=== PATIENT | male | born 1985 | race African-American/Black ===

== ENCOUNTER 2017-04-18 13:57 | Emergency (ER) ==
[2017-04-18] MEDS ORDERED: Ketorolac Tromethamine 60 MG/2 ML VIAL ONE (15:27)
== END 2017-04-18 15:56 | disposition home or self-care (01) ==
LOC: ERS 13:57
DX: B02.29 Other postherpetic nervous system involvement (principal); F17.210 Nicotine dependence, cigarettes, uncomplicated
CPT/HCPCS: 96372; J1885

== ENCOUNTER 2017-05-05 11:48 | Emergency (ER) | payer SELFPAY ==
[2017-05-05 12:32] LABS: Bilirubin Negative (Negative); Blood, Urine Small (Negative); Glucose, Urine (Dipstick) Negative (Negative); Leukocyte Negative (Negative); Nitrite Negative (Negative); Protein, Urine (Dipstick) Negative (Neg-Trace); Urobilinogen 0.2 mg/dL (0.2-1.0); pH, Urine 7.5 (5.0-9.0)
[2017-05-05 12:36] LABS: Clarity CLEAR (Clear)
[2017-05-05 12:38] LABS: Bacteria/HPF None Seen HPF (None Seen); Hyaline Casts/LPF NONE SEEN LPF (0-3 Hyaline); RBC/HPF 0-3 HPF (0-3); Squamous Epithelial 0-3 HPF (0-3); WBC/HPF None Seen HPF (0-3)
[2017-05-05 12:43] LABS: #Lymphocytes 1.5 thou/uL (1.20-3.40); #Monocytes 0.4 thou/uL (0.11-0.59); #Neutrophils 1.5 thou/uL (1.40-6.50); %Basophils 0.8 % (0.0-1.0); %Eosinophils 1.3 % (0.0-10.0); %Lymphocytes 43.9 % (21.0-51.0); %Monocytes 10.5 % (0.0-10.0); %Neutrophils 43.5 % (42.0-75.0); Mean Corpuscular HGB CONC 32.8 g/dL (32.0-36.0); Mean Corpuscular Hemoglobin 33.5 pg (27.0-31.0); Mean Platelet Volume 6.4 fL (7.4-10.4); Platelet Count 324 thou/uL (130-400); RBC Distribution Width 12.2 % (11.5-14.5); Red Blood Cell (RBC) Count 4.78 mill/uL (4.70-6.10); White Blood Cell (WBC) Count 3.4 thou/uL (4.8-10.8)
[2017-05-05 12:52] LABS: INR-International Normal Ratio 0.9; Prothrombin Time 12.7 SEC (12.0-14.7)
[2017-05-05 13:12] LABS: ALT (SGPT) 16 U/L (8-55); AST (SGOT) 22 U/L (5-34); Albumin 3.6 g/dL (3.5-5.0); Alkaline Phosphatase 81 U/L (40-150); Anion Gap 11 mmol/L (10-20); BUN (Urea Nitrogen) 10 mg/dL (8.9-20.6); Bilirubin, Total 0.4 mg/dL (0.2-1.2); Calc. Creatinine Clearance 0 mL/min (70-130); Calcium 9.6 mg/dL (7.8-10.44); Carbon Dioxide 25 mmol/L (22-29); Chloride 104 mmol/L (98-107); Estimated GFR-MDRD 80; Globulin 5.1 g/dL (2.4-3.5); Glucose 78 mg/dL (70-105); Lipase 109 U/L (8-78); Potassium 3.7 mmol/L (3.5-5.1); Protein, Total 8.7 g/dL (6.0-8.3); Sodium 136 mmol/L (136-145)
[2017-05-05] MEDS ORDERED: ISOVUE-370 76%-LOCM 1 ML ONE (13:43)
--- NOTE | 2017-05-05 14:37 | CT ---
CT OF THE ABDOMEN AND PELVIS WITH IV CONTRAST: INDICATION: History of abdominal pain, HIV, and rectal pain with some blood with bowel movements. The patient is also having nausea. COMPARISON: None. FINDINGS: The lung bases are clear. No focal hepatic lesion is evident. The pancreas, adrenal glands, and spleen appear within normal li mits. The spleen measures 10.4 cm. The kidneys are normal-appearing. No free fluid or enlarged lym ph nodes are evident. There is a normal appendix in the right lower quadrant. The bladder, prostate, and perirectal soft t issues appear within normal limits. The ischial rectal fossa appears within normal limits. There is slight prominence of soft tissue at the level of the anus on image 90 of series 2 which may reflect anal pathology. Recommend correlation. This is not well detailed on the CT scan. Unopacified large and small bowel appear within normal limits. No definite acute osseous abnormality is evident. IMPRESSION: 1. Soft tissue prominence seen at the level of the anus may reflect changes of prominent hemorrhoids or possibly related to an anal mass. Recommend direct visualization. The ischial rectal fossa is p reserved. No definite perirectal fluid collection is grossly evident. No intrapelvic mass or fluid is evident. 2. No additional abnormality noted. POS: [facility]
[2017-05-05] MEDS ORDERED: Piperacillin/Tazobactam 4.5 GM in Sodium Chloride 0.9% 100 ML IVPB ONE (15:00)
[2017-05-05] MEDS ORDERED: metroNIDAZOLE 500 MG/100 ML BAG ONE (15:09)
== END 2017-05-05 17:12 | disposition home or self-care (01) ==
LOC: ERS 11:48
DX: K64.4 Residual hemorrhoidal skin tags (principal); R10.9 Unspecified abdominal pain; R19.7 Diarrhea, unspecified; B20 Human immunodeficiency virus [HIV] disease; F17.210 Nicotine dependence, cigarettes, uncomplicated
CPT/HCPCS: 36415; 74177; 80053; 81003; 81015; 83690; 85025; 85610; 87040; 87086; 94760; 96361; 96365; 96367; 96375; J2270; J2543; J7050

== ENCOUNTER 2017-10-02 11:15 | Emergency (ER) | payer SELFPAY ==
[2017-10-02] MEDS ORDERED: Ketorolac Tromethamine 30 MG/ML VIAL ONE (12:36)
== END 2017-10-02 12:51 | disposition home or self-care (01) ==
LOC: ERS 11:15
DX: J01.90 Acute sinusitis, unspecified (principal); B34.9 Viral infection, unspecified; M67.432 Ganglion, left wrist; B20 Human immunodeficiency virus [HIV] disease; F17.210 Nicotine dependence, cigarettes, uncomplicated
CPT/HCPCS: 96372; J1885

== ENCOUNTER 2018-04-16 13:56 | Inpatient (IN) | payer SELFPAY ==
[2018-04-16] MEDS ORDERED: Morphine 4 MG/ML VIAL ONE ×2 (14:53)
--- NOTE | 2018-04-16 15:13 | RAD ---
CHEST 1 VIEW: INDICATION: Chest pain. COMPARISON: None. FINDINGS: Thee is a patchy area of airspace opacity within the right upper lobe which may reflect pneumonia. T he left lung is clear. No pneumothorax or pleural effusion is evident. There is a calcified granulo ma within the left upper lobe and right lower lobe. No acute osseous abnormality is evident. IMPRESSION: Patchy airspace opacity within the right upper lobe may reflect pneumonia. Recommend radiographic fo llowup to resolution. POS: [facility]
[2018-04-16 15:24] LABS: #Lymphocytes 1.2 thou/uL (1.20-3.40); #Monocytes 0.7 thou/uL (0.11-0.59); %Basophils 0.4 % (0.0-1.0); %Eosinophils 0.5 % (0.0-10.0); %Lymphocytes 13.4 % (21.0-51.0); %Neutrophils 77.8 % (42.0-75.0); Hemoglobin 16.7 g/dL (14.0-18.0); Mean Corpuscular HGB CONC 32.8 g/dL (32.0-36.0); Mean Corpuscular Hemoglobin 33.2 pg (27.0-31.0); Mean Platelet Volume 7.3 fL (7.4-10.4); Platelet Count 208 thou/uL (130-400); RBC Distribution Width 12.9 % (11.5-14.5); Red Blood Cell (RBC) Count 5.03 mill/uL (4.70-6.10)
[2018-04-16 15:45] LABS: ALT (SGPT) 13 U/L (8-55); AST (SGOT) 17 U/L (5-34); Alkaline Phosphatase 84 U/L (40-150); Anion Gap 15 mmol/L (10-20); BUN (Urea Nitrogen) 5 mg/dL (8.9-20.6); Bilirubin, Total 0.5 mg/dL (0.2-1.2); CK (CPK) 169 U/L (30-200); Calc. Creatinine Clearance 0 mL/min (70-130); Calcium 9.5 mg/dL (7.8-10.44); Carbon Dioxide 20 mmol/L (22-29); Chloride 104 mmol/L (98-107); Estimated GFR-MDRD 85; Globulin 4.1 g/dL (2.4-3.5); Glucose 63 mg/dL (70-105); Lipase 88 U/L (8-78); Potassium 4.2 mmol/L (3.5-5.1); Protein, Total 8.1 g/dL (6.0-8.3); Sodium 135 mmol/L (136-145)
[2018-04-16] MEDS ORDERED: cefTRIAXone\\ROCEPHIN 2 GM VIAL ONE (15:45)
[2018-04-16] MEDS ORDERED: Azithromycin 500 MG VIAL ONE (17:15)
[2018-04-16] MEDS ORDERED: Ondansetron PF 4 MG/2 ML Vial ONE (17:33)
[2018-04-16] MEDS ORDERED: Ondansetron PF 4 MG/2 ML Vial IVP PRN (18:24)
[2018-04-16] MEDS ORDERED: Ondansetron ODT 4 MG TAB SL PRN (18:24)
[2018-04-16 19:22] LABS: Lactic Acid 2.4 mmol/L (0.5-2.2)
[2018-04-16] MEDS ORDERED: Acetaminophen 325 MG TAB PO PRN (19:51)
[2018-04-16 20:22] VITALS: BMI 22.4
[2018-04-16] MEDS ORDERED: traMADol HCl 50 MG TAB PO PRN (22:05)
[2018-04-17] MEDS ORDERED: Eucerin (Mineral Oil/Petrolatum,White) 30 gm Jar TOP PRN (07:39)
[2018-04-17] MEDS ORDERED: Artificial Tears 18 DROP/0.9 ML EA EYE PRN (07:39)
[2018-04-17] MEDS ORDERED: Senokot S 8.6-50 MG TAB PO PRN (07:39)
[2018-04-17] MEDS ORDERED: Ondansetron ODT 4 MG TAB PO PRN (07:39)
[2018-04-17] MEDS ORDERED: Sodium Chloride 0.65% Nasal 44 ML BOT EA NARE PRN (07:39)
[2018-04-17] MEDS ORDERED: Diabetic Tussin 200 MG/10 ML UDCUP PO PRN (07:39)
[2018-04-17] MEDS ORDERED: Zolpidem Tartrate 5 MG TAB PO PRN (07:39)
[2018-04-17] MEDS ORDERED: Cepastat Lozenges 1 LOZ PO PRN (07:39)
[2018-04-17] MEDS ORDERED: Acetaminophen 500 MG TAB PO PRN (07:39)
[2018-04-17] MEDS ORDERED: Ondansetron PF 4 MG/2 ML Vial IVP PRN (07:39)
[2018-04-17] MEDS ORDERED: Calcium Carbonate 500 MG ChewTAB PO PRN (07:39)
[2018-04-17] MEDS ORDERED: Loperamide HCl 2 MG CAP PO PRN (07:39)
[2018-04-17] MEDS ORDERED: Loratadine 10 MG TAB PO PRN (07:39)
[2018-04-17] MEDS ORDERED: hydrALAZINE 20 MG/ML VIAL SLOW IVP PRN (07:39)
[2018-04-17] MEDS ORDERED: Bisacodyl 5 MG TAB PO PRN (07:39)
--- NOTE | 2018-04-17 07:46 | HP ---
PRIMARY CARE PHYSICIAN: Damir Chester MD. He does not follow with any other PCP. CODE STATUS: Full code. TIME OF EVALUATION: 11:30. CHIEF COMPLAINT: Cough, generalized weakness. HISTORY OF PRESENT ILLNESS: This is a 33-year-old male patient with past medical history of HIV. The patient came to the hospital after having chest pain associated with gradually worsening moderate shortness of breath, fever, generalized weakness; no clear triggers, no alleviating factors. The patient reported following with Dr. Chester for HIV, but does not recall his last CD4. REVIEW OF SYSTEMS: CONSTITUTIONAL: The patient has fever, chills, generalized weakness. RESPIRATORY: Cough with sputum production, shortness of breath, also chest pain. CARDIOVASCULAR: no sob, no chest pain palpitations. GASTROINTESTINAL: The patient has nausea. No vomiting. No diarrhea or abdominal pain. TRADE SHOW COORDINATOR: No dizziness, headache, or feeling lightheaded. GENITOURINARY: No burning on urination. EXTREMITIES: No leg swelling. All other systems were reviewed and negative except for the findings mentioned above. PAST MEDICAL HISTORY: Includes history of HIV, history of noncompliance, history of syphilis. PAST SURGICAL HISTORY: The patient has no surgical history. PSYCH HISTORY: No psych history. SOCIAL HISTORY: Drinks socially every week. The patient use marijuana, smokes cigarettes half a pack per day. KNOWN ALLERGIES: No known drug allergies. REPORTED MEDICATIONS: Januvia. PHYSICAL EXAMINATION: VITAL SIGNS: On presentation, blood pressure 152/97 with heart rate 85, respiratory rate was 18, temperature 98.2. Pain was 10. Oxygen saturation was 99 on room air. GENERAL APPEARANCE: The patient has generalized weakness, being very ill, febrile during my examination, not in any acute distress. HEENT: Eyes, normal conjunctivae. Moist oral mucosa. Anicteric. No JVD. RESPIRATORY: The patient has bilateral air entry and bilateral rales. No wheezes. Symmetric expansion. CARDIOVASCULAR: Normal rate. Regular rhythm. murmurs. No gallops. No edema. ABDOMEN: Soft. Normal bowel sounds. MUSCULOSKELETAL: Baseline range of motion and strength. No tenderness. SKIN: Warm, intact. No pallor. No rash. No redness. EXTREMITIES: Peripheral pulses are present. Capillary refill seems to be intact. NEURO: No evidence of any new focal weakness. Baseline speech. Cranial nerves seems to be intact. PSYCH: The patient is in good mood. No anxiety. Oriented, optimal judgment. DIAGNOSTIC DATA: EKG was reviewed. The patient has normal sinus rhythm, normal EKG with a ventricular rate of 62. Chest x-ray was reviewed and the patient has patchy airspace opacity within the right upper lobe that may reflect pneumonia. LABORATORY DATA: Labs were reviewed. The patient has a white count of 9, hemoglobin 16.7, MCV 101 with platelet count 208. Chemistry: Sodium 135, potassium 4.2, chloride 104, carbon dioxide 20, anion gap 15, BUN 5, creatinine 1.21, GFR 85, glucose 63, lactic acid 3.6 with repeat one 2.4. LFTs were normal. Troponin was negative. ASSESSMENT AND PLAN: The patient was placed in the hospital with the following medical problems; 1. Right upper lobe pneumonia. The patient is being started on Rocephin and Zithromax, we have consulted Dr. Chester for any further recommendations since he follows with this patient for human immunodeficiency virus. Human immunodeficiency virus medication has been reconciled. We will follow cultures, we will adjust treatment as per sensitivity. Opportunistic infections are also under differential, we will re-evaluate the patient in the morning during further treatment adjustments if the patient is not improving. 1. Human immunodeficiency virus infection, we will reconcile home medications. Follow up with Dr. Chester' recommendations. 2. Deep vein thrombosis prophylaxis. Job ID: [id number] [facility]
[2018-04-17] MEDS: HYDROcodone/Acetaminophen 5/325 mg Tablet PO PRN ×3 (08:11→21:03)
[2018-04-17] MEDS: Famotidine 20 MG TAB PO SCH ×2 (08:13→20:59)
[2018-04-17] MEDS: Enoxaparin Sodium 40 MG/0.4 ML SYRINGE SC SCH (08:13)
[2018-04-17] MEDS: Saccharomyces boulardii 250 MG CAP PO SCH (08:13)
[2018-04-17] MEDS ORDERED: Prevnar 13-Val Conj/PF 0.5 ML SYRINGE IM ONE (09:00)
[2018-04-17 09:16] LABS: Base Excess-Venous 2.7 mmol/L (0 (+/- 2.5)); Bicarbonate (HCO3v) 28.7 mmol/L (22.0-29.0); Calcium, Ionized 1.19 mmol/L (1.12-1.32); Hemoglobin - Calc 15.9 g/dL (12.0-18.0); O2 Tension (PvO2) 40.1 mmHg (35.0-45.0); Potassium 3.8 mmol/L (3.4-4.7); T. Carbon Dioxide 30.2 mmol/L (1.0-85.0); pH (Venous) 7.385 (7.35-7.45); vO2 Saturation-calc 73.5 % (94-98)
--- NOTE | 2018-04-17 09:53 | PDOC.PN ---
- Subjective Encounter Start Date: 04/17/18 Encounter Start Time: 08:40 -: old records requested/rev pt has cough, no hemoptysis, has weight loss Patient seen and examined. No overnight events - Objective Resuscitation Status - Order Detail: 04/17/18 07:39 Resuscitation Status Routine Resuscitation Status: FULL: Full Resuscitation MAR Reviewed: Yes Vital Signs & Weight: Vital Signs (12 hours) Temp Pulse Resp BP Pulse Ox 04/17/18 07:11 98.3 F 70 16 119/77 100 Weight Weight 165 lb Result Diagrams: 04/16/18 15:09 04/16/18 15:09 Radiology Reviewed by me: Yes (chest xray reviwed) Phys Exam - Physical Examination Constitutional: NAD HEENT: PERRLA, moist MMs, sclera anicteric Neck: no JVD, supple Respiratory: no wheezing, no rales, no rhonchi Cardiovascular: RRR, no significant murmur, no rub Gastrointestinal: soft, non-tender, no distention, positive bowel sounds Musculoskeletal: no edema, pulses present Neurological: non-focal, normal sensation, moves all 4 limbs Lymphatic: no nodes Psychiatric: normal affect, A&O x 3 Skin: no rash, normal turgor Dx/Plan (1) Community acquired bacterial pneumonia Code(s): J15.9 - UNSPECIFIED BACTERIAL PNEUMONIA Status: Acute Comment: right upper lobe (2) Hyponatremia Code(s): E87.1 - HYPO-OSMOLALITY AND HYPONATREMIA Status: Acute (3) Lactic acidosis Code(s): E87.2 - ACIDOSIS Status: Acute (4) HIV (human immunodeficiency virus infection) Code(s): B20 - HUMAN IMMUNODEFICIENCY VIRUS [HIV] DISEASE Status: Chronic (5) Macrocytosis Code(s): D75.89 - OTHER SPECIFIED DISEASES OF BLOOD AND BLOOD-FORMING ORGANS Status: Chronic - Plan cont current plan of care, continue antibiotics * medication reviewed as below * symptomatic treatment * continue rocephin and azithromycin * ID consulted and will decide if he needs more imaging like CT chest for more better evaluation of current finding on chest xray * I advised him to follow up with repeat imaging for resolution. Review of Systems - Review of Systems ENT: negative: Ear Pain, Ear Discharge, Nose Pain, Nose Discharge, Nose Congestion, Mouth Pain, Mouth Swelling, Throat Pain, Throat Swelling, Other Respiratory: Cough. negative: Dry, Shortness of Breath, Hemoptysis, SOB with Excertion, Pleuritic Pain, Sputum, Wheezing Cardiovascular: negative: chest pain, palpitations, orthopnea, paroxysmal nocturnal dyspnea, edema, light headedness, other Gastrointestinal: negative: Nausea, Vomiting, Abdominal Pain, Diarrhea, Constipation, Melena, Hematochezia, Other Genitourinary: negative: Dysuria, Frequency, Incontinence, Hematuria, Retention , Other Musculoskeletal: negative: Neck Pain, Shoulder Pain, Arm Pain, Back Pain, Hand Pain, Leg Pain, Foot Pain, Other Skin: negative: Rash, Lesions, Antoine, Bruising, Other - Medications/Allergies Allergies/Adverse Reactions: Allergies Allergy/AdvReac Type Severity Reaction Status Date / Time No Known Allergies Allergy Unverified 05/05/17 14:47 Medications: Current Medications Acetaminophen (Tylenol) 650 mg PO Q4H PRN PRN Reason: Mild Pain (1-3)/ FEVER Acetaminophen (Tylenol) 500 mg PO Q6H PRN PRN Reason: Mild Pain (1-3) Hydrocodone Bitart/Acetaminophen ([place] 5/325) 1 tab PO Q4H PRN PRN Reason: Moderate Pain (4-6) Last Admin: 04/17/18 08:11 Dose: 1 tab Artificial Tears (Tears Naturale) 2 drop EA EYE PRN PRN PRN Reason: Dry Eyes Bisacodyl (Dulcolax) 10 mg PO DAILYPRN PRN PRN Reason: Constipation Calcium Carbonate (Tums) 1,000 mg PO Q4H PRN PRN Reason: Heartburn or Indigestion Enoxaparin Sodium (Lovenox) 40 mg SC 0900 [facility] Last Admin: 04/17/18 08:13 Dose: 40 mg Famotidine (Pepcid) 20 mg PO BID [facility] Last Admin: 04/17/18 08:13 Dose: 20 mg Guaifenesin (Robitussin Sf) 200 mg PO Q4H PRN PRN Reason: Cough Hydralazine HCl (Apresoline) 10 mg SLOW IVP Q4H PRN PRN Reason: SBP > 180 and HR < 70 Azithromycin 500 mg/ Sodium (Chloride) 250 mls @ 250 mls/hr IVPB Q24HR [facility] Ceftriaxone Sodium 2 gm/ (Sodium Chloride) 100 mls @ 200 mls/hr IVPB Q24HR [facility] Loperamide HCl (Imodium) 2 mg PO PRN PRN PRN Reason: Diarrhea/Loose Stools Loratadine (Claritin) 10 mg PO DAILYPRN PRN PRN Reason: Sinus Symptoms Mineral Oil/White Petrolatum (Eucerin Cream) 0 gm TOP BIDPRN PRN PRN Reason: Dry Skin Ondansetron HCl (Zofran Odt) 4 mg PO Q6H PRN PRN Reason: Nausea/Vomiting Ondansetron HCl (Zofran) 4 mg IVP Q6H PRN PRN Reason: Nausea/Vomiting (Elviteg/Cob/Emtri/Tenof Alafen [ Genvoya Tablet] 1 Tab) 1 each PO DAILY [facility] Saccharomyces Boulardii (Florastor) 250 mg PO DAILY [facility] Last Admin: 04/17/18 08:13 Dose: 250 mg Senna/Docusate Sodium (Senokot S) 2 tab PO BID PRN PRN Reason: Constipation Sodium Chloride ([place] Nasal [place] 0.65%) 0 ml EA NARE QIDPRN PRN PRN Reason: Nasal Congestion Sodium Chloride (Flush - Normal Saline) 10 ml IVF Q12HR [facility] Last Admin: 04/17/18 08:15 Dose: 10 ml Sodium Chloride (Flush - Normal Saline) 10 ml IVF PRN PRN PRN Reason: Saline Flush Throat Lozenges (Cepastat Lozenges) 1 carroll PO Q2H PRN PRN Reason: Sore Throat Tramadol HCl (Ultram) 50 mg PO Q6H PRN PRN Reason: Moderate Pain (4-6) Last Admin: 04/16/18 22:22 Dose: 50 mg Zolpidem Tartrate (Ambien) 5 mg PO HSPRN PRN PRN Reason: Insomnia
[2018-04-17] MEDS: (Elviteg/Cob/Emtri/Tenof Alafen [Genvoya Tablet] 1 TAB) PO SCH (11:00)
[2018-04-17] MEDS: cefTRIAXone\\ROCEPHIN 2 GM in Sodium Chloride 0.9% 100 ML IVPB SCH (15:16)
[2018-04-17] MEDS: Azithromycin 500 MG in Sodium Chloride 0.9% 250 ML 250 ML IVPB SCH (16:40)
--- NOTE | 2018-04-17 20:47 | CON ---
DATE OF CONSULTATION: 04/17/2018 REASON FOR CONSULTATION: Pneumonia. HISTORY OF PRESENT ILLNESS: This is a 33-year-old male who has a history of HIV seropositive status, who had been on effective anti-retroviral therapy for the past 2 years with Genvoya. Last time I saw him was in 08/2017. He missed his visit on 03/05. His last CD4 cell count was in the 600 range and he presents this time with fever, chills, chest pain in the anterior lower chest area, cough. He had a chest x-ray which was consistent with community-acquired pneumonia. He was admitted for management. Currently, he feels a little better. No headaches. No visual symptoms, sore throat, odynophagia, or dysphagia. A little bit of cough, but no more sputum production. Chest pain is on and off. No back pain. No abdominal pain or diarrhea. No genitourinary symptoms. 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 PAST MEDICAL HISTORY: Longstanding HIV infection. His last CD4 cell count was in the mid 600 range and viral load was I believe undetectable. He has a history of syphilis as well. 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 ALLERGIES: NONE. CURRENT MEDICATION LIST: Azithromycin, ceftriaxone. He is also taking his anti-retroviral medication, p.r.n. medications. PHYSICAL EXAMINATION: VITAL SIGNS: T-max 99, his other vital signs are normal. O2 saturation 100% on room air. SKIN: Normal. No lymphadenopathy. Ocular movements conjugate. Oral cavity is normal. NECK: Supple. No jugular venous distention. LUNGS: With fairly clear breath sounds. A little bit of crackle in the right anterior chest area upper segment. HEART: S1 and S2. Regular rate. No S3 or S4. No murmurs. ABDOMEN: Soft, not distended or tender. No genital abnormalities. MUSCULOSKELETAL: No joint inflammatory activity. NEUROLOGIC: Nonfocal. LABORATORY DATA: White cell count 9.0, hemoglobin 16.7, platelets 208 with 77% neutrophils. PH 7.38, pCO2 of 48, pO2 of 40, this is a venous gas. Creatinine 1.21. Liver profile normal. Albumin 4.0. Blood cultures 2 sets, no growth. Chest x-ray with patchy airspace opacity within the right upper lobe. ASSESSMENT: Human immunodeficiency virus seropositive status with adequate CD4 cell count now, presents with an infiltrate in the right upper lobe with cough and some chest pain. DISCUSSION: Differential diagnosis includes usual community-acquired pneumonia associated pathogens such as strep pneumoniae and other organisms versus mycobacterial infection. Fungal is less likely in view of his elevated CD4 cell count on last checked 6 months ago. Usual CD4 counts decreased slowly over the years and I would not expect any major changes from the past result from August last year. The only thing we need to do is repeat the QuantiFERON and submit sputums for AF[employer]. He will have to be in airborne precautions until that is cleared. If we get no sputums and he is doing well, then he could be discharged for outpatient followup on oral doxycycline or oral quinolone. He should continue on his anti-retroviral medication. Follow up in the clinic in 2 to 3 weeks. Job ID: [id number]
[2018-04-17] MEDS: Nicotine 14 MG PATCH TOP SCH (20:59)
[2018-04-18] MEDS: HYDROcodone/Acetaminophen 5/325 mg Tablet PO PRN ×4 (01:24→21:17)
[2018-04-18 06:06] LABS: #Basophils 0.1 thou/uL (0.0-0.2); #Eosinphils 0.1 thou/uL (0.0-0.7); #Lymphocytes 2.9 thou/uL (1.20-3.40); #Monocytes 0.6 thou/uL (0.11-0.59); %Basophils 0.7 % (0.0-1.0); %Monocytes 5.8 % (0.0-10.0); %Neutrophils 65.5 % (42.0-75.0); Hemoglobin 14.8 g/dL (14.0-18.0); Mean Corpuscular HGB CONC 33.3 g/dL (32.0-36.0); Mean Corpuscular Hemoglobin 34.2 pg (27.0-31.0); Mean Platelet Volume 7.1 fL (7.4-10.4); Platelet Count 195 thou/uL (130-400); RBC Distribution Width 12.6 % (11.5-14.5); Red Blood Cell (RBC) Count 4.33 mill/uL (4.70-6.10); White Blood Cell (WBC) Count 10.7 thou/uL (4.8-10.8)
[2018-04-18 06:36] LABS: Anion Gap 12 mmol/L (10-20); BUN (Urea Nitrogen) 8 mg/dL (8.9-20.6); Calc. Creatinine Clearance 86 mL/min (70-130); Calcium 9.2 mg/dL (7.8-10.44); Carbon Dioxide 23 mmol/L (22-29); Chloride 105 mmol/L (98-107); Estimated GFR-MDRD 77; Glucose 78 mg/dL (70-105); Potassium 3.7 mmol/L (3.5-5.1); Sodium 136 mmol/L (136-145)
[2018-04-18] MEDS: Famotidine 20 MG TAB PO SCH ×2 (08:59→21:18)
[2018-04-18] MEDS: Saccharomyces boulardii 250 MG CAP PO SCH (08:59)
[2018-04-18] MEDS: (Elviteg/Cob/Emtri/Tenof Alafen [Genvoya Tablet] 1 TAB) PO SCH (09:00)
[2018-04-18] MEDS: Enoxaparin Sodium 40 MG/0.4 ML SYRINGE SC SCH (09:00)
--- NOTE | 2018-04-18 09:54 | PDOC.PN ---
- Subjective Encounter Start Date: 04/18/18 Encounter Start Time: 08:50 Patient seen and examined. No new complaints. No overnight events - Objective Resuscitation Status - Order Detail: 04/17/18 07:39 Resuscitation Status Routine Resuscitation Status: FULL: Full Resuscitation MAR Reviewed: Yes Vital Signs & Weight: Vital Signs (12 hours) Temp Pulse Resp BP Pulse Ox 04/18/18 07:32 97.9 F 63 18 132/91 H 98 Weight Weight 165 lb I&O: 04/17/18 04/18/18 04/19/18 06:59 06:59 06:59 Intake Total 1270 Balance 1270 Result Diagrams: 04/18/18 05:55 04/18/18 05:55 Phys Exam - Physical Examination Constitutional: NAD HEENT: PERRLA, moist MMs, sclera anicteric Neck: no JVD, supple Respiratory: no wheezing, no rales, no rhonchi Cardiovascular: RRR, no significant murmur, no rub Gastrointestinal: soft, non-tender, no distention, positive bowel sounds Musculoskeletal: no edema, pulses present Neurological: non-focal, normal sensation, moves all 4 limbs Lymphatic: no nodes Psychiatric: normal affect, A&O x 3 Skin: no rash, normal turgor Dx/Plan (1) Community acquired bacterial pneumonia Code(s): J15.9 - UNSPECIFIED BACTERIAL PNEUMONIA Status: Acute Comment: right upper lobe (2) Hyponatremia Code(s): E87.1 - HYPO-OSMOLALITY AND HYPONATREMIA Status: Acute (3) Lactic acidosis Code(s): E87.2 - ACIDOSIS Status: Acute (4) HIV (human immunodeficiency virus infection) Code(s): B20 - HUMAN IMMUNODEFICIENCY VIRUS [HIV] DISEASE Status: Chronic (5) Macrocytosis Code(s): D75.89 - OTHER SPECIFIED DISEASES OF BLOOD AND BLOOD-FORMING ORGANS Status: Chronic - Plan cont current plan of care, continue antibiotics * continue rocephin and azithromycin * rule out Tb * continue HIV meds * medication reviewed as below * symptomatic treatment. Review of Systems - Review of Systems ENT: negative: Ear Pain, Ear Discharge, Nose Pain, Nose Discharge, Nose Congestion, Mouth Pain, Mouth Swelling, Throat Pain, Throat Swelling, Other Respiratory: negative: Cough, Dry, Shortness of Breath, Hemoptysis, SOB with Excertion, Pleuritic Pain, Sputum, Wheezing Cardiovascular: negative: chest pain, palpitations, orthopnea, paroxysmal nocturnal dyspnea, edema, light headedness, other Gastrointestinal: negative: Nausea, Vomiting, Abdominal Pain, Diarrhea, Constipation, Melena, Hematochezia, Other Genitourinary: negative: Dysuria, Frequency, Incontinence, Hematuria, Retention , Other Musculoskeletal: negative: Neck Pain, Shoulder Pain, Arm Pain, Back Pain, Hand Pain, Leg Pain, Foot Pain, Other - Medications/Allergies Allergies/Adverse Reactions: Allergies Allergy/AdvReac Type Severity Reaction Status Date / Time No Known Allergies Allergy Unverified 05/05/17 14:47 Medications: Current Medications Acetaminophen (Tylenol) 650 mg PO Q4H PRN PRN Reason: Mild Pain (1-3)/ FEVER Acetaminophen (Tylenol) 500 mg PO Q6H PRN PRN Reason: Mild Pain (1-3) Hydrocodone Bitart/Acetaminophen ([place] 5/325) 1 tab PO Q4H PRN PRN Reason: Moderate Pain (4-6) Last Admin: 04/18/18 08:58 Dose: 1 tab Artificial Tears (Tears Naturale) 2 drop EA EYE PRN PRN PRN Reason: Dry Eyes Bisacodyl (Dulcolax) 10 mg PO DAILYPRN PRN PRN Reason: Constipation Calcium Carbonate (Tums) 1,000 mg PO Q4H PRN PRN Reason: Heartburn or Indigestion Enoxaparin Sodium (Lovenox) 40 mg SC 0900 [facility] Last Admin: 04/18/18 09:00 Dose: 40 mg Famotidine (Pepcid) 20 mg PO BID [facility] Last Admin: 04/18/18 08:59 Dose: 20 mg Guaifenesin (Robitussin Sf) 200 mg PO Q4H PRN PRN Reason: Cough Hydralazine HCl (Apresoline) 10 mg SLOW IVP Q4H PRN PRN Reason: SBP > 180 and HR < 70 Azithromycin 500 mg/ Sodium (Chloride) 250 mls @ 250 mls/hr IVPB Q24HR [facility] Last Admin: 04/17/18 16:40 Dose: 250 mls Ceftriaxone Sodium 2 gm/ (Sodium Chloride) 100 mls @ 200 mls/hr IVPB Q24HR [facility] Last Admin: 04/17/18 15:16 Dose: 100 mls Loperamide HCl (Imodium) 2 mg PO PRN PRN PRN Reason: Diarrhea/Loose Stools Loratadine (Claritin) 10 mg PO DAILYPRN PRN PRN Reason: Sinus Symptoms Mineral Oil/White Petrolatum (Eucerin Cream) 0 gm TOP BIDPRN PRN PRN Reason: Dry Skin Nicotine (Nicoderm Patch) 14 mg TOP Q24HR [facility] Last Admin: 04/17/18 20:59 Dose: 14 mg Ondansetron HCl (Zofran Odt) 4 mg PO Q6H PRN PRN Reason: Nausea/Vomiting Ondansetron HCl (Zofran) 4 mg IVP Q6H PRN PRN Reason: Nausea/Vomiting (Elviteg/Cob/Emtri/Tenof Alafen [ Genvoya Tablet] 1 Tab) 0 each PO DAILY [facility] Last Admin: 04/18/18 09:00 Dose: 1 each Saccharomyces Boulardii (Florastor) 250 mg PO DAILY [facility] Last Admin: 04/18/18 08:59 Dose: 250 mg Senna/Docusate Sodium (Senokot S) 2 tab PO BID PRN PRN Reason: Constipation Last Admin: 04/18/18 09:13 Dose: 2 tab Sodium Chloride ([place] Nasal [place] 0.65%) 0 ml EA NARE QIDPRN PRN PRN Reason: Nasal Congestion Sodium Chloride (Flush - Normal Saline) 10 ml IVF Q12HR [facility] Last Admin: 04/18/18 09:03 Dose: 10 ml Sodium Chloride (Flush - Normal Saline) 10 ml IVF PRN PRN PRN Reason: Saline Flush Throat Lozenges (Cepastat Lozenges) 1 carroll PO Q2H PRN PRN Reason: Sore Throat Tramadol HCl (Ultram) 50 mg PO Q6H PRN PRN Reason: Moderate Pain (4-6) Last Admin: 04/16/18 22:22 Dose: 50 mg Zolpidem Tartrate (Ambien) 5 mg PO HSPRN PRN PRN Reason: Insomnia
[2018-04-18] MEDS: cefTRIAXone\\ROCEPHIN 2 GM in Sodium Chloride 0.9% 100 ML IVPB SCH (15:21)
[2018-04-18] MEDS: Azithromycin 500 MG in Sodium Chloride 0.9% 250 ML 250 ML IVPB SCH (15:45)
[2018-04-18] MEDS: Nicotine 14 MG PATCH TOP SCH (18:16)
[2018-04-19] MEDS: HYDROcodone/Acetaminophen 5/325 mg Tablet PO PRN ×4 (02:30→23:05)
[2018-04-19] MEDS: (Elviteg/Cob/Emtri/Tenof Alafen [Genvoya Tablet] 1 TAB) PO SCH (08:45)
[2018-04-19] MEDS: Enoxaparin Sodium 40 MG/0.4 ML SYRINGE SC SCH (08:46)
[2018-04-19] MEDS: Famotidine 20 MG TAB PO SCH ×2 (08:46→21:04)
[2018-04-19] MEDS: Saccharomyces boulardii 250 MG CAP PO SCH (08:46)
--- NOTE | 2018-04-19 10:02 | PDOC.PN ---
- Subjective Encounter Start Date: 04/19/18 Encounter Start Time: 07:30 Patient seen and examined. No new complaints. No overnight events - Objective Resuscitation Status - Order Detail: 04/17/18 07:39 Resuscitation Status Routine Resuscitation Status: FULL: Full Resuscitation MAR Reviewed: Yes Vital Signs & Weight: Vital Signs (12 hours) Temp Pulse Resp BP Pulse Ox 04/19/18 08:00 97.8 F 61 18 122/80 97 Weight Weight 165 lb I&O: 04/18/18 04/19/18 04/20/18 06:59 06:59 06:59 Intake Total 1270 600 Balance 1270 600 Result Diagrams: 04/18/18 05:55 04/18/18 05:55 Phys Exam - Physical Examination Constitutional: NAD HEENT: PERRLA, moist MMs, sclera anicteric Neck: no JVD, supple Respiratory: no wheezing, no rales, no rhonchi Cardiovascular: RRR, no significant murmur, no rub Gastrointestinal: soft, non-tender, no distention, positive bowel sounds Musculoskeletal: no edema, pulses present Neurological: non-focal, normal sensation, moves all 4 limbs Lymphatic: no nodes Psychiatric: normal affect, A&O x 3 Skin: no rash, normal turgor Dx/Plan (1) Community acquired bacterial pneumonia Code(s): J15.9 - UNSPECIFIED BACTERIAL PNEUMONIA Status: Acute Comment: right upper lobe (2) Hyponatremia Code(s): E87.1 - HYPO-OSMOLALITY AND HYPONATREMIA Status: Acute (3) Lactic acidosis Code(s): E87.2 - ACIDOSIS Status: Acute (4) HIV (human immunodeficiency virus infection) Code(s): B20 - HUMAN IMMUNODEFICIENCY VIRUS [HIV] DISEASE Status: Chronic (5) Macrocytosis Code(s): D75.89 - OTHER SPECIFIED DISEASES OF BLOOD AND BLOOD-FORMING ORGANS Status: Chronic - Plan cont current plan of care, continue antibiotics * medication reviewed as below * symptomatic treatment * continue rocephin and azithromycin * once Tb ruled out, will consider discharge on oral meds * I advised him again to repeat chest xray on follow up with PCP to document resolution. Review of Systems - Review of Systems ENT: negative: Ear Pain, Ear Discharge, Nose Pain, Nose Discharge, Nose Congestion, Mouth Pain, Mouth Swelling, Throat Pain, Throat Swelling, Other Respiratory: negative: Cough, Dry, Shortness of Breath, Hemoptysis, SOB with Excertion, Pleuritic Pain, Sputum, Wheezing Cardiovascular: negative: chest pain, palpitations, orthopnea, paroxysmal nocturnal dyspnea, edema, light headedness, other Gastrointestinal: negative: Nausea, Vomiting, Abdominal Pain, Diarrhea, Constipation, Melena, Hematochezia, Other Genitourinary: negative: Dysuria, Frequency, Incontinence, Hematuria, Retention , Other Musculoskeletal: negative: Neck Pain, Shoulder Pain, Arm Pain, Back Pain, Hand Pain, Leg Pain, Foot Pain, Other - Medications/Allergies Allergies/Adverse Reactions: Allergies Allergy/AdvReac Type Severity Reaction Status Date / Time No Known Allergies Allergy Unverified 05/05/17 14:47 Medications: Current Medications Acetaminophen (Tylenol) 650 mg PO Q4H PRN PRN Reason: Mild Pain (1-3)/ FEVER Acetaminophen (Tylenol) 500 mg PO Q6H PRN PRN Reason: Mild Pain (1-3) Hydrocodone Bitart/Acetaminophen ([place] 5/325) 1 tab PO Q4H PRN PRN Reason: Moderate Pain (4-6) Last Admin: 04/19/18 08:43 Dose: 1 tab Artificial Tears (Tears Naturale) 2 drop EA EYE PRN PRN PRN Reason: Dry Eyes Bisacodyl (Dulcolax) 10 mg PO DAILYPRN PRN PRN Reason: Constipation Calcium Carbonate (Tums) 1,000 mg PO Q4H PRN PRN Reason: Heartburn or Indigestion Enoxaparin Sodium (Lovenox) 40 mg SC 0900 [facility] Last Admin: 04/19/18 08:46 Dose: 40 mg Famotidine (Pepcid) 20 mg PO BID [facility] Last Admin: 04/19/18 08:46 Dose: 20 mg Guaifenesin (Robitussin Sf) 200 mg PO Q4H PRN PRN Reason: Cough Hydralazine HCl (Apresoline) 10 mg SLOW IVP Q4H PRN PRN Reason: SBP > 180 and HR < 70 Azithromycin 500 mg/ Sodium (Chloride) 250 mls @ 250 mls/hr IVPB Q24HR [facility] Last Admin: 04/18/18 15:45 Dose: 250 mls Ceftriaxone Sodium 2 gm/ (Sodium Chloride) 100 mls @ 200 mls/hr IVPB Q24HR [facility] Last Admin: 04/18/18 15:21 Dose: 100 mls Loperamide HCl (Imodium) 2 mg PO PRN PRN PRN Reason: Diarrhea/Loose Stools Loratadine (Claritin) 10 mg PO DAILYPRN PRN PRN Reason: Sinus Symptoms Mineral Oil/White Petrolatum (Eucerin Cream) 0 gm TOP BIDPRN PRN PRN Reason: Dry Skin Nicotine (Nicoderm Patch) 14 mg TOP Q24HR [facility] Last Admin: 04/18/18 18:16 Dose: 14 mg Ondansetron HCl (Zofran Odt) 4 mg PO Q6H PRN PRN Reason: Nausea/Vomiting Ondansetron HCl (Zofran) 4 mg IVP Q6H PRN PRN Reason: Nausea/Vomiting (Elviteg/Cob/Emtri/Tenof Alafen [ Genvoya Tablet] 1 Tab) 0 each PO DAILY [facility] Last Admin: 04/19/18 08:45 Dose: 1 each Saccharomyces Boulardii (Florastor) 250 mg PO DAILY [facility] Last Admin: 04/19/18 08:46 Dose: 250 mg Senna/Docusate Sodium (Senokot S) 2 tab PO BID PRN PRN Reason: Constipation Last Admin: 04/18/18 09:13 Dose: 2 tab Sodium Chloride ([place] Nasal [place] 0.65%) 0 ml EA NARE QIDPRN PRN PRN Reason: Nasal Congestion Sodium Chloride (Flush - Normal Saline) 10 ml IVF Q12HR [facility] Last Admin: 04/19/18 08:47 Dose: 10 ml Sodium Chloride (Flush - Normal Saline) 10 ml IVF PRN PRN PRN Reason: Saline Flush Throat Lozenges (Cepastat Lozenges) 1 carroll PO Q2H PRN PRN Reason: Sore Throat Tramadol HCl (Ultram) 50 mg PO Q6H PRN PRN Reason: Moderate Pain (4-6) Last Admin: 04/16/18 22:22 Dose: 50 mg Zolpidem Tartrate (Ambien) 5 mg PO HSPRN PRN PRN Reason: Insomnia
[2018-04-19] MEDS: cefTRIAXone\\ROCEPHIN 2 GM in Sodium Chloride 0.9% 100 ML IVPB SCH (15:30)
[2018-04-19] MEDS: Azithromycin 500 MG in Sodium Chloride 0.9% 250 ML 250 ML IVPB SCH (15:37)
[2018-04-19] MEDS: Nicotine 14 MG PATCH TOP SCH (21:05)
[2018-04-20] MEDS: Famotidine 20 MG TAB PO SCH ×2 (07:56→20:05)
[2018-04-20] MEDS: Saccharomyces boulardii 250 MG CAP PO SCH (07:56)
[2018-04-20] MEDS: Enoxaparin Sodium 40 MG/0.4 ML SYRINGE SC SCH (07:56)
[2018-04-20] MEDS: (Elviteg/Cob/Emtri/Tenof Alafen [Genvoya Tablet] 1 TAB) PO SCH (07:56)
[2018-04-20] MEDS: HYDROcodone/Acetaminophen 5/325 mg Tablet PO PRN ×3 (08:02→23:06)
--- NOTE | 2018-04-20 10:50 | PDOC.PN ---
- Subjective Encounter Start Date: 04/20/18 Encounter Start Time: 08:45 Patient seen and examined. No new complaints. No overnight events - Objective Resuscitation Status - Order Detail: 04/17/18 07:39 Resuscitation Status Routine Resuscitation Status: FULL: Full Resuscitation MAR Reviewed: Yes Vital Signs & Weight: Vital Signs (12 hours) Temp Pulse Resp BP Pulse Ox 04/20/18 08:00 98.2 F 67 16 127/82 99 Weight Weight 165 lb I&O: 04/19/18 04/20/18 04/21/18 06:59 06:59 06:59 Intake Total 600 1690 Balance 600 1690 Result Diagrams: 04/18/18 05:55 04/18/18 05:55 Phys Exam - Physical Examination Constitutional: NAD HEENT: PERRLA, moist MMs, sclera anicteric Neck: no JVD, supple Respiratory: no wheezing, no rales, no rhonchi Cardiovascular: RRR, no significant murmur, no rub Gastrointestinal: soft, non-tender, no distention, positive bowel sounds Musculoskeletal: no edema, pulses present Neurological: non-focal, normal sensation, moves all 4 limbs Lymphatic: no nodes Psychiatric: normal affect, A&O x 3 Skin: no rash, normal turgor Dx/Plan (1) Community acquired bacterial pneumonia Code(s): J15.9 - UNSPECIFIED BACTERIAL PNEUMONIA Status: Acute Comment: right upper lobe (2) Hyponatremia Code(s): E87.1 - HYPO-OSMOLALITY AND HYPONATREMIA Status: Acute (3) Lactic acidosis Code(s): E87.2 - ACIDOSIS Status: Acute (4) HIV (human immunodeficiency virus infection) Code(s): B20 - HUMAN IMMUNODEFICIENCY VIRUS [HIV] DISEASE Status: Chronic (5) Macrocytosis Code(s): D75.89 - OTHER SPECIFIED DISEASES OF BLOOD AND BLOOD-FORMING ORGANS Status: Chronic - Plan cont current plan of care, continue antibiotics * continue rocephin and azithromycin * medication reviewed as below * symptomatic treatment * once all sputum afb negative and ruled out TB, will consider discharge on oral levaquin * if needed use, RT to induce sputum. Review of Systems - Review of Systems ENT: negative: Ear Pain, Ear Discharge, Nose Pain, Nose Discharge, Nose Congestion, Mouth Pain, Mouth Swelling, Throat Pain, Throat Swelling, Other Respiratory: Cough. negative: Dry, Shortness of Breath, Hemoptysis, SOB with Excertion, Pleuritic Pain, Sputum, Wheezing Cardiovascular: negative: chest pain, palpitations, orthopnea, paroxysmal nocturnal dyspnea, edema, light headedness, other Gastrointestinal: negative: Nausea, Vomiting, Abdominal Pain, Diarrhea, Constipation, Melena, Hematochezia, Other Genitourinary: negative: Dysuria, Frequency, Incontinence, Hematuria, Retention , Other Musculoskeletal: negative: Neck Pain, Shoulder Pain, Arm Pain, Back Pain, Hand Pain, Leg Pain, Foot Pain, Other Skin: negative: Rash, Lesions, Antoine, Bruising, Other - Medications/Allergies Medications: Current Medications Acetaminophen (Tylenol) 650 mg PO Q4H PRN PRN Reason: Mild Pain (1-3)/ FEVER Acetaminophen (Tylenol) 500 mg PO Q6H PRN PRN Reason: Mild Pain (1-3) Hydrocodone Bitart/Acetaminophen ([place] 5/325) 1 tab PO Q4H PRN PRN Reason: Moderate Pain (4-6) Last Admin: 04/20/18 08:02 Dose: 1 tab Artificial Tears (Tears Naturale) 2 drop EA EYE PRN PRN PRN Reason: Dry Eyes Bisacodyl (Dulcolax) 10 mg PO DAILYPRN PRN PRN Reason: Constipation Calcium Carbonate (Tums) 1,000 mg PO Q4H PRN PRN Reason: Heartburn or Indigestion Enoxaparin Sodium (Lovenox) 40 mg SC 0900 [facility] Last Admin: 04/20/18 07:56 Dose: 40 mg Famotidine (Pepcid) 20 mg PO BID [facility] Last Admin: 04/20/18 07:56 Dose: 20 mg Guaifenesin (Robitussin Sf) 200 mg PO Q4H PRN PRN Reason: Cough Hydralazine HCl (Apresoline) 10 mg SLOW IVP Q4H PRN PRN Reason: SBP > 180 and HR < 70 Azithromycin 500 mg/ Sodium (Chloride) 250 mls @ 250 mls/hr IVPB Q24HR [facility] Last Admin: 04/19/18 15:37 Dose: 250 mls Ceftriaxone Sodium 2 gm/ (Sodium Chloride) 100 mls @ 200 mls/hr IVPB Q24HR [facility] Last Admin: 04/19/18 15:30 Dose: 100 mls Loperamide HCl (Imodium) 2 mg PO PRN PRN PRN Reason: Diarrhea/Loose Stools Loratadine (Claritin) 10 mg PO DAILYPRN PRN PRN Reason: Sinus Symptoms Mineral Oil/White Petrolatum (Eucerin Cream) 0 gm TOP BIDPRN PRN PRN Reason: Dry Skin Nicotine (Nicoderm Patch) 14 mg TOP Q24HR [facility] Last Admin: 04/19/18 21:05 Dose: 14 mg Ondansetron HCl (Zofran Odt) 4 mg PO Q6H PRN PRN Reason: Nausea/Vomiting Ondansetron HCl (Zofran) 4 mg IVP Q6H PRN PRN Reason: Nausea/Vomiting (Elviteg/Cob/Emtri/Tenof Alafen [ Genvoya Tablet] 1 Tab) 0 each PO DAILY [facility] Last Admin: 04/20/18 07:56 Dose: 1 each Saccharomyces Boulardii (Florastor) 250 mg PO DAILY [facility] Last Admin: 04/20/18 07:56 Dose: 250 mg Senna/Docusate Sodium (Senokot S) 2 tab PO BID PRN PRN Reason: Constipation Last Admin: 04/18/18 09:13 Dose: 2 tab Sodium Chloride ([place] Nasal [place] 0.65%) 0 ml EA NARE QIDPRN PRN PRN Reason: Nasal Congestion Sodium Chloride (Flush - Normal Saline) 10 ml IVF Q12HR [facility] Last Admin: 04/20/18 07:57 Dose: Not Given Sodium Chloride (Flush - Normal Saline) 10 ml IVF PRN PRN PRN Reason: Saline Flush Throat Lozenges (Cepastat Lozenges) 1 carroll PO Q2H PRN PRN Reason: Sore Throat Tramadol HCl (Ultram) 50 mg PO Q6H PRN PRN Reason: Moderate Pain (4-6) Last Admin: 04/16/18 22:22 Dose: 50 mg Zolpidem Tartrate (Ambien) 5 mg PO HSPRN PRN PRN Reason: Insomnia
[2018-04-20] MEDS: cefTRIAXone\\ROCEPHIN 2 GM in Sodium Chloride 0.9% 100 ML IVPB SCH (14:28)
[2018-04-20] MEDS: Azithromycin 500 MG in Sodium Chloride 0.9% 250 ML 250 ML IVPB SCH (14:28)
--- NOTE | 2018-04-20 17:54 | PRG ---
DATE OF SERVICE: 04/20/2018 SUBJECTIVE: Still little weak but less cough, still some sputum production. Little bit of chest pain in the right side. No back pain. No abdominal pain or diarrhea. OBJECTIVE: VITAL SIGNS: Normal. LABORATORY DATA: White cell count 10.7, hemoglobin 14, and platelets 195. Creatinine 1.32. Liver profile normal. Blood cultures no growth for 48 hours. The first AFB was negative. ASSESSMENT AND DISCUSSION: Human immunodeficiency virus seropositive status, adequate CD4 cell count presenting with community-acquired pneumonia of likely one of the usual pathogens. The first AFB was negative. I think we can safely discharge this patient on either doxycycline or levofloxacin for seven days. Follow up in the clinic. Job ID: [id number]
[2018-04-20] MEDS: Nicotine 14 MG PATCH TOP SCH (20:03)
[2018-04-21] MEDS: HYDROcodone/Acetaminophen 5/325 mg Tablet PO PRN ×2 (03:54→09:42)
[2018-04-21 07:45] VITALS: BP 134/79; TEMP 97.7
[2018-04-21] MEDS: Saccharomyces boulardii 250 MG CAP PO SCH (08:18)
[2018-04-21] MEDS: Enoxaparin Sodium 40 MG/0.4 ML SYRINGE SC SCH (08:18)
[2018-04-21] MEDS: Famotidine 20 MG TAB PO SCH (08:18)
[2018-04-21] MEDS: (Elviteg/Cob/Emtri/Tenof Alafen [Genvoya Tablet] 1 TAB) PO SCH (08:18)
--- NOTE | 2018-04-21 11:11 | PDOC.PN ---
- Subjective Encounter Start Date: 04/21/18 Encounter Start Time: 09:30 Patient seen and examined. No new complaints. No overnight events - Objective Resuscitation Status - Order Detail: 04/17/18 07:39 Resuscitation Status Routine Resuscitation Status: FULL: Full Resuscitation MAR Reviewed: Yes Vital Signs & Weight: Vital Signs (12 hours) Temp Pulse Resp BP Pulse Ox 04/21/18 07:42 97.7 F 58 L 16 134/79 98 Weight Weight 165 lb I&O: 04/20/18 04/21/18 04/22/18 06:59 06:59 06:59 Intake Total 1690 2510 Balance 1690 2510 Result Diagrams: 04/18/18 05:55 04/18/18 05:55 Phys Exam - Physical Examination Constitutional: NAD HEENT: PERRLA, moist MMs, sclera anicteric Neck: no JVD, supple Respiratory: no wheezing, no rales, no rhonchi Cardiovascular: RRR, no significant murmur, no rub Gastrointestinal: soft, non-tender, no distention, positive bowel sounds Musculoskeletal: no edema, pulses present Neurological: non-focal, normal sensation, moves all 4 limbs Lymphatic: no nodes Psychiatric: normal affect, A&O x 3 Skin: no rash, normal turgor Dx/Plan (1) Community acquired bacterial pneumonia Code(s): J15.9 - UNSPECIFIED BACTERIAL PNEUMONIA Status: Acute Comment: right upper lobe (2) Hyponatremia Code(s): E87.1 - HYPO-OSMOLALITY AND HYPONATREMIA Status: Acute (3) Lactic acidosis Code(s): E87.2 - ACIDOSIS Status: Acute (4) HIV (human immunodeficiency virus infection) Code(s): B20 - HUMAN IMMUNODEFICIENCY VIRUS [HIV] DISEASE Status: Chronic (5) Macrocytosis Code(s): D75.89 - OTHER SPECIFIED DISEASES OF BLOOD AND BLOOD-FORMING ORGANS Status: Chronic - Plan cont current plan of care, continue antibiotics * medication reviewed as below * symptomatic treatment * see discharge mario. Review of Systems - Review of Systems ENT: negative: Ear Pain, Ear Discharge, Nose Pain, Nose Discharge, Nose Congestion, Mouth Pain, Mouth Swelling, Throat Pain, Throat Swelling, Other Respiratory: negative: Cough, Dry, Shortness of Breath, Hemoptysis, SOB with Excertion, Pleuritic Pain, Sputum, Wheezing Cardiovascular: negative: chest pain, palpitations, orthopnea, paroxysmal nocturnal dyspnea, edema, light headedness, other Gastrointestinal: negative: Nausea, Vomiting, Abdominal Pain, Diarrhea, Constipation, Melena, Hematochezia, Other Genitourinary: negative: Dysuria, Frequency, Incontinence, Hematuria, Retention , Other Musculoskeletal: negative: Neck Pain, Shoulder Pain, Arm Pain, Back Pain, Hand Pain, Leg Pain, Foot Pain, Other Skin: negative: Rash, Lesions, Antoine, Bruising, Other - Medications/Allergies Allergies/Adverse Reactions: Allergies Allergy/AdvReac Type Severity Reaction Status Date / Time No Known Drug Allergies Allergy Verified 04/20/18 12:14 Medications: Current Medications Acetaminophen (Tylenol) 650 mg PO Q4H PRN PRN Reason: Mild Pain (1-3)/ FEVER Acetaminophen (Tylenol) 500 mg PO Q6H PRN PRN Reason: Mild Pain (1-3) Hydrocodone Bitart/Acetaminophen ([place] 5/325) 1 tab PO Q4H PRN PRN Reason: Moderate Pain (4-6) Last Admin: 04/21/18 09:42 Dose: 1 tab Artificial Tears (Tears Naturale) 2 drop EA EYE PRN PRN PRN Reason: Dry Eyes Bisacodyl (Dulcolax) 10 mg PO DAILYPRN PRN PRN Reason: Constipation Calcium Carbonate (Tums) 1,000 mg PO Q4H PRN PRN Reason: Heartburn or Indigestion Enoxaparin Sodium (Lovenox) 40 mg SC 0900 [facility] Last Admin: 04/21/18 08:18 Dose: 40 mg Famotidine (Pepcid) 20 mg PO BID [facility] Last Admin: 04/21/18 08:18 Dose: 20 mg Guaifenesin (Robitussin Sf) 200 mg PO Q4H PRN PRN Reason: Cough Hydralazine HCl (Apresoline) 10 mg SLOW IVP Q4H PRN PRN Reason: SBP > 180 and HR < 70 Azithromycin 500 mg/ Sodium (Chloride) 250 mls @ 250 mls/hr IVPB Q24HR [facility] Last Admin: 04/20/18 14:28 Dose: 250 mls Ceftriaxone Sodium 2 gm/ (Sodium Chloride) 100 mls @ 200 mls/hr IVPB Q24HR [facility] Last Admin: 04/20/18 14:28 Dose: 100 mls Loperamide HCl (Imodium) 2 mg PO PRN PRN PRN Reason: Diarrhea/Loose Stools Loratadine (Claritin) 10 mg PO DAILYPRN PRN PRN Reason: Sinus Symptoms Mineral Oil/White Petrolatum (Eucerin Cream) 0 gm TOP BIDPRN PRN PRN Reason: Dry Skin Nicotine (Nicoderm Patch) 14 mg TOP Q24HR [facility] Last Admin: 04/20/18 20:03 Dose: 14 mg Ondansetron HCl (Zofran Odt) 4 mg PO Q6H PRN PRN Reason: Nausea/Vomiting Ondansetron HCl (Zofran) 4 mg IVP Q6H PRN PRN Reason: Nausea/Vomiting (Elviteg/Cob/Emtri/Tenof Alafen [ Genvoya Tablet] 1 Tab) 0 each PO DAILY [facility] Last Admin: 04/21/18 08:18 Dose: Not Given Saccharomyces Boulardii (Florastor) 250 mg PO DAILY [facility] Last Admin: 04/21/18 08:18 Dose: 250 mg Senna/Docusate Sodium (Senokot S) 2 tab PO BID PRN PRN Reason: Constipation Last Admin: 04/18/18 09:13 Dose: 2 tab Sodium Chloride ([place] Nasal [place] 0.65%) 0 ml EA NARE QIDPRN PRN PRN Reason: Nasal Congestion Sodium Chloride (Flush - Normal Saline) 10 ml IVF Q12HR [facility] Last Admin: 04/21/18 08:18 Dose: Not Given Sodium Chloride (Flush - Normal Saline) 10 ml IVF PRN PRN PRN Reason: Saline Flush Throat Lozenges (Cepastat Lozenges) 1 carroll PO Q2H PRN PRN Reason: Sore Throat Tramadol HCl (Ultram) 50 mg PO Q6H PRN PRN Reason: Moderate Pain (4-6) Last Admin: 04/16/18 22:22 Dose: 50 mg Zolpidem Tartrate (Ambien) 5 mg PO HSPRN PRN PRN Reason: Insomnia
--- NOTE | 2018-04-21 12:09 | DIS ---
DATE OF ADMISSION: 04/16/2018 DATE OF DISCHARGE: 04/21/2018 PRIMARY CARE PHYSICIAN: [facility]. DISCHARGE DISPOSITION: Home. PRIMARY DISCHARGE DIAGNOSES: Community-acquired bacterial pneumonia ruled out tuberculosis, hyponatremia, and lactic acidosis. SECONDARY DISCHARGE DIAGNOSIS: Human immunodeficiency virus and macrocytosis. PRIMARY PROCEDURE/OPERATION: None. RADIOLOGICAL INVESTIGATION: Right upper lobe pneumonia. SIGNIFICANT LABORATORY DATA: WBC 10.7, hemoglobin 14.8, MCV 103, and platelet 195. Sodium 136, creatinine 1.32, and calcium 9.2. LFT normal. Lactic acid 2.4. Blood culture negative. AFB negative. DISCHARGE MEDICATION: 1. Levaquin 750 mg p.o. daily for 7 days. 2. Januvia 1 tablet p.o. daily. CONTRAINDICATION: None. CODE STATUS: Full code. INPATIENT INSPECTOR SALVAGE: Dr. Chester was consulted while in hospital. TEST RESULT PENDING ON DISCHARGE: None. ALLERGIES: NO KNOWN DRUG ALLERGY. DISCHARGE PLAN: Posthospital, the patient is instructed to follow up with Dr. Chester in 1 week and the patient is also advised to repeat imaging with chest x-ray upon followup visit. HOSPITAL COURSE: A 33-year-old male, who was admitted by Dr. Garrido. Please see his H and P for further details. The patient was having cough and subjective fever. In the emergency room, chest x-ray showed right upper lobe infiltration. He had elevated lactic acid. He had hyponatremia. He was treated with Rocephin and azithromycin while in the hospital. He was given IV fluid. His culture remain negative. Dr. Chester was consulted and he recommended to rule out TB and that is why we did sputum AFB, which was negative. The patient is instructed to follow up with primary care physician and he will need repeat imaging. Counseling is given to avoid smoking, healthy lifestyle measure discussed with the patient. The patient will continue his HIV medication. The patient is seen and examined at bedside today. Please see my progress note from today for further detail. The patient overall medically stable for discharge. Job ID: [id number]
== END 2018-04-21 11:07 | disposition home or self-care (01) | DRG 975 ==
LOC: ERS 13:56 → T4-A 16:47
PROVIDERS: ADMIT Emergency Medicine; ATTEND Emergency Medicine
DX: B20 Human immunodeficiency virus [HIV] disease (principal); J18.1 Lobar pneumonia, unspecified organism; E87.1 Hypo-osmolality and hyponatremia; E87.2 Acidosis; Z91.19 Patient's noncompliance with other medical treatment and regimen; F17.210 Nicotine dependence, cigarettes, uncomplicated; D75.89 Other specified diseases of blood and blood-forming organs
CPT/HCPCS: 36415; 71045; 80048; 80053; 82330; 82435; 82550; 82803; 83605; 83690; 84132; 84295; 84484; 85014; 85025; 87040; 87116; 87206; 90471; 90670; 90686; 93005; 96365; 96375; G0008; G0009; J0456; J0696; J1650; J2270; J2405; J7050

== ENCOUNTER 2018-08-22 09:55 | Emergency (ER) | payer SELFPAY ==
[2018-08-22] MEDS ORDERED: Metoclopramide HCl 10 MG/2 ML VIAL ONE (10:17)
[2018-08-22] MEDS ORDERED: Morphine 4 MG/ML VIAL ONE (10:17)
--- NOTE | 2018-08-22 10:49 | RAD ---
EXAM: Single view of the chest HISTORY: Chest pain COMPARISON: 04/16/2018 FINDINGS: Single view of the chest shows a normal sized cardiomediastinal silhouette. There is no corey dence of consolidation, mass, or pleural effusion. The bones are unremarkable. IMPRESSION: No evidence of acute cardiopulmonary disease
[2018-08-22 11:10] LABS: CK (CPK) 102 U/L (30-200); CRP (Inflammatory) Less than 0.50 mg/dL (= or < 0.5)
--- NOTE | 2018-08-22 11:11 | CT ---
CT cervical spine noncontrast HISTORY: Neck pain with left arm radiculopathy. FINDINGS: Vertebral body heights and alignment are maintained. Cervicothoracic junction is intact. No acute fracture or dislocation. Neural foramina are free of osseous encroachment. Mild disc bulges without focal traumatic disc herniation apparent. IMPRESSION: Normal CT cervical spine.
[2018-08-22 11:17] LABS: Band 2 % (5-11); Eosinophils 4 % (0-10); Hemoglobin 15.2 g/dL (14.0-18.0); Lymphocytes 53 % (21-51); MDiff Complete? YES; Mean Corpuscular HGB CONC 34.4 g/dL (32.0-36.0); Mean Corpuscular Hemoglobin 35.1 pg (27.0-31.0); Monocytes 6 % (0-10); Neutrophil 35 % (42-75); Platelet Count 197 thou/uL (130-400); RBC Distribution Width 12.6 % (11.5-14.5); Red Blood Cell (RBC) Count 4.34 mill/uL (4.70-6.10); White Blood Cell (WBC) Count 5.8 thou/uL (4.8-10.8)
[2018-08-22 11:18] LABS: ALT (SGPT) 13 U/L (8-55); AST (SGOT) 18 U/L (5-34); Albumin 3.7 g/dL (3.5-5.0); Alkaline Phosphatase 60 U/L (40-150); Anion Gap 13 mmol/L (10-20); BUN (Urea Nitrogen) 11 mg/dL (8.9-20.6); Bilirubin, Total 0.3 mg/dL (0.2-1.2); Calc. Creatinine Clearance 0 mL/min (70-130); Calcium 8.9 mg/dL (7.8-10.44); Carbon Dioxide 21 mmol/L (22-29); Chloride 108 mmol/L (98-107); Estimated GFR-MDRD 74; Globulin 3.4 g/dL (2.4-3.5); Glucose 95 mg/dL (70-105); Lipase 248 U/L (8-78); Potassium 4.4 mmol/L (3.5-5.1); Protein, Total 7.1 g/dL (6.0-8.3); Sodium 138 mmol/L (136-145)
[2018-08-22 12:03] LABS: Bilirubin Negative (Negative); Blood, Urine Negative (Negative); Clarity CLEAR (Clear); Glucose, Urine (Dipstick) Negative (Negative); Leukocyte Negative (Negative); Nitrite Negative (Negative); Protein, Urine (Dipstick) Negative (Neg-Trace); pH, Urine 7.5 (5.0-9.0)
== END 2018-08-22 14:10 | disposition home or self-care (01) ==
LOC: ERS 09:55
DX: M79.10 Myalgia, unspecified site (principal); B20 Human immunodeficiency virus [HIV] disease; F17.210 Nicotine dependence, cigarettes, uncomplicated
CPT/HCPCS: 36415; 71045; 72125; 80053; 81003; 82550; 83690; 84484; 85025; 86140; 87040; 87086; 93005; 96374; 96375; J2270; J2765

== ENCOUNTER 2018-12-18 15:06 | Emergency (ER) | payer SELFPAY ==
[2018-12-18 16:06] LABS: #Eosinphils 0.1 thou/uL (0.0-0.7); #Lymphocytes 2.5 thou/uL (1.20-3.40); #Monocytes 0.5 thou/uL (0.11-0.59); #Neutrophils 2.7 thou/uL (1.40-6.50); %Basophils 0.7 % (0.0-1.0); %Lymphocytes 41.6 % (21.0-51.0); %Monocytes 9.3 % (0.0-10.0); %Neutrophils 46.5 % (42.0-75.0); Hemoglobin 16.5 g/dL (14.0-18.0); Mean Corpuscular HGB CONC 34.7 g/dL (32.0-36.0); Mean Corpuscular Hemoglobin 36.1 pg (27.0-31.0); Mean Platelet Volume 6.7 fL (7.4-10.4); Platelet Count 219 thou/uL (130-400); RBC Distribution Width 12.4 % (11.5-14.5); Red Blood Cell (RBC) Count 4.57 mill/uL (4.70-6.10); White Blood Cell (WBC) Count 5.9 thou/uL (4.8-10.8)
[2018-12-18 16:28] LABS: Alcohol Less than 10 mg/dL (Less than 10); Salicylate Less than 8.0 mg/dL (15.0-30.0)
[2018-12-18 16:29] LABS: ALT (SGPT) 23 U/L (8-55); AST (SGOT) 26 U/L (5-34); Albumin 3.7 g/dL (3.5-5.0); Alkaline Phosphatase 71 U/L (40-150); Anion Gap 9 mmol/L (10-20); BUN (Urea Nitrogen) 8 mg/dL (8.9-20.6); Bilirubin, Total 0.4 mg/dL (0.2-1.2); Calc. Creatinine Clearance 0 mL/min (70-130); Calcium 9.1 mg/dL (7.8-10.44); Carbon Dioxide 25 mmol/L (22-29); Chloride 107 mmol/L (98-107); Estimated GFR-MDRD 75; Globulin 3.6 g/dL (2.4-3.5); Glucose 87 mg/dL (70-105); Potassium 4.4 mmol/L (3.5-5.1); Protein, Total 7.3 g/dL (6.0-8.3); Sodium 137 mmol/L (136-145)
[2018-12-18 16:37] LABS: Amphetamine Detected (NotDetected); Barbiturates Screen Not Detected (NotDetected); Benzodiazepine Screen Not Detected (NotDetected); Cocaine Metabolite Screen Not Detected (NotDetected); Medtox Control Line Valid? VALID (VALID); Medtox Reader # READER 4; Methadone Not Detected (NotDetected); Methamphetamine Detected (NotDetected); Opiate Screen Not Detected (NotDetected); Oxycodone Screen Not Detected (NotDetected); Phencyclidine (PCP) Not Detected (NotDetected); THC/Cannabinoid Screen Detected (NotDetected); Tricyclic Screen Not Detected (NotDetected)
[2018-12-18 19:46] LABS: Alcohol Less than 10 mg/dL (Less than 10); Salicylate Less than 8.0 mg/dL (15.0-30.0)
--- NOTE | 2018-12-19 12:12 | EKG ---
Test Reason : OVERDOSE Blood Pressure : / mmHG Vent. Rate : 074 BPM Atrial Rate : 074 BPM P-R Int : 150 ms QRS Dur : 080 ms QT Int : 410 ms P-R-T Axes : 057 000 043 degrees QTc Int : 455 ms Normal sinus rhythm Normal ECG Confirmed by CHARLES UMAÑA D.O. ([id number]), medical editor FLORENTIN MINAYA ([id number]) on 12/19/2018 12:12:12 PM Referred By: [facility] Confirmed By:CHARLES UMAÑA D.O.
== END 2018-12-18 20:20 ==
LOC: ERS 15:06
DX: T45.0X2A Poisoning by antiallergic and antiemetic drugs, intentional self-harm, initial encounter (principal); F32.9 Major depressive disorder, single episode, unspecified; B20 Human immunodeficiency virus [HIV] disease; F17.210 Nicotine dependence, cigarettes, uncomplicated
CPT/HCPCS: 36415; 80053; 80306; 80307; 84443; 85025; 93005; 94760

== ENCOUNTER 2019-05-01 19:10 | Inpatient (IN) | payer SELFPAY ==
[2019-05-01] MEDS ORDERED: Morphine 4 MG/ML VIAL ONE (19:33)
[2019-05-01 19:50] LABS: Hemoglobin 15.6 g/dL (14.0-18.0); Mean Corpuscular HGB CONC 32.7 g/dL (32.0-36.0); Mean Corpuscular Hemoglobin 34.4 pg (27.0-31.0); Mean Platelet Volume 6.6 fL (7.4-10.4); Platelet Count 214 thou/uL (130-400); Red Blood Cell (RBC) Count 4.53 mill/uL (4.70-6.10); White Blood Cell (WBC) Count 9.5 thou/uL (4.8-10.8)
[2019-05-01 19:52] LABS: Bacteria/HPF 4+ HPF (None Seen); Bilirubin Negative (Negative); Blood, Urine 2+ (Negative); Clarity Turbid (Clear); Glucose, Urine (Dipstick) Normal (Negative); Leukocyte 500 Leu/uL (Negative); Nitrite 2+ (Negative); Protein, Urine (Dipstick) 30 mg/dL (Neg-Trace); Squamous Epithelial 0-3 HPF (0-3); Urobilinogen Normal mg/dL (Less than 2); WBC/HPF Greater than 50 HPF (0-3)
[2019-05-01 20:04] LABS: #Basophils 0.1 thou/uL (0.0-0.2); #Eosinphils 0.1 thou/uL (0.0-0.7); #Lymphocytes 1.6 thou/uL (1.20-3.40); #Monocytes 0.1 thou/uL (0.11-0.59); #Neutrophils 7.7 thou/uL (1.40-6.50); %Basophils 0.5 % (0.0-1.0); %Eosinophils 0.6 % (0.0-10.0); %Lymphocytes 17.1 % (21.0-51.0); %Monocytes 1.1 % (0.0-10.0); %Neutrophils 80.7 % (42.0-75.0)
[2019-05-01 20:13] LABS: ALT (SGPT) 11 U/L (8-55); AST (SGOT) 18 U/L (5-34); Albumin 3.5 g/dL (3.5-5.0); Alkaline Phosphatase 74 U/L (40-110); Anion Gap 11 mmol/L (10-20); BUN (Urea Nitrogen) 10 mg/dL (8.9-20.6); Bilirubin, Total 0.4 mg/dL (0.2-1.2); Calc. Creatinine Clearance 0 mL/min (70-130); Calcium 8.6 mg/dL (7.8-10.44); Carbon Dioxide 22 mmol/L (22-29); Chloride 108 mmol/L (98-107); Estimated GFR-MDRD 79; Globulin 3.5 g/dL (2.4-3.5); Glucose 78 mg/dL (70-105); Lipase 125 U/L (8-78); Sodium 137 mmol/L (136-145)
[2019-05-01] MEDS ORDERED: Acetaminophen 500 MG TAB ONE (20:36)
[2019-05-01] MEDS ORDERED: cefTRIAXone\\ROCEPHIN 2 GM VIAL ONE (20:41)
[2019-05-01] MEDS ORDERED: Vancomycin HCl 1.75 GM in Sodium Chloride 0.9% 500 ML IVPB SCH (20:45)
[2019-05-01] MEDS ORDERED: Ketorolac Tromethamine 30 MG/ML VIAL IVP PRN (21:42)
[2019-05-01] MEDS ORDERED: Acetaminophen 650 MG Suppository PR PRN (21:42)
[2019-05-01] MEDS ORDERED: Morphine 2 MG/ML SYRINGE SLOW IVP PRN (21:42)
[2019-05-01] MEDS ORDERED: Vancomycin HCl 1 GM in Premix Bag 1 BAG IVPB SCH (21:45)
[2019-05-01] MEDS ORDERED: Calcium Carbonate 500 MG ChewTAB PO PRN (21:54)
[2019-05-01] MEDS ORDERED: Ondansetron ODT 4 MG TAB PO PRN (21:54)
[2019-05-01] MEDS ORDERED: Ondansetron PF 4 MG/2 ML Vial IVP PRN (21:54)
--- NOTE | 2019-05-01 22:12 | HP ---
PRIMARY CARE: [facility]. PRIMARY INFECTIOUS DISEASE: Dr. Chester. CHIEF COMPLAINT: Bilateral flank pain. HISTORY OF PRESENT ILLNESS: The patient is a 34-year-old male with HIV on Genvoya, presented to the emergency room with above complaints. The patient was seen at [facility] for similar complaint two days ago and was discharged home on ciprofloxacin and tramadol. Bilateral flank pain has been ongoing for 1 week and is progressively getting worse. It is 8/10, worse on movement. He denies any relieving factor. It was gradual in onset. He also had associated fever and chills. He denies significant dysuria, hematuria, or urgency. He has history of UTIs in the past. The tramadol partially helped with the pain. He denies any nausea, vomiting, diarrhea, constipation, melena, or hematochezia. No skin rash reported. He denies any oral ulcers or joint pain. In the emergency room, his initial vital signs showed temperature of 101.2 with respirations of 24, pulse rate of 86 with a blood pressure of 154/112, that improved to 140/73; O2 saturation was 99% on room air. Urinalysis was consistent with UTI. Lactic acid was 3.0. Blood cultures and urine cultures have been sent. He received vancomycin and ceftriaxone along with IV fluids and morphine in the emergency room. Please note that the patient had a CT scan of the abdomen at [facility] two days ago that was negative for obstructive pathology per ER physician, Dr. Solorzano. He is unsure whether urine culture was sent. PAST MEDICAL HISTORY: 1. HIV. 2. History of UTI. 3. History of syphilis. 4. History of herpes zoster. PAST SURGICAL HISTORY: Reviewed with the patient and none. ALLERGIES: NO KNOWN DRUG ALLERGIES. CURRENT HOME MEDICATIONS: 1. Genvoya one tablet daily. 2. He is also on ciprofloxacin and tramadol that was started 2 days ago. SOCIAL HISTORY: The patient currently lives at home with his fiancee. He continues to smoke up to half pack a day. He also abuses cannabis. He drinks alcohol socially. He denies any other drugs. FAMILY HISTORY: Negative for premature coronary artery disease. REVIEW OF SYSTEMS: All other review of systems was reviewed and were found negative. PHYSICAL EXAMINATION: VITAL SIGNS: As discussed above. GENERAL: A 34-year-old male in distress due to back pain. HEENT: Head, atraumatic and normocephalic. Sclerae anicteric. Moist mucous membranes. No oral lesion. NECK: Supple. No JVD appreciated. No carotid bruit. No lymphadenopathy in the neck. LUNGS: Clear to auscultation bilaterally. No wheezing, rales, rhonchi. HEART: S1, S2 present. Regular rate and rhythm. No rubs or gallops. ABDOMEN: Soft, nontender. Bowel sounds present. No rebound or guarding. There is diffuse tenderness over the bilateral flank, even on superficial palpation. No suprapubic tenderness. EXTREMITIES: No edema or calf tenderness. NEUROLOGIC: Grossly nonfocal. Moves all 4 extremities. PSYCHIATRIC: Alert, awake, and oriented x3. SKIN: Warm and dry. LYMPH NODES: As discussed above. LABORATORY FINDINGS: WBC 9.5 with hemoglobin 15.6, hematocrit 47.6, platelets of 214. Chemistry showed sodium 137, potassium 4, chloride 108, bicarb 22, BUN of 10, creatinine 1.28. Lactic acid 3.0. Urinalysis showed greater than 50 wbc's with 4+ bacteria. EKG by my review showed sinus rhythm. CT scan of the abdomen at [facility] was negative for obstructive pathology per ER physician. IMPRESSION: 1. Severe sepsis secondary to urinary tract infection, failed outpatient therapy. 2. Human immunodeficiency virus, on Genvoya. 3. Ongoing tobacco and cannabis abuse. 4. Lactic acidosis secondary to sepsis. 5. Chronic kidney disease, stage 2. 6. Chronic macrocytosis. PLAN: The patient will be monitored on the medical floor. We will continue vancomycin. We will add cefepime for pseudomonal coverage. We will continue Genvoya. Consult Infectious Disease. We will try to obtain CT scan report as well as urine culture report from [facility] from two days ago. Pain control with IV morphine and Toradol. Aggressive IV fluid hydration. Vital signs q.4 hourly. The patient was counseled on lifestyle modification. The patient understands the above plan of care. Job ID: [id number]
[2019-05-01 22:27] LABS: Lactic Acid 1.1 mmol/L (0.5-2.2)
[2019-05-01] MEDS: Sodium Chloride 0.45% 1,000 ML IV SCH (22:45)
[2019-05-01 23:04] VITALS: BMI 25.0
[2019-05-02] MEDS: Cefepime 1 GM in Sodium Chloride 0.9% 100 ML IVPB SCH ×3 (00:57→21:03)
[2019-05-02] MEDS ORDERED: Vancomycin HCl 1.25 GM in Sodium Chloride 0.9% 250 ML 250 ML IVPB SCH ×2 (05:00→08:00)
[2019-05-02] MEDS: traMADol HCl 50 MG TAB PO PRN ×2 (05:09→18:28)
[2019-05-02] MEDS: Sodium Chloride 0.45% 1,000 ML IV SCH ×2 (06:11→13:27)
[2019-05-02 06:17] LABS: #Eosinphils 0.2 thou/uL (0.0-0.7); #Lymphocytes 2.7 thou/uL (1.20-3.40); #Monocytes 0.6 thou/uL (0.11-0.59); #Neutrophils 6.4 thou/uL (1.40-6.50); %Basophils 0.3 % (0.0-1.0); %Eosinophils 1.8 % (0.0-10.0); %Lymphocytes 26.9 % (21.0-51.0); %Monocytes 6.5 % (0.0-10.0); %Neutrophils 64.5 % (42.0-75.0); Hemoglobin 12.7 g/dL (14.0-18.0); Mean Corpuscular HGB CONC 32.4 g/dL (32.0-36.0); Mean Corpuscular Hemoglobin 33.9 pg (27.0-31.0); Mean Platelet Volume 6.9 fL (7.4-10.4); Platelet Count 187 thou/uL (130-400); RBC Distribution Width 12.1 % (11.5-14.5); Red Blood Cell (RBC) Count 3.76 mill/uL (4.70-6.10); White Blood Cell (WBC) Count 9.9 thou/uL (4.8-10.8)
[2019-05-02 06:40] LABS: ALT (SGPT) 9 U/L (8-55); AST (SGOT) 14 U/L (5-34); Albumin 2.9 g/dL (3.5-5.0); Alkaline Phosphatase 60 U/L (40-110); Anion Gap 9 mmol/L (10-20); BUN (Urea Nitrogen) 7 mg/dL (8.9-20.6); Bilirubin, Total 0.3 mg/dL (0.2-1.2); Calc. Creatinine Clearance 114 mL/min (70-130); Calcium 7.6 mg/dL (7.8-10.44); Carbon Dioxide 23 mmol/L (22-29); Chloride 111 mmol/L (98-107); Estimated GFR-MDRD Greater than 90; Globulin 2.7 g/dL (2.4-3.5); Glucose 83 mg/dL (70-105); Magnesium 1.7 mg/dL (1.6-2.6); Potassium 3.8 mmol/L (3.5-5.1); Protein, Total 5.6 g/dL (6.0-8.3); Sodium 139 mmol/L (136-145)
[2019-05-02] MEDS: Cyanocobalamin (Vitamin B-12) 1,000 MCG TAB PO SCH (08:29)
[2019-05-02] MEDS: Senokot S 8.6-50 MG TAB PO SCH ×2 (08:29→21:05)
[2019-05-02] MEDS: Multivit, Therapeutic 1 TAB PO SCH (08:29)
[2019-05-02] MEDS ORDERED: FLU VACC QS2019-20(6MOS UP)/PF 60 MCG/0.5 ML SYRINGE IM ONE (09:00)
[2019-05-02] MEDS: Famotidine 20 MG TAB PO SCH ×2 (09:11→21:04)
--- NOTE | 2019-05-02 11:30 | PDOC.HOSPP ---
- Subjective Encounter Date: 05/02/19 Encounter Time: 11:28 Subjective: The patient's flank pain has improved. He was told he had a UTI at [facility]. Currently he reports improvement in his flank pain with the pain medication and antibiotics. He denies dysuria, frequency, urgency He has some diarrhea. No blood in his stools - Objective Vital Signs & Weight: Vital Signs (12 hours) Temp Pulse Resp BP Pulse Ox 05/02/19 08:30 99 05/02/19 07:43 97.9 F 68 18 146/91 H 99 05/02/19 04:18 98.8 F 61 16 139/90 93 L 05/02/19 00:08 99.4 F 86 16 117/75 98 05/01/19 23:30 97 Weight Weight 184 lb 8 oz I&O: 05/01/19 05/02/19 05/03/19 06:59 06:59 06:59 Intake Total 625 Output Total 700 Balance -75 Result Diagrams: 05/02/19 05:48 05/02/19 05:48 Hospitalist ROS - Review of Systems Constitutional: denies: fever, chills - Medication Medications: Active Medications Generic Name Dose Route Start Last Admin Trade Name Freq PRN Reason Stop Dose Admin Cyanocobalamin 1,000 mcg 05/02/19 09:00 05/02/19 08:29 Vitamin B-12 PO 1,000 mcg DAILY ELISHA Administration Famotidine 20 mg 05/02/19 09:00 05/02/19 09:11 Pepcid PO 20 mg BID ELISHA Administration Cefepime HCl 1 gm/ Sodium 100 mls @ 200 mls/hr 05/01/19 22:00 05/02/19 09:13 Chloride IVPB 100 mls 1000,2200 ELISHA Administration Sodium Chloride 1,000 mls @ 125 mls/hr 05/01/19 22:00 05/02/19 06:11 1/2 Normal Saline IV 05/03/19 22:01 Not Given .Q8H ELISHA Vancomycin HCl 1.25 gm/ Sodium 250 mls @ 166.667 mls/hr 05/02/19 08:00 08:31 Chloride IVPB 250 mls 0800,1600,2359 ELISHA Administration Multivitamins 1 tab 05/02/19 09:00 05/02/19 08:29 Theragran PO 1 tab DAILY ELISHA Administration Senna/Docusate Sodium 1 tab 05/02/19 09:00 05/02/19 08:29 Senokot S PO 1 tab BID ELISHA Administration Tramadol HCl 50 mg 05/01/19 21:42 05/02/19 05:09 Ultram PO 50 mg Q4H PRN Administration Moderate Pain (4-6) - Exam General Appearance: NAD, awake alert Eye: PERRL, anicteric sclera Gastrointestinal: soft Gastrointestinal - other findings: diffuse abdominal tenderness, mild to palpation Extremities: no cyanosis, no clubbing, no edema Extremities - other findings: Bilateral CVA tenderness Skin: normal turgor, no lesions, no rashes Neurological: no focal deficits Hosp A/P - Plan This is 34 year old male with HIV who presented with worsening flank pain, decreased appetite, weight loss Pyelonephritis - UA shows turbid urine, greater than 50 RBC, urine culture pending - continue IV vancomycin and cefepime - obtain records from [facility] with regards to CT abdomen results - ID consulted - blood cultures negative Lactic acidosis - was 3.0 on admission, now resolved Anal mass - noted on last CT abdomen. Will obtain records of most recent CT abdomen Code status: full code
[2019-05-02 20:36] LABS: Vancomycin, Trough 10.7 ug/mL
[2019-05-03] MEDS: Sodium Chloride 0.45% 1,000 ML IV SCH ×4 (00:25→16:50)
[2019-05-03 06:09] LABS: Hemoglobin 13.3 g/dL (14.0-18.0); Mean Corpuscular HGB CONC 31.8 g/dL (32.0-36.0); Mean Corpuscular Hemoglobin 32.8 pg (27.0-31.0); Mean Platelet Volume 6.8 fL (7.4-10.4); Platelet Count 191 thou/uL (130-400); RBC Distribution Width 11.9 % (11.5-14.5); Red Blood Cell (RBC) Count 4.05 mill/uL (4.70-6.10); White Blood Cell (WBC) Count 6.9 thou/uL (4.8-10.8)
[2019-05-03 06:32] LABS: Anion Gap 12 mmol/L (10-20); BUN (Urea Nitrogen) 5 mg/dL (8.9-20.6); Calc. Creatinine Clearance 118 mL/min (70-130); Calcium 8.5 mg/dL (7.8-10.44); Carbon Dioxide 22 mmol/L (22-29); Chloride 107 mmol/L (98-107); Estimated GFR-MDRD Greater than 90; Glucose 80 mg/dL (70-105); Potassium 3.5 mmol/L (3.5-5.1); Sodium 137 mmol/L (136-145)
[2019-05-03] MEDS: Cyanocobalamin (Vitamin B-12) 1,000 MCG TAB PO SCH (08:11)
[2019-05-03] MEDS: traMADol HCl 50 MG TAB PO PRN ×2 (08:11→16:47)
[2019-05-03] MEDS: Famotidine 20 MG TAB PO SCH ×2 (08:11→20:50)
[2019-05-03] MEDS: Multivit, Therapeutic 1 TAB PO SCH (08:11)
[2019-05-03] MEDS: Senokot S 8.6-50 MG TAB PO SCH ×2 (08:11→20:50)
[2019-05-03] MEDS: Cefepime 1 GM in Sodium Chloride 0.9% 100 ML IVPB SCH ×2 (10:46→21:20)
--- NOTE | 2019-05-03 18:39 | PDOC.HOSPP ---
- Subjective Encounter Date: 05/03/19 Encounter Time: 18:38 Subjective: THe patient's flank pain is better, but still moderate amount. No difficulty urinating. NO dysuria. No fevers. - Objective Vital Signs & Weight: Vital Signs (12 hours) Temp Pulse Resp BP Pulse Ox 05/03/19 08:10 97 05/03/19 07:49 97.9 F 62 20 164/98 H 97 05/03/19 07:38 97 Weight Admit Weight 184 lb 8 oz Weight 184 lb 8 oz I&O: 05/02/19 05/03/19 05/04/19 06:59 06:59 06:59 Intake Total 625 1450 Output Total 700 700 Balance -75 750 Result Diagrams: 05/03/19 05:37 05/03/19 05:37 Hospitalist ROS - Review of Systems Constitutional: denies: fever, chills - Medication Medications: Active Medications Generic Name Dose Route Start Last Admin Trade Name Freq PRN Reason Stop Dose Admin Cyanocobalamin 1,000 mcg 05/02/19 09:00 05/03/19 08:11 Vitamin B-12 PO 1,000 mcg DAILY ELISHA Administration Famotidine 20 mg 05/02/19 09:00 05/03/19 08:11 Pepcid PO 20 mg BID ELISHA Administration Cefepime HCl 1 gm/ Sodium 100 mls @ 200 mls/hr 05/01/19 22:00 05/03/19 10:46 Chloride IVPB 100 mls 1000,2200 ELISHA Administration Sodium Chloride 1,000 mls @ 125 mls/hr 05/01/19 22:00 05/03/19 16:50 1/2 Normal Saline IV 05/03/19 22:01 1,000 mls .Q8H ELISHA Administration Multivitamins 1 tab 05/02/19 09:00 05/03/19 08:11 Theragran PO 1 tab DAILY ELISHA Administration Senna/Docusate Sodium 1 tab 05/02/19 09:00 05/03/19 08:11 Senokot S PO 1 tab BID ELISHA Administration Tramadol HCl 50 mg 05/01/19 21:42 05/03/19 16:47 Ultram PO 50 mg Q4H PRN Administration Moderate Pain (4-6) - Exam General Appearance: NAD, awake alert Eye: PERRL, anicteric sclera ENT: normocephalic atraumatic, no oropharyngeal lesions Neck: no JVD Heart: RRR, no murmur, no gallops, no rubs Respiratory - other findings: bilateral CVA tendernes Gastrointestinal - other findings: mild diffuse tenderness Extremities: no cyanosis, no clubbing, no edema Skin: normal turgor, no lesions, no rashes Neurological: cranial nerve grossly intact, normal sensation to touch, no focal deficits, no new deficit Hosp A/P - Plan This is 34 year old male with HIV who presented with worsening flank pain, decreased appetite, weight loss SEpsis with gram negative bacteremia with pyelonephritis - UA shows turbid urine, greater than 50 RBC, urine culture showing E coli. Blood culture showing 1/2 gram negative constantine, 1/2 gram positive cocci (likely contaminant) - continue IV cefepime. Will await speciation of the gram positive cocci - will consider switching to oral antibiotics pending final culture results Lactic acidosis - was 3.0 on admission, now resolved Anal mass - noted on last CT abdomen. OBtain records of most recent CT abdomen DVT prophylaxis; SCDS Code status: full code
[2019-05-03] MEDS ORDERED: Acetaminophen 325 MG TAB PO PRN (21:27)
[2019-05-03] MEDS ORDERED: Nicotine 7 MG PATCH TD SCH (22:00)
[2019-05-04] MEDS: Famotidine 20 MG TAB PO SCH (07:58)
[2019-05-04] MEDS: Multivit, Therapeutic 1 TAB PO SCH (07:59)
[2019-05-04] MEDS: Cyanocobalamin (Vitamin B-12) 1,000 MCG TAB PO SCH (07:59)
[2019-05-04] MEDS: Senokot S 8.6-50 MG TAB PO SCH (07:59)
[2019-05-04] MEDS: Cefepime 1 GM in Sodium Chloride 0.9% 100 ML IVPB SCH (11:17)
[2019-05-04 12:01] VITALS: BP 137/90; TEMP 98.8
--- NOTE | 2019-05-05 10:42 | DIS ---
DATE OF ADMISSION: 05/01/2019 DATE OF DISCHARGE: 05/04/2019 DISCHARGE DIAGNOSIS: Sepsis secondary to Escherichia bacteremia with pyelonephritis, lactic acidosis, possible anal mass. SECONDARY DISCHARGE DIAGNOSES: Human immunodeficiency viruses, tobacco abuse. BRIEF HISTORY OF PRESENT ILLNESS: This is a 34-year-old male with a past medical history of HIV, who had presented to the emergency room with bilateral flank pain for the past 1 week that was progressively getting worse. The patient reported 8/10 pain, worse with movement. The patient was noted to have a fever of 101.2 in the ER, respiratory rate of 24, heart rate of 86, and blood pressure 154/112. Patient's UA showed greater than 50 white blood cells, 500 leukocyte esterase, 2+ nitrite. The patient had a lactic acid of 3.0. The patient had reportedly undergone a CT scan of the abdomen at [facility] 2 days prior that showed no kidney stone, however, we were unable to obtain the report. The patient was admitted and started on IV vancomycin and ceftriaxone empirically and was admitted for further workup. HOSPITAL COURSE: Sepsis secondary to E. coli bacteremia and pyelonephritis: The patient was initially continued on his IV vancomycin, we switched to cefepime for pseudomonal coverage given his immunosuppressed status. The patient's urine culture tested positive for E. coli that was pansensitive. Blood culture showed 1/2 E. coli and the other culture was micrococcus and Corynebacterium. After discussion with Dr. Chester, this is most likely a contaminant. The patient remained afebrile. He was continued on IV cefepime for another day and on the day of discharge, reported significant improvement in his flank pain. His CVA tenderness resolved. The patient was discharged with ciprofloxacin for 14 days. He will follow up with Dr. Chester in a week. Tobacco abuse: The patient was prescribed a nicotine patch on the day of discharge. DISCHARGE PHYSICAL EXAMINATION: VITAL SIGNS: Temperature 98.8, heart rate 77, respiratory rate 20, O2 saturation 96% on room air, blood pressure 137/90. GENERAL: The patient is alert, awake, and oriented x3. CVS: Regular rate and rhythm with no murmurs, rubs, or gallops. LUNGS: Clear to auscultation bilaterally. ABDOMEN: Positive bowel sounds. Soft, nondistended. The patient has mild right lower quadrant and left lower quadrant tenderness. EXTREMITIES: No edema. PERTINENT LABORATORY DATA: CBC, 05/03: White count 6.9, hemoglobin 13.3, hematocrit 41.8, MCV 103. BMP, 05/03: Normal. UA, 05/01: Showed turbid urine, greater than 50 white blood cells, 500 leukocyte esterase. Urine culture shows E. coli. Blood culture, 05/01: Shows E. coli. Blood culture, 05/01: Presumptive micrococcus and corynebacterium/likely contaminant. DISCHARGE CONDITION: Stable. DIET: Regular diet. ACTIVITY: As tolerated. DISCHARGE MEDICATIONS: Genvoya one tablet p.o. daily, nicotine patch 7 mg TD q.24, ciprofloxacin 500 mg q.12 hours for 14 days. DISCHARGE INSTRUCTIONS: The patient needs to follow up with his PCP in a week and Dr. Chester in a week. Job ID: [id number] MTDD
== END 2019-05-04 15:49 | disposition home or self-care (01) | DRG 872 ==
LOC: ERS 19:10 → T4-B 21:12
PROVIDERS: ADMIT Internal Medicine; ATTEND Internal Medicine
DX: A41.50 Gram-negative sepsis, unspecified (principal); N12 Tubulo-interstitial nephritis, not specified as acute or chronic; E87.2 Acidosis; Z21 Asymptomatic human immunodeficiency virus [HIV] infection status; R65.20 Severe sepsis without septic shock; F12.10 Cannabis abuse, uncomplicated; D75.89 Other specified diseases of blood and blood-forming organs; D64.9 Anemia, unspecified; K62.9 Disease of anus and rectum, unspecified; F17.210 Nicotine dependence, cigarettes, uncomplicated; Z87.440 Personal history of urinary (tract) infections
CPT/HCPCS: 36415; 80048; 80053; 80202; 81003; 81015; 83605; 83690; 83735; 85025; 85027; 86140; 87040; 87077; 87086; 87149; 87186; 90471; 90686; 93005; 96361; 96365; 96367; 96375; G0008; J0692; J0696; J2270; J3370; J3490; J7050; Q0162

== ENCOUNTER 2019-07-20 09:27 | Emergency (ER) | payer SELFPAY ==
[2019-07-20] MEDS ORDERED: Ketorolac Tromethamine 30 MG/ML VIAL ONE (10:07)
[2019-07-20] MEDS ORDERED: Acetaminophen 500 MG TAB ONE ×3 (10:08)
[2019-07-20 10:16] LABS: #Basophils 0.1 thou/uL (0.0-0.2); #Eosinphils 0.2 thou/uL (0.0-0.7); #Lymphocytes 3.9 thou/uL (1.20-3.40); #Monocytes 0.8 thou/uL (0.11-0.59); #Neutrophils 3.8 thou/uL (1.40-6.50); %Basophils 1.5 % (0.0-1.0); %Eosinophils 2.7 % (0.0-10.0); %Lymphocytes 43.8 % (21.0-51.0); %Monocytes 9.2 % (0.0-10.0); %Neutrophils 42.7 % (42.0-75.0); Hemoglobin 16.6 g/dL (14.0-18.0); Mean Corpuscular HGB CONC 33.7 g/dL (32.0-36.0); Mean Platelet Volume 6.6 fL (7.4-10.4); Platelet Count 244 thou/uL (130-400); RBC Distribution Width 12.7 % (11.5-14.5); Red Blood Cell (RBC) Count 4.87 mill/uL (4.70-6.10)
--- NOTE | 2019-07-20 10:34 | RAD ---
PORTABLE CHEST 1 VIEW: Date: 07/20/2019 Time: 1010 hours HISTORY: Chest pain. FINDINGS: Comparison made with exam of 08/22/2018. The heart size is normal. The lungs are well expanded without lobar consolidation, pneumothoraces, or pleural effusions. IMPRESSION: No acute process. POS: KATIE
[2019-07-20 10:41] LABS: ALT (SGPT) 17 U/L (8-55); AST (SGOT) 24 U/L (5-34); Albumin 4.1 g/dL (3.5-5.0); Alkaline Phosphatase 83 U/L (40-110); Anion Gap 15 mmol/L (10-20); BUN (Urea Nitrogen) 7 mg/dL (8.9-20.6); Bilirubin, Total 0.6 mg/dL (0.2-1.2); Calc. Creatinine Clearance 0 mL/min (70-130); Calcium 9.4 mg/dL (7.8-10.44); Carbon Dioxide 21 mmol/L (22-29); Chloride 104 mmol/L (98-107); Estimated GFR-MDRD 85; Globulin 3.5 g/dL (2.4-3.5); Glucose 90 mg/dL (70-105); Lipase 108 U/L (8-78); Potassium 3.9 mmol/L (3.5-5.1); Protein, Total 7.6 g/dL (6.0-8.3); Sodium 136 mmol/L (136-145)
[2019-07-20 12:39] LABS: Bilirubin Negative (Negative); Blood, Urine Negative (Negative); Clarity Clear (Clear); Glucose, Urine (Dipstick) Normal (Negative); Leukocyte Negative Leu/uL (Negative); Nitrite Negative (Negative); Protein, Urine (Dipstick) 20 mg/dL (Neg-Trace)
--- NOTE | 2019-07-23 15:19 | EKG ---
Test Reason : Blood Pressure : / mmHG Vent. Rate : 092 BPM Atrial Rate : 092 BPM P-R Int : 130 ms QRS Dur : 088 ms QT Int : 392 ms P-R-T Axes : 058 033 052 degrees QTc Int : 484 ms Normal sinus rhythm Prolonged QT Abnormal ECG Confirmed by ADRIANO LAURA ([id number]), editor producer JENNIFER NELSON ([id number]) on 07/23/2019 3:18:44 PM Referred By: Confirmed By:ADRIANO Solo
== END 2019-07-20 13:20 | disposition home or self-care (01) ==
LOC: ERS 09:27
DX: R07.9 Chest pain, unspecified (principal); F17.210 Nicotine dependence, cigarettes, uncomplicated; Z79.899 Other long term (current) drug therapy
CPT/HCPCS: 36415; 71045; 80053; 81003; 83690; 84484; 85025; 93005; 96360; 96372; J1885

== ENCOUNTER 2019-07-24 08:38 | Observation (INO) | payer SELFPAY ==
[2019-07-24] MEDS ORDERED: Morphine 4 MG/ML VIAL ONE ×2 (09:15→11:37)
[2019-07-24] MEDS ORDERED: Ondansetron PF 4 MG/2 ML Vial ONE (09:15)
[2019-07-24 09:38] LABS: #Basophils 0.1 thou/uL (0.0-0.2); #Eosinphils 0.2 thou/uL (0.0-0.7); #Lymphocytes 4.1 thou/uL (1.20-3.40); #Monocytes 0.8 thou/uL (0.11-0.59); #Neutrophils 3.9 thou/uL (1.40-6.50); %Basophils 1.4 % (0.0-1.0); %Eosinophils 2.7 % (0.0-10.0); %Lymphocytes 44.7 % (21.0-51.0); %Monocytes 8.4 % (0.0-10.0); %Neutrophils 42.9 % (42.0-75.0); Hemoglobin 15.7 g/dL (14.0-18.0); Mean Corpuscular HGB CONC 34.9 g/dL (32.0-36.0); Mean Corpuscular Hemoglobin 36.3 pg (27.0-31.0); Mean Platelet Volume 6.8 fL (7.4-10.4); Platelet Count 237 thou/uL (130-400); RBC Distribution Width 12.9 % (11.5-14.5); Red Blood Cell (RBC) Count 4.32 mill/uL (4.70-6.10); White Blood Cell (WBC) Count 9.1 thou/uL (4.8-10.8)
[2019-07-24 09:46] LABS: Bilirubin Negative (Negative); Blood, Urine Negative (Negative); Clarity Clear (Clear); Glucose, Urine (Dipstick) Normal (Negative); Leukocyte Negative Leu/uL (Negative); Nitrite Negative (Negative); Protein, Urine (Dipstick) Negative (Neg-Trace); Urobilinogen Normal mg/dL (Less than 2)
[2019-07-24 09:49] LABS: ALT (SGPT) 19 U/L (8-55); AST (SGOT) 23 U/L (5-34); Albumin 3.9 g/dL (3.5-5.0); Alkaline Phosphatase 74 U/L (40-110); Anion Gap 14 mmol/L (10-20); BUN (Urea Nitrogen) 9 mg/dL (8.9-20.6); Bilirubin, Total 0.3 mg/dL (0.2-1.2); Calc. Creatinine Clearance 0 mL/min (70-130); Calcium 9.3 mg/dL (7.8-10.44); Carbon Dioxide 25 mmol/L (22-29); Chloride 103 mmol/L (98-107); Estimated GFR-MDRD 80; Globulin 3.2 g/dL (2.4-3.5); Glucose 84 mg/dL (70-105); Lipase 172 U/L (8-78); Potassium 4.5 mmol/L (3.5-5.1); Protein, Total 7.1 g/dL (6.0-8.3); Sodium 137 mmol/L (136-145)
[2019-07-24] MEDS ORDERED: Nitroglycerin 2% Ointment 1 INCH/1 GM Packet ONE (10:05)
[2019-07-24] MEDS ORDERED: Iopamidol 370 76% 100 ML VIAL ONE (10:11)
--- NOTE | 2019-07-24 10:17 | RAD ---
PORTABLE CHEST: History: Right sided chest pain. Comparison: 07-20-19 FINDINGS: Heart size and mediastinum within normal limits. The lungs are clear of infiltrates. No significant b norma findings. IMPRESSION: No active intrathoracic disease. POS: ZANE
--- NOTE | 2019-07-24 10:38 | CT ---
CTA Angio Chest W WO Con 07/24/2019 10:15 AM Indication: Right-sided chest pain Technique: Multiple CTA images were obtained of the thorax with IV contrast. 3-D rendering: MIP danae nstructed images were created and reviewed. Comparison: No relevant prior studies available. Findings: Pulmonary arteries: No central or segmental pulmonary embolus is evident. Heart and Aorta: Normal appearing. Mediastinum:There are calcified lymph nodes within the mediastinum Lungs:No airspace consolidation is evident. There are scattered calcified granuloma within the right and left lung Pleural space: Clear. Upper Abdomen: No acute abnormality. Osseous Structures: No acute osseous abnormality. Soft tissues:No abnormality. Other findings:None. Impression: No central or segmental pulmonary embolus. Findings of prior granulomatous disease
--- NOTE | 2019-07-24 10:46 | CT ---
CT ABDOMEN AND PELVIS PERFORMED WITH CONTRAST ENHANCEMENT: History: Diffuse abdominal pain. History of HIV. Recently admitted for UTI and has been off antibioti cs x 2 weeks. Comparison: 05-05-17 FINDINGS: The lung bases are clear of any infiltrative process. Some minimal linear atelectasis in the left bas e. Liver shows some element of fatty change. The spleen, pancreas, and gallbladder regions appear unrema rkable. Right and left adrenal glands and right and left kidneys are normal in size. No renal calculi or obst ruction. No significant periaortic or mesenteric lymphadenopathy. Mild amount of stool is seen within the right and transverse colon. No inflammatory change. CT OF PELVIS PERFORMED WITH CONTRAST ENHANCEMENT: The appendix is normal. No evidence of adenopathy, mass, or free fluid. Review of osseous structures show no acute findings. IMPRESSION: No acute findings of the abdomen or pelvis. POS: ZANE
[2019-07-24] MEDS ORDERED: Ondansetron ODT 4 MG TAB PO PRN (15:03)
[2019-07-24] MEDS ORDERED: Ondansetron PF 4 MG/2 ML Vial IVP PRN (15:03)
[2019-07-24] MEDS ORDERED: Gabapentin 300 MG CAP PO PRN (15:59)
[2019-07-24 16:17] LABS: Cocaine Metabolite Screen Not Detected (NotDetected); Medtox Reader # READER 1; Methamphetamine Detected (NotDetected); Opiate Screen Detected (NotDetected); Phencyclidine (PCP) Not Detected (NotDetected); THC/Cannabinoid Screen Detected (NotDetected)
[2019-07-24 16:18] LABS: Amphetamine Detected (NotDetected); Barbiturates Screen Not Detected (NotDetected); Benzodiazepine Screen Not Detected (NotDetected); Medtox Control Line Valid? VALID (VALID); Methadone Not Detected (NotDetected); Oxycodone Screen Not Detected (NotDetected); Tricyclic Screen Not Detected (NotDetected)
[2019-07-24] MEDS: Acetaminophen 325 MG TAB PO PRN (16:42)
[2019-07-24] MEDS ORDERED: hydrALAZINE 20 MG/ML VIAL SLOW IVP PRN (17:12)
--- NOTE | 2019-07-24 17:53 | HP ---
HISTORY OF PRESENT ILLNESS: Mr. Doan is a 34-year-old male with a medical history of HIV, currently on Genvoya, syphilis, herpes zoster (in 2012), who presented with chest pain. The patient had right-sided chest pain, stabbing, burning, and radiating to the back, this past week. The pain is waxing and waning, lasts for seconds, and is worsened by breathing deeply and lying on the right side. The patient endorses having similar pain in his zoster episode in 2012. On encounter, the patient is lying comfortably in bed. Endorses improved right-sided chest and back pain after receiving pain medication in the ED. Also endorses adherence to his Genvoya. Denies generalized weakness, weight loss, rash, fever, chills, night sweats, neck stiffness, chest pressure sensation with activity, cough, sputum production, recent travel or sick contacts. EMERGENCY DEPARTMENT COURSE: In the ED, the patient was found to have grossly elevated blood pressure and was started on a nitroglycerin patch. EKG and troponin did not show any evidence of cardiac etiology. He was admitted to the medical floor for further management. PAST MEDICAL HISTORY: HIV, currently on Genvoya, pyelonephritis, syphilis, herpes zoster. PAST SURGICAL HISTORY: No surgical history. SOCIAL HISTORY: Lives at home with anderson. Smokes half a pack a day. Has [id number]. Also, endorses abusing cannabis; however, denies abusing any other recreational drugs. Says that he drinks alcohol socially every few weeks, only a bottle of beer or two. FAMILY HISTORY: The patient's father was just diagnosed with heart failure at the age of around 50. Otherwise unremarkable family history. Medications: Genvoya Allergies: NKDA REVIEW OF SYSTEMS: All complete review of systems was conducted and was negative with the exception of that mentioned in the HPI. PHYSICAL EXAMINATION: VITAL SIGNS: Blood pressure in the ED was 185/123, pulse was 79, respiratory rate 24, temperature 98.8 oral, oxygen saturation high 90s on room air, and pain was reported as 9. GENERAL APPEARANCE: Lying comfortably in bed in no apparent distress. HEENT: Atraumatic and normocephalic. No periauricular, submandibular, or neck lymphadenopathy appreciated. Moist oral mucosa with no oral lesions. LUNGS: Clear to auscultation bilaterally. No wheezing, rales, or rhonchi. HEART: Regular rate and rhythm. No gallops, rubs, or murmurs. ABDOMEN: Soft, nontender, nondistended. Normal bowel sounds. EXTREMITIES: No edema or calf tenderness. NEUROLOGIC: Cranial nerves 2 through 12 grossly intact. Strength 5/5 throughout upper and lower extremities. SKIN: Severe tenderness on light touch to the right side of the chest as well as below the armpit all the way to the right side of the back in a dermatomal distribution around levels T5 and T6. There is also no overlying rash at these levels, but below at around level T7 on the right, there are hyperpigmented papules in the right side of the chest all the way to the back as well. PSYCHIATRIC: Alert and awake, oriented x3. LABORATORY DATA AND DIAGNOSTIC STUDIES: Lab and imaging were reviewed. The patient does not appear to have immunosuppression based on CBC. EKG does not show any signs of new ischemia. Troponin is negative as well. CT angio of the thorax was negative for pulmonary embolism or any other acute findings as well as a CT of the abdomen and pelvis. Urine drug screen came back as positive for amphetamines, opiates, and cannabis. Lipase was mildly elevated as well. ASSESSMENT AND PLAN: Mr. Doan is a 34-year-old male with a medical history of human immunodeficiency virus, currently on Genvoya, polysubstance abuse, and herpes zoster, who presents with noncardiac chest pain. 1. Noncardiac chest pain: Most likely postherpetic neuralgia versus zoster sine herpete. The patient is currently immunocompetent, which makes reactive zoster unlikely; however, we will send out for IgM. Meanwhile, we will treat the pain with gabapentin. If IgM comes back as positive, we will start the patient on antiviral for treatment of active zoster. 2. 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 The patient currently has a nitroglycerin patch, and the blood pressure is currently better controlled. We will continue to monitor the patient's blood pressure considering the patient does not have a history of hypertension. 3. Macrocytosis and elevated lipase: The patient denies alcohol abuse; however, macrocytosis and lipase are likely due to alcohol abuse. We will start ASE protocol. 4. Disposition prophylaxis: The patient is full code. Gastrointestinal prophylaxis, no indication. Deep venous thrombosis prophylaxis, enoxaparin. Job ID: [id number] [facility]
[2019-07-24] MEDS ORDERED: Labetalol HCl 100 MG/20 ML VIAL ONE (18:36)
[2019-07-24] MEDS: Morphine 4 MG/ML VIAL ONE ×2 (18:54→19:05)
[2019-07-24] MEDS ORDERED: Morphine 2 MG/ML SYRINGE SLOW IVP PRN (18:58)
[2019-07-24] MEDS ORDERED: Labetalol HCl 100 MG/20 ML VIAL SLOW IVP PRN (18:59)
[2019-07-24] MEDS ORDERED: Labetalol HCl 100 MG/20 ML VIAL SLOW IVP SCH (19:00)
[2019-07-24] MEDS ORDERED: Morphine 4 MG/ML VIAL SLOW IVP SCH (19:00)
[2019-07-24] MEDS ORDERED: Dextrose 50% Abboject 50 ML SYRINGE SLOW IVP PRN (19:07)
[2019-07-24] MEDS ORDERED: Dextrose 5% in Water 1,000 ML IV PRN (19:07)
[2019-07-24 19:16] LABS: Anion Gap 17 mmol/L (10-20); BUN (Urea Nitrogen) 7 mg/dL (8.9-20.6); Calc. Creatinine Clearance 87 mL/min (70-130); Calcium 9.5 mg/dL (7.8-10.44); Carbon Dioxide 20 mmol/L (22-29); Chloride 105 mmol/L (98-107); Estimated GFR-MDRD 78; Glucose 75 mg/dL (70-105); Sodium 138 mmol/L (136-145)
[2019-07-24 19:21] LABS: Troponin I Less than 0.010 ng/mL (< 0.028)
[2019-07-24] MEDS: Lorazepam 2 MG/ML VIAL SLOW IVP PRN (20:28)
--- NOTE | 2019-07-24 20:43 | PDOC.EVN ---
Event Note - Event Note Event Note: Green code at 18:25. BP grossly elevated, patient complaining of increased right sided chest pain, now more presssure compared to earlier encounter. EKG showing no signs of ischemia, 2nd trop negative as well. Labetolol IVP given x 2 , morphine 5mg IVP once; BP and chest pain significantly improved. Will continue ASE protocol and labetalol PRN BP > 180/110; If recurs, transfer to telemetry obs.
[2019-07-25 06:11] LABS: Anion Gap 9 mmol/L (10-20); BUN (Urea Nitrogen) 8 mg/dL (8.9-20.6); Calc. Creatinine Clearance 94 mL/min (70-130); Calcium 8.9 mg/dL (7.8-10.44); Carbon Dioxide 27 mmol/L (22-29); Chloride 108 mmol/L (98-107); Estimated GFR-MDRD 85; Glucose 87 mg/dL (70-105); Magnesium 2.1 mg/dL (1.6-2.6); Potassium 3.9 mmol/L (3.5-5.1); Sodium 140 mmol/L (136-145)
[2019-07-25] MEDS ORDERED: Labetalol HCl 100 MG/20 ML VIAL SLOW IVP SCH (09:00)
[2019-07-25] MEDS ORDERED: (Elviteg/Cob/Emtri/Tenof Alafen [Genvoya Tablet] 1 TAB) PO SCH (09:00)
[2019-07-25] MEDS: Lorazepam 2 MG/ML VIAL SLOW IVP PRN ×3 (09:12→20:56)
[2019-07-25] MEDS: Gabapentin 300 MG CAP PO SCH ×3 (09:14→20:56)
[2019-07-25] MEDS: Enoxaparin Sodium 30 MG/0.3 ML SYRINGE SC SCH (09:14)
[2019-07-25] MEDS ORDERED: Labetalol HCl 100 MG/20 ML VIAL SLOW IVP PRN (17:04)
--- NOTE | 2019-07-25 22:09 | PDOC.HOSPP ---
- Subjective Encounter Date: 07/25/19 Encounter Time: 09:00 Subjective: no overnight events. this morning, feels better, chest pain only mild, and has no other complaints. - Objective Vital Signs & Weight: Vital Signs (12 hours) Temp Pulse Pulse Pulse Resp BP BP 07/25/19 19:32 98.3 F 81 16 07/25/19 16:00 98.7 F 86 16 164/104 H 07/25/19 15:00 150/110 H 07/25/19 14:00 87 151/90 H 07/25/19 13:00 98.5 F 78 18 141/97 H 07/25/19 12:08 74 83 165/104 H 07/25/19 12:00 171/116 H 07/25/19 11:45 98.5 F 78 18 BP BP BP Pulse Ox 07/25/19 19:32 168/115 H 99 07/25/19 16:00 164/104 H 99 07/25/19 15:00 07/25/19 14:00 07/25/19 13:00 98 07/25/19 12:08 174/110 H 07/25/19 12:00 07/25/19 11:45 141/97 H 98 Weight Admit Weight 174 lb 14.4 oz Weight 174 lb 14.4 oz I&O: 07/24/19 07/25/19 07/26/19 06:59 06:59 06:59 Intake Total 940 700 Balance 940 700 Result Diagrams: 07/24/19 09:08 07/25/19 05:31 Additional Labs: Accuchecks 07/25/19 07/25/19 07/25/19 20:21 16:02 11:53 POC Glucose 103 121 H 93 Hospitalist ROS - Review of Systems Constitutional: denies: fever, chills, sweats, weakness, malaise, other Respiratory: denies: cough, dry, shortness of breath, hemoptysis, SOB with excertion, pleuritic pain, sputum, wheezing, other Cardiovascular: reports: chest pain. denies: palpitations, orthopnea, paroxysmal noc. dyspnea, edema, light headedness, other Gastrointestinal: denies: nausea, vomiting, abdominal pain, diarrhea, constipation, melena, hematochezia, other - Medication Medications: Active Medications Generic Name Dose Route Start Last Admin Trade Name Freq PRN Reason Stop Dose Admin Acetaminophen 650 mg 07/24/19 15:03 07/24/19 16:42 Tylenol PO 650 mg Q4H PRN Administration Headache/Fever/Mild Pain (1-3) Enoxaparin Sodium 30 mg 07/25/19 09:00 07/25/19 09:14 Lovenox SC 30 mg 0900 ELISHA Administration Gabapentin 300 mg 07/25/19 09:00 07/25/19 20:56 Neurontin PO 300 mg TID ELISHA Administration Lorazepam 2 mg 07/24/19 16:50 07/25/19 20:56 Ativan SLOW IVP 2 mg Q4H PRN Administration Alcohol Withdrawal - Exam General Appearance: NAD, awake alert Heart: RRR, no murmur, no gallops, no rubs, normal peripheral pulses Respiratory: CTAB, no wheezes, no rales, no ronchi, normal chest expansion, no tachypnea, normal percussion Gastrointestinal: soft, non-tender, non-distended, normal bowel sounds, no palpable masses, no hepatomegaly, no splenomegaly, no bruit Extremities: no edema Skin - other findings: less tender to light tough on right thorax and upper back , no rash Neurological: cranial nerve grossly intact Psychiatric: normal affect, normal behavior, A&O x 3 Hosp A/P - Plan noncardiac chest pain (improving) - multifactorial, demand ischemia due to amphetamine abuse (resolved), possible postherpatic neuralgia, some malingering aspect also possible HTN (improving) - due to amphetamine abuse and possible alcohol withdrawal; in context of both, ativan preferred over labetalol HIV - per patient, adherent to genvoya; pending CD4 and viral count
[2019-07-25] MEDS: Acetaminophen 325 MG TAB PO PRN (23:45)
[2019-07-26] MEDS: Lorazepam 2 MG/ML VIAL SLOW IVP PRN ×2 (02:40→08:35)
[2019-07-26] MEDS: Gabapentin 300 MG CAP PO SCH (08:34)
[2019-07-26] MEDS: Enoxaparin Sodium 30 MG/0.3 ML SYRINGE SC SCH ×2 (08:35→08:41)
[2019-07-26] MEDS ORDERED: Lorazepam 1 MG TAB PO SCH (09:00)
[2019-07-26] MEDS ORDERED: Gabapentin 300 MG CAP PO SCH (09:37)
[2019-07-26] MEDS ORDERED: chlordiazePOXIDE HCl 5 MG CAP PO SCH (09:45)
[2019-07-26] MEDS ORDERED: Lorazepam 1 MG TAB PO PRN (13:00)
[2019-07-26] MEDS ORDERED: Gabapentin 400 MG CAP PO SCH (15:00)
[2019-07-26 16:07] VITALS: BMI 23.1
--- NOTE | 2019-07-26 17:09 | EKG ---
Test Reason : CODE GREEN Blood Pressure : / mmHG Vent. Rate : 077 BPM Atrial Rate : 077 BPM P-R Int : 146 ms QRS Dur : 078 ms QT Int : 400 ms P-R-T Axes : 065 064 075 degrees QTc Int : 452 ms Normal sinus rhythm with sinus arrhythmia possible PAC's poor quality from interference artifacts When compared with ECG of 24-JUL-2019 08:43, (Unconfirmed) No significant change was found Confirmed by DR. Sebastian WARD ([id number]) on 07/26/2019 5:09:17 PM Referred By: Sandy CEDEÑO Confirmed By:DR. Sebastian WARD
[2019-07-26 17:28] VITALS: BP 140/103; TEMP 98.7
[2019-07-27 11:13] LABS: Varicella Zoster IgM ABS Less than 0.91 index (0.00-0.90)
--- NOTE | 2019-07-27 14:04 | DIS ---
DATE OF ADMISSION: 07/24/2019 DATE OF DISCHARGE: 07/26/2019 DISPOSITION: Left AMA. HISTORY OF PRESENT ILLNESS: Mr. Doan is a 34-year-old male with a medical history of HIV (on Genvoya), syphilis, and herpes zoster in 2011, who presented with right-sided chest pain. The patient was found to have a urine drug screen positive for opiates, amphetamines, methamphetamines, and cannabinoids, even though the patient denied using any substances except for cannabinoids. During his inpatient stay, the patient exhibited erratic behavior, was agitated, showed tremors and hyperdynamic vital signs. He was started on benzodiazepines to address hypertension context of amphetamines and possible alcohol withdrawal as well as subsequent beta blockers to further manage his hypertension. On the second day of hospitalization, the patient exhibited drug-seeking behavior and requested a friend to bring him food from outside. When was denied access, the patient demanded to be discharge AMA. He was educated regarding the risks of his current condition and not treating it, and exhibited understanding regarding the risks and benefits of treatment. PHYSICAL EXAMINATION: VITAL SIGNS: Blood pressure 140/103, pulse was 86, respiratory rate 18, temperature 98.7, and oxygen saturation 99% on room air. The patient left before the casualty underwriter of this note could examine him prior to discharge. DISCHARGE MEDICATION: Continued medications: Genvoya. The patient left prior to being able to assess indication for additional outpatient medication. Job ID: [id number]
[2019-07-27 18:08] LABS: %CD4 (Helper/Inducer) 35.9 % (30.8-58.5); Absolute CD4 1077 /uL (359-1519); Total Lymphocyte 39 % (Not Estab.); WBC Total Count 7.8 x10E3/uL (3.4-10.8)
[2019-07-28 13:12] LABS: HIV-1 Quantitative, RNA PCR 560 copies/mL (.); LOG10 HIV-1 RNA 2.748 (.)
--- NOTE | 2019-07-28 15:19 | EKG ---
Test Reason : Blood Pressure : / mmHG Vent. Rate : 074 BPM Atrial Rate : 074 BPM P-R Int : 152 ms QRS Dur : 080 ms QT Int : 390 ms P-R-T Axes : 047 041 067 degrees QTc Int : 432 ms Normal sinus rhythm No STEMI Normal ECG Confirmed by MICHAELA VALDES M.D. ([id number]), editor dictionary JENNIFER NELSON ([id number]) on 07/28/2019 3:19:04 PM Referred By: Confirmed By:MICHAELA VALDES M.D.
== END 2019-07-26 17:36 | disposition left against medical advice (07) ==
LOC: ERS 08:38 → ONC 14:53
PROVIDERS: ADMIT Internal Medicine; ATTEND Internal Medicine
DX: R07.89 Other chest pain (principal); I16.0 Hypertensive urgency; F15.188 Other stimulant abuse with other stimulant-induced disorder; Z21 Asymptomatic human immunodeficiency virus [HIV] infection status; I24.8 Other forms of acute ischemic heart disease; F11.10 Opioid abuse, uncomplicated; F12.10 Cannabis abuse, uncomplicated; F17.210 Nicotine dependence, cigarettes, uncomplicated; D75.89 Other specified diseases of blood and blood-forming organs; Z53.29 Procedure and treatment not carried out because of patient's decision for other reasons; Z76.5 Malingerer [conscious simulation]; Z79.899 Other long term (current) drug therapy
CPT/HCPCS: 36415; 36416; 71045; 71275; 74177; 80048; 80053; 80306; 81003; 83605; 83690; 83735; 84484; 85025; 85048; 85379; 86361; 86787; 87536; 93005; 93010; 96361; 96372; 96374; 96375; 96376; G0378; J1650; J2060; J2270; J2405; Q9967

== ENCOUNTER 2019-07-27 03:39 | Emergency (ER) | payer SELFPAY ==
[2019-07-27] MEDS ORDERED: Ketorolac Tromethamine 30 MG/ML VIAL ONE (03:52)
[2019-07-27 04:17] LABS: #Basophils 0.1 thou/uL (0.0-0.2); #Eosinphils 0.1 thou/uL (0.0-0.7); #Lymphocytes 3.1 thou/uL (1.20-3.40); #Monocytes 0.7 thou/uL (0.11-0.59); #Neutrophils 3.6 thou/uL (1.40-6.50); %Basophils 1.3 % (0.0-1.0); %Eosinophils 1.2 % (0.0-10.0); %Lymphocytes 40.9 % (21.0-51.0); %Monocytes 8.9 % (0.0-10.0); %Neutrophils 47.6 % (42.0-75.0); Hemoglobin 14.3 g/dL (14.0-18.0); Mean Corpuscular HGB CONC 33.4 g/dL (32.0-36.0); Mean Corpuscular Hemoglobin 34.5 pg (27.0-31.0); Mean Platelet Volume 6.8 fL (7.4-10.4); Platelet Count 242 thou/uL (130-400); RBC Distribution Width 12.8 % (11.5-14.5); Red Blood Cell (RBC) Count 4.16 mill/uL (4.70-6.10); White Blood Cell (WBC) Count 7.6 thou/uL (4.8-10.8)
[2019-07-27 04:58] LABS: ALT (SGPT) 15 U/L (8-55); AST (SGOT) 19 U/L (5-34); Albumin 3.7 g/dL (3.5-5.0); Alkaline Phosphatase 78 U/L (40-110); Anion Gap 12 mmol/L (10-20); BUN (Urea Nitrogen) 9 mg/dL (8.9-20.6); Bilirubin, Total 0.4 mg/dL (0.2-1.2); Calc. Creatinine Clearance 0 mL/min (70-130); Calcium 9.6 mg/dL (7.8-10.44); Carbon Dioxide 22 mmol/L (22-29); Chloride 107 mmol/L (98-107); Estimated GFR-MDRD 84; Globulin 3.5 g/dL (2.4-3.5); Glucose 94 mg/dL (70-105); Lipase 95 U/L (8-78); Potassium 3.9 mmol/L (3.5-5.1); Protein, Total 7.2 g/dL (6.0-8.3); Sodium 137 mmol/L (136-145)
--- NOTE | 2019-07-27 07:13 | RAD ---
CHEST 1 VIEW: INDICATION: Right-sided flank pain. COMPARISON: Prior exam dated 07/24/2019. FINDINGS: Lungs are clear. Heart size is normal. No acute osseous abnormality is evident. IMPRESSION: No acute cardiopulmonary abnormality. POS: BH
--- NOTE | 2019-07-28 14:57 | EKG ---
Test Reason : Blood Pressure : / mmHG Vent. Rate : 109 BPM Atrial Rate : 109 BPM P-R Int : 134 ms QRS Dur : 082 ms QT Int : 340 ms P-R-T Axes : 076 068 054 degrees QTc Int : 457 ms Sinus tachycardia Possible Left atrial enlargement No STEMI Borderline ECG Confirmed by AQUILES CHILEL M.D. ([id number]), scientific editor JENNIFER NELSON ([id number]) on 07/28/2019 2:57:25 PM Referred By: Confirmed By:AQUILES CHILEL M.D.
== END 2019-07-27 05:50 | disposition home or self-care (01) ==
LOC: ERS 03:39
DX: T85.848A Pain due to other internal prosthetic devices, implants and grafts, initial encounter (principal); R07.9 Chest pain, unspecified; F17.210 Nicotine dependence, cigarettes, uncomplicated; Z79.899 Other long term (current) drug therapy
CPT/HCPCS: 36415; 71045; 80053; 83690; 84484; 85025; 93005; 96361; 96374; 96376; J1885

== ENCOUNTER 2019-07-30 14:57 | Emergency (ER) | payer SELFPAY ==
--- NOTE | 2019-07-30 15:52 | RAD ---
RADIOGRAPH CHEST 1 VIEW: DATE: 07/30/2019 HISTORY: 34-year-old male with chest pain FINDINGS: There are no airspace densities, pulmonary edema, pneumothorax, or cardiomegaly. The lateral costophr enic angles are sharp. IMPRESSION: No acute cardiopulmonary findings.
[2019-07-30 15:57] LABS: #Basophils 0.1 thou/uL (0.0-0.2); #Eosinphils 0.1 thou/uL (0.0-0.7); #Lymphocytes 3.5 thou/uL (1.20-3.40); #Monocytes 0.6 thou/uL (0.11-0.59); #Neutrophils 3.8 thou/uL (1.40-6.50); %Basophils 0.8 % (0.0-1.0); %Eosinophils 1.8 % (0.0-10.0); %Lymphocytes 42.5 % (21.0-51.0); %Monocytes 7.7 % (0.0-10.0); %Neutrophils 47.1 % (42.0-75.0); Hemoglobin 13.5 g/dL (14.0-18.0); Mean Corpuscular HGB CONC 33.7 g/dL (32.0-36.0); Mean Corpuscular Hemoglobin 34.8 pg (27.0-31.0); Mean Platelet Volume 6.6 fL (7.4-10.4); Platelet Count 284 thou/uL (130-400); RBC Distribution Width 12.9 % (11.5-14.5); Red Blood Cell (RBC) Count 3.89 mill/uL (4.70-6.10); White Blood Cell (WBC) Count 8.1 thou/uL (4.8-10.8)
[2019-07-30 16:21] LABS: ALT (SGPT) 11 U/L (8-55); AST (SGOT) 15 U/L (5-34); Albumin 3.6 g/dL (3.5-5.0); Alkaline Phosphatase 70 U/L (40-110); Anion Gap 12 mmol/L (10-20); BUN (Urea Nitrogen) 8 mg/dL (8.9-20.6); Bilirubin, Total 0.4 mg/dL (0.2-1.2); Calc. Creatinine Clearance 0 mL/min (70-130); Calcium 9.1 mg/dL (7.8-10.44); Carbon Dioxide 23 mmol/L (22-29); Chloride 106 mmol/L (98-107); Estimated GFR-MDRD 88; Globulin 3.1 g/dL (2.4-3.5); Glucose 88 mg/dL (70-105); Protein, Total 6.7 g/dL (6.0-8.3); Sodium 137 mmol/L (136-145)
[2019-07-30] MEDS ORDERED: Ketorolac Tromethamine 30 MG/ML VIAL ONE (17:31)
[2019-07-30] MEDS ORDERED: Dexamethasone 10 MG/ML VIAL ONE (17:34)
== END 2019-07-30 18:18 | disposition home or self-care (01) ==
LOC: ERS 14:57
DX: R07.89 Other chest pain (principal); R10.9 Unspecified abdominal pain; I10 Essential (primary) hypertension; B20 Human immunodeficiency virus [HIV] disease; F41.9 Anxiety disorder, unspecified; F17.210 Nicotine dependence, cigarettes, uncomplicated; Z79.899 Other long term (current) drug therapy
CPT/HCPCS: 36415; 71045; 80053; 84484; 85025; 93005; 96374; 96375; J1100; J1885

== ENCOUNTER 2019-07-31 14:20 | Inpatient (IN) | payer OTHER, SELFPAY ==
[~2019-07-31 14:20] MED LIST: Iopamidol 370 76% 100 ML VIAL ONE
--- NOTE | 2019-07-31 15:26 | RAD ---
RADIOGRAPH CHEST 1 VIEW: DATE: 07/31/2019 HISTORY: 34-year-old male with chest pain FINDINGS: There are no airspace densities, pulmonary edema, pneumothorax, or cardiomegaly. The lateral costophr enic angles are sharp. IMPRESSION: No acute cardiopulmonary findings.
[2019-07-31 15:53] LABS: #Lymphocytes 2.3 thou/uL (1.20-3.40); #Neutrophils 9.2 thou/uL (1.40-6.50); %Basophils 0.3 % (0.0-1.0); %Eosinophils 0.3 % (0.0-10.0); %Lymphocytes 18.7 % (21.0-51.0); %Monocytes 7.6 % (0.0-10.0); Hemoglobin 14.7 g/dL (14.0-18.0); Mean Corpuscular HGB CONC 33.5 g/dL (32.0-36.0); Mean Corpuscular Hemoglobin 34.8 pg (27.0-31.0); Mean Platelet Volume 6.9 fL (7.4-10.4); Platelet Count 311 thou/uL (130-400); RBC Distribution Width 12.9 % (11.5-14.5); Red Blood Cell (RBC) Count 4.24 mill/uL (4.70-6.10); White Blood Cell (WBC) Count 12.5 thou/uL (4.8-10.8)
[2019-07-31 15:57] LABS: INR-International Normal Ratio 0.9; Prothrombin Time 11.8 SEC (12.0-14.7)
[2019-07-31 15:58] LABS: PTT 25.8 SEC (22.9-36.1)
[2019-07-31 16:15] LABS: ALT (SGPT) 12 U/L (8-55); AST (SGOT) 14 U/L (5-34); Albumin 3.9 g/dL (3.5-5.0); Alkaline Phosphatase 76 U/L (40-110); Anion Gap 13 mmol/L (10-20); BUN (Urea Nitrogen) 10 mg/dL (8.9-20.6); Bilirubin, Total 0.3 mg/dL (0.2-1.2); Calc. Creatinine Clearance 0 mL/min (70-130); Calcium 9.6 mg/dL (7.8-10.44); Carbon Dioxide 23 mmol/L (22-29); Chloride 105 mmol/L (98-107); Estimated GFR-MDRD 80; Globulin 3.9 g/dL (2.4-3.5); Glucose 94 mg/dL (70-105); Protein, Total 7.8 g/dL (6.0-8.3); Sodium 137 mmol/L (136-145)
[2019-07-31 16:16] LABS: Acetaminophen Less than 6.0 mcg/mL (10.0-30.0); Alcohol Less than 10 mg/dL (Less than 10); Salicylate 9.6 mg/dL (15.0-30.0)
[2019-07-31] MEDS ORDERED: Morphine 4 MG/ML VIAL ONE (16:52)
[2019-07-31] MEDS ORDERED: Ondansetron PF 4 MG/2 ML Vial ONE (16:53)
[2019-07-31] MEDS ORDERED: Pantoprazole 40 MG VIAL ONE (16:53)
[2019-07-31] MEDS ORDERED: Aspirin Chewable 81 MG TAB ONE (18:28)
[2019-07-31 19:01] LABS: Amphetamine Detected (NotDetected); Barbiturates Screen Not Detected (NotDetected); Benzodiazepine Screen Detected (NotDetected); Cocaine Metabolite Screen Not Detected (NotDetected); Medtox Control Line Valid? VALID (VALID); Medtox Reader # READER 1; Methadone Not Detected (NotDetected); Methamphetamine Detected (NotDetected); Opiate Screen Detected (NotDetected); Oxycodone Screen Not Detected (NotDetected); Phencyclidine (PCP) Not Detected (NotDetected); THC/Cannabinoid Screen Detected (NotDetected); Tricyclic Screen Not Detected (NotDetected)
--- NOTE | 2019-07-31 19:07 | PDOC.EVN ---
Event Note - Event Note Event Note: h&P dictated HIV - lst cd4 unknown 3 visits to ER for chest pain rule out for ACS and COVID-19.
[2019-07-31 19:35] LABS: CK (CPK) 125 U/L (30-200); CRP (Inflammatory) Less than 0.50 mg/dL (= or < 0.5)
[2019-07-31] MEDS ORDERED: Pregabalin 50 MG CAP PO SCH (21:00)
[2019-07-31] MEDS ORDERED: Ondansetron PF 4 MG/2 ML Vial IVP PRN (21:21)
[2019-07-31] MEDS ORDERED: Ondansetron ODT 4 MG TAB SL PRN (21:21)
[2019-07-31] MEDS ORDERED: Acetaminophen 325 MG TAB PO PRN (21:21)
[2019-07-31] MEDS ORDERED: HYDROcodone/Acetaminophen 5/325 mg Tablet PO PRN ×2 (21:21)
[2019-07-31] MEDS: hydrALAZINE 25 MG TAB PO SCH (21:46)
[2019-07-31 22:26] LABS: Troponin I Less than 0.010 ng/mL (< 0.028)
--- NOTE | 2019-07-31 22:38 | CT ---
CT Chest W Con HISTORY: Right-sided chest pain COMPARISON: CT pulmonary angiogram of 07/24/2019 FINDINGS: Findings of previous granulomatous disease is stable demonstrated by mediastinal lymph nodes and the calcified granulomas in the lung. No mediastinal, hilar or axillary mass or lymphadenopathy seen. The thoracic aorta is of normal caliber without dissection or aneurysm. No pleural or pericardial eff usions are seen. No pneumothoraces or focal areas of consolidation are seen. No acute osseous abnormalities noted. IMPRESSION: No acute process.
[2019-07-31] MEDS: Nicotine 7 MG PATCH TD SCH (23:50)
[2019-08-01] LABS: Syphilis Antibody REACTIVE (Nonreactive)
--- NOTE | 2019-08-01 01:50 | HP ---
CHIEF COMPLAINT: Chest pain. HISTORY OF PRESENT ILLNESS: A 34-year-old male with history of HIV, on HAART medication; hypertension, but not on any blood pressure medication, presenting with the chest pain. He has been seen in the ER for 3 times so far. Workup was negative. However, the patient came today again with similar chest pain and elevated white count of 12.5. His chest x-ray is negative for acute cardiopulmonary findings. The patient moved from [place] roughly six years ago, and he lives alone. In the last few days, even though chest pain is mostly on the right side of the chest, he also felt tenderness on his right axillary area as well as at the back. He is not at risk for any COVID exposure per patient. The patient does not have a fever or cough. The patient was diagnosed with HIV in 2011 and he claims that he is on HAART medication and compliant with that. He has seen Dr. Chester roughly two years ago. The patient states that he may be seeing him next month and wondering whether he can see him as an inpatient. He does not know his last CD4 count, and he has not checked the viral load at least for the last two years. He states that he knows he has hypertension as people told him and he also has symptoms of headache in the morning, which goes away. On initial evaluation, his WBC is 12.5. His creatinine is 1.27. I discussed with ER doctor since patient is visiting the last three times and coming with the chest pain issue and he is immunocompromised with HIV and the last CD4 count unknown, probably it would not be a bad idea to rule him out for COVID. So, he will be on rule out COVID. The patient is asking for more powerful pain medication as Ultram is not helping. He takes marijuana. He does not use cocaine. He smokes daily. REVIEW OF SYSTEMS: He denies any fever, night sweats, or chills. No appetite or weight changes. No nausea, vomiting, abdominal pain, constipation, or diarrhea. There is no orthopnea, PND, or lower extremity edema. No dysuria, hematuria, or hematochezia. Denies any tingling or numbness in his extremities. No rash. ALLERGIES: HE HAS NO KNOWN DRUG ALLERGIES. PAST MEDICAL HISTORY: HIV, diagnosed in 2011; hypertension, not on any medication. MEDICATION: Genvoya one tablet daily. SOCIAL HISTORY: The patient smokes at least half a pack daily. Occasional alcohol use. Does not use illicit drugs. He does use marijuana. FAMILY HISTORY: Significant for diabetes and hypertension. PHYSICAL EXAMINATION: VITAL SIGNS: He is afebrile. Monitor shows his blood pressure is 168/113 with pulse of 87. GENERAL: The patient is alert, oriented. He looks little distressed with his chest pain. Otherwise, he appears nontoxic. HEENT: Pupils are equal, round, and reactive to light. Anicteric. Mucous membranes are moist. CARDIOVASCULAR: Regular rate and rhythm without murmurs, rubs, or gallops. LUNGS: Clear to auscultation bilaterally without wheezing, rales, or rhonchi. ABDOMEN: Soft, nontender, and nondistended. Good bowel sounds. EXTREMITIES: Without any pitting edema or rash. NEUROLOGICAL: No focal deficits. LABORATORY DATA: CMP panel unremarkable. CBC with a WBC of 12.5, hemoglobin is 14.7, and platelet is 311,000. His Tylenol level and aspirin level were insignificant. Blood alcohol level less than 10. EKG was done, nonspecific ST-T wave changes. Troponin done yesterday was less than 0.03. IMAGING DATA: Chest x-ray without infiltrate. IMPRESSION AND PLAN: A 34-year-old male with history of human immunodeficiency virus and the last CD4 count unknown, presenting with the following; 1. Atypical chest pain. 2. Hypertensive urgency. 3. Human immunodeficiency virus, compliant with HAART medication; however, last CD4 count unknown. 4. Leukocytosis. The patient visited ER four times so far with chest pain. The patient will be ruled out for acute coronary syndrome. I am more concerned whether this would be an atypical presentation for herpes zoster as the patient complained of tenderness on his right-sided axillary region as well as at the back. We will follow up with the RPR and consider starting him on pregabalin if he developed rash or RPR is positive. We will follow the clinical course. Hypertensive urgency, this could also contribute to his chest pain; however, tenderness is not explained completely. We will start him on hydrochlorothiazide as well as hydralazine p.r.n.. HIV: Continue with Genvoya. We will check his CD4 count. If it is less than 200, obviously we need to start him on prophylaxis as well and consult Infectious Disease, Dr. Henrik if needed. Follow up with CT chest that I have ordered, though low threshold for any abnormality. Cardiology consult for Friday morning placed. Job ID: [id number] MTDD
[2019-08-01] MEDS: Nitroglycerin 0.4 MG TAB (25 Tab Bottle) SL PRN ×3 (04:19→05:01)
[2019-08-01] MEDS: Metoprolol Tartrate 5 MG/5 ML VIAL IVP PRN ×4 (05:30→23:56)
[2019-08-01] MEDS: oxyCODONE/Acetaminophen 5 mg/325 mg Tablet PO PRN ×4 (05:34→20:59)
[2019-08-01 05:41] LABS: ALT (SGPT) 10 U/L (8-55); AST (SGOT) 13 U/L (5-34); Albumin 3.6 g/dL (3.5-5.0); Alkaline Phosphatase 68 U/L (40-110); Anion Gap 10 mmol/L (10-20); BUN (Urea Nitrogen) 8 mg/dL (8.9-20.6); Bilirubin, Total 0.3 mg/dL (0.2-1.2); Calc. Creatinine Clearance 93 mL/min (70-130); Calcium 9.1 mg/dL (7.8-10.44); Carbon Dioxide 27 mmol/L (22-29); Chloride 104 mmol/L (98-107); Estimated GFR-MDRD 78; Globulin 3.3 g/dL (2.4-3.5); Glucose 88 mg/dL (70-105); Potassium 3.5 mmol/L (3.5-5.1); Protein, Total 6.9 g/dL (6.0-8.3); Sodium 137 mmol/L (136-145)
[2019-08-01] MEDS: hydrALAZINE 25 MG TAB PO SCH ×3 (08:37→20:49)
[2019-08-01] MEDS ORDERED: Hydrochlorothiazide 25 MG TAB PO SCH (09:00)
[2019-08-01] MEDS ORDERED: (Elviteg/Cob/Emtri/Tenof Alafen [Genvoya Tablet] 1 TAB) PO SCH (09:00)
[2019-08-01] MEDS ORDERED: Gabapentin 100 MG CAP PO SCH (11:00)
--- NOTE | 2019-08-01 11:19 | PDOC.HOSPP ---
- Subjective Encounter Date: 08/01/19 Encounter Time: 09:20 Subjective: pt still has pain but controlled, classic pattern of zoster -dermatomal pattern on back of side side. started him on gabapentin. D/w Dr. chester, who would likely see him today. trops neg., ordered nuc stress. - Objective Vital Signs & Weight: Vital Signs (12 hours) Temp Pulse Resp BP Pulse Ox 08/01/19 08:55 98.5 F 74 14 176/110 H 100 08/01/19 08:37 61 08/01/19 07:39 98 08/01/19 06:51 61 167/102 H 08/01/19 04:00 98.0 F 69 20 177/127 H 98 08/01/19 00:00 98.9 F 79 18 157/97 H 98 Weight Weight 178 lb 2 oz Result Diagrams: 07/31/19 15:43 08/01/19 05:12 Hospitalist ROS - Medication Medications: Active Medications Generic Name Dose Route Start Last Admin Trade Name Freq PRN Reason Stop Dose Admin Gabapentin 100 mg 08/01/19 11:00 08/01/19 11:03 Neurontin PO 08/01/19 13:00 100 mg NOW ELISHA Administration Hydralazine HCl 25 mg 07/31/19 21:00 08/01/19 08:37 Apresoline PO 25 mg TID ELISHA Administration Hydrochlorothiazide 12.5 mg 08/01/19 09:00 08/01/19 08:38 Hydrochlorothiazide PO 12.5 mg DAILY ELISHA Administration Metoprolol Tartrate 5 mg 07/31/19 19:03 08/01/19 05:30 Lopressor IVP 5 mg Q6H PRN Administration Blood Pressure Nicotine 7 mg 07/31/19 21:00 07/31/19 23:50 Nicoderm Patch TD 7 mg Q24HR ELISHA Administration Nitroglycerin 0.4 mg 07/31/19 18:52 08/01/19 05:01 Nitrostat SL 0.4 mg Q5MIN PRN Administration Chest Pain Oxycodone/Acetaminophen 1 tab 07/31/19 18:52 08/01/19 05:34 Percocet 5/325 PO 1 tab Q6H PRN Administration Pain Sodium Chloride 10 ml 08/01/19 09:00 08/01/19 08:37 Flush - Normal Saline IVF 10 ml Q12HR ELISHA Administration - Exam General Appearance: NAD, awake alert Eye: PERRL ENT: normocephalic atraumatic Neck: supple Heart: RRR Respiratory: CTAB, normal chest expansion Gastrointestinal: soft Skin - other findings: back of right side - rash in dermatomal pattern Hosp A/P - Plan Herpes zoster - RPR titre 1:4 -classic pattern of zoster -dermatomal pattern on back of side side. started him on gabapentin. D/w Dr. chester, who would likely see him today. -contact isolation CP, atypical - likely related to above -trops neg., ordered nuc stress. HTN - started him on HCTZ, and hydralazine. HIV -CD4 - > 1000 - last check in june [talk to Dr. Chester to get those numbers] -ordered during admission yesterday, at that time, not aware of these numbers. -Viral load -around 500 - cw HAART COVID rule out. --pending.
[2019-08-01 11:57] LABS: SARS-CoV-2 MS2 Positive; SARS-CoV-2 N Gene Negative; SARS-CoV-2 S Gene Negative; SARS-CoV-2 orf1ab Negative
[2019-08-01] MEDS ORDERED: valACYclovir 500 MG TAB PO SCH ×2 (12:30→21:00)
[2019-08-01] MEDS ORDERED: Amlodipine 10 MG TAB PO SCH (12:45)
[2019-08-01] MEDS: traMADol HCl 50 MG TAB PO PRN ×2 (14:53→23:56)
[2019-08-01] MEDS: Acetaminophen 325 MG TAB PO PRN (14:53)
[2019-08-01] MEDS ORDERED: Gabapentin 300 MG CAP PO SCH (15:00)
--- NOTE | 2019-08-01 20:46 | CON ---
DATE OF CONSULTATION: REASON FOR CONSULTATION: Chest pain, longstanding history of HIV seropositive status, and a positive syphilis test. HISTORY OF PRESENT ILLNESS: A 34-year-old whom I have seen in the past in the clinic and then again after admission in March 2018 with a history of HIV seropositive status, on effective anti-retroviral therapy for the past 3 years with Genvoya. I last saw him in August 2017 and then in March 2018. In 2019, he presented with right upper lobe pneumonia. At that time, he was treated with the usual protocol with improvement. He never followed up in the clinic, but continues to reportedly take Genvoya, although not with 100% adherence to treatment. After this visit, he developed E coli bacteremia associated with urinary tract infection. He also has had recurrent episodes of postherpetic neuralgia type symptoms. He did have a prior herpes zoster outbreak about 2 years ago, has had recurrent episodes of postherpetic neuralgia in the distribution of dermatomal areas of involvement. He was recently admitted with this symptom and discharged on Genvoya, but no management for postherpetic neuralgia. There are some issues with possible drug use as well including possible methamphetamine, although the patient denies it. He was recently discharged and has been readmitted with the pain of which is likely related to postherpetic neuralgia. Denies any headaches. No visual symptoms, sore throat, odynophagia, dysphagia. No dyspnea, cough, or sputum production. No abdominal pain. Voiding without difficulty. No joint symptoms. No skin disorder. PAST MEDICAL HISTORY: Includes herpes zoster in distribution of the right mid thoracic dermatomes about 2 years ago, postherpetic neuralgia, chronic smoking, invasive UTI with E coli, community-acquired pneumonia which required admission. ALLERGIES: NONE. CURRENT MEDICATIONS: 1. Norvasc. 2. Neurontin. 3. Lopressor. 4. Nitrostat. 5. Genvoya. 6. Percocet. 7. Valacyclovir. 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 FAMILY HISTORY: Noncontributory. PHYSICAL EXAMINATION: VITAL SIGNS: T-max 98.9, blood pressure 160/109, pulse 61, respirations 16, O2 saturation 100. SKIN: Exam shows the residual scar from previous herpes zoster outbreak in the right thoracic dermatome. Otherwise, skin exam is normal. There is no lymphadenopathy. HEENT: Ocular movement is conjugate. Sclerae white. Pupils are equal. Oral cavity normal. NECK: Supple. No jugular vein distention. LUNGS: Clear to auscultation and percussion. He does seem to have hyperesthesia, allodynia on the right side of the chest. ABDOMEN: Soft. Not distended or tender. No ascites. No bladder distention. EXTREMITIES: No joint inflammatory activity. No edema. NEUROLOGIC: Nonfocal. The patient has areas of hyperalgesia/allodynia in the chest wall area extending towards the upper abdomen, right side, and the back as noted previously. LABORATORY AND IMAGING DATA: Chest x-ray was normal. CT of chest was normal. RPR titer 1 to 4. White cell count 12.5, hemoglobin 14.7, platelets 311, 73% neutrophils. The patient had a COVID test which was nondetected. Chemistry was normal. His creatinine was stable at 1.27. His last CD4 cell count was 1170, and his viral load PCR 2 weeks ago was 560. ASSESSMENT: 1. Longstanding human immunodeficiency virus infection with fairly decent adherence to anti-retroviral therapy. Marked improvement in the CD4 cell count and viral load over the past 2 years. Still not optimal suppression of viremia, most likely due to some gaps in his intake of Genvoya. 2. Postherpetic neuralgia: The symptoms are classic of postherpetic neuralgia, and they do not reflect active replication of herpes zoster. May discontinue antiviral therapy and upgrade dose of Neurontin or gabapentin. I would advise against opioid management for this sort of problem which does not seem to be effective for control of postherpetic neuralgia. Regarding the syphilis results , the actual titer is better than what it had been 2 years ago, so I would not recommend re-treating this finding at this point in time. The patient has not been sexually active, and he will need to follow up in the outpatient setting. Job ID: [id number] MTDD
[2019-08-01] MEDS: Nicotine 7 MG PATCH TD SCH (21:01)
[2019-08-02] MEDS: oxyCODONE/Acetaminophen 5 mg/325 mg Tablet PO PRN ×4 (01:27→20:41)
[2019-08-02 05:23] LABS: #Eosinphils 0.1 thou/uL (0.0-0.7); #Lymphocytes 3.9 thou/uL (1.20-3.40); #Monocytes 0.8 thou/uL (0.11-0.59); #Neutrophils 3.1 thou/uL (1.40-6.50); %Basophils 0.3 % (0.0-1.0); %Eosinophils 1.3 % (0.0-10.0); %Lymphocytes 49.2 % (21.0-51.0); %Monocytes 9.9 % (0.0-10.0); %Neutrophils 39.2 % (42.0-75.0); Hemoglobin 13.7 g/dL (14.0-18.0); Mean Corpuscular HGB CONC 33.3 g/dL (32.0-36.0); Mean Corpuscular Hemoglobin 34.7 pg (27.0-31.0); Mean Platelet Volume 6.5 fL (7.4-10.4); Platelet Count 309 thou/uL (130-400); Red Blood Cell (RBC) Count 3.94 mill/uL (4.70-6.10)
[2019-08-02] MEDS: Gabapentin 300 MG CAP PO SCH ×2 (07:57→20:37)
[2019-08-02] MEDS: Amlodipine 10 MG TAB PO SCH (07:57)
[2019-08-02] MEDS ORDERED: Gabapentin 100 MG CAP PO SCH (09:00)
[2019-08-02] MEDS: hydrALAZINE 25 MG TAB PO SCH ×2 (09:02→20:36)
[2019-08-02] MEDS: Chlorthalidone 25 MG TAB PO SCH (09:02)
[2019-08-02] MEDS: traMADol HCl 50 MG TAB PO PRN ×3 (11:01→23:34)
[2019-08-02] MEDS: Metoprolol Tartrate 5 MG/5 ML VIAL IVP PRN (11:31)
--- NOTE | 2019-08-02 12:40 | PDOC.HOSPP ---
- Subjective Encounter Date: 08/02/19 Encounter Time: 09:40 Subjective: states that his pain not controlled, gabapentin 300 tid, discussed about hte possibility of dc'd percocet, and he is not happy with that. BP better but accelerated d/t pain as well. - Objective Vital Signs & Weight: Vital Signs (12 hours) Temp Pulse Resp BP Pulse Ox 08/02/19 11:23 98.9 F 85 18 162/108 H 97 08/02/19 08:21 98.1 F 70 20 156/93 H 98 08/02/19 07:14 98.3 F 69 16 150/102 H 98 08/02/19 03:11 98.3 F 67 18 148/98 H 99 08/02/19 00:45 156/101 H Weight Weight 178 lb 2 oz Result Diagrams: 08/02/19 04:59 08/01/19 05:12 Hospitalist ROS - Medication Medications: Active Medications Generic Name Dose Route Start Last Admin Trade Name Freq PRN Reason Stop Dose Admin Acetaminophen 650 mg 07/31/19 18:37 08/01/19 14:53 Tylenol PO 650 mg Q4H PRN Administration Headache/Fever/Mild Pain (1-3) Amlodipine Besylate 10 mg 08/02/19 09:00 08/02/19 07:57 Norvasc PO 10 mg DAILY ELISHA Administration Chlorthalidone 25 mg 08/02/19 09:00 08/02/19 09:02 [place] PO 25 mg DAILY ELISHA Administration Gabapentin 300 mg 08/02/19 09:00 08/02/19 07:57 Neurontin PO 08/02/19 22:00 300 mg BID ELISHA Administration Hydralazine HCl 25 mg 08/01/19 21:00 08/02/19 09:02 Apresoline PO 25 mg BID ELISHA Administration Metoprolol Tartrate 5 mg 07/31/19 19:03 08/02/19 11:31 Lopressor IVP 5 mg Q6H PRN Administration Blood Pressure Nicotine 7 mg 07/31/19 21:00 08/01/19 21:01 Nicoderm Patch TD 7 mg Q24HR ELISHA Administration Nitroglycerin 0.4 mg 07/31/19 18:52 08/01/19 05:01 Nitrostat SL 0.4 mg Q5MIN PRN Administration Chest Pain Oxycodone/Acetaminophen 1 tab 08/01/19 15:30 08/02/19 07:54 Percocet 5/325 PO 1 tab Q4H PRN Administration Moderate to Severe Pain (6-10) Sodium Chloride 10 ml 08/01/19 09:00 08/02/19 07:57 Flush - Normal Saline IVF 10 ml Q12HR ELISHA Administration Sodium Chloride 10 ml 07/31/19 21:22 08/01/19 23:57 Flush - Normal Saline IVF 10 ml PRN PRN Administration Saline Flush Tramadol HCl 50 mg 08/01/19 14:19 08/02/19 11:01 Ultram PO 50 mg Q6H PRN Administration Mild-Moderate Pain (1-5) - Exam General Appearance: NAD, awake alert Eye: PERRL ENT: normocephalic atraumatic Neck: supple Heart: RRR, normal peripheral pulses Respiratory: CTAB, normal chest expansion Skin - other findings: dermatomal rask on back of the right chest, no active blisters Neurological: no focal deficits Hosp A/P - Plan Herpes zoster - RPR titre 1:4 -classic pattern of zoster -dermatomal pattern on back of side side. started him on gabapentin. D/w Dr. Chester. -gabapentin 300mg tid. CP, atypical - likely related to above -trops neg., ordered nuc stress. ----------> discontinued later, as CP predominantly d/t above. -d/t isolation and zoster - will do stress test in the future, if the CP not relieved after gabapentin uptitrated and if he has classic sxs for cardiac ischemia. - though he is immunocompromised, he is on HAART and well controlled. -- do not expect cardiac risk high enough to put him on stress test at this time, while trying to control his neuropathic pain. HTN - started him on chlorthalidone, norvasc and hydralazine. HIV -CD4 - > 1000 - last check in june [talk to Dr. Chester to get those numbers] -ordered during admission yesterday, at that time, not aware of these numbers. -Viral load -around 500 - cw HAART COVID rule out. --negative pt will stay next few days until his neuropathic pain controlled w.. uptitration of gabapentin.
[2019-08-02] MEDS ORDERED: hydrALAZINE 25 MG TAB PO SCH ×2 (12:46→13:00)
[2019-08-02] MEDS: Ondansetron PF 4 MG/2 ML Vial SLOW IVP PRN (17:57)
[2019-08-02] MEDS: Nicotine 7 MG PATCH TD SCH (20:37)
[2019-08-03 05:34] LABS: Anion Gap 12 mmol/L (10-20); BUN (Urea Nitrogen) 10 mg/dL (8.9-20.6); Calc. Creatinine Clearance 101 mL/min (70-130); Calcium 9.5 mg/dL (7.8-10.44); Carbon Dioxide 26 mmol/L (22-29); Chloride 101 mmol/L (98-107); Estimated GFR-MDRD 89; Glucose 91 mg/dL (70-105); Potassium 3.4 mmol/L (3.5-5.1); Sodium 136 mmol/L (136-145)
[2019-08-03] MEDS: oxyCODONE/Acetaminophen 5 mg/325 mg Tablet PO PRN ×3 (05:36→18:12)
[2019-08-03] MEDS: Amlodipine 10 MG TAB PO SCH (08:18)
[2019-08-03] MEDS: Chlorthalidone 25 MG TAB PO SCH (08:19)
[2019-08-03] MEDS: Gabapentin 300 MG CAP PO SCH ×3 (08:20→21:30)
[2019-08-03] MEDS: hydrALAZINE 25 MG TAB PO SCH ×2 (08:21→21:30)
[2019-08-03] MEDS: traMADol HCl 50 MG TAB PO PRN ×2 (08:21→22:31)
--- NOTE | 2019-08-03 11:44 | PDOC.HOSPP ---
- Subjective Encounter Date: 08/03/19 Encounter Time: 10:00 Subjective: pain is controlled, BP is improving. ted powell c/o today from the pt. - Objective Vital Signs & Weight: Vital Signs (12 hours) Temp Pulse Resp BP BP Pulse Ox 08/03/19 08:21 85 140/97 H 08/03/19 08:18 85 140/97 H 08/03/19 07:55 99 08/03/19 07:40 97.8 F 85 16 140/97 H 99 08/03/19 03:45 98.2 F 79 18 151/105 H 100 Weight Weight 171 lb I&O: 08/02/19 08/03/19 08/04/19 06:59 06:59 06:59 Intake Total 960 Balance 960 Result Diagrams: 08/02/19 04:59 08/03/19 05:02 Hospitalist ROS - Medication Medications: Active Medications Generic Name Dose Route Start Last Admin Trade Name Freq PRN Reason Stop Dose Admin Acetaminophen 650 mg 07/31/19 18:37 08/01/19 14:53 Tylenol PO 650 mg Q4H PRN Administration Headache/Fever/Mild Pain (1-3) Amlodipine Besylate 10 mg 08/02/19 09:00 08/03/19 08:18 Norvasc PO 10 mg DAILY ELISHA Administration Chlorthalidone 25 mg 08/02/19 09:00 08/03/19 08:19 Hygroton PO 25 mg DAILY ELISHA Administration Gabapentin 300 mg 08/03/19 09:00 08/03/19 08:20 Neurontin PO 300 mg TID ELISHA Administration Hydralazine HCl 50 mg 08/02/19 21:00 08/03/19 08:21 Apresoline PO 50 mg BID ELISHA Administration Metoprolol Tartrate 5 mg 07/31/19 19:03 08/02/19 11:31 Lopressor IVP 5 mg Q6H PRN Administration Blood Pressure Nicotine 7 mg 07/31/19 21:00 08/02/19 20:37 Nicoderm Patch TD 7 mg Q24HR ELISHA Administration Nitroglycerin 0.4 mg 07/31/19 18:52 08/01/19 05:01 Nitrostat SL 0.4 mg Q5MIN PRN Administration Chest Pain Ondansetron HCl 4 mg 08/02/19 17:47 08/02/19 17:57 Zofran SLOW IVP 4 mg Q6H PRN Administration Nausea/Vomiting Oxycodone/Acetaminophen 1 tab 08/01/19 15:30 08/03/19 10:44 Percocet 5/325 PO 1 tab Q4H PRN Administration Moderate to Severe Pain (6-10) Sodium Chloride 10 ml 08/01/19 09:00 08/03/19 08:23 Flush - Normal Saline IVF 10 ml Q12HR ELISHA Administration Sodium Chloride 10 ml 07/31/19 21:22 08/01/19 23:57 Flush - Normal Saline IVF 10 ml PRN PRN Administration Saline Flush Tramadol HCl 50 mg 08/01/19 14:19 08/03/19 08:21 Ultram PO 50 mg Q6H PRN Administration Mild-Moderate Pain (1-5) - Exam General Appearance: NAD, awake alert Eye: PERRL ENT: normocephalic atraumatic Neck: supple Heart: RRR Respiratory: CTAB, normal chest expansion Gastrointestinal: soft, normal bowel sounds Neurological: speech deficit Hosp A/P - Plan Herpes zoster - RPR titre 1:4 -classic pattern of zoster -dermatomal pattern on back of side side. started him on gabapentin. D/w Dr. Chester. -gabapentin 300mg tid. CP, atypical - likely related to above -trops neg., ordered nuc stress. ----------> discontinued later, as CP predominantly d/t above. -d/t isolation and zoster - will do stress test in the future, if the CP not relieved after gabapentin uptitrated and if he has classic sxs for cardiac ischemia. - though he is immunocompromised, he is on HAART and well controlled. -- do not expect cardiac risk high enough to put him on stress test at this time, while trying to control his neuropathic pain. HTN - started him on chlorthalidone, norvasc and hydralazine. HIV -CD4 - > 1000 - last check in june [talk to Dr. Chester to get those numbers] -ordered during admission yesterday, at that time, not aware of these numbers. -Viral load -around 500 - cw HAART COVID rule out. --negative pt will stay next few days until his neuropathic pain controlled w.. uptitration of gabapentin.
[2019-08-03] MEDS: Metoprolol Tartrate 5 MG/5 ML VIAL IVP PRN (12:38)
[2019-08-03] MEDS: Lorazepam 1 MG TAB PO PRN ×2 (13:52→22:32)
[2019-08-03 16:37] LABS: %CD4 (Helper/Inducer) 31.8 % (30.8-58.5); Absolute CD4 827 /uL (359-1519); Lymphocytes/Gated Cell Count 2.6 x10E3/uL (0.7-3.1); Total Lymphocyte 21 % (Not Estab.); WBC Total Count 12.3 x10E3/uL (3.4-10.8)
[2019-08-03] MEDS: Ondansetron PF 4 MG/2 ML Vial SLOW IVP PRN (21:32)
[2019-08-03] MEDS: Nicotine 7 MG PATCH TD SCH (21:33)
[2019-08-04] MEDS: oxyCODONE/Acetaminophen 5 mg/325 mg Tablet PO PRN ×3 (00:54→23:28)
[2019-08-04 06:19] VITALS: BMI 22.8
[2019-08-04] MEDS: traMADol HCl 50 MG TAB PO PRN (08:59)
[2019-08-04] MEDS: Gabapentin 300 MG CAP PO SCH ×3 (09:01→21:26)
[2019-08-04] MEDS: Amlodipine 10 MG TAB PO SCH (09:01)
[2019-08-04] MEDS: Chlorthalidone 25 MG TAB PO SCH (09:02)
[2019-08-04] MEDS: hydrALAZINE 25 MG TAB PO SCH ×2 (09:02→21:26)
[2019-08-04] MEDS: Lorazepam 1 MG TAB PO PRN ×2 (09:07→17:21)
--- NOTE | 2019-08-04 09:28 | EKG ---
Test Reason : STAT CP Blood Pressure : / mmHG Vent. Rate : 060 BPM Atrial Rate : 060 BPM P-R Int : 150 ms QRS Dur : 084 ms QT Int : 414 ms P-R-T Axes : 045 031 057 degrees QTc Int : 414 ms Sinus rhythm with marked sinus arrhythmia Otherwise normal ECG When compared with ECG of 27-JUL-2019 03:49, Vent. rate has decreased BY [address] Anthony THAPA ([id number]) on 08/04/2019 9:28:38 AM Referred By: Randy BRITT Confirmed By:DR. Anthony THAPA
[2019-08-04] MEDS ORDERED: Potassium Citrate 10 MEQ TAB PO SCH (10:00)
[2019-08-04] MEDS: Nitroglycerin 0.4 MG TAB (25 Tab Bottle) SL PRN (12:12)
[2019-08-04] MEDS: Metoprolol Tartrate 5 MG/5 ML VIAL IVP PRN (12:22)
--- NOTE | 2019-08-04 12:56 | PDOC.HOSPP ---
- Subjective Encounter Date: 08/04/19 Encounter Time: 10:30 Subjective: pt s pain in 08/07. curious when he could be releaased and whether he will get pain med. talk to Dr. Chester. pt is uninsured. with nueropathic pain, he needs to be on gabapentin, which pt may not be able to get from his pkt money. requesting CM to Contact Dr. Chester and he may be able to help through his HIV program, [facility] to get Gabapentin. - Objective Vital Signs & Weight: Vital Signs (12 hours) Temp Pulse Resp BP BP Pulse Ox 08/04/19 11:46 98.1 F 114 H 18 145/116 H 99 08/04/19 09:02 113 H 08/04/19 09:01 113 H 144/100 H 08/04/19 08:00 99 08/04/19 07:48 98.3 F 113 H 18 144/100 H 99 08/04/19 03:00 98.7 F 91 14 160/113 H 95 Weight Weight 168 lb 8 oz I&O: 08/03/19 08/04/19 08/05/19 06:59 06:59 06:59 Intake Total 960 1110 Balance 960 1110 Result Diagrams: 08/02/19 04:59 08/03/19 05:02 Hospitalist ROS - Medication Medications: Active Medications Generic Name Dose Route Start Last Admin Trade Name Freq PRN Reason Stop Dose Admin Acetaminophen 650 mg 07/31/19 18:37 08/01/19 14:53 Tylenol PO 650 mg Q4H PRN Administration Headache/Fever/Mild Pain (1-3) Amlodipine Besylate 10 mg 08/02/19 09:00 08/04/19 09:01 Norvasc PO 10 mg DAILY ELISHA Administration Chlorthalidone 25 mg 08/02/19 09:00 08/04/19 09:02 Hygroton PO 25 mg DAILY ELISHA Administration Gabapentin 300 mg 08/03/19 09:00 08/04/19 09:01 Neurontin PO 300 mg TID ELISHA Administration Hydralazine HCl 50 mg 08/02/19 21:00 08/04/19 09:02 Apresoline PO 50 mg BID ELISHA Administration Lorazepam 1 mg 08/03/19 13:33 08/04/19 09:07 Ativan PO 1 mg Q8H PRN Administration Anxiety Metoprolol Tartrate 5 mg 07/31/19 19:03 08/04/19 12:22 Lopressor IVP 5 mg Q6H PRN Administration Blood Pressure Nicotine 7 mg 07/31/19 21:00 08/03/19 21:33 Nicoderm Patch TD 7 mg Q24HR ELISHA Administration Nitroglycerin 0.4 mg 07/31/19 18:52 08/04/19 12:12 Nitrostat SL 0.4 mg Q5MIN PRN Administration Chest Pain Ondansetron HCl 4 mg 08/02/19 17:47 08/03/19 21:32 Zofran SLOW IVP 4 mg Q6H PRN Administration Nausea/Vomiting Oxycodone/Acetaminophen 1 tab 08/01/19 15:30 08/04/19 00:54 Percocet 5/325 PO 1 tab Q4H PRN Administration Moderate to Severe Pain (6-10) Sodium Chloride 10 ml 08/01/19 09:00 08/04/19 09:02 Flush - Normal Saline IVF 10 ml Q12HR ELISHA Administration Sodium Chloride 10 ml 07/31/19 21:22 08/01/19 23:57 Flush - Normal Saline IVF 10 ml PRN PRN Administration Saline Flush Tramadol HCl 50 mg 08/01/19 14:19 08/04/19 08:59 Ultram PO 50 mg Q6H PRN Administration Mild-Moderate Pain (1-5) - Exam General Appearance: NAD, awake alert Eye: PERRL ENT: normocephalic atraumatic Neck: supple Heart: RRR Respiratory: CTAB, normal chest expansion Gastrointestinal: soft, normal bowel sounds, no guarding Hosp A/P - Plan Herpes zoster - RPR titre 1:4 -classic pattern of zoster -dermatomal pattern on back of side side. started him on gabapentin. D/w Dr. Chester. -gabapentin 300mg tid. CP, atypical - likely related to above -trops neg., ordered nuc stress. ----------> discontinued later, as CP predominantly d/t above. -d/t isolation and zoster - will do stress test in the future, if the CP not relieved after gabapentin uptitrated and if he has classic sxs for cardiac ischemia. - though he is immunocompromised, he is on HAART and well controlled. -- do not expect cardiac risk high enough to put him on stress test at this time, while trying to control his neuropathic pain. HTN - started him on chlorthalidone, norvasc and hydralazine. HIV -CD4 - > 1000 - last check in june [talk to Dr. Chester to get those numbers] -ordered during admission yesterday, at that time, not aware of these numbers. -Viral load -around 500 - cw HAART COVID rule out. --negative pt will stay next few days until his neuropathic pain controlled w.. uptitration of gabapentin. 6ht talk to Dr. Chester. pt is uninsured. with neuropathic pain, he needs to be on gabapentin, which pt may not be able to get from his pkt money. requesting CM to Contact Dr. Chester and he may be able to help through his HIV program, [facility] to get Gabapentin. once that is secured, pt will be discharged home without opioids.
[2019-08-04] MEDS ORDERED: Gabapentin 300 MG CAP PO SCH (16:17)
[2019-08-04] MEDS: Acetaminophen 325 MG TAB PO PRN (17:21)
[2019-08-04] MEDS ORDERED: Lidocaine 5% Patch TD SCH (18:00)
[2019-08-04 18:28] LABS: CRP (Inflammatory) 0.76 mg/dL (= or < 0.5); Cardiac Risk 4.3 (Less than 4.5)
[2019-08-04] MEDS: Ondansetron PF 4 MG/2 ML Vial SLOW IVP PRN (18:34)
--- NOTE | 2019-08-04 19:19 | PRG ---
DATE OF SERVICE: 08/04/2019 SUBJECTIVE: Mr. Doan all of a sudden developed this what he describes as excruciating neuropathic pain, the usual one that he feels related to his postherpetic neuralgia. No respiratory symptoms. No cough. No abdominal pain or diarrhea. No genitourinary symptoms. He is afebrile and he is little bit tachycardic around 9 o'clock and still remains so all the way to this time now at 3:15 p.m. OBJECTIVE: VITAL SIGNS: O2 saturations are 99% on room air. LUNGS: Clear. HEART: S1 and S2, regular rate. He has hyperalgesia when I tried to examine his chest by touching the stethoscope to the chest skin. He feels that intense hyperalgesia on the right side. ABDOMEN: Soft, not distended or tender. EXTREMITIES: Moves extremities equally. LABORATORY DATA: White cell count is 8.0, hemoglobin 13.7, platelets 309 with 39% neutrophils. Creatinine 1.15. Liver profile normal. Albumin 3.6. CD4 cell count is 827. ASSESSMENT AND DISCUSSION: 1. Longstanding human immunodeficiency infection with stable CD4 cell count, erratic adherence to retroviral therapy. 2. Postherpetic neuralgia somewhat refractory to treatment. The gabapentin seems to be helping at a higher dose. I would recommend increasing further to 425 three times daily. Also would add lidocaine patch in an attempt to avoid opioid use for this syndrome, which is opioid use for postherpetic neuralgia is notoriously poorly effective and associated with a lot of side effects. Job ID: [id number]
[2019-08-04] MEDS: Nicotine 7 MG PATCH TD SCH (21:26)
[2019-08-05] MEDS: Metoprolol Tartrate 5 MG/5 ML VIAL IVP PRN (00:13)
--- NOTE | 2019-08-05 01:15 | CON ---
DATE OF CONSULTATION: HISTORY OF PRESENT ILLNESS: Patient is a 34-year-old gentleman, who presents for evaluation of right-sided chest discomfort and palpitations. The patient has no previous cardiac history. The patient has a history of shingles and an associated neuropathy. The patient presents with right-sided chest discomfort. He states this is worse whenever he takes a deep breath. The patient was noted to have an increasing heart rate. He noted having increasing palpitations. He reports having dyspnea with minimal exertion. PAST MEDICAL HISTORY: 1. Hypertension. 2. HIV positive. 3. Herpes zoster. PAST SURGICAL HISTORY: None. ALLERGIES: NONE. MEDICATIONS: See nursing list. SOCIAL HISTORY: Patient does smoke and has a history of illicit drug use. PHYSICAL EXAMINATION: GENERAL: This is a well-developed gentleman, in no acute distress. VITAL SIGNS: Blood pressure was 157/101. NECK: Showed no jugular venous distention. LUNGS: Clear to auscultation. HEART: Regular rate and rhythm. Normal S1 and S2. No murmurs. ABDOMEN: Nondistended. EXTREMITIES: Show no edema. VASCULAR: Radial pulses are 2+. LABORATORY DATA: Sodium 136, potassium 3.4, chloride 104, bicarb 26, BUN 10, and creatinine 1.1. White blood cell count 8.0, hemoglobin 13.7, hematocrit 41.0, and his platelets were 309. His TSH was 0.328. Drug tox screen was positive for methamphetamines, marijuana, opiates, and amphetamines. EKG Normal sinus rhythm, minimal voltage criteria for LVH. IMPRESSION: 1. Atypical chest pain secondary to shingles. 2. Persistent sinus tachycardia. 3. Hypertension. 4. Human immunodeficiency virus positive. 5. Illicit drug use. This gentleman presents with atypical chest pain, shingles, and a neuropathy. From a cardiac standpoint, we will obtain an echocardiogram to evaluate his left ventricular function. I will switch the patient from [facility] to [facility] to better control his heart rate. We will follow this patient with you through his hospitalization. Job ID: [id number] [facility]
[2019-08-05] MEDS: Lorazepam 1 MG TAB PO PRN ×2 (02:16→10:57)
[2019-08-05] MEDS: Acetaminophen 325 MG TAB PO PRN ×2 (03:47→10:57)
[2019-08-05] MEDS ORDERED: Senokot S 8.6-50 MG TAB PO SCH ×2 (05:15→09:00)
[2019-08-05] MEDS ORDERED: Lidocaine Patch Removal 1 EACH TOP SCH (06:00)
[2019-08-05] MEDS: Gabapentin 300 MG CAP PO SCH ×2 (08:33→14:23)
[2019-08-05] MEDS: hydrALAZINE 25 MG TAB PO SCH (08:34)
[2019-08-05] MEDS: Chlorthalidone 25 MG TAB PO SCH (08:34)
[2019-08-05] MEDS ORDERED: Polyethylene Glycol 3350 17 GM Packet PO SCH (09:00)
[2019-08-05] MEDS ORDERED: cloNIDine 0.1 MG TAB PO SCH ×2 (11:45→21:00)
[2019-08-05 11:56] VITALS: BP 141/108; TEMP 97.9
--- NOTE | 2019-08-05 17:17 | DIS ---
DATE OF ADMISSION: 07/31/2019 DATE OF DISCHARGE: 08/05/2019 DISCHARGE DIAGNOSES: 1. Herpes zoster with a titer of 1:4. 2. Postherpetic neuralgia, started on gabapentin. 3. Atypical chest pain. 4. Accelerated hypertension, started on medications during this hospitalization. 5. HIV since 2009, on heart medication. DISCHARGE MEDICATIONS: 1. Tramadol 50 mg q.6h p.r.n. 2. Genvoya one tablet daily. 3. Clonidine 0.1 mg twice a day. 4. Gabapentin 600 mg t.i.d. 5. Cardizem 180 mg twice a day. 6. Chlorthalidone 25 mg daily. PHYSICAL EXAMINATION: VITAL SIGNS: On the day of discharge, temperature 97.9, pulse 95, blood pressure 141/108, saturating 100% on room air. GENERAL: The patient is alert, oriented, not in any acute distress. CARDIOVASCULAR: Regular rate and rhythm without murmurs, rubs, or gallops. LUNGS: Clear to auscultation bilaterally without wheezing, rales, or rhonchi. ABDOMEN: Soft, nontender, nondistended. Good bowel sounds. EXTREMITIES: Without any pitting edema. HOSPITAL COURSE: A 34-year-old male admitted with ongoing chest pain after three visits to the ER. He is admitted on July 30 for chest pain; however, he had postherpetic neuralgia with classic dermatomal pattern of zoster. Started on gabapentin as well as Percocet and gabapentin increased to maximal dose. The patient had ongoing tachycardia along with chest discomfort. He ruled out for acute coronary syndrome. Given his postherpetic neuralgia, his chest pain probably due to shingles rather than cardiac ischemia. We did a 2D echo and that is currently pending. His blood pressure is optimized with chlorthalidone, diltiazem, as well as clonidine. The patient is discharged with those medications. He is expected to follow up with Dr. Chester as well as his primary care physician. DISCHARGE INSTRUCTION: Activity as tolerated. Regular diet. Follow up with primary care physician in 1 week. Follow up with your HIV group for ongoing support as well as medication refill. He will be getting gabapentin and blood pressure meds from [facility]. DISCHARGE TIME: Discharge time took over 30 minutes. Job ID: [id number] [facility]
--- NOTE | 2019-08-08 16:09 | EKG ---
Test Reason : Blood Pressure : / mmHG Vent. Rate : 100 BPM Atrial Rate : 100 BPM P-R Int : 134 ms QRS Dur : 080 ms QT Int : 354 ms P-R-T Axes : 058 024 052 degrees QTc Int : 456 ms Normal sinus rhythm Minimal voltage criteria for LVH, may be normal variant Borderline ECG When compared with ECG of 01-AUG-2019 05:02, Vent. rate has increased BY 40 BPM QT has lengthened Confirmed by MERVIN GARBER ([id number]) on 08/08/2019 4:09:42 PM Referred By: BALWINDER Confirmed By:MERVIN GARBER
== END 2019-08-05 16:46 | disposition home or self-care (01) | DRG 976 ==
LOC: ERS 14:20 → 2SW 18:27
PROVIDERS: ADMIT Internal Medicine; ATTEND Internal Medicine
PROC: 8E0ZXY6 Isolation (ICD-10-PCS; principal; 2019-07-31)
DX: B20 Human immunodeficiency virus [HIV] disease (principal); B02.29 Other postherpetic nervous system involvement; R07.89 Other chest pain; I10 Essential (primary) hypertension; Z20.828 Contact with and (suspected) exposure to other viral communicable diseases; I16.0 Hypertensive urgency; G62.9 Polyneuropathy, unspecified; F12.10 Cannabis abuse, uncomplicated; F17.210 Nicotine dependence, cigarettes, uncomplicated; R00.0 Tachycardia, unspecified; Z87.440 Personal history of urinary (tract) infections; Z87.01 Personal history of pneumonia (recurrent)
CPT/HCPCS: 36415; 71045; 71260; 80048; 80053; 80061; 80306; 80307; 82550; 84443; 84484; 85025; 85048; 85379; 85610; 85652; 85730; 86140; 86361; 86593; 86780; 87635; 93005; 93010; 93306; 94760; C9113; J2270; J2405; Q9967; U0003

== ENCOUNTER 2019-08-08 22:18 | Emergency (ER) | payer SELFPAY ==
[2019-08-08] MEDS ORDERED: Morphine 2 MG/ML SYRINGE ONE (22:40)
[2019-08-08] MEDS ORDERED: Acetaminophen 500 MG TAB ONE (22:57)
[2019-08-08] MEDS ORDERED: Lidocaine 4% Cream 5 GM TUBE w/ Tegaderm ONE (22:57)
[2019-08-08] MEDS ORDERED: Ibuprofen 800 MG TAB ONE (22:57)
[2019-08-08] MEDS ORDERED: Lidocaine 5% Patch TD SCH (23:15)
== END 2019-08-09 00:12 | disposition home or self-care (01) ==
LOC: ERS 22:18
DX: B02.29 Other postherpetic nervous system involvement (principal); F17.210 Nicotine dependence, cigarettes, uncomplicated; B20 Human immunodeficiency virus [HIV] disease; Z79.899 Other long term (current) drug therapy
CPT/HCPCS: 96372; 99283; J2270

== ENCOUNTER 2019-08-09 08:41 | Emergency (ER) | payer SELFPAY ==
[2019-08-09] MEDS ORDERED: Ketorolac Tromethamine 30 MG/ML VIAL ONE (09:58)
== END 2019-08-09 10:10 | disposition home or self-care (01) ==
LOC: ERS 08:41
DX: G62.9 Polyneuropathy, unspecified (principal); Z76.5 Malingerer [conscious simulation]; Z21 Asymptomatic human immunodeficiency virus [HIV] infection status; F17.210 Nicotine dependence, cigarettes, uncomplicated
CPT/HCPCS: 96372; 99283; J1885

== ENCOUNTER 2019-08-15 17:39 | Emergency (ER) | payer SELFPAY ==
[2019-08-15] MEDS ORDERED: Fentanyl 100 MCG/2 ML VIAL ONE (18:46)
--- NOTE | 2019-08-18 14:28 | EKG ---
Test Reason : CP Blood Pressure : / mmHG Vent. Rate : 090 BPM Atrial Rate : 090 BPM P-R Int : 140 ms QRS Dur : 082 ms QT Int : 380 ms P-R-T Axes : 030 024 049 degrees QTc Int : 464 ms Normal sinus rhythm Normal ECG Confirmed by CHARLES UMAÑA DO ([id number]), production editor JENNIFER NELSON ([id number]) on 08/18/2019 2:27:49 PM Referred By: Confirmed By:CHARLES UMAÑA DO
== END 2019-08-15 19:40 | disposition home or self-care (01) ==
LOC: ERS 17:39 → EEVIPCON 17:39 → ERS 19:40
DX: B02.29 Other postherpetic nervous system involvement (principal); B20 Human immunodeficiency virus [HIV] disease; F17.210 Nicotine dependence, cigarettes, uncomplicated; Z79.899 Other long term (current) drug therapy
CPT/HCPCS: 93005; 96372; J3010

== ENCOUNTER 2019-08-21 06:25 | Emergency (ER) | payer SELFPAY | END 2019-08-21 06:43 | disposition home or self-care (01) | LOC: ERS 06:25 | DX: B02.29 Other postherpetic nervous system involvement (principal); G89.29 Other chronic pain; B20 Human immunodeficiency virus [HIV] disease; I10 Essential (primary) hypertension; F17.210 Nicotine dependence, cigarettes, uncomplicated; Z79.899 Other long term (current) drug therapy | CPT/HCPCS: 99281 ==

== ENCOUNTER 2019-08-23 | Inpatient (IN) | payer SELFPAY | END 2019-08-26 10:28 | disposition home or self-care (01) | DRG 378 | PROVIDERS: ADMIT Internal Medicine | PROC: 0DB78ZX Excision of Stomach, Pylorus, Via Natural or Artificial Opening Endoscopic, Diagnostic (ICD-10-PCS; principal; 2019-08-24) | DX: K25.4 Chronic or unspecified gastric ulcer with hemorrhage (principal); N17.9 Acute kidney failure, unspecified; D62 Acute posthemorrhagic anemia; Z21 Asymptomatic human immunodeficiency virus [HIV] infection status; F17.210 Nicotine dependence, cigarettes, uncomplicated; I10 Essential (primary) hypertension; K59.09 Other constipation; F12.10 Cannabis abuse, uncomplicated ==

== ENCOUNTER 2019-08-31 08:37 | Emergency (ER) | payer SELFPAY ==
[2019-08-31 09:18] LABS: #Basophils 0.1 thou/uL (0.0-0.2); #Eosinphils 0.2 thou/uL (0.0-0.7); #Lymphocytes 2.5 thou/uL (1.20-3.40); #Monocytes 0.5 thou/uL (0.11-0.59); #Neutrophils 2.8 thou/uL (1.40-6.50); %Basophils 1.3 % (0.0-1.0); %Lymphocytes 41.7 % (21.0-51.0); %Monocytes 7.8 % (0.0-10.0); %Neutrophils 46.3 % (42.0-75.0); Hemoglobin 12.6 g/dL (14.0-18.0); Mean Corpuscular HGB CONC 34.8 g/dL (32.0-36.0); Mean Corpuscular Hemoglobin 35.9 pg (27.0-31.0); Mean Platelet Volume 6.5 fL (7.4-10.4); Platelet Count 411 thou/uL (130-400); RBC Distribution Width 13.2 % (11.5-14.5); Red Blood Cell (RBC) Count 3.51 mill/uL (4.70-6.10)
[2019-08-31 09:24] LABS: INR-International Normal Ratio 0.9; PTT 30.5 sec (22.9-36.1); Prothrombin Time 12.6 sec (12.0-14.7)
[2019-08-31] MEDS ORDERED: Pantoprazole 40 MG VIAL ONE (09:38)
[2019-08-31] MEDS ORDERED: Ondansetron PF 4 MG/2 ML Vial ONE (09:38)
[2019-08-31 09:40] LABS: ALT (SGPT) 17 U/L (8-55); AST (SGOT) 18 U/L (5-34); Alkaline Phosphatase 80 U/L (40-110); Anion Gap 13 mmol/L (10-20); BUN (Urea Nitrogen) 6 mg/dL (8.9-20.6); Bilirubin, Total 0.2 mg/dL (0.2-1.2); Calc. Creatinine Clearance 0 mL/min (70-130); Calcium 9.4 mg/dL (7.8-10.44); Carbon Dioxide 25 mmol/L (22-29); Chloride 104 mmol/L (98-107); Estimated GFR-MDRD 72; Globulin 3.8 g/dL (2.4-3.5); Glucose 92 mg/dL (70-105); Potassium 3.8 mmol/L (3.5-5.1); Protein, Total 7.8 g/dL (6.0-8.3); Sodium 138 mmol/L (136-145)
[2019-08-31 09:47] LABS: Bilirubin Negative (Negative); Blood, Urine Negative (Negative); Clarity Clear (Clear); Glucose, Urine (Dipstick) Normal (Negative); Leukocyte Negative Leu/uL (Negative); Nitrite Negative (Negative); Protein, Urine (Dipstick) Negative (Neg-Trace); Urobilinogen Normal mg/dL (Less than 2)
[2019-08-31] MEDS ORDERED: Morphine 4 MG/ML VIAL ONE (09:49)
[2019-08-31] MEDS ORDERED: Mag-Al 1200 mg/1200 mg/30 ML UDCUP ONE (11:20)
[2019-08-31] MEDS ORDERED: Lidocaine Viscous Sol 2% 15 ml UD Cup ONE (11:20)
--- NOTE | 2019-09-04 12:55 | EKG ---
Test Reason : Blood Pressure : / mmHG Vent. Rate : 069 BPM Atrial Rate : 069 BPM P-R Int : 168 ms QRS Dur : 102 ms QT Int : 412 ms P-R-T Axes : 054 035 049 degrees QTc Int : 441 ms Normal sinus rhythm Normal ECG Confirmed by ADRIANO LAURA ([id number]), editorial assistant FLORENTIN MINAYA ([id number]) on 09/04/2019 12:55:24 PM Referred By: Confirmed By:ADRIANO Solo
== END 2019-08-31 11:40 | disposition home or self-care (01) ==
LOC: ERS 08:37
DX: K92.0 Hematemesis (principal); I10 Essential (primary) hypertension; B20 Human immunodeficiency virus [HIV] disease; F17.210 Nicotine dependence, cigarettes, uncomplicated; Z79.899 Other long term (current) drug therapy
CPT/HCPCS: 36415; 80053; 81003; 85025; 85610; 85730; 86850; 86900; 86901; 93005; 96374; 96375; C9113; J2270; J2405

== ENCOUNTER 2019-09-09 15:02 | Emergency (ER) | payer SELFPAY | END 2019-09-09 15:21 | disposition left against medical advice (07) | LOC: ERS 15:02 | DX: Z53.21 Procedure and treatment not carried out due to patient leaving prior to being seen by health care provider (principal) ==

== ENCOUNTER 2019-09-10 20:11 | Emergency (ER) | payer SELFPAY ==
[2019-09-10] MEDS ORDERED: Ondansetron PF 4 MG/2 ML Vial ONE (20:36)
[2019-09-10] MEDS ORDERED: Lidocaine Viscous Sol 2% 15 ml UD Cup ONE (20:36)
[2019-09-10] MEDS ORDERED: Mag-Al 1200 mg/1200 mg/30 ML UDCUP ONE (20:36)
[2019-09-10 20:50] LABS: Hemoglobin 14.4 g/dL (14.0-18.0); Mean Corpuscular HGB CONC 34.5 g/dL (32.0-36.0); Mean Platelet Volume 7.4 fL (7.4-10.4); Platelet Count 340 thou/uL (130-400); RBC Distribution Width 12.8 % (11.5-14.5); Red Blood Cell (RBC) Count 4.11 mill/uL (4.70-6.10); White Blood Cell (WBC) Count 5.6 thou/uL (4.8-10.8)
[2019-09-10 21:07] LABS: Eosinophils 5 % (0-10); Lymphocytes 62 % (21-51); MDiff Complete? YES; Monocytes 6 % (0-10); Neutrophil 27 % (42-75); Platelet Morphology Comment Appears Adequate
[2019-09-10 22:48] LABS: Chloride 101 mmol/L (98-107); Sodium 135 mmol/L (136-145)
[2019-09-10 22:49] LABS: Glucose 102 mg/dL (70-105)
[2019-09-10 22:50] LABS: Globulin 4.2 g/dL (2.4-3.5); Protein, Total 8.2 g/dL (6.0-8.3)
[2019-09-10 22:51] LABS: Anion Gap 11 mmol/L (10-20); Bilirubin, Total Less than 0.2 mg/dL (0.2-1.2); Carbon Dioxide 27 mmol/L (22-29)
[2019-09-10 22:52] LABS: Alkaline Phosphatase 80 U/L (40-110)
[2019-09-10 22:53] LABS: Calc. Creatinine Clearance 0 mL/min (70-130); Estimated GFR-MDRD 72
[2019-09-10 22:54] LABS: BUN (Urea Nitrogen) 10 mg/dL (8.9-20.6)
[2019-09-10 22:55] LABS: ALT (SGPT) 20 U/L (8-55); AST (SGOT) 27 U/L (5-34); Lipase 121 U/L (8-78)
== END 2019-09-10 21:41 | disposition left against medical advice (07) ==
LOC: ERS 20:11
DX: R10.13 Epigastric pain (principal); R07.9 Chest pain, unspecified; R19.7 Diarrhea, unspecified; R11.10 Vomiting, unspecified; B20 Human immunodeficiency virus [HIV] disease; I10 Essential (primary) hypertension; F32.9 Major depressive disorder, single episode, unspecified; F17.210 Nicotine dependence, cigarettes, uncomplicated; Z79.899 Other long term (current) drug therapy
CPT/HCPCS: 36415; 80053; 83690; 84484; 85025; 86850; 86900; 86901; 93005; 96374; J2405

== ENCOUNTER 2019-10-01 16:37 | Emergency (ER) | payer SELFPAY ==
[2019-10-01] MEDS ORDERED: Ketorolac Tromethamine 30 MG/ML VIAL ONE (16:52)
--- NOTE | 2019-10-01 17:55 | RAD ---
LEFT HAND RADIOGRAPHS THREE VIEWS: 10/01/19 PROVIDED CLINICAL HISTORY: Pain status post injury. FINDINGS: The images are mislabeled with respect to side. There is no evidence for fracture or other acute osse ous abnormality. If there is persistent clinical concern, conservative management and follow-up imagi ng are advised. IMPRESSION: As above. POS: MANOHAR
--- NOTE | 2019-10-01 17:58 | RAD ---
LEFT WRIST RADIOGRAPHS THREE VIEWS: 10/01/19 PROVIDED CLINICAL HISTORY: Pain status post injury. FINDINGS: The images are mislabeled with respect to side. There is no evidence for fracture or other acute osse ous abnormality. If there is persistent clinical concern, conservative management and follow-up imagi ng are advised. IMPRESSION: As above. POS: MANOHAR
== END 2019-10-01 18:20 | disposition home or self-care (01) ==
LOC: ERS 16:37
DX: S63.502A Unspecified sprain of left wrist, initial encounter (principal); S60.221A Contusion of right hand, initial encounter; I10 Essential (primary) hypertension; F32.9 Major depressive disorder, single episode, unspecified; F17.210 Nicotine dependence, cigarettes, uncomplicated; Z79.899 Other long term (current) drug therapy; W01.0XXA Fall on same level from slipping, tripping and stumbling without subsequent striking against object, initial encounter
CPT/HCPCS: 29125; 96372; J1885

== ENCOUNTER 2019-11-18 06:21 | Inpatient (IN) | payer BC, OTHER ==
[2019-11-18] MEDS ORDERED: Pantoprazole 40 MG VIAL ONE (06:50)
[2019-11-18 07:21] LABS: #Eosinphils 0.2 thou/uL (0.0-0.7); #Lymphocytes 2.8 thou/uL (1.20-3.40); #Monocytes 0.5 thou/uL (0.11-0.59); #Neutrophils 2.7 thou/uL (1.40-6.50); %Basophils 0.3 % (0.0-1.0); %Eosinophils 2.4 % (0.0-10.0); %Lymphocytes 45.3 % (21.0-51.0); %Monocytes 8.2 % (0.0-10.0); %Neutrophils 43.7 % (42.0-75.0); Hemoglobin 14.6 g/dL (14.0-18.0); Mean Corpuscular Hemoglobin 32.8 pg (27.0-31.0); Mean Corpuscular Volume 99.3 fL (78.0-98.0); Mean Platelet Volume 7.4 fL (7.4-10.4); Platelet Count 246 thou/uL (130-400); RBC Distribution Width 13.6 % (11.5-14.5); Red Blood Cell (RBC) Count 4.44 mill/uL (4.70-6.10); White Blood Cell (WBC) Count 6.2 thou/uL (4.8-10.8)
[2019-11-18 07:28] LABS: PTT 32.3 sec (22.9-36.1); Prothrombin Time 12.8 sec (12.0-14.7)
[2019-11-18 07:42] LABS: ALT (SGPT) 22 U/L (8-55); AST (SGOT) 27 U/L (5-34); Albumin 3.8 g/dL (3.5-5.0); Alkaline Phosphatase 81 U/L (40-110); Anion Gap 14 mmol/L (10-20); BUN (Urea Nitrogen) 8 mg/dL (8.9-20.6); Bilirubin, Total 0.4 mg/dL (0.2-1.2); Calc. Creatinine Clearance 0 mL/min (70-130); Calcium 8.8 mg/dL (7.8-10.44); Carbon Dioxide 24 mmol/L (22-29); Chloride 104 mmol/L (98-107); Estimated GFR-MDRD 85; Globulin 3.6 g/dL (2.4-3.5); Glucose 80 mg/dL (70-105); Lipase 118 U/L (8-78); Potassium 3.6 mmol/L (3.5-5.1); Protein, Total 7.4 g/dL (6.0-8.3); Sodium 138 mmol/L (136-145)
--- NOTE | 2019-11-18 07:52 | RAD ---
EXAM: Single view of the chest HISTORY: Nausea and vomiting for 2 days with chest pain COMPARISON: 08/23/2019 FINDINGS: Single view of the chest shows a normal sized cardiomediastinal silhouette. There is no corey dence of consolidation, mass, or pleural effusion. No acute osseous abnormality. IMPRESSION: No evidence of acute cardiopulmonary disease
[2019-11-18 08:15] LABS: Bilirubin Negative (Negative); Blood, Urine Negative (Negative); Clarity Clear (Clear); Glucose, Urine (Dipstick) Normal (Negative); Ketone, Urine Trace mg/dL (Negative); Leukocyte Negative Leu/uL (Negative); Nitrite Negative (Negative); Protein, Urine (Dipstick) Negative (Neg-Trace); Specific Gravity, Urine 1.009 (1.002-1.036); Urobilinogen Normal mg/dL (Less than 2)
[2019-11-18] MEDS ORDERED: Morphine 4 MG/ML VIAL ONE (10:11)
--- NOTE | 2019-11-18 11:28 | CT ---
CT ABDOMEN AND PELVIS WITH IV CONTRAST: Date: 11/18/2019 INDICATION: Abdominal pain. Vomiting. Comparison made to CT abdomen and pelvis dated 07/24/2019. FINDINGS: Images through lung bases again reveals a small 5.0 mm calcified granuloma in the right lung base. Cris ng bases otherwise clear. Liver, spleen, and pancreas are unremarkable. Stomach and duodenum unremarkable. Adrenal glands minesh l. Kidneys unremarkable. Small bowel loops normal caliber. Appendix not identified. Diffuse mural thickening involving the colon. This is somewhat accentuated by nondistention of the co elenita; however, colitis cannot be excluded. Consider colonoscopy. Aorta normal caliber. No mass, adenopathy, or free fluid. Urinary bladder contracted. Osseous structu res unremarkable. IMPRESSION: 1. Evidence of diffuse mural thickening involving the colon. Evaluation is limited by CT due to poor distention. Recommend clinical correlation and consider colonoscopy as indicated. 2. Otherwise no acute intra-abdominal process. POS: AH
[2019-11-18] MEDS ORDERED: hydrALAZINE 20 MG/ML VIAL SLOW IVP PRN (12:16)
[2019-11-18] MEDS ORDERED: Zolpidem Tartrate 5 MG TAB PO PRN (12:16)
[2019-11-18 12:37] VITALS: BMI 25.9
[2019-11-18] MEDS: Sodium Chloride 0.9% 1,000 ML IV SCH ×4 (12:56→20:48)
[2019-11-18] MEDS ORDERED: Iopamidol-370 76% 500 ML 1 ML ONE (13:33)
--- NOTE | 2019-11-18 15:15 | HP ---
PRIMARY CARE PROVIDER: Melony Mosqueda, family nurse practitioner. CHIEF COMPLAINT AND HISTORY OF PRESENT ILLNESS: Abdominal pain, vomiting x2 days. The patient's abdominal pain is basically right-sided into the right lower quadrant. He states he has had emesis of dark red blood unable to give an amount. He has had no melena. No blood in his stools visible. PAST MEDICAL HISTORY: Pertinent for peptic ulcer disease, diagnosed at upper GI, in August. His discharge medicines included Protonix 40 mg twice a day, doxycycline, and metronidazole. He states he was not given any Protonix. He is HIV positive, has hypertension, has a history of postherpetic neuralgia. CURRENT MEDICATIONS: 1. Clonidine, he does not remember dose. 2. Fluoxetine 10 mg a day. 3. Genvoya 1 tablet a day. ALLERGIES: NO KNOWN DRUG ALLERGIES. PAST SURGICAL HISTORY: None. FAMILY HISTORY: No inheritable diseases. SOCIAL HISTORY: Has fiancee. Smokes half a pack of cigarettes a day. Uses marijuana. He states he buys a 6-pack of beer a day, sometimes he does not drink at all. REVIEW OF SYSTEMS: CONSTITUTIONAL: Dizzy, lightheaded with vomiting spell, has malaise. No fever or chills. EYES: No double vision, blurred vision, or flashing lights. EARS, NOSE, AND THROAT: No ear pain or drainage. No nasal bleeding. No trouble swallowing. CARDIAC: No chest pain, orthopnea, or paroxysmal nocturnal dyspnea. RESPIRATIONS: No cough, wheezing, or asthma. GASTROINTESTINAL: See present illness. GENITOURINARY: No hematuria, dysuria, or nocturia. MUSCULOSKELETAL: No swelling in his legs. He has had sharp pains in his legs for many years. NEUROLOGICAL: No strokes, seizures, or focal weakness. Has had postherpetic neuralgia. PSYCHIATRIC: Anxiety and depression, takes Duloxetine. SKIN: No bruising, bleeding, or rash. HEME/LYMPH: No tender or swollen lymph nodes in axilla, inguinal, or cervical area. PHYSICAL EXAMINATION: GENERAL: He is alert, oriented, cooperative, and in no distress. VITAL SIGNS: Initial blood pressure was 161/101, pulse 68 to 70, respirations 16 to 28, temperature 98.7. He rated his pain at 6. HEAD, EYES, EARS, NOSE, AND THROAT: Pupils are equal, round, and reactive to light. Extraocular movements are intact. Sclerae are white. Tympanic membranes are clear. Nose is clear. Oral mucous membranes are clear. NECK: No jugular venous distention, adenopathy, or thyromegaly. CHEST: Clear to auscultation and percussion. HEART: Regular rate and rhythm. First and second second heart sounds are clear. There are no murmurs or gallops. ABDOMEN: Soft. He is jumpy at times when I examine him; however, when I do the same pressure exam with a stethoscope, there is no tenderness or reaction whatsoever. Bowel sounds are normal. No mass or hepatosplenomegaly. No bruit. EXTREMITIES: No cyanosis, clubbing, or edema. PULSES: Carotid, radial, femoral, and dorsalis pedis pulses intact. SKIN: Warm and dry without bruises or rash. HEME/LYMPH: No tender or swollen lymph nodes in axilla, inguinal, or cervical area. NEUROLOGICAL: Face is symmetric. Cranial nerves 2 through 12 are intact. Deep tendon reflexes symmetric. LABORATORY AND DIAGNOSTIC DATA: CBC; white count 6.2, hemoglobin 14.6, platelet count 246,000. He has mildly macrocytic indices consistent with his alcohol history. PT/INR 1.0. Comprehensive metabolic profile is unremarkable except for a low albumin-globulin ratio. Lipase is elevated at 118 with a normal of 8 to 78. Urine is clear. No EKG is provided for interpretation. Chest x-ray, personally reviewed, no cardiomegaly, CHF, or infiltrate. CT of abdomen and pelvis, personally reviewed, some mural thickening of the colon. Pancreas is unremarkable. ADMITTING DIAGNOSES: 1. Nausea. 2. Vomiting. 3. Hematemesis. 4. Peptic ulcer disease. 5. Pancreatitis. 6. Hypertension. 7. Human immunodeficiency virus (HIV). 8. Alcohol abuse. 9. Tobacco abuse. 10. Tetrahydrocannabinol (THC) abuse. PLAN: 1. N.p.o. 2. IV fluids. 3. Protonix IV. 4. Repeat lipase in the morning. 5. Parenteral medicines for blood pressure control. 6. Serial H and H. 7. We will ask GI for a comment on what is apparently a history of heliocobacter induced gastritis. .. Job ID: [id number]
[2019-11-18] MEDS: Morphine 2 MG/ML VIAL SLOW IVP PRN ×2 (16:12→20:43)
[2019-11-18 18:07] LABS: #Basophils 0.1 thou/uL (0.0-0.2); #Eosinphils 0.2 thou/uL (0.0-0.7); #Lymphocytes 3.2 thou/uL (1.20-3.40); #Monocytes 0.6 thou/uL (0.11-0.59); %Basophils 1.4 % (0.0-1.0); %Eosinophils 2.8 % (0.0-10.0); %Lymphocytes 45.2 % (21.0-51.0); %Monocytes 8.9 % (0.0-10.0); %Neutrophils 41.7 % (42.0-75.0); Hemoglobin 15.3 g/dL (14.0-18.0); Mean Corpuscular HGB CONC 32.4 g/dL (32.0-36.0); Mean Corpuscular Hemoglobin 32.5 pg (27.0-31.0); Mean Platelet Volume 7.3 fL (7.4-10.4); Platelet Count 231 thou/uL (130-400); RBC Distribution Width 13.7 % (11.5-14.5); Red Blood Cell (RBC) Count 4.72 mill/uL (4.70-6.10); White Blood Cell (WBC) Count 7.1 thou/uL (4.8-10.8)
[2019-11-18] MEDS: cloNIDine 0.1 MG TAB PO SCH (20:36)
[2019-11-18] MEDS: Melatonin 3 MG TAB PO SCH (20:37)
[2019-11-18] MEDS: Nicotine 21 MG PATCH TD SCH (20:46)
[2019-11-18 23:41] LABS: Eosinophils 2 % (0-10); Hemoglobin 13.8 g/dL (14.0-18.0); Lymphocytes 57 % (21-51); MDiff Complete? YES; Mean Corpuscular HGB CONC 33.8 g/dL (32.0-36.0); Mean Platelet Volume 7.4 fL (7.4-10.4); Monocytes 8 % (0-10); Neutrophil 33 % (42-75); Platelet Count 218 thou/uL (130-400); Platelet Morphology Comment Appears Adequate; RBC Distribution Width 13.5 % (11.5-14.5); Red Blood Cell (RBC) Count 4.05 mill/uL (4.70-6.10); White Blood Cell (WBC) Count 6.2 thou/uL (4.8-10.8)
[2019-11-19] MEDS: Morphine 2 MG/ML VIAL SLOW IVP PRN ×3 (01:51→10:56)
[2019-11-19 05:38] LABS: #Eosinphils 0.2 thou/uL (0.0-0.7); #Lymphocytes 2.5 thou/uL (1.20-3.40); #Monocytes 0.6 thou/uL (0.11-0.59); #Neutrophils 2.5 thou/uL (1.40-6.50); %Basophils 0.6 % (0.0-1.0); %Eosinophils 2.6 % (0.0-10.0); %Lymphocytes 43.8 % (21.0-51.0); %Monocytes 9.5 % (0.0-10.0); %Neutrophils 43.5 % (42.0-75.0); Hemoglobin 13.9 g/dL (14.0-18.0); Mean Corpuscular HGB CONC 32.2 g/dL (32.0-36.0); Mean Corpuscular Hemoglobin 32.4 pg (27.0-31.0); Mean Platelet Volume 7.4 fL (7.4-10.4); Platelet Count 217 thou/uL (130-400); RBC Distribution Width 13.7 % (11.5-14.5); Red Blood Cell (RBC) Count 4.29 mill/uL (4.70-6.10); White Blood Cell (WBC) Count 5.8 thou/uL (4.8-10.8)
[2019-11-19 05:58] LABS: Anion Gap 13 mmol/L (10-20); BUN (Urea Nitrogen) 7 mg/dL (8.9-20.6); Calc. Creatinine Clearance 114 mL/min (70-130); Calcium 8.6 mg/dL (7.8-10.44); Carbon Dioxide 23 mmol/L (22-29); Chloride 107 mmol/L (98-107); Estimated GFR-MDRD 90; Glucose 86 mg/dL (70-105); Potassium 3.9 mmol/L (3.5-5.1); Sodium 139 mmol/L (136-145)
[2019-11-19] MEDS: cloNIDine 0.1 MG TAB PO SCH ×2 (08:14→20:30)
[2019-11-19] MEDS: Pantoprazole 40 MG VIAL IVP SCH (08:14)
[2019-11-19] MEDS: Sodium Chloride 0.9% 1,000 ML IV SCH ×2 (08:14→18:11)
[2019-11-19] MEDS: Ondansetron PF 4 MG/2 ML Vial IVP PRN ×2 (08:24→20:49)
[2019-11-19] MEDS ORDERED: Nicotine 21 MG PATCH TD SCH (09:00)
[2019-11-19] MEDS ORDERED: Elviteg/Cob/Emtri/Tenof Alafen [Genvoya Tablet] 1 TAB PO SCH (09:00)
[2019-11-19 13:52] LABS: SARS-CoV-2 MS2 Positive; SARS-CoV-2 N Gene Negative; SARS-CoV-2 S Gene Negative; SARS-CoV-2 by NAA Not Detected (NotDetected); SARS-CoV-2 orf1ab Negative
--- NOTE | 2019-11-19 15:28 | PDOC.HOSPP ---
- Subjective Encounter Date: 11/19/19 Encounter Time: 15:20 Subjective: f/u for abd pain/pancreatitis likely due to ETOH intake. Feels better overall but some residual abd pain. States he is hungry currently. - Objective Vital Signs & Weight: Vital Signs (12 hours) Temp Pulse Resp BP Pulse Ox 11/19/19 11:00 98.4 F 66 18 156/103 H 99 11/19/19 08:00 98 11/19/19 07:37 98.5 F 68 18 142/93 H 98 11/19/19 03:51 97.6 F 61 18 142/93 H 100 Weight Weight 190 lb 12.8 oz I&O: 11/18/19 11/19/19 11/20/19 06:59 06:59 06:59 Intake Total 1200 Balance 1200 Result Diagrams: 11/19/19 05:25 11/19/19 05:25 Additional Labs: Laboratory Tests 11/18/19 11/18/19 06:52 12:00 Lipase 118 H COVID-19 PCR Not Detected Radiology Reviewed by me: Yes (CT abd/pel - mural thickening of colon) Hospitalist ROS - Medication Medications: Active Medications Generic Name Dose Route Start Last Admin Trade Name Freq PRN Reason Stop Dose Admin Clonidine 0.1 mg 11/18/19 21:00 11/19/19 08:14 Catapres PO 0.1 mg BID ELISHA Administration Diltiazem HCl 180 mg 11/18/19 21:00 11/19/19 08:14 Cardizem Cd PO 180 mg BID ELISHA Administration Sodium Chloride 1,000 mls @ 100 mls/hr 11/18/19 12:16 11/19/19 08:14 Normal Saline 0.9% IV 1,000 mls .Q10H ELISHA Administration Melatonin 15 mg 11/18/19 21:00 11/18/19 20:37 Melatonin PO 15 mg HS ELISHA Administration Nicotine 21 mg 11/18/19 21:00 11/18/19 20:46 Nicoderm Patch TD 21 mg 2100 ELISHA Administration Ondansetron HCl 4 mg 11/18/19 12:16 11/19/19 08:24 Zofran IVP 4 mg Q6H PRN Administration Nausea/Vomiting Pantoprazole Sodium 40 mg 11/19/19 09:00 11/19/19 08:14 Protonix IVP 40 mg DAILY ELISHA Administration - Exam General Appearance: NAD, awake alert Eye: PERRL, anicteric sclera ENT: normocephalic atraumatic, no oropharyngeal lesions Neck: supple, symmetric, no JVD, no thyromegaly, no lymphadenopathy Heart: RRR, no murmur, no gallops, no rubs, normal peripheral pulses Heart - other findings: S1, S2 Respiratory: CTAB, no wheezes, no rales, no ronchi, normal chest expansion, no tachypnea Gastrointestinal: soft, non-distended, normal bowel sounds, no palpable masses, tender to palpation Gastrointestinal - other findings: mild epigastric tenderness Extremities: no cyanosis, no clubbing, no edema Skin: normal turgor, no lesions Neurological: cranial nerve grossly intact, no new deficit Musculoskeletal: normal tone, normal strength, no muscle wasting Psychiatric: normal affect, A&O x 3 Hosp A/P (1) Acute pancreatitis Code(s): K85.90 - ACUTE PANCREATITIS WITHOUT NECROSIS OR INFECTION, UNSP Status: Acute Plan: Suspected, previously NPO, start clear liquids, pain control, IVF's, serial Lipase (2) Abdominal pain Code(s): R10.9 - UNSPECIFIED ABDOMINAL PAIN Status: Acute Qualifiers: Abdominal location: epigastric Qualified Code(s): R10.13 - Epigastric pain Plan: Suspect due #1, see above (3) HIV (human immunodeficiency virus infection) Code(s): B20 - HUMAN IMMUNODEFICIENCY VIRUS [HIV] DISEASE Status: Chronic Plan: Continue chronic anti-retroviral therapy (4) Marijuana abuse Code(s): F12.10 - CANNABIS ABUSE, UNCOMPLICATED Status: Chronic Plan: ? component of hyperemesis syndrome (5) Tobacco abuse Code(s): Z72.0 - TOBACCO USE Status: Chronic Plan: Tobacco cessation resources - Plan nursing home social worker, out of bed/ambulate, DVT proph w/SCDs Stable currently Start Clear Liquids today OOB/ambulate Continue Morphine Sulfate PRN pain control Continue IVF's AM lab: Lipase, Lipid profile
[2019-11-19] MEDS: Morphine 4 MG/ML VIAL SLOW IVP PRN ×2 (18:03→22:40)
[2019-11-19] MEDS: Melatonin 3 MG TAB PO SCH (20:29)
[2019-11-19] MEDS: Nicotine 21 MG PATCH TD SCH (20:31)
[2019-11-20] MEDS: Morphine 4 MG/ML VIAL SLOW IVP PRN ×5 (03:01→22:06)
[2019-11-20] MEDS: Ondansetron PF 4 MG/2 ML Vial IVP PRN (04:20)
[2019-11-20] MEDS: Sodium Chloride 0.9% 1,000 ML IV SCH ×3 (06:02→22:09)
[2019-11-20] MEDS: Pantoprazole 40 MG VIAL IVP SCH (08:09)
[2019-11-20] MEDS: cloNIDine 0.1 MG TAB PO SCH ×2 (08:11→20:30)
[2019-11-20] MEDS: Chlorthalidone 25 MG TAB PO SCH (08:12)
[2019-11-20] MEDS: Elviteg/Cob/Emtri/Tenof Alafen [Genvoya Tablet] 1 TAB PO SCH (08:13)
--- NOTE | 2019-11-20 10:12 | PDOC.HOSPP ---
- Subjective Encounter Date: 11/20/19 Encounter Time: 10:05 Subjective: f/u for acute pancreatitis/?colitis. States pain is about the same but waxes/ wanes. Not able to tolerate more than juice/H2O. No diarrhea or emesis. - Objective Vital Signs & Weight: Vital Signs (12 hours) Temp Pulse Resp BP BP Pulse Ox 11/20/19 08:00 98 11/20/19 07:49 97.9 F 61 18 136/83 98 11/20/19 04:39 98.2 F 60 20 147/94 H 100 11/20/19 00:00 98.6 F 64 20 146/87 H 98 Weight Weight 190 lb 12.8 oz I&O: 11/19/19 11/20/19 11/21/19 06:59 06:59 06:59 Intake Total 1200 Balance 1200 Result Diagrams: 11/19/19 05:25 11/19/19 05:25 Additional Labs: Laboratory Tests 11/18/19 11/18/19 11/20/19 06:52 12:00 05:53 Triglycerides 107 Cholesterol 107 LDL Cholesterol, Calc 59 HDL Cholesterol 27 Lipase 118 H 273 H COVID-19 PCR Not Detected Hospitalist ROS - Medication Medications: Active Medications Generic Name Dose Route Start Last Admin Trade Name Freq PRN Reason Stop Dose Admin Chlorthalidone 25 mg 11/20/19 09:00 11/20/19 08:12 Hygroton PO 25 mg DAILY ELISHA Administration Clonidine 0.1 mg 11/18/19 21:00 11/20/19 08:11 Catapres PO 0.1 mg BID ELISHA Administration Diltiazem HCl 180 mg 11/18/19 21:00 11/20/19 08:12 Cardizem Cd PO 180 mg BID ELISHA Administration Sodium Chloride 1,000 mls @ 100 mls/hr 11/18/19 12:16 11/20/19 06:02 Normal Saline 0.9% IV 1,000 mls .Q10H ELISHA Administration Melatonin 15 mg 11/18/19 21:00 11/19/19 20:29 Melatonin PO 15 mg HS ELISHA Administration Morphine Sulfate 4 mg 11/19/19 15:24 11/20/19 08:07 Morphine SLOW IVP 4 mg Q4H PRN Administration Pain Nicotine 21 mg 11/18/19 21:00 11/19/19 20:31 Nicoderm Patch TD 21 mg 2100 ELISHA Administration Ondansetron HCl 4 mg 11/18/19 12:16 11/20/19 04:20 Zofran IVP 4 mg Q6H PRN Administration Nausea/Vomiting Pantoprazole Sodium 40 mg 11/19/19 09:00 11/20/19 08:09 Protonix IVP 40 mg DAILY ELISHA Administration Elviteg/Cob/Emtri/ 1 each 11/20/19 09:00 11/20/19 08:13 Tenof Alafen [ PO 1 each Genvoya Tablet] 1 DAILY ELISHA Administration Tab - Exam General Appearance: NAD, awake alert Eye: PERRL, anicteric sclera ENT: normocephalic atraumatic, no oropharyngeal lesions Neck: supple, symmetric, no JVD, no thyromegaly, no lymphadenopathy Heart: RRR, no murmur, no gallops, no rubs, normal peripheral pulses Heart - other findings: S1, S2 Respiratory: CTAB, no wheezes, no rales, no ronchi, normal chest expansion Gastrointestinal: soft, non-distended, normal bowel sounds, no palpable masses, tender to palpation Gastrointestinal - other findings: + epigastric TTP Extremities: no cyanosis, no clubbing, no edema Skin: normal turgor, no lesions Neurological: cranial nerve grossly intact, no new deficit Musculoskeletal: normal tone, normal strength, no muscle wasting Psychiatric: normal affect, A&O x 3 Hosp A/P (1) Acute pancreatitis Code(s): K85.90 - ACUTE PANCREATITIS WITHOUT NECROSIS OR INFECTION, UNSP Status: Acute Plan: Continue supportive mgmt, clear liquids, IVF's, Morphine Sulfate IV PRN pain, consider GI consult if no improvement in next 24h, serial Lipase (2) Abdominal pain Code(s): R10.9 - UNSPECIFIED ABDOMINAL PAIN Status: Acute Qualifiers: Abdominal location: epigastric Qualified Code(s): R10.13 - Epigastric pain Plan: Secondary to #1, see above for mgmt, ? influence from colitis (3) HIV (human immunodeficiency virus infection) Code(s): B20 - HUMAN IMMUNODEFICIENCY VIRUS [HIV] DISEASE Status: Chronic Plan: Continue chronic anti-retroviral (4) Marijuana abuse Code(s): F12.10 - CANNABIS ABUSE, UNCOMPLICATED Status: Chronic (5) Tobacco abuse Code(s): Z72.0 - TOBACCO USE Status: Chronic - Plan out of bed/ambulate, DVT proph w/SCDs Stable currently Clear liquids as tolerated OOB/ambulate Continue Morphine Sulfate PRN pain control Continue IVF's Consider GI consult if no improvement in next 24h AM lab: Lipase
[2019-11-20] MEDS: Acetaminophen 325 MG TAB PO PRN (17:40)
[2019-11-20] MEDS: Melatonin 3 MG TAB PO SCH (20:30)
[2019-11-20] MEDS: Nicotine 21 MG PATCH TD SCH (20:31)
[2019-11-21] MEDS: Morphine 4 MG/ML VIAL SLOW IVP PRN ×6 (02:02→23:00)
[2019-11-21] MEDS: Ondansetron PF 4 MG/2 ML Vial IVP PRN ×2 (05:53→13:45)
[2019-11-21] MEDS: cloNIDine 0.1 MG TAB PO SCH ×2 (07:35→20:11)
[2019-11-21] MEDS: Chlorthalidone 25 MG TAB PO SCH (07:36)
[2019-11-21] MEDS: Acetaminophen 325 MG TAB PO PRN (07:36)
[2019-11-21] MEDS: Elviteg/Cob/Emtri/Tenof Alafen [Genvoya Tablet] 1 TAB PO SCH (07:36)
[2019-11-21] MEDS: Pantoprazole 40 MG VIAL IVP SCH ×2 (07:37→20:12)
--- NOTE | 2019-11-21 12:40 | PDOC.HOSPP ---
- Subjective Encounter Date: 11/21/19 Encounter Time: 12:35 Subjective: f/u for acute pancreatitis of unclear etiology but ? influence of ETOH. Also with ? colitis with wall thickening noted on CT abd. Remains on clear liquids, has some abd pain and taking Morphine Sulfate with some relief. - Objective Vital Signs & Weight: Vital Signs (12 hours) Temp Pulse Resp BP Pulse Ox 11/21/19 08:00 100 11/21/19 07:00 98.2 F 59 L 16 149/94 H 100 Weight Weight 190 lb 12.8 oz Result Diagrams: 11/19/19 05:25 11/19/19 05:25 Additional Labs: Laboratory Tests 11/18/19 11/18/19 11/20/19 06:52 12:00 05:53 Triglycerides 107 Cholesterol 107 LDL Cholesterol, Calc 59 HDL Cholesterol 27 Lipase 118 H 273 H COVID-19 PCR Not Detected 11/21/19 05:41 Triglycerides Cholesterol LDL Cholesterol, Calc HDL Cholesterol Lipase 266 H COV- PCR Hospitalist ROS - Medication Medications: Active Medications Generic Name Dose Route Start Last Admin Trade Name Freq PRN Reason Stop Dose Admin Acetaminophen 650 mg 11/18/19 12:16 11/21/19 07:36 Tylenol PO 650 mg Q4H PRN Administration Headache/Fever/Mild Pain (1-3) Chlorthalidone 25 mg 11/20/19 09:00 11/21/19 07:36 Hygroton PO 25 mg DAILY ELISHA Administration Clonidine 0.1 mg 11/18/19 21:00 11/21/19 07:35 Catapres PO 0.1 mg BID ELISHA Administration Diltiazem HCl 180 mg 11/18/19 21:00 11/21/19 07:36 Cardizem Cd PO 180 mg BID ELISHA Administration Sodium Chloride 1,000 mls @ 100 mls/hr 11/18/19 12:16 11/20/19 22:09 Normal Saline 0.9% IV 1,000 mls .Q10H ELISHA Administration Melatonin 15 mg 11/18/19 21:00 11/20/19 20:30 Melatonin PO 15 mg HS ELISHA Administration Morphine Sulfate 4 mg 11/19/19 15:24 11/21/19 09:50 Morphine SLOW IVP 4 mg Q4H PRN Administration Pain Nicotine 21 mg 11/18/19 21:00 11/20/19 20:31 Nicoderm Patch TD 21 mg 2100 ELISHA Administration Ondansetron HCl 4 mg 11/18/19 12:16 11/21/19 05:53 Zofran IVP 4 mg Q6H PRN Administration Nausea/Vomiting Pantoprazole Sodium 40 mg 11/19/19 09:00 11/21/19 07:37 Protonix IVP 40 mg DAILY ELISHA Administration Elviteg/Cob/Emtri/ 1 each 11/20/19 09:00 11/21/19 07:36 Tenof Alafen [ PO 1 each Genvoya Tablet] 1 DAILY ELISHA Administration Tab - Exam General Appearance: NAD, awake alert Eye: PERRL, anicteric sclera ENT: normocephalic atraumatic, no oropharyngeal lesions Neck: supple, symmetric, no JVD, no thyromegaly Heart: RRR, no murmur, no gallops, no rubs, normal peripheral pulses Heart - other findings: S1, S2 Respiratory: CTAB, no wheezes, no rales, no ronchi, normal chest expansion, no tachypnea Gastrointestinal: soft, non-distended, normal bowel sounds, no palpable masses Extremities: no cyanosis, no clubbing, no edema Skin: normal turgor, no lesions Neurological: cranial nerve grossly intact, no new deficit Musculoskeletal: normal tone, normal strength, no muscle wasting Psychiatric: normal affect, A&O x 3 Hosp A/P (1) Acute pancreatitis Code(s): K85.90 - ACUTE PANCREATITIS WITHOUT NECROSIS OR INFECTION, UNSP Status: Acute Plan: ? etiology, ? ETOH influence, check RUQ sono today, consult GI service for any further recommendations, pain control with Morphine Sulfate (2) Abdominal pain Code(s): R10.9 - UNSPECIFIED ABDOMINAL PAIN Status: Acute Qualifiers: Abdominal location: epigastric Qualified Code(s): R10.13 - Epigastric pain (3) HIV (human immunodeficiency virus infection) Code(s): B20 - HUMAN IMMUNODEFICIENCY VIRUS [HIV] DISEASE Status: Chronic (4) Marijuana abuse Code(s): F12.10 - CANNABIS ABUSE, UNCOMPLICATED Status: Chronic (5) Tobacco abuse Code(s): Z72.0 - TOBACCO USE Status: Chronic - Plan out of bed/ambulate, DVT proph w/SCDs Stable currently Clear liquids as tolerated Check RUQ sono today to r/o obstruction Consult GI service for any further recommendations OOB/ambulate Continue Morphine Sulfate PRN pain control Continue IVF's Increase Protonix 40mg BID Add Toradol 30mg IV q6h AM lab: Lipase
[2019-11-21] MEDS ORDERED: Ketorolac Tromethamine 30 MG/ML VIAL IVP SCH (13:00)
[2019-11-21] MEDS: Nicotine 21 MG PATCH TD SCH ×2 (13:03→20:11)
[2019-11-21] MEDS: Sodium Chloride 0.9% 1,000 ML IV SCH ×2 (13:05→19:02)
--- NOTE | 2019-11-21 15:13 | ULT ---
RIGHT UPPER QUADRANT ULTRASOUND: Indication: History of pancreatitis and concern for common bile duct obstruction. FINDINGS: The visualized liver, gallbladder, visualized aspects of the pancreas and right kidney are normal. Co mmon bile duct measures 4.7 mm. Right kidney measures 9.1 cm. No Sonographic Petit's sign is recorde d. IMPRESSION: Normal Sonographic evaluation of the right upper quadrant. POS: BH
[2019-11-21] MEDS: Ketorolac Tromethamine 30 MG/ML VIAL IVP SCH ×2 (18:18→22:19)
[2019-11-21] MEDS: Melatonin 3 MG TAB PO SCH (20:17)
--- NOTE | 2019-11-21 21:56 | CON ---
DATE OF CONSULTATION: 11/21/2019 REASON FOR CONSULTATION: Abdominal pain, pancreatitis. CONSULTING PROVIDER: Dr. Yunier Neal. HISTORY OF PRESENT ILLNESS: The patient is a 34-year-old male with past medical history of peptic ulcer disease, HIV, marijuana abuse and tobacco abuse, presenting with complaints of right-sided abdominal pain. He states that he was in his usual state of health until approximately 2 days prior to admission when he had the acute onset of right upper and right lower quadrant abdominal pain that he characterized as a sharp-type sensation, was nonradiating, constant with waxing/waning severity, and reached a severity of 10/10. This pain was worse with eating and drinking increased physical activity, and when the patient actually vomited. It was better with pain medications and fasting states. This pain was associated with increased nausea, vomiting with multiple episodes over a 24-hour period. After at least 2 days of nausea vomiting, he did have a recurrence of hematemesis (the patient had hematemesis due to ulcers in July 2019), that then prompted him to seek healthcare assistance at [facility] ER. He also adds that he was having diarrhea prior to admission, characterized as having 1-2 semi-solid bowel movements per day, but since admission has not had a bowel movement. During the course of the workup related to his abdominal pain, he was noted to have a significantly elevated lipase that met criteria for pancreatitis and was subsequently placed on IV fluids, n.p.o. status, and pain control for treatment of acute uncomplicated pancreatitis. However, during the course of this hospitalization, he has not had any significant improvement in his abdominal pain, raising the concern whether or not this pancreatitis is resolving or even pancreatitis. Currently, he continues to have some nausea but no actual episodes of vomiting. He denies fevers, chills, further episodes of hematemesis, melena, hematochezia, dysphagia, odynophagia, or weight loss. Of note, the patient had an EGD performed on August 24, 2019, which showed the presence of a 1 x 2 cm cratered ulcer along the incisura without any high-risk stigmata. Biopsies were taken from this ulceration, and biopsies were positive for H pylori. He was subsequently placed on quadruple therapy and completed 14-day course. However, he has not been confirmed for eradication of the bacterium as of yet. REVIEW OF SYSTEMS: A 10-category review of systems was obtained with all responses negative except for the pertinent positives as listed in HPI. PAST MEDICAL HISTORY: As per HPI. PAST SURGICAL HISTORY: Upper endoscopy. FAMILY HISTORY: Denies any GI malignancies. SOCIAL HISTORY: Smokes approximately 1/2 pack of cigarettes daily. Uses marijuana weekly and drinks anywhere between 3 and 6 beers every 1 to 2 days. OUTPATIENT MEDICATIONS: Reviewed. ALLERGIES: NO KNOWN DRUG ALLERGIES. PHYSICAL EXAMINATION: VITAL SIGNS: Temperature 98.2, pulse 59, blood pressure 149/94, respiratory rate 16, saturating 100% on room air. GENERAL: The patient was lying in bed, in no acute distress. Alert and oriented x4. HEENT: Normocephalic atraumatic. NECK: Supple. No JVD or scleral icterus noted. CARDIOVASCULAR: Regular rate and rhythm with no discernible murmurs, gallops, or rubs. RESPIRATORY: Clear to auscultation bilaterally with no discernible wheezes or rales. ABDOMEN: Normoactive bowel sounds. Soft, nondistended. Significant tenderness to palpation to both light and very light and deep palpation in the right upper quadrant, midepigastric and right lower quadrants. EXTREMITIES: No cyanosis, clubbing, or edema. LABORATORY DATA: CBC with a white blood cell count of 5.8, hemoglobin 13.9, hematocrit 43.1, platelets 217. Chemistry with a sodium of 139, potassium 3.9 chloride 107, CO2 of 23, BUN 7, creatinine 1.14, glucose 86, lipase 266. IMAGING DATA: CT of the abdomen and pelvis was obtained on November 18, 2019, which showed that the liver, spleen, and pancreas were all unremarkable with no evidence of ga-pancreatic stranding or inflammation. However, diffuse mural thickening of the colon was seen, but the CT scan was limited due to poor colonic distention which could contribute to this finding. Otherwise, there was no acute intraabdominal process present. ASSESSMENT AND PLAN: The patient is a 34-year-old male with past medical history of peptic ulcer disease, HIV, marijuana and tobacco abuse, presenting with complaints of hematemesis and right upper quadrant abdominal pain. Right upper quadrant abdominal pain/peptic ulcer disease. The patient is presenting with a history of peptic ulcer disease as recent as July of 2019, with a 1 x 2 cm ulceration along the incisura that was felt to be secondary to H pylori infection. He did undergo quadruple therapy as part of treatment for this condition, but no confirmation of eradication has been performed as of yet. Now presenting with increased right upper quadrant abdominal pain and hematemesis, which is concerning for continued presence of this ulceration, especially in light of an elevated lipase which can be present in light of penetrating ulcers. Given the lack of findings on imaging for pancreatitis, I think this is a less likely diagnosis, especially given the character of the pain, its location, and the fact that the pain does not radiate, although I cannot entirely exclude it at this time. Current differential could include peptic ulcer disease, duodenitis, pancreatitis, colonic infection/inflammation (less likely given lack of diarrhea). RECOMMENDATIONS: 1. Would continue the patient on pantoprazole 40 mg IV b.i.d. 2. Continue patient on IV fluids 100 mL/h in addition to a clear liquid diet. 3. Pain control per primary team. 4. Would make the patient n.p.o. at midnight in anticipation of an upper endoscopy tomorrow for re-evaluation of the gastric ulcer. 5. Continue to monitor patient, and if having diarrhea-like bowel movements, would consider obtaining infectious stool studies. Based on the imaging findings. 6. If the upper endoscopy is normal, then I would recommend repeat examination with a CT abdomen and pelvis for further progression of possible pancreatitis including abscess formation or peripancreatic fluid collection. We will continue to follow. Please call with any questions. Job ID: [id number]
[2019-11-22] MEDS: Morphine 4 MG/ML VIAL SLOW IVP PRN ×4 (03:52→20:39)
[2019-11-22] MEDS: Ketorolac Tromethamine 30 MG/ML VIAL IVP SCH ×2 (06:13→12:54)
[2019-11-22] MEDS: Sodium Chloride 0.9% 1,000 ML IV SCH ×2 (06:15→18:09)
[2019-11-22 06:29] LABS: Band 1 % (5-11); Eosinophils 2 % (0-10); Hemoglobin 13.6 g/dL (14.0-18.0); Hypochromia SLIGHT = 6-15 cells (100X) (0-5/hpf); Lymphocytes 47 % (21-51); MDiff Complete? YES; Mean Corpuscular HGB CONC 32.3 g/dL (32.0-36.0); Mean Corpuscular Hemoglobin 32.6 pg (27.0-31.0); Mean Platelet Volume 7.5 fL (7.4-10.4); Monocytes 3 % (0-10); Neutrophil 47 % (42-75); Platelet Count 202 thou/uL (130-400); Platelet Morphology Comment Appears Adequate; RBC Distribution Width 13.5 % (11.5-14.5); Red Blood Cell (RBC) Count 4.18 mill/uL (4.70-6.10); White Blood Cell (WBC) Count 4.4 thou/uL (4.8-10.8)
[2019-11-22] MEDS: cloNIDine 0.1 MG TAB PO SCH ×2 (09:01→20:35)
[2019-11-22] MEDS: Chlorthalidone 25 MG TAB PO SCH (09:01)
[2019-11-22] MEDS: Elviteg/Cob/Emtri/Tenof Alafen [Genvoya Tablet] 1 TAB PO SCH (09:02)
[2019-11-22] MEDS: Pantoprazole 40 MG VIAL IVP SCH ×2 (09:02→20:36)
[2019-11-22] MEDS ORDERED: PROPOFOL 200 MG/20 ML VIAL ONE (10:24)
--- NOTE | 2019-11-22 10:26 | OP ---
DATE OF PROCEDURE: 11/22/2019 PROCEDURE PERFORMED: Esophagogastroduodenoscopy (diagnostic). INDICATION FOR PROCEDURE: Right upper quadrant/midepigastric abdominal pain, hematemesis, history of gastric ulcer. DESCRIPTION OF PROCEDURE: After the risks and benefits of the procedure were explained to the patient including risks of bleeding, infection, perforation, reactions to anesthesia, aspiration, and/or pain, informed consent was obtained. The patient was then taken to the endoscopy suite where he was maneuvered into the left lateral decubitus position followed by introduction of deep sedation via propofol and anesthesia support. Once adequate sedation was achieved, the standard gastroscope was introduced into the mouth with intubation of the esophagus, stomach, and the proximal small intestine with the findings listed below. The patient tolerated the procedure well with no immediate perioperative complications. On conclusion of the procedure, all equipment was removed from the patient and he was transferred to PACU in satisfactory condition. FINDINGS: Esophagus: Normal-appearing mucosa was seen in the proximal, mid, and distal esophagus. There was no evidence of erosions, ulcerations, mass lesions, or active/recent bleeding. Stomach: A 3-cm patch of increased mucosal erythema in a mosaic-type pattern was seen in the gastric fundus, but did not exhibit any further abnormalities including erosion or ulceration. A 1- to 1.5-cm area of healing mucosa was also seen in the incisura, consistent with a healed ulceration with only minimal mucosal erythema surrounding it. Otherwise, normal-appearing mucosa was seen in the gastric cardia, body, greater curvature, and antrum. There was no evidence of erosions, ulcerations, mass lesions, or active/recent bleeding. Duodenum: Normal-appearing mucosa was seen in both the duodenal bulb and second portion of the duodenum. There was no evidence of erosions, ulcerations, mass lesions, or active/recent bleeding. IMPRESSION: 1. A 3-cm patch of increased mucosal erythema in a mosaic-type pattern consistent with nonspecific gastropathy in the gastric fundus. 2. A 1- to 1.5-cm area of healing mucosa in the gastric incisura consistent with healed ulceration. 3. No etiology for the patient's abdominal pain was seen during this examination. RECOMMENDATIONS: 1. Would place the patient on a clear liquid diet today in anticipation of colonoscopy tomorrow. 2. We will plan for colonoscopy tomorrow given the patient's continued abdominal pain and hematochezia overnight. 3. We will order infectious stool studies for possible pathogen creating the hematochezia and abdominal pain. 4. Pain control per primary team. We will continue to follow. Please call with any questions. Job ID: [id number]
--- NOTE | 2019-11-22 13:46 | PDOC.HOSPP ---
- Subjective Encounter Date: 11/22/19 Encounter Time: 13:40 Subjective: f/u for abd pain/pancreatitis with EGD showing healing gastric ulcer. Pt states bloody stool this am. - Objective Vital Signs & Weight: Vital Signs (12 hours) Temp Pulse Resp BP BP Pulse Ox 11/22/19 12:26 98.5 F 64 18 114/80 100 11/22/19 09:01 136/85 11/22/19 08:13 98.3 F 57 L 18 136/83 100 11/22/19 04:23 97.9 F 66 16 116/79 99 Weight Weight 190 lb 12.8 oz I&O: 11/21/19 11/22/19 11/23/19 06:59 06:59 06:59 Intake Total 1200 Balance 1200 Result Diagrams: 11/22/19 05:36 11/19/19 05:25 Additional Labs: Laboratory Tests 11/18/19 11/18/19 11/20/19 06:52 12:00 05:53 Triglycerides 107 Cholesterol 107 LDL Cholesterol, Calc 59 HDL Cholesterol 27 Lipase 118 H 273 H COVID-19 PCR Not Detected 11/21/19 11/22/19 05:41 05:36 Triglycerides Cholesterol LDL Cholesterol, Calc HDL Cholesterol Lipase 266 H 120 H COVID-19 PCR Radiology Reviewed by me: Yes (EGD - healing gastric ulcer) Hospitalist ROS - Medication Medications: Active Medications Generic Name Dose Route Start Last Admin Trade Name Freq PRN Reason Stop Dose Admin Acetaminophen 650 mg 11/18/19 12:16 11/21/19 07:36 Tylenol PO 650 mg Q4H PRN Administration Headache/Fever/Mild Pain (1-3) Chlorthalidone 25 mg 11/20/19 09:00 11/22/19 09:01 Hygroton PO 25 mg DAILY ELISHA Administration Clonidine 0.1 mg 11/18/19 21:00 11/22/19 09:01 Catapres PO 0.1 mg BID ELISHA Administration Diltiazem HCl 180 mg 11/18/19 21:00 11/22/19 09:01 Cardizem Cd PO 180 mg BID ELISHA Administration Sodium Chloride 1,000 mls @ 100 mls/hr 11/18/19 12:16 11/22/19 06:15 Normal Saline 0.9% IV 1,000 mls .Q10H ELISHA Administration Ketorolac Tromethamine 30 mg 11/21/19 18:00 11/22/19 12:54 Toradol IVP 11/26/19 18:01 30 mg Q6HR ELISHA Administration Melatonin 15 mg 11/18/19 21:00 11/21/19 20:17 Melatonin PO 15 mg HS ELISHA Administration Morphine Sulfate 4 mg 11/19/19 15:24 11/22/19 09:00 Morphine SLOW IVP 4 mg Q4H PRN Administration Pain Nicotine 21 mg 11/18/19 21:00 11/21/19 20:11 Nicoderm Patch TD 21 mg 2100 ELISHA Administration Ondansetron HCl 4 mg 11/18/19 12:16 11/21/19 13:45 Zofran IVP 4 mg Q6H PRN Administration Nausea/Vomiting Pantoprazole Sodium 40 mg 11/21/19 21:00 11/22/19 09:02 Protonix IVP 40 mg BID ELISHA Administration Elviteg/Cob/Emtri/ 1 each 11/20/19 09:00 11/22/19 09:02 Tenof Alafen [ PO 1 each Genvoya Tablet] 1 DAILY ELISHA Administration Tab - Exam General Appearance: NAD, awake alert Eye: PERRL, anicteric sclera ENT: normocephalic atraumatic, no oropharyngeal lesions Neck: supple, symmetric, no JVD, no thyromegaly, no lymphadenopathy Heart: RRR, no murmur, no gallops, no rubs, normal peripheral pulses Heart - other findings: S1, S2 Respiratory: CTAB, no wheezes, no rales, no ronchi, normal chest expansion, no tachypnea Gastrointestinal: soft, normal bowel sounds, no palpable masses, no hepatomegaly Gastrointestinal - other findings: mild TTP in epigatric region Extremities: no cyanosis, no clubbing, no edema Skin: normal turgor, no lesions Neurological: cranial nerve grossly intact, no new deficit Musculoskeletal: normal tone, normal strength, no muscle wasting Psychiatric: normal affect, A&O x 3 Hosp A/P (1) Acute pancreatitis Code(s): K85.90 - ACUTE PANCREATITIS WITHOUT NECROSIS OR INFECTION, UNSP Status: Acute Plan: Suspected, Lipase trending down, ? influence of ETOH (2) Abdominal pain Code(s): R10.9 - UNSPECIFIED ABDOMINAL PAIN Status: Acute Qualifiers: Abdominal location: epigastric Qualified Code(s): R10.13 - Epigastric pain Plan: Suspected due to #1, supportive, plan for colonoscopy 11/23/19 (3) HIV (human immunodeficiency virus infection) Code(s): B20 - HUMAN IMMUNODEFICIENCY VIRUS [HIV] DISEASE Status: Chronic (4) Marijuana abuse Code(s): F12.10 - CANNABIS ABUSE, UNCOMPLICATED Status: Chronic (5) Tobacco abuse Code(s): Z72.0 - TOBACCO USE Status: Chronic - Plan out of bed/ambulate, DVT proph w/SCDs Stable currently Clear liquids as tolerated Plan for colonoscopy in am OOB/ambulate Continue Morphine Sulfate PRN pain control Continue IVF's Increase Protonix 40mg BID D/C Toradol Imodium PRN AM lab: Lipase, H/H
[2019-11-22] MEDS ORDERED: Loperamide HCl 2 MG CAP PO PRN (14:08)
[2019-11-22] MEDS ORDERED: GoLYTELY 4,000 ml Bottle PO SCH (18:30)
[2019-11-22] MEDS: Nicotine 21 MG PATCH TD SCH (20:37)
[2019-11-22] MEDS: Melatonin 3 MG TAB PO SCH (20:45)
[2019-11-23] MEDS: Acetaminophen 325 MG TAB PO PRN (00:15)
[2019-11-23] MEDS: Sodium Chloride 0.9% 1,000 ML IV SCH ×3 (02:00→18:31)
[2019-11-23] MEDS: Morphine 4 MG/ML VIAL SLOW IVP PRN ×5 (03:12→20:17)
[2019-11-23 05:58] LABS: Hemoglobin 13.8 g/dL (14.0-18.0); Platelet Count 210 thou/uL (130-400)
[2019-11-23] MEDS: cloNIDine 0.1 MG TAB PO SCH ×2 (07:48→20:16)
[2019-11-23] MEDS: Elviteg/Cob/Emtri/Tenof Alafen [Genvoya Tablet] 1 TAB PO SCH (07:48)
[2019-11-23] MEDS: Pantoprazole 40 MG VIAL IVP SCH ×2 (07:49→20:17)
[2019-11-23] MEDS: Chlorthalidone 25 MG TAB PO SCH (08:05)
[2019-11-23] MEDS ORDERED: Iopamidol-370 76% 500 ML 1 ML ONE (09:21)
[2019-11-23] MEDS ORDERED: PROPOFOL 200 MG/20 ML VIAL ONE (10:53)
--- NOTE | 2019-11-23 11:36 | OP ---
DATE OF PROCEDURE: 11/23/2019 PROCEDURE PERFORMED: Colonoscopy. PREPROCEDURE DIAGNOSES: 1. Rectal bleeding. 2. Mild abdominal pain. POSTPROCEDURE DIAGNOSES: 1. 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 2. Normal ileum. 3. Normal colon. Random biopsies obtained in light of diarrhea. RECOMMENDATIONS: 1. Await rectal biopsies. 2. The patient can follow up with Surgery either as an in or outpatient in regard to the anal condyloma. We would wait for pathology first. 3. If the patient's abdominal pain persists, consider possibly as a side effect of his antiviral medicines and it maybe reasonable to involve his infectious disease doctor. 4. Rectal bleeding was likely related to the condyloma. ANESTHESIA: TIVA. DESCRIPTION OF PROCEDURE: After the patient was informed of the risk, benefits, and possible complications of endoscopy including perforation, reaction to medication, aspiration, informed consent obtained. The patient was brought to the endoscopy suite, where he was sedated in gradual fashion. Once he was comfortable, rectal examination was performed, which revealed perianal condyloma. There was no firm hard mass or evidence of anal cancer. The endoscope was advanced through the anal canal from the colon to the cecum, which was identified by the ileocecal valve and appendiceal orifice. The prep was good. The ileum was entered and found to be normal. The colon was then evaluated with forward and retroflexed views in the cecum, and the scope was then slowly removed. There was mild edema in the descending colon. There was no evidence of colitis or inflammation of the colon. Random biopsies were taken throughout the colon and then biopsies were taken condyloma and perianal disease and submitted to Pathology. The scope was removed. The patient tolerated the procedure well. There were no complications. Job ID: [id number]
[2019-11-23 12:38] LABS: Reference Lab Name LABCORP
[2019-11-23 12:39] LABS: Ref Lab Test Ordered GI PROFILE PATH PCR
--- NOTE | 2019-11-23 17:10 | PDOC.HOSPP ---
- Subjective Encounter Date: 11/23/19 Encounter Time: 16:50 Subjective: f/u for abd pain/pancreatitis s/p EGD/colonoscopy without findings to explain current symptoms. Feels ok overall. - Objective Vital Signs & Weight: Vital Signs (12 hours) Temp Pulse Resp BP BP BP Pulse Ox 11/23/19 16:37 98.3 F 56 L 18 126/84 100 11/23/19 11:55 97.8 F 60 18 128/87 99 11/23/19 08:28 97.4 F L 60 18 132/86 99 11/23/19 08:00 100 11/23/19 07:48 151/108 H Weight Weight 190 lb 12.8 oz I&O: 11/22/19 11/23/19 11/24/19 06:59 06:59 06:59 Intake Total 1919 Balance 1919 Result Diagrams: 11/23/19 05:26 11/19/19 05:25 Additional Labs: Laboratory Tests 11/18/19 11/18/19 11/20/19 06:52 12:00 05:53 Triglycerides 107 Cholesterol 107 LDL Cholesterol, Calc 59 HDL Cholesterol 27 Lipase 118 H 273 H COVID-19 PCR Not Detected 11/21/19 11/22/19 11/23/19 05:41 05:36 05:26 Triglycerides Cholesterol LDL Cholesterol, Calc HDL Cholesterol Lipase 266 H 120 H 130 H COVID-19 PCR Hospitalist ROS - Medication Medications: Active Medications Generic Name Dose Route Start Last Admin Trade Name Freq PRN Reason Stop Dose Admin Acetaminophen 650 mg 11/18/19 12:16 11/23/19 00:15 Tylenol PO 650 mg Q4H PRN Administration Headache/Fever/Mild Pain (1-3) Chlorthalidone 25 mg 11/20/19 09:00 11/23/19 08:05 Hygroton PO 25 mg DAILY ELISHA Administration Clonidine 0.1 mg 11/18/19 21:00 11/23/19 07:48 Catapres PO 0.1 mg BID ELISHA Administration Diltiazem HCl 180 mg 11/18/19 21:00 11/23/19 07:48 Cardizem Cd PO 180 mg BID ELISHA Administration Sodium Chloride 1,000 mls @ 100 mls/hr 11/18/19 12:16 11/23/19 12:21 Normal Saline 0.9% IV Not Given .Q10H ELISHA Melatonin 15 mg 11/18/19 21:00 11/22/19 20:45 Melatonin PO Not Given HS ELISHA Morphine Sulfate 4 mg 11/19/19 15:24 11/23/19 16:33 Morphine SLOW IVP 4 mg Q4H PRN Administration Pain Nicotine 21 mg 11/18/19 21:00 11/22/19 20:37 Nicoderm Patch TD 21 mg 2100 ELISHA Administration Ondansetron HCl 4 mg 11/18/19 12:16 11/21/19 13:45 Zofran IVP 4 mg Q6H PRN Administration Nausea/Vomiting Pantoprazole Sodium 40 mg 11/21/19 21:00 11/23/19 07:49 Protonix IVP 40 mg BID ELISHA Administration Elviteg/Cob/Emtri/ 1 each 11/20/19 09:00 11/23/19 07:48 Tenof Alafen [ PO 1 each Genvoya Tablet] 1 DAILY ELISHA Administration Tab - Exam General Appearance: NAD, awake alert Eye: PERRL, anicteric sclera ENT: normocephalic atraumatic, no oropharyngeal lesions Neck: supple, symmetric, no JVD, no thyromegaly, no lymphadenopathy Heart: RRR, no murmur, no gallops, no rubs, normal peripheral pulses Heart - other findings: S1, S2 Respiratory: CTAB, no wheezes, no rales, no ronchi, normal chest expansion Gastrointestinal: soft, non-distended, normal bowel sounds, no palpable masses Gastrointestinal - other findings: mild TTP in epigastric region Extremities: no cyanosis, no clubbing, no edema Skin: normal turgor Neurological: cranial nerve grossly intact, no new deficit Musculoskeletal: normal tone, normal strength, no muscle wasting Psychiatric: normal affect, A&O x 3 Hosp A/P (1) Acute pancreatitis Code(s): K85.90 - ACUTE PANCREATITIS WITHOUT NECROSIS OR INFECTION, UNSP Status: Acute Plan: Suspected, no specific etiology identified, overall trend improved (2) Abdominal pain Code(s): R10.9 - UNSPECIFIED ABDOMINAL PAIN Status: Acute Qualifiers: Abdominal location: epigastric Qualified Code(s): R10.13 - Epigastric pain Plan: Suspected due to #1, see above, EGD/colonoscopy essentially unrevealing (3) HIV (human immunodeficiency virus infection) Code(s): B20 - HUMAN IMMUNODEFICIENCY VIRUS [HIV] DISEASE Status: Chronic (4) Marijuana abuse Code(s): F12.10 - CANNABIS ABUSE, UNCOMPLICATED Status: Chronic (5) Tobacco abuse Code(s): Z72.0 - TOBACCO USE Status: Chronic - Plan out of bed/ambulate, DVT proph w/SCDs Stable currently Clear liquids as tolerated OOB/ambulate Continue Morphine Sulfate PRN pain control Continue IVF's 75ml/h Increase Protonix 40mg BID D/C Toradol Imodium PRN AM lab: Lipase, H/H
[2019-11-23] MEDS: Melatonin 3 MG TAB PO SCH (20:16)
[2019-11-23] MEDS: Nicotine 21 MG PATCH TD SCH (20:17)
--- NOTE | 2019-11-23 20:54 | CT ---
CT ABDOMEN WITH AND WITHOUT CONTRAST: 11/23/19 Postcontrast images were obtained in the arterial phase and delayed venous phase. INDICATION: Three phase CT pancreas is requested. Reason for pancreatic protocol is not specified. COMPARISON: Comparison made to recent CT abdomen and pelvis 11/18/19. The pancreas appears unremarkable on that study. FINDINGS: Pancreas shows no evidence of mass or cysts. No peripancreatic edema or fluid. Some mild heterogeneit y in the head of the pancreas appears nonspecific. The liver and spleen are unremarkable. Stomach and duodenum are unremarkable. Adrenal glands and kidneys unremarkable. The visualized aorta unremarkable. The visualized small duke l loops appear normal. Colon is nondistended and colonic wall not well evaluated. Patient is post colonoscopy by history. IMPRESSION: Unremarkable CT abdomen. No pancreatic lesion identified. POS: [facility]
[2019-11-24] MEDS: Ondansetron PF 4 MG/2 ML Vial IVP PRN (00:25)
[2019-11-24] MEDS: Morphine 4 MG/ML VIAL SLOW IVP PRN ×3 (00:25→10:27)
[2019-11-24 04:16] VITALS: TEMP 97.8
[2019-11-24] MEDS: Sodium Chloride 0.9% 1,000 ML IV SCH (06:57)
[2019-11-24] MEDS: cloNIDine 0.1 MG TAB PO SCH (08:06)
[2019-11-24] MEDS: Pantoprazole 40 MG VIAL IVP SCH (08:06)
[2019-11-24] MEDS: Elviteg/Cob/Emtri/Tenof Alafen [Genvoya Tablet] 1 TAB PO SCH (08:07)
[2019-11-24 08:11] VITALS: BP 137/96
[2019-11-24] MEDS: Chlorthalidone 25 MG TAB PO SCH (08:13)
--- NOTE | 2019-11-24 09:37 | CON ---
DATE OF CONSULTATION: 11/23/2019 REASON FOR CONSULTATION: Diarrhea with hematochezia and hematemesis. HISTORY OF PRESENT ILLNESS: A 34-year-old well-known patient to me, who has a longstanding history of HIV infection. I last saw him in this year in July when he presented with what appeared to be a postherpetic neuralgia, so we gave him neurontin or gabapentin and steadily improved until complete resolution. He takes Genvoya for his antiretroviral treatment and his last HIV RNA PCR was 560 in June and his CD4 cell count was 827 in 07/2019. At this time, he was well until about 5 days before admission when he developed recurring episodes of abdominal cramps with liquid stool up to 3 times a day, sometimes with blood, sometimes with melena like stool. Also had one episode of vomiting with some blood in it. He has had headaches intermittently. No visual symptoms, sore throat, odynophagia, or dysphagia. No cough or sputum production or chest pain. No genitourinary symptoms. No joint symptoms. He was seen by Dr. Kirk on the , and the impression was possibility of persistence of H pylori infection. This had been identified in 07/2019 with a 1 x 2 cm ulceration along the incisura of the gastric area, so the possibility of recurrence of the ulcer was brought up by Dr. Kirk, so he did have an endoscopic procedure yesterday by Dr. Cruz, a colonoscopy, and this was to evaluate abdominal pain and rectal bleeding. 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 The colon was normal. The patient did have an upper endoscopy on 11/21 and it showed a 3-cm patch of mucosal erythema, consistent with gastropathy and a 1 to 1.5 cm area of healing mucosa in the previous ulcer. He is scheduled for an abdominal CT scan at the moment. PAST MEDICAL HISTORY: 1. Herpes zoster in distribution of the right midthoracic dermatomes about 2 years before. 2. Postherpetic neuralgia. 3. Chronic smoking. 4. Noninvasive UTI with E coli. 5. Community-acquired pneumonia. 6. HIV infection with CD4 in a mid 800 range. 7. Gastric ulcer, identified in 07/2019, secondary to H pylori, which was treated successfully. ALLERGIES: NONE. SOCIAL HISTORY: Lives in [place] with family. 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 FAMILY HISTORY: Noncontributory. MEDICATIONS: 1. He takes Genvoya. 2. He had been on valacyclovir as well. PHYSICAL EXAMINATION: VITAL SIGNS: T-max 98.3, blood pressure 130/80, pulse 60, respirations 18, and O2 saturation 99. SKIN: Not remarkable. Peripheral IV access. He is voiding in the toilet. No lymphadenopathy. HEENT: Ocular movements conjugate. Oral cavity normal. NECK: Supple. LUNGS: Symmetric, clear breath sounds. HEART: S1 and S2. Regular rate. ABDOMEN: Diffusely tender, but not distended. Bowel sounds are present, but not increased. EXTREMITIES: No joint inflammatory activity. No edema. Pulses 1+ in dorsalis pedis. Moves extremities equally. NEUROLOGIC: Cognitive function appears to be intact. LABORATORY DATA: COVID was negative. White cell count was 6.2 and now is 4.4, hemoglobin 13.6, platelets 202 with 47% neutrophils, 1% bands, and 47% lymphocytes. INR 1.0. Creatinine 1.14 and glucose 86. Liver profile was normal. Albumin 3.8 and globulin 3.6. Urinalysis normal. C difficile in stool was negative. Campylobacter, Shiga toxin stool cultures were negative. Stool culture still pending. There is an abdomen and pelvis CT from 11/17 and that showed diffuse mural thickening in the colon, I think this study is being repeated. An abdominal ultrasound from 11/20 was to evaluate the right upper quadrant. There are normal findings in the chest x-ray on admission. ASSESSMENT: 1. Longstanding human immunodeficiency virus infection with CD4 in the mid 800s. The last viral load was higher than what we would like, but not out of control and he seems to be still taking the medication, Genvoya. 2. New onset of abdominal cramps with diarrhea, some hematochezia, some hematemesis with normal-appearing upper endoscopy revision and colonoscopy with condyloma as we had known before. DISCUSSION: Differential diagnosis includes the usual enteral pathogen associated colitis versus noninfectious inflammatory bowel disease. A sexually transmitted disease would be less likely in view of the diffuse nature of the involvement. Things like Chlamydia neisseria usually tend to be restricted to the rectum area. The C difficile test was negative and that pretty much rules out the possibility, although lately we are seeing some cases with false-negative C difficile toxin/antigen tests, which were proven positive on PCR and responded to treatment with oral vancomycin. The normal colonoscopy rules out pretty much ulcerative colitis and Crohn disease. The diffuse nature of involvement also makes it lymphoma unlikely. Also, typically patients with B-cell lymphoma associated in the setting of HIV infection are usually immunosuppressed. We will check his CD4 viral load and he will go ahead and continue the Genvoya as prescribed and hopefully will be able to follow him in the clinic soon. Job ID: [id number]
--- NOTE | 2019-11-24 15:11 | PRG ---
DATE OF SERVICE: 11/24/2019 SUBJECTIVE: Mr. Doan is still having some low grade abdominal pain, typically after eating. He has not had any nausea, vomiting, or diarrhea since his colonoscopy yesterday. PHYSICAL EXAMINATION: VITAL SIGNS: Temperature 97.8, blood pressure 137/96, pulse of 53. GENERAL: He is alert without any distress. HEENT: Shows anicteric sclerae. Oropharynx is moist. CV: Exam shows normal S1 and S2. Regular rate and rhythm. CHEST: Exam shows breath sounds. ABDOMEN: Flat. No distention. No tympany. He has active bowel sounds. No significant tenderness elicited to deep palpation. EXTREMITIES: Show no edema. LABORATORY DATA: Lipase 84 (273 on admission). ASSESSMENT: Abdominal pain associated with eating, low grade. EGD/colonoscopy/CT/ultrasound, all unremarkable. Lipase was mildly elevated on admission, but CT did not show any evidence of pancreatitis. The etiology of the pain is not known. However, pain has not been very severe. RECOMMENDATIONS: 1. The patient can be discharged to home. 2. If pain worsens or does not resolve, a HIDA scan for gallbladder function evaluation could be considered in the future. Job ID: [id number]
[2019-11-24 16:15] LABS: %CD4 (Helper/Inducer) 32.7 % (30.8-58.5); Absolute CD4 687 /uL (359-1519); Lymphocytes/Gated Cell Count 2.1 x10E3/uL (0.7-3.1); Total Lymphocyte 52 % (Not Estab.); WBC Total Count 4.1 x10E3/uL (3.4-10.8)
--- NOTE | 2019-11-24 21:21 | DIS ---
DATE OF ADMISSION: 11/18/2019 DATE OF DISCHARGE: 11/24/2019 DISCHARGE DIAGNOSES: 1. Acute pancreatitis suspected, etiology unclear, resolving. 2. Abdominal pain, nonspecific. 3. Human immunodeficiency viral infection, on chronic antiretrovirals. 4. Marijuana abuse. 5. Tobacco abuse. 6. Anal condyloma. CONSULTATIONS: 1. Dr. Cruz and Dr. Kirk with GI Service. 2. Dr. Chester with Infectious Disease Service. PERTINENT LABORATORY AND X-RAY FINDINGS: LFTs within normal limits. Triglycerides 107. Lipase ranged between 84 to 273. CBC showed a white blood cell count ranging between 4.4 to 7.1, MCV 101. COVID-19 PCR not detected, 11/18/2019. Stool culture dated 11/22/2019, negative. Campylobacter antigen and Shigella toxin negative, 11/22/2019. Clostridium difficile antigen and toxin negative 11/22/2019. Stool for ova and parasites negative 11/24/2019. Portable chest x-ray dated 11/18/2019, showed no acute cardiopulmonary process. CT of the abdomen and pelvis dated 11/18/2019, showed diffuse mural thickening involving the colon. Abdominal ultrasound dated 11/21/2019, showed normal sonographic evaluation of the right upper quadrant. EGD dated 11/22/2019 showed a 3 cm patch of increased mucosal erythema consistent with nonspecific gastropathy in the gastric fundus. Healing mucosa in the gastric incisura consistent with healed ulceration. No etiology for the patient's abdominal pain noted during the exam. Colonoscopy dated 11/23/2019, showed perianal condyloma. Normal ileum and colon exam. HOSPITAL COURSE: The patient was initially admitted after presenting with abdominal pain with associated vomiting. The patient underwent extensive evaluation including screening metabolic survey showing evidence of elevated lipase and concern for acute pancreatitis. Initial CT imaging of the abdomen and pelvis did not reveal any acute pathology in the pancreatic region or evidence of common bile duct disease or obstruction. The patient was initially managed for nausea and vomiting with antiemetics and IV fluids. The patient was also given IV Protonix and evaluated by the GI Service. The patient underwent EGD and colonoscopy exam essentially showing negative findings and no explanation for the patient's presentation. Serial lipase monitoring showed labile trends, and the patient was continued on clear liquids. The patient continued to receive IV morphine sulfate and general supportive management during the hospital course. The patient was also evaluated by the Infectious Disease Service in the context of HIV with recommendations to continue anti-retroviral therapy on an ongoing basis after discharge. Overall, the patient did clinically stabilize with supportive management. I have examined the patient at the time of discharge and discussed followup instructions. The patient verbalized understanding and agreement and ready for discharge on 11/24/2019. DISCHARGE MEDICATIONS: 1. Genvoya one tablet p.o. daily. 2. Melatonin 15 mg p.o. at bedtime. 3. Chlorthalidone 25 mg p.o. daily. 4. Clonidine 0.1 mg p.o. b.i.d. 5. Tramadol 50 mg p.o. q.i.d. p.r.n. pain. 6. Diltiazem 180 mg p.o. b.i.d. 7. Catapres 0.1 mg p.o. b.i.d. FOLLOWUP: The patient may follow up with his primary care provider, Melony Mosqueda at [facility] in [place], [place]. The patient may follow up with Dr. Damir Chester with Infectious Disease Service and to call their office for appointment time and date. CONDITION ON DISCHARGE: Stable. ACTIVITY: Ad-ranjit. DIET: Regular with bland diet x48 hours. CODE STATUS: Full. DISPOSITION: To home on 11/24/2019. TIME SPENT: Total time preparing and coordinating discharge, 33 minutes. Job ID: [id number]
[2019-11-25 12:10] LABS: HIV-1 Quantitative, RNA PCR <20 copies/mL (.)
== END 2019-11-24 11:17 | disposition home or self-care (01) | DRG 439 ==
LOC: ERS 06:21 → T4-A 12:12
PROVIDERS: ADMIT Internal Medicine; ATTEND Internal Medicine
PROC: 0DJ08ZZ Inspection of Upper Intestinal Tract, Via Natural or Artificial Opening Endoscopic (ICD-10-PCS; 2019-11-22)
PROC: 0DBQ8ZX Excision of Anus, Via Natural or Artificial Opening Endoscopic, Diagnostic (ICD-10-PCS; principal; 2019-11-23)
PROC: 0DBE8ZX Excision of Large Intestine, Via Natural or Artificial Opening Endoscopic, Diagnostic (ICD-10-PCS; 2019-11-23)
DX: K85.90 Acute pancreatitis without necrosis or infection, unspecified (principal); B20 Human immunodeficiency virus [HIV] disease; K92.0 Hematemesis; Z20.828 Contact with and (suspected) exposure to other viral communicable diseases; F12.10 Cannabis abuse, uncomplicated; F10.10 Alcohol abuse, uncomplicated; K27.9 Peptic ulcer, site unspecified, unspecified as acute or chronic, without hemorrhage or perforation; F17.210 Nicotine dependence, cigarettes, uncomplicated; K31.9 Disease of stomach and duodenum, unspecified
CPT/HCPCS: 36415; 71045; 74170; 74177; 76705; 80048; 80053; 80061; 81003; 83630; 83690; 85014; 85018; 85025; 85048; 85049; 85610; 85730; 86361; 87045; 87046; 87324; 87328; 87329; 87427; 87449; 87536; 87635; 88305; 96374; 96375; C9113; J1885; J2270; J2405; J2704; Q9967; U0003

== ENCOUNTER 2019-11-27 11:25 | Emergency (ER) | payer BC ==
[~2019-11-27 11:25] MED LIST changes: -Iopamidol 370 76% 100 ML VIAL ONE; +Iopamidol 370 76% 50 ML VIAL FS ONE; +Iopamidol-370 76% 500 ML 1 ML ONE
[2019-11-27 12:12] LABS: Bilirubin Negative (Negative); Blood, Urine Negative (Negative); Clarity Clear (Clear); Glucose, Urine (Dipstick) Normal (Negative); Ketone, Urine Negative (Negative); Leukocyte Negative Leu/uL (Negative); Nitrite Negative (Negative); Protein, Urine (Dipstick) Negative (Neg-Trace); pH, Urine 7.5 (5.0-9.0)
[2019-11-27 12:21] LABS: #Basophils 0.1 thou/uL (0.0-0.2); #Eosinphils 0.2 thou/uL (0.0-0.7); #Lymphocytes 2.6 thou/uL (1.20-3.40); #Monocytes 0.6 thou/uL (0.11-0.59); #Neutrophils 3.5 thou/uL (1.40-6.50); %Basophils 1.6 % (0.0-1.0); %Eosinophils 2.2 % (0.0-10.0); %Lymphocytes 37.2 % (21.0-51.0); %Monocytes 8.7 % (0.0-10.0); %Neutrophils 50.4 % (42.0-75.0); Mean Corpuscular Hemoglobin 33.5 pg (27.0-31.0); Mean Platelet Volume 7.4 fL (7.4-10.4); Platelet Count 259 thou/uL (130-400); RBC Distribution Width 13.6 % (11.5-14.5); Red Blood Cell (RBC) Count 4.77 mill/uL (4.70-6.10)
[2019-11-27 12:34] LABS: ALT (SGPT) 25 U/L (8-55); AST (SGOT) 25 U/L (5-34); Albumin 4.1 g/dL (3.5-5.0); Alkaline Phosphatase 87 U/L (40-110); Anion Gap 11 mmol/L (10-20); BUN (Urea Nitrogen) 9 mg/dL (8.9-20.6); Bilirubin, Total 0.2 mg/dL (0.2-1.2); Calc. Creatinine Clearance 0 mL/min (70-130); Calcium 9.5 mg/dL (7.8-10.44); Carbon Dioxide 29 mmol/L (22-29); Chloride 103 mmol/L (98-107); Estimated GFR-MDRD 69; Globulin 3.9 g/dL (2.4-3.5); Glucose 77 mg/dL (70-105); Lipase 157 U/L (8-78); Potassium 4.1 mmol/L (3.5-5.1); Sodium 139 mmol/L (136-145)
[2019-11-27] MEDS ORDERED: Ondansetron PF 4 MG/2 ML Vial ONE (12:52)
[2019-11-27] MEDS ORDERED: Morphine 4 MG/ML VIAL ONE (12:52)
--- NOTE | 2019-11-27 14:22 | CT ---
EXAM: CT ABDOMEN AND PELVIS HISTORY: Epigastric abdominal pain in the setting of pancreatitis 10 days ago. COMPARISON: 11/18/2019, 11/23/2019 Procedure: Multiple contiguous axial images were obtained and a CT of the abdomen and pelvis with IV contrast. C oronal reformats were performed. FINDINGS: Lower Chest: Dependent atelectatic changes. Granuloma in the right lower lobe Vessels: Normal caliber aorta Heart: Normal heart size. No significant pericardial fluid Abdomen: Portal vein:Patent Gallbladder: No calcified gallstones. Normal caliber wall. Liver: within normal limits. Pancreas: within normal limits. Spleen: within normal limits. Adrenals: within normal limits. Kidneys: Symmetric enhancement. No obstructive uropathy. Peritoneum: No ascites or free air, no fluid collection. Bowel: Normal caliber small bowel loops. No evidence of bowel obstruction. Ileocecal junction is unre markable. Normal caliber appendix. Stable mucosal thickening with fatty infiltration of the mucosa throughout the majority of the colon. Mesentery and Retroperitoneum: No enlarged mesenteric or retroperitoneal lymph nodes. Abdominal Wall: within normal limits. Pelvis: Reproductive Organs: Reproductive organs are unremarkable. Pelvis: No mass, lymphadenopathy, free air or free fluid. Bladder: within normal limits. Bones: within normal limits. IMPRESSION: 1. No CT evidence of pancreatitis 2. Persistent mucosal thickening throughout the colon. Correlate for infectious or inflammatory proce ss. Consider colonoscopy 3.No significant interval change when compared to the to recent prior abdomen and pelvic CT
== END 2019-11-27 15:25 | disposition home or self-care (01) ==
LOC: ERS 11:25
DX: K52.9 Noninfective gastroenteritis and colitis, unspecified (principal); B20 Human immunodeficiency virus [HIV] disease; I10 Essential (primary) hypertension; F32.9 Major depressive disorder, single episode, unspecified; F17.210 Nicotine dependence, cigarettes, uncomplicated; Z79.899 Other long term (current) drug therapy
CPT/HCPCS: 36415; 74177; 80053; 81003; 83690; 85025; J2270; J2405; Q9967

== ENCOUNTER 2019-11-29 15:11 | Inpatient (IN) | payer BC, OTHER ==
[2019-11-29] MEDS ORDERED: Morphine 4 MG/ML VIAL ONE ×2 (15:37→17:02)
[2019-11-29] MEDS ORDERED: Ondansetron PF 4 MG/2 ML Vial ONE (15:37)
[2019-11-29 15:50] LABS: #Eosinphils 0.2 thou/uL (0.0-0.7); #Lymphocytes 3.2 thou/uL (1.20-3.40); #Monocytes 0.8 thou/uL (0.11-0.59); #Neutrophils 2.3 thou/uL (1.40-6.50); %Basophils 0.6 % (0.0-1.0); %Eosinophils 2.5 % (0.0-10.0); %Lymphocytes 49.5 % (21.0-51.0); %Monocytes 11.9 % (0.0-10.0); %Neutrophils 35.5 % (42.0-75.0); Hemoglobin 14.8 g/dL (14.0-18.0); Mean Corpuscular HGB CONC 32.9 g/dL (32.0-36.0); Mean Corpuscular Hemoglobin 32.5 pg (27.0-31.0); Mean Corpuscular Volume 98.6 fL (78.0-98.0); Mean Platelet Volume 7.4 fL (7.4-10.4); Platelet Count 244 thou/uL (130-400); RBC Distribution Width 13.4 % (11.5-14.5); Red Blood Cell (RBC) Count 4.56 mill/uL (4.70-6.10); White Blood Cell (WBC) Count 6.4 thou/uL (4.8-10.8)
[2019-11-29 16:13] LABS: ALT (SGPT) 29 U/L (8-55); AST (SGOT) 26 U/L (5-34); Albumin 4.1 g/dL (3.5-5.0); Alkaline Phosphatase 88 U/L (40-110); Anion Gap 13 mmol/L (10-20); BUN (Urea Nitrogen) 10 mg/dL (8.9-20.6); Bilirubin, Total 0.2 mg/dL (0.2-1.2); Calc. Creatinine Clearance 0 mL/min (70-130); Calcium 8.9 mg/dL (7.8-10.44); Carbon Dioxide 22 mmol/L (22-29); Chloride 105 mmol/L (98-107); Estimated GFR-MDRD 82; Globulin 3.5 g/dL (2.4-3.5); Glucose 78 mg/dL (70-105); Lipase 219 U/L (8-78); Magnesium 2.1 mg/dL (1.6-2.6); Potassium 3.6 mmol/L (3.5-5.1); Protein, Total 7.6 g/dL (6.0-8.3); Sodium 136 mmol/L (136-145)
[2019-11-29 16:49] LABS: Bilirubin Negative (Negative); Blood, Urine Negative (Negative); Clarity Clear (Clear); Glucose, Urine (Dipstick) Normal (Negative); Ketone, Urine Negative (Negative); Leukocyte Negative Leu/uL (Negative); Nitrite Negative (Negative); Protein, Urine (Dipstick) 10 mg/dL (Neg-Trace); Specific Gravity, Urine 1.025 (1.002-1.036); pH, Urine 6.5 (5.0-9.0)
--- NOTE | 2019-11-29 18:13 | PDOC.HHP ---
Hospitalist HPI - History of Present Illness Abdominal pain History of Present Illness: PCP: Melony Mosqueda The patient is a pleasant 34-year-old male past medical history significant for HIV who presents to the ER today for sharp diffuse abdominal pain. He also states that he has had hematochezia, watery diarrhea and anorexia. He denies melena, chest pain, respiratory difficulties, contact with sick contacts. He states he has been taking his medications as prescribed although after he took his medication this morning he vomited. Of note, the patient had been admitted on 11/18/2019 for abdominal pain with vomiting. On the he had abdominal ultrasound that showed normal sonographic evaluation of the right upper quadrant. GI was consulted due to not having any significant improvement in his abdominal pain with his diagnosed pancreatitis. He had an EGD completed and then also a colonoscopy. He was to follow-up outpatient with surgery for an anal condyloma which is where they thought his rectal bleeding was coming from. They recommended that if the pain persists it could possibly be a side effect of his antiviral medications and to involve his infectious disease doctor. Dr. Chester did see the patient while he was admitted last time. The patient then had a CT abdomen with and without contrast on November 22 which was unremarkable with no pancreatic lesion identified. GI did recommend HIDA scan for gallbladder function if the pain worsened or did not resolve. He was discharged on 11/24/2019. He was seen in the ER on 11/26/2019 and 11/27/2019 for continued abdominal pain. During this visit he had an abdomen/pelvis CT which showed no CT evidence of pancreatitis. He did show persistent mucosal thickening throughout the colon and correlate for infectious or inflammatory process. Showed no significant interval change when compared to the recent prior abdominal pelvic CT. He states that the pain has not stopped since his initial visit to the hospital and last night it became worse. No alleviating factors at home. ED Course: Today in the ER they completed lab work, UA, medication administration. The patient was given morphine 4 mg twice, 1 L of normal saline, and 4 mg of Zofran IV. Given 4 mg of Zofran 100 mcg of fentanyl by EMS. Hospitalist ROS - Review of Systems Constitutional: denies: fever, chills, sweats, weakness, malaise, other Eyes: denies: pain, vision change, conjunctivae inflammation, eyelid inflammation, redness, other ENT: denies: ear pain, ear discharge, nose pain, nose discharge, nose congestion , mouth pain, mouth swelling, throat pain, throat swelling, other Respiratory: denies: cough, dry, shortness of breath, hemoptysis, SOB with excertion, pleuritic pain, sputum, wheezing, other Cardiovascular: denies: chest pain, palpitations, orthopnea, paroxysmal noc. dyspnea, edema, light headedness, other Gastrointestinal: reports: vomiting, abdominal pain (Sharp, diffuse, intermittent), diarrhea, hematochezia Genitourinary: denies: dysuria, frequency, incontinence, hematuria, retention, other Musculoskeletal: denies: neck pain, shoulder pain, arm pain, back pain, hand pain, leg pain, foot pain, other Skin: denies: rash, lesions, elysia, bruising, other Neurological: denies: weakness, numbness, incoordination, change in speech, confusion, seizures, other - Medication Medications: No known drug allergies Current medications: FLUoxetine capsule : Strength - 10 mg : ORAL Patient Dose: 1 tab(s) Oral once a day. Genvoya tablet : Strength - 150 mg-150 mg-200 mg-10 mg : ORAL Patient Dose: 1 tab(s) Oral once a day. Aceta-Codeine 300 mg-30 mg : Strength - TABLET : ORAL Patient Dose: 1-2 tab(s) Oral every 6 hours PRN. Protonix oral 40 mg : Strength - TABLET, DELAYED RELEASE (ENTERIC COATED) : ORAL Patient Dose: 1 tab(s) Oral once a day (in the morning). Flagyl 500 mg : Strength - tablet : ORAL Patient Dose: 1 tab(s) Oral 3 times a day. Cipro tablet 500 mg : Strength - tablet : ORAL Patient Dose: 1 tab(s) Oral 2 times a day. 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[employer], office work - Exam General Appearance: NAD, awake alert General - other findings: VS: BP 119/73, P 80, R 18, O2 96% RA, T 98.1 Eye: PERRL, anicteric sclera ENT: normocephalic atraumatic, moist mucosa Neck: supple, symmetric, no lymphadenopathy Heart: RRR, no murmur, no gallops, no rubs, normal peripheral pulses Respiratory: CTAB, no wheezes, no rales, no ronchi, normal chest expansion Gastrointestinal: soft, non-distended, normal bowel sounds, tender to palpation , voluntary guarding Gastrointestinal - other findings: Positive Petit sign Extremities: no edema Neurological: no focal deficits Psychiatric: normal affect, normal behavior Hospitalist Results - Labs Result Diagrams: 11/29/19 15:41 11/29/19 15:41 Lab results: WBC 6.4 thou/uL (4.8-10.8) 11/29/19 15:41 Hgb 14.8 g/dL (14.0-18.0) 11/29/19 15:41 Hct 45.0 % (42.0-52.0) 11/29/19 15:41 MCV 98.6 fL (78.0-98.0) H 11/29/19 15:41 Plt Count 244 thou/uL (130-400) 11/29/19 15:41 Neutrophils % 35.5 % (42.0-75.0) L 11/29/19 15:41 Sodium 136 mmol/L (136-145) 11/29/19 15:41 Potassium 3.6 mmol/L (3.5-5.1) 11/29/19 15:41 Chloride 105 mmol/L (98-107) 11/29/19 15:41 Carbon Dioxide 22 mmol/L (22-29) 11/29/19 15:41 BUN 10 mg/dL (8.9-20.6) 11/29/19 15:41 Creatinine 1.24 mg/dL (0.7-1.3) 11/29/19 15:41 Glucose 78 mg/dL (70-105) 11/29/19 15:41 Calcium 8.9 mg/dL (7.8-10.44) 11/29/19 15:41 Total Bilirubin 0.2 mg/dL (0.2-1.2) 11/29/19 15:41 AST 26 U/L (5-34) 11/29/19 15:41 ALT 29 U/L (8-55) 11/29/19 15:41 Alkaline Phosphatase 88 U/L (40-110) 11/29/19 15:41 Serum Total Protein 7.6 g/dL (6.0-8.3) 11/29/19 15:41 Albumin 4.1 g/dL (3.5-5.0) 11/29/19 15:41 Lipase 219 U/L (8-78) H 11/29/19 15:41 Urine Ketones Negative mg/dL (Negative) 11/29/19 16:12 Urine Blood Negative (Negative) 11/29/19 16:12 Urine Nitrite Negative (Negative) 11/29/19 16:12 Ur Leukocyte Esterase Negative Mesfin/uL (Negative) 11/29/19 16:12 - EKG Interpretation EKG: 88bpm Hospitalist H&P A/P - Plan Plan: Abdominal pain PRN pain medication will be available for patient Reconsult GI as multiple examinations have been performed and patient still finds no relief N.p.o. at midnight for GI consult Increase Protonix to twice a day Possible colitis Continue Flagyl and Cipro IV fluids Hematochezia PRN antiemetic medication will be available Monitor H&H in the morning HIV Restart patient's home medications Can consult infectious disease physician again if needed Hypertension Restart home medications GI prophylaxis with Protonix, DVT prophylaxis with SCDs CODE STATUS: Full Surrogate decision maker is patient's fianc
[2019-11-29] MEDS ORDERED: Sodium Chloride 0.9% (PF) 10 ML VIAL FS PRN (19:47)
[2019-11-29] MEDS: Morphine 2 MG/ML VIAL SLOW IVP PRN (21:03)
[2019-11-29] MEDS: Ciprofloxacin 500 MG TAB PO SCH (21:03)
[2019-11-29] MEDS: Pantoprazole 40 MG VIAL IVP SCH (21:03)
[2019-11-29] MEDS: metroNIDAZOLE 500 MG TAB PO SCH (21:03)
[2019-11-29] MEDS: Sodium Chloride 0.9% 1,000 ML IV SCH (21:05)
[2019-11-29] MEDS: Ondansetron PF 4 MG/2 ML Vial IVP PRN (21:12)
[2019-11-29 21:36] VITALS: BMI 25.8
[2019-11-29] MEDS ORDERED: traMADol HCl 50 MG TAB PO PRN (21:53)
[2019-11-29] MEDS ORDERED: cloNIDine 0.1 MG TAB PO SCH (22:00)
[2019-11-30] MEDS: Nicotine 14 MG PATCH TD SCH ×2 (00:20→20:47)
[2019-11-30] MEDS: Ondansetron ODT 4 MG TAB PO PRN ×2 (01:18→09:25)
[2019-11-30] MEDS: Morphine 2 MG/ML VIAL SLOW IVP PRN ×5 (01:18→20:45)
[2019-11-30 04:27] LABS: Anion Gap 11 mmol/L (10-20); BUN (Urea Nitrogen) 8 mg/dL (8.9-20.6); Calc. Creatinine Clearance 121 mL/min (70-130); Carbon Dioxide 23 mmol/L (22-29); Chloride 108 mmol/L (98-107); Estimated GFR-MDRD Greater than 90; Glucose 83 mg/dL (70-105); Potassium 3.5 mmol/L (3.5-5.1); Sodium 138 mmol/L (136-145)
[2019-11-30] MEDS: Ondansetron PF 4 MG/2 ML Vial IVP PRN ×3 (04:59→20:37)
[2019-11-30] MEDS: Sodium Chloride 0.9% 1,000 ML IV SCH ×3 (05:00→20:55)
[2019-11-30 05:55] LABS: Hemoglobin 12.8 g/dL (14.0-18.0); Mean Corpuscular HGB CONC 33.3 g/dL (32.0-36.0); Mean Corpuscular Hemoglobin 33.4 pg (27.0-31.0); Mean Platelet Volume 7.5 fL (7.4-10.4); Platelet Count 224 thou/uL (130-400); RBC Distribution Width 13.4 % (11.5-14.5); Red Blood Cell (RBC) Count 3.84 mill/uL (4.70-6.10); White Blood Cell (WBC) Count 5.6 thou/uL (4.8-10.8)
[2019-11-30 06:17] LABS: Eosinophils 1 % (0-10); Lymphocytes 60 % (21-51); MDiff Complete? YES; Monocytes 8 % (0-10); Neutrophil 31 % (42-75)
[2019-11-30] MEDS: Ciprofloxacin 500 MG TAB PO SCH ×2 (06:18→20:37)
--- NOTE | 2019-11-30 07:26 | PDOC.HOSPP ---
- Subjective Encounter Date: 11/30/19 Encounter Time: 07:23 Subjective: no distress, mild right chest pleuritic pain - Objective Vital Signs & Weight: Vital Signs (12 hours) Temp Pulse Resp BP BP Pulse Ox 11/30/19 04:00 97.6 F 61 14 115/77 100 11/30/19 00:00 97.4 F L 72 16 116/76 99 11/29/19 22:45 99 11/29/19 20:35 98 F 72 16 179/114 H 99 Weight Weight 190 lb 11.2 oz I&O: 11/29/19 11/30/19 12/01/19 06:59 06:59 06:59 Intake Total 1675 Balance 1675 Result Diagrams: 11/30/19 03:37 11/30/19 03:37 Hospitalist ROS - Medication Medications: Active Medications Generic Name Dose Route Start Last Admin Trade Name Freq PRN Reason Stop Dose Admin Ciprofloxacin 500 mg 11/29/19 20:00 11/30/19 06:18 Cipro PO Not Given 0600,1999 [facility] Sodium Chloride 1,000 mls @ 120 mls/hr 11/29/19 20:00 11/30/19 05:00 Normal Saline 0.9% IV 1,000 mls .Q8H20M ELISHA Administration Metronidazole 500 mg 11/29/19 21:00 11/29/19 21:03 Flagyl PO 500 mg TID ELISHA Administration Morphine Sulfate 2 mg 11/29/19 19:45 11/30/19 04:59 Morphine SLOW IVP 2 mg Q4H PRN Administration Moderate to Severe Pain (4-10) Nicotine 14 mg 11/29/19 23:59 11/30/19 00:20 Nicoderm Patch TD 14 mg 2359 ELISHA Administration Ondansetron HCl 4 mg 11/29/19 19:39 11/30/19 01:18 Zofran Odt PO 4 mg Q6H PRN Administration Nausea/Vomiting Ondansetron HCl 4 mg 11/29/19 19:39 11/30/19 04:59 Zofran IVP 4 mg Q6H PRN Administration Nausea/Vomiting Pantoprazole Sodium 40 mg 11/29/19 21:00 11/29/19 21:03 Protonix IVP 40 mg Q12HR ELISHA Administration - Exam General Appearance: awake alert Neck: no JVD Heart: RRR, no murmur Respiratory: CTAB Gastrointestinal: soft, non-tender, normal bowel sounds Extremities: no edema Hosp A/P (1) Elevated lipase Code(s): R74.8 - ABNORMAL LEVELS OF OTHER SERUM ENZYMES Status: Acute (2) Abdominal pain Code(s): R10.9 - UNSPECIFIED ABDOMINAL PAIN Status: Acute Qualifiers: Abdominal location: epigastric Qualified Code(s): R10.13 - Epigastric pain (3) Gastric ulcer Code(s): K25.9 - GASTRIC ULCER, UNSP ACUTE OR CHRONIC, W/O HEMOR OR PERF Status: Acute (4) HIV (human immunodeficiency virus infection) Code(s): B20 - HUMAN IMMUNODEFICIENCY VIRUS [HIV] DISEASE Status: Chronic (5) Marijuana abuse Code(s): F12.10 - CANNABIS ABUSE, UNCOMPLICATED Status: Chronic (6) Tobacco abuse Code(s): Z72.0 - TOBACCO USE Status: Chronic - Plan rpt lipase, UDS reviwed previous visits-lipase chronically elevated, CT no evidense pancreatitis await GI comment cont iv Morphine pain cont PPI, HIV meds
[2019-11-30 08:40] LABS: Amphetamine Detected (NotDetected); Barbiturates Screen Not Detected (NotDetected); Benzodiazepine Screen Not Detected (NotDetected); Cocaine Metabolite Screen Not Detected (NotDetected); Medtox Control Line Valid? VALID (VALID); Medtox Reader # READER 4; Methadone Not Detected (NotDetected); Methamphetamine Detected (NotDetected); Opiate Screen Detected (NotDetected); Oxycodone Screen Not Detected (NotDetected); Phencyclidine (PCP) Not Detected (NotDetected); THC/Cannabinoid Screen Detected (NotDetected); Tricyclic Screen Not Detected (NotDetected)
[2019-11-30] MEDS: cloNIDine 0.1 MG TAB PO SCH ×2 (09:26→20:37)
[2019-11-30] MEDS: Chlorthalidone 25 MG TAB PO SCH (09:26)
[2019-11-30] MEDS: Pantoprazole 40 MG VIAL IVP SCH ×2 (09:26→20:38)
[2019-11-30] MEDS: [UNRECOGNIZED DRUG - OTHER] PO SCH (09:27)
[2019-11-30] MEDS: metroNIDAZOLE 500 MG TAB PO SCH ×3 (09:27→20:37)
[2019-11-30 12:31] LABS: SARS-CoV-2 MS2 Positive; SARS-CoV-2 N Gene Negative; SARS-CoV-2 S Gene Negative; SARS-CoV-2 by NAA Not Detected (NotDetected); SARS-CoV-2 orf1ab Negative
--- NOTE | 2019-11-30 14:36 | PDOC.EVN ---
Event Note - Event Note Event Note: review of genvoya reveals multile GIside effects including 5-15 have elevated lipase
[2019-11-30] MEDS ORDERED: Melatonin 3 MG TAB PO SCH (21:00)
--- NOTE | 2019-12-01 04:02 | CON ---
DATE OF CONSULTATION: 11/30/2019 REASON: Abdominal pain. HISTORY OF PRESENT ILLNESS: Mr. Doan is a 34-year-old male who is fairly well known to our GI service. He was admitted to the hospital after being discharged home from a week ago with a chief from having upper abdominal pain. The pain is vague, but severe enough for him to present to the ER. He reports having associated nausea and vomiting. This is the same pain that he had with the previous admission where extensive workup had been performed and had been unrevealing. His most recent GI history dated back to July of this year when he presented with melenic stools. EGD in 07/2019 showed a 1 x 2 cm incisura ulcer. He returned in October with persistent upper abdominal pain and nausea. A repeat EGD showed the ulcer has completely healed with only residual scar. Abdominal ultrasound and abdominal pelvic CT were and remarkable except for some mural thickening of the colon. He did have some loose stool. Stool studies were negative. He subsequent underwent a total colonoscopy that visually was normal and random biopsy taken was also normal. 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 The patient now presents back with similar upper abdominal pain with nausea and inability to eat. PAST MEDICAL HISTORY: 1. Hypertension. 2. HIV, on antiviral therapy. 3. History of herpes zoster in 2011 with post herpetic neuralgia. PAST SURGICAL HISTORY: No previous surgery. SOCIAL HISTORY: The patient lives in [place]. Does smoke a pack a day. He has social alcohol consumption. No active illicit drug use. FAMILY HISTORY: Father with pancreatitis. Otherwise, negative for GI problem, liver disease, or GI malignancy. REVIEW OF SYSTEMS: Ten-point review of systems did not offer any other reported symptoms. HOME MEDICATION: Include: 1. Tramadol. 2. Catapres. 3. Melatonin. 4. Genvoya. 5. Cardizem. 6. Hygroton. ALLERGIES: NO KNOWN DRUG ALLERGY. PHYSICAL EXAMINATION: VITAL SIGNS: Temperature is 98.0, blood pressure 132/89, pulse of 64. GENERAL: He appears alert, conversant, sitting in bed, using his computer. HEENT: Shows anicteric sclerae. Oropharynx is clear. NECK: Supple. No adenopathy. CV: Shows normal S1, S2. Regular rate and rhythm. CHEST: Shows breath sounds. ABDOMEN: Soft. Mild tenderness to palpation in the upper part. No peritoneal sign. No guarding or rebound. He has active bowel sounds. No distention. No tympany. EXTREMITIES: Shows no edema. LABORATORY DATA: WBCs 5.6, hemoglobin 12.8, platelet count of 224. Electrolytes were within normal range. Creatinine 1.07, bilirubin is 0.2, AST 26, ALT 29, alkaline phosphatase 88, lipase on admission was mildly elevated to 19, today is 108. IMAGING: Abdominal pelvic CT performed on admission showed mural thickening of the colon, but otherwise normal. Specifically, the pancreas appeared normal. ASSESSMENT: The patient is a 34-year-old man with persistent upper abdominal pain with nausea. Ultrasound, CT x2, EGD, and colonoscopy including biopsy were all unremarkable. He did have peptic ulcer disease 3 months ago. A repeat endoscopy did document healing. He does have mild ; however CT appears normal and CT without radiographic sign of pancreatitis. The etiology is unknown. He could still have some pancreatic pathology that is not apparent on CT, or pain could be functional or could be from secondary gain. RECOMMENDATION: 1. We will proceed with HIDA scan with CCK in a.m. 2. If negative, we will consider MRI with pancreatic protocol or MRCP. 3. I also have discussed with Dr. Chester. It is not known whether his pain and nausea could be related to his antiviral therapy. However, he is willing to try a different antiviral medication, if an etiology of his pain is not forthcoming. Job ID: [id number]
[2019-12-01] MEDS: Morphine 2 MG/ML VIAL SLOW IVP PRN ×2 (04:27→11:36)
[2019-12-01] MEDS: Ondansetron PF 4 MG/2 ML Vial IVP PRN (04:28)
[2019-12-01] MEDS: Ciprofloxacin 500 MG TAB PO SCH (06:55)
[2019-12-01] MEDS: Sodium Chloride 0.9% 1,000 ML IV SCH (07:05)
--- NOTE | 2019-12-01 07:19 | PDOC.HOSPP ---
- Subjective Encounter Date: 12/01/19 Encounter Time: 07:19 Subjective: same, no e,esis - Objective Vital Signs & Weight: Vital Signs (12 hours) Temp Pulse Resp BP BP Pulse Ox 11/30/19 20:37 132/89 11/30/19 19:58 98.0 F 64 16 132/89 100 Weight Admit Weight 190 lb 11.2 oz Weight 190 lb 11.2 oz I&O: 11/30/19 12/01/19 12/02/19 06:59 06:59 06:59 Intake Total 1675 8422 Output Total 1650 Balance 1675 8032 Result Diagrams: 11/30/19 03:37 11/30/19 03:37 Hospitalist ROS - Medication Medications: Active Medications Generic Name Dose Route Start Last Admin Trade Name Freq PRN Reason Stop Dose Admin Chlorthalidone 25 mg 11/30/19 09:00 11/30/19 09:26 Hygroton PO 25 mg DAILY ELISHA Administration Ciprofloxacin 500 mg 11/29/19 20:00 12/01/19 06:55 Cipro PO 500 mg 599,1999 ELISHA Administration Clonidine 0.1 mg 11/30/19 09:00 11/30/19 20:37 Catapres PO 0.1 mg BID ELISHA Administration Diltiazem HCl 180 mg 11/30/19 09:00 11/30/19 20:37 Cardizem Cd PO 180 mg BID ELISHA Administration Sodium Chloride 1,000 mls @ 120 mls/hr 11/29/19 20:00 12/01/19 07:05 Normal Saline 0.9% IV 1,000 mls .Q8H20M ELISHA Administration Melatonin 15 mg 11/30/19 21:00 11/30/19 20:37 Melatonin PO 15 mg HS ELISHA Administration Metronidazole 500 mg 11/29/19 21:00 11/30/19 20:37 Flagyl PO 500 mg TID ELISHA Administration Morphine Sulfate 2 mg 11/29/19 19:45 12/01/19 04:27 Morphine SLOW IVP 2 mg Q4H PRN Administration Moderate to Severe Pain (4-10) Nicotine 14 mg 11/29/19 23:59 11/30/19 20:47 Nicoderm Patch TD 14 mg 2359 ELISHA Administration Ondansetron HCl 4 mg 11/29/19 19:39 11/30/19 09:25 Zofran Odt PO 4 mg Q6H PRN Administration Nausea/Vomiting Ondansetron HCl 4 mg 11/29/19 19:39 12/01/19 04:28 Zofran IVP 4 mg Q6H PRN Administration Nausea/Vomiting Pantoprazole Sodium 40 mg 11/29/19 21:00 11/30/19 20:38 Protonix IVP 40 mg Q12HR ELISHA Administration Elviteg/Cob/Emtri/ 1 each 11/30/19 09:00 11/30/19 09:27 Tenof Alafen [ PO 1 each Genvoya Tablet] 1 DAILY ELISHA Administration Tab) - Exam General Appearance: awake alert Neck: no JVD Heart: RRR, no murmur Respiratory: CTAB Gastrointestinal: soft, normal bowel sounds Gastrointestinal - other findings: minimal RUQ tenderness on exam Extremities: no edema Hosp A/P (1) Elevated lipase Code(s): R74.8 - ABNORMAL LEVELS OF OTHER SERUM ENZYMES Status: Acute (2) Abdominal pain Code(s): R10.9 - UNSPECIFIED ABDOMINAL PAIN Status: Acute Qualifiers: Abdominal location: epigastric Qualified Code(s): R10.13 - Epigastric pain (3) Gastric ulcer Code(s): K25.9 - GASTRIC ULCER, UNSP ACUTE OR CHRONIC, W/O HEMOR OR PERF Status: Acute (4) HIV (human immunodeficiency virus infection) Code(s): B20 - HUMAN IMMUNODEFICIENCY VIRUS [HIV] DISEASE Status: Chronic (5) Marijuana abuse Code(s): F12.10 - CANNABIS ABUSE, UNCOMPLICATED Status: Chronic (6) Tobacco abuse Code(s): Z72.0 - TOBACCO USE Status: Chronic - Plan UDS pos meth, THC appreciate Dr Tolbert's input FU post HIDA scan
[2019-12-01 07:43] LABS: Mean Corpuscular HGB CONC 32.9 g/dL (32.0-36.0); Mean Platelet Volume 7.3 fL (7.4-10.4); Platelet Count 220 thou/uL (130-400); RBC Distribution Width 13.4 % (11.5-14.5); Red Blood Cell (RBC) Count 3.95 mill/uL (4.70-6.10); White Blood Cell (WBC) Count 3.8 thou/uL (4.8-10.8)
[2019-12-01 07:52] LABS: Anion Gap 10 mmol/L (10-20); BUN (Urea Nitrogen) 4 mg/dL (8.9-20.6); Calc. Creatinine Clearance 119 mL/min (70-130); Calcium 8.5 mg/dL (7.8-10.44); Carbon Dioxide 24 mmol/L (22-29); Chloride 108 mmol/L (98-107); Estimated GFR-MDRD Greater than 90; Glucose 87 mg/dL (70-105); Potassium 3.6 mmol/L (3.5-5.1); Sodium 138 mmol/L (136-145)
[2019-12-01 08:04] LABS: Band 1 % (5-11); Eosinophils 1 % (0-10); Lymphocytes 60 % (21-51); MDiff Complete? YES; Monocytes 8 % (0-10); Neutrophil 30 % (42-75); Platelet Morphology Comment Appears Adequate; Polychromasia SLIGHT = 2-3 cells (100X) (0-2/hpf)
[2019-12-01 08:19] VITALS: TEMP 97.9
--- NOTE | 2019-12-01 11:25 | NM ---
HEPATOBILIARY SCAN: HISTORY:Epigastric pain. No gallstones and ultrasound of 11/21/2019 RADIOPHARMACEUTICAL: 5.2 mCi Technetium 99m Mebrofenin injected intravenously FINDINGS: There is normal tracer extraction by the liver with normal excretion into the biliary tracts and smal l bowel loops and normal filling of the gallbladder. The calculated gallbladder ejection fraction following an infusion of 1.7 mcg CCK to evaluate gallbla dder contractility measures 71%. The patient was also pretreated with the same dose of CCK-8 prior to the injection of the radiopharma ceutical. IMPRESSION:Normal exam.
[2019-12-01] MEDS: cloNIDine 0.1 MG TAB PO SCH (11:35)
[2019-12-01] MEDS: Pantoprazole 40 MG VIAL IVP SCH ×2 (11:36→12:14)
[2019-12-01] MEDS: metroNIDAZOLE 500 MG TAB PO SCH (11:36)
[2019-12-01] MEDS: [UNRECOGNIZED DRUG - OTHER] PO SCH (11:36)
[2019-12-01 11:37] VITALS: BP 132/89
[2019-12-01] MEDS: Chlorthalidone 25 MG TAB PO SCH (11:41)
--- NOTE | 2019-12-01 13:58 | DIS ---
DATE OF ADMISSION: 11/29/2019 DATE OF DISCHARGE: 12/01/2019 PRIMARY CARE PROVIDER: Dr. Mosqueda. DISCHARGE DISPOSITION: Discharged to home. DIAGNOSES: Chronic abdominal pain, chronic elevated lipase levels secondary to Genvoya, human immunodeficiency virus infection status, hypertension. DISCHARGE MEDICINES: Same as home medicines. 1. Catapres 0.1 mg twice a day. 2. Melatonin 15 mg at bedtime. 3. Genvoya 1 tablet daily. 4. Cardizem CD 180 twice a day. 5. Chlorthalidone 25 mg a day. 6. Tramadol 50 mg p.o. q.i.d. p.r.n. ALLERGIES: NO DRUG ALLERGIES. DIET: Heart-healthy diet. PENDING AT TIME OF DISCHARGE: Nothing. CODE STATUS: Full. CONSULTATIONS WHILE IN HOSPITAL: Dr. Ulysses Tolbert, Gastroenterology. PROCEDURES: None. HOSPITAL COURSE: The patient admitted to the hospital second time this month. He was admitted with diffuse abdominal pain. He states he had had hematochezia with diarrhea, anorexia, and melena. He had an elevated lipase with past history of pancreatitis. CT reveals no evidence of pancreatitis. I did a firm check of his old laboratories. His lipase is always elevated. Did an investigation of his HIV drug, Genvoya, it has 5% to 15% chronic lipase elevation. His admitting studies ; white count 6.4, hemoglobin 14.8, platelet count 244,000. Followups were similar. Comprehensive metabolic profile normal. Lipase 219, followup 24-hours later 108. Toxicology, urine drug screen revealed methamphetamine and THC, which he denies. COVID was normal. The patient had a followup hepatobiliary nuclear scan, which was negative. When told by Gastroenterology that his symptoms were chronic and there were no further studies, he demanded to be discharged immediately or go AMA. I came, spoke with him briefly. I have explained to him he needs to see his primary care provider in 3-7 days. It is pertinent that his abdomen is completely benign. CT scan was unremarkable. HIDA scan was unremarkable. It is my impression that his complaints are either functional related to his HIV status, related to his Genvoya or to the drugs, he states he does not take, which were present in both admissions this month, methamphetamine and THC. Job ID: [id number] [facility]
== END 2019-12-01 13:50 | disposition home or self-care (01) | DRG 977 ==
LOC: ERS 15:11 → ONC 18:02
PROVIDERS: ADMIT Student in an Organized Health Care Education/Training Program; ATTEND Student in an Organized Health Care Education/Training Program
DX: B20 Human immunodeficiency virus [HIV] disease (principal); K92.1 Melena; Z20.828 Contact with and (suspected) exposure to other viral communicable diseases; I10 Essential (primary) hypertension; F17.210 Nicotine dependence, cigarettes, uncomplicated; R74.8 Abnormal levels of other serum enzymes; K25.9 Gastric ulcer, unspecified as acute or chronic, without hemorrhage or perforation; R10.84 Generalized abdominal pain; F12.10 Cannabis abuse, uncomplicated; G89.29 Other chronic pain; T50.995A Adverse effect of other drugs, medicaments and biological substances, initial encounter
CPT/HCPCS: 36415; 74177; 78227; 80048; 80053; 80306; 81003; 83690; 83735; 85025; 87635; 96361; 96374; 96375; 96376; A9537; C9113; J1885; J2270; J2405; Q0162; Q9967; U0003

== ENCOUNTER 2019-12-11 12:30 | Emergency (ER) | payer BC, OTHER ==
[2019-12-11 13:51] LABS: Bilirubin Negative (Negative); Blood, Urine Negative (Negative); Clarity Clear (Clear); Glucose, Urine (Dipstick) Normal (Negative); Ketone, Urine Negative (Negative); Leukocyte Negative Leu/uL (Negative); Nitrite Negative (Negative); Protein, Urine (Dipstick) Negative (Neg-Trace); Specific Gravity, Urine 1.015 (1.002-1.036); Urobilinogen Normal mg/dL (Less than 2); pH, Urine 6.5 (5.0-9.0)
[2019-12-11 14:01] LABS: Cocaine Metabolite Screen Not Detected (NotDetected); Medtox Reader # READER 1; Phencyclidine (PCP) Not Detected (NotDetected); THC/Cannabinoid Screen Detected (NotDetected)
[2019-12-11 14:02] LABS: Amphetamine Not Detected (NotDetected); Barbiturates Screen Not Detected (NotDetected); Benzodiazepine Screen Not Detected (NotDetected); Medtox Control Line Valid? VALID (VALID); Methadone Not Detected (NotDetected); Methamphetamine Detected (NotDetected); Opiate Screen Detected (NotDetected); Oxycodone Screen Not Detected (NotDetected); Tricyclic Screen Not Detected (NotDetected)
[2019-12-11 14:13] LABS: #Basophils 0.1 thou/uL (0.0-0.2); #Eosinphils 0.2 thou/uL (0.0-0.7); #Lymphocytes 2.9 thou/uL (1.20-3.40); #Monocytes 0.8 thou/uL (0.11-0.59); #Neutrophils 6.4 thou/uL (1.40-6.50); %Eosinophils 1.5 % (0.0-10.0); %Lymphocytes 27.9 % (21.0-51.0); %Neutrophils 61.6 % (42.0-75.0); Hemoglobin 14.4 g/dL (14.0-18.0); Mean Corpuscular HGB CONC 34.2 g/dL (32.0-36.0); Mean Corpuscular Hemoglobin 34.1 pg (27.0-31.0); Mean Corpuscular Volume 99.6 fL (78.0-98.0); Mean Platelet Volume 7.1 fL (7.4-10.4); Platelet Count 255 thou/uL (130-400); Red Blood Cell (RBC) Count 4.23 mill/uL (4.70-6.10); White Blood Cell (WBC) Count 10.3 thou/uL (4.8-10.8)
[2019-12-11 14:26] LABS: ALT (SGPT) 18 U/L (8-55); AST (SGOT) 21 U/L (5-34); Albumin 3.9 g/dL (3.5-5.0); Alkaline Phosphatase 88 U/L (40-110); Anion Gap 14 mmol/L (10-20); BUN (Urea Nitrogen) 9 mg/dL (8.9-20.6); Bilirubin, Total 0.2 mg/dL (0.2-1.2); Calc. Creatinine Clearance 0 mL/min (70-130); Calcium 8.7 mg/dL (7.8-10.44); Carbon Dioxide 23 mmol/L (22-29); Chloride 105 mmol/L (98-107); Estimated GFR-MDRD 78; Globulin 3.4 g/dL (2.4-3.5); Glucose 87 mg/dL (70-105); Lipase 212 U/L (8-78); Potassium 4.1 mmol/L (3.5-5.1); Protein, Total 7.3 g/dL (6.0-8.3); Sodium 138 mmol/L (136-145)
[2019-12-11 14:28] LABS: Acetaminophen Less than 6.0 mcg/mL (10.0-30.0); Alcohol Less than 10 mg/dL (Less than 10); Salicylate Less than 8.0 mg/dL (15.0-30.0)
== END 2019-12-11 15:04 | disposition home or self-care (01) ==
LOC: ERS 12:30
DX: G89.29 Other chronic pain (principal); R10.9 Unspecified abdominal pain; L02.31 Cutaneous abscess of buttock; I10 Essential (primary) hypertension; F32.9 Major depressive disorder, single episode, unspecified; F17.210 Nicotine dependence, cigarettes, uncomplicated; Z79.899 Other long term (current) drug therapy
CPT/HCPCS: 36415; 80053; 80306; 80307; 81003; 83690; 85025; 99284

== ENCOUNTER 2019-12-22 12:08 | Emergency (ER) | payer BC ==
[2019-12-22 12:54] LABS: Bilirubin Negative (Negative); Blood, Urine Negative (Negative); Clarity Clear (Clear); Glucose, Urine (Dipstick) Normal (Negative); Ketone, Urine Negative (Negative); Leukocyte Negative Leu/uL (Negative); Nitrite Negative (Negative); Protein, Urine (Dipstick) Negative (Neg-Trace); Specific Gravity, Urine 1.004 (1.002-1.036); Urobilinogen Normal mg/dL (Less than 2)
--- NOTE | 2019-12-22 13:11 | CT ---
EXAM: CT ABDOMEN AND PELVIS HISTORY: HIV. Hypertension. Acute right lower quadrant pain. Midline pain. COMPARISON: 11/27/2019 Procedure: Multiple contiguous axial images were obtained and a CT of the abdomen and pelvis with IV contrast. C oronal reformats were performed. FINDINGS: Lower Chest: Minimal dependent atelectatic change. Calcific granuloma in the middle lobe and right lo wer lobe. Vessels: Normal caliber aorta Heart: Normal heart size. No significant pericardial fluid Abdomen: Portal vein:Patent Gallbladder: No calcified gallstones. Normal caliber wall. Liver: within normal limits. Pancreas: within normal limits. Spleen: within normal limits. Adrenals: within normal limits. Kidneys: Symmetric enhancement. No obstructive uropathy. Peritoneum: No ascites or free air, no fluid collection. Bowel: Limited evaluation due to the lack of oral contrast administration. No evidence of bowel obstr uction. Ileocecal junction is unremarkable. Normal caliber appendix. Scattered fecal material in a nondistended, nondilated colon. Nonspecific fatty infiltration of the colon mucosa. Mesentery and Retroperitoneum: No enlarged mesenteric or retroperitoneal lymph nodes. Abdominal Wall: within normal limits. Pelvis: Reproductive Organs: Reproductive organs are unremarkable. Pelvis: No mass, lymphadenopathy, free air or free fluid. Bladder: within normal limits. Bones: within normal limits. IMPRESSION: No evidence of acute intraabdominal\pelvic abnormality. Nonspecific fatty infiltration of the colon m ucosa.
[2019-12-22 13:25] LABS: #Eosinphils 0.2 thou/uL (0.0-0.7); #Lymphocytes 2.5 thou/uL (1.20-3.40); #Monocytes 0.7 thou/uL (0.11-0.59); %Basophils 0.7 % (0.0-1.0); %Eosinophils 2.7 % (0.0-10.0); %Lymphocytes 38.8 % (21.0-51.0); %Monocytes 10.8 % (0.0-10.0); %Neutrophils 46.9 % (42.0-75.0); Hemoglobin 14.6 g/dL (14.0-18.0); Mean Corpuscular HGB CONC 33.3 g/dL (32.0-36.0); Mean Corpuscular Hemoglobin 33.3 pg (27.0-31.0); Mean Platelet Volume 6.8 fL (7.4-10.4); Platelet Count 228 thou/uL (130-400); RBC Distribution Width 14.7 % (11.5-14.5); Red Blood Cell (RBC) Count 4.39 mill/uL (4.70-6.10); White Blood Cell (WBC) Count 6.3 thou/uL (4.8-10.8)
[2019-12-22 13:48] LABS: ALT (SGPT) 42 U/L (8-55); AST (SGOT) 28 U/L (5-34); Albumin 3.8 g/dL (3.5-5.0); Alkaline Phosphatase 85 U/L (40-110); Anion Gap 14 mmol/L (10-20); BUN (Urea Nitrogen) 7 mg/dL (8.9-20.6); Bilirubin, Total 0.3 mg/dL (0.2-1.2); Calc. Creatinine Clearance 0 mL/min (70-130); Calcium 8.5 mg/dL (7.8-10.44); Carbon Dioxide 21 mmol/L (22-29); Chloride 105 mmol/L (98-107); Estimated GFR-MDRD 90; Globulin 3.4 g/dL (2.4-3.5); Glucose 74 mg/dL (70-105); Lipase 105 U/L (8-78); Potassium 3.7 mmol/L (3.5-5.1); Protein, Total 7.2 g/dL (6.0-8.3); Sodium 136 mmol/L (136-145)
[2019-12-22] MEDS ORDERED: Iopamidol-370 76% 500 ML 1 ML ONE (16:18)
== END 2019-12-22 14:41 | disposition home or self-care (01) ==
LOC: ERS 12:08
DX: R10.31 Right lower quadrant pain (principal); R11.2 Nausea with vomiting, unspecified; I10 Essential (primary) hypertension; B20 Human immunodeficiency virus [HIV] disease; F32.9 Major depressive disorder, single episode, unspecified; F17.210 Nicotine dependence, cigarettes, uncomplicated; Z79.899 Other long term (current) drug therapy
CPT/HCPCS: 36415; 74177; 80053; 81003; 83690; 85025; Q9967

== ENCOUNTER 2019-12-30 16:16 | Emergency (ER) | payer BC, OTHER ==
[2019-12-30 16:49] LABS: #Basophils 0.1 thou/uL (0.0-0.2); #Eosinphils 0.3 thou/uL (0.0-0.7); #Lymphocytes 3.1 thou/uL (1.20-3.40); #Monocytes 0.7 thou/uL (0.11-0.59); #Neutrophils 3.2 thou/uL (1.40-6.50); %Eosinophils 3.4 % (0.0-10.0); %Lymphocytes 42.7 % (21.0-51.0); %Monocytes 9.1 % (0.0-10.0); %Neutrophils 43.7 % (42.0-75.0); Hemoglobin 13.6 g/dL (14.0-18.0); Mean Corpuscular HGB CONC 33.1 g/dL (32.0-36.0); Mean Corpuscular Hemoglobin 32.9 pg (27.0-31.0); Mean Corpuscular Volume 99.2 fL (78.0-98.0); Mean Platelet Volume 7.1 fL (7.4-10.4); Platelet Count 247 thou/uL (130-400); RBC Distribution Width 14.8 % (11.5-14.5); Red Blood Cell (RBC) Count 4.14 mill/uL (4.70-6.10); White Blood Cell (WBC) Count 7.3 thou/uL (4.8-10.8)
[2019-12-30 17:12] LABS: ALT (SGPT) 26 U/L (8-55); AST (SGOT) 24 U/L (5-34); Albumin 3.7 g/dL (3.5-5.0); Alkaline Phosphatase 81 U/L (40-110); Anion Gap 10 mmol/L (10-20); BUN (Urea Nitrogen) 10 mg/dL (8.9-20.6); Bilirubin, Total 0.2 mg/dL (0.2-1.2); Calc. Creatinine Clearance 0 mL/min (70-130); Calcium 8.9 mg/dL (7.8-10.44); Carbon Dioxide 26 mmol/L (22-29); Chloride 107 mmol/L (98-107); Estimated GFR-MDRD 74; Globulin 3.3 g/dL (2.4-3.5); Glucose 91 mg/dL (70-105); Lipase 318 U/L (8-78); Potassium 3.8 mmol/L (3.5-5.1); Sodium 139 mmol/L (136-145)
[2019-12-30 17:24] LABS: Bacteria/HPF None Seen HPF (None Seen); Bilirubin Negative (Negative); Blood, Urine Negative (Negative); Clarity Clear (Clear); Glucose, Urine (Dipstick) Normal (Negative); Ketone, Urine Trace mg/dL (Negative); Leukocyte 25 Leu/uL (Negative); Nitrite Negative (Negative); Protein, Urine (Dipstick) 10 mg/dL (Neg-Trace); RBC/HPF 0-3 HPF (0-3); Specific Gravity, Urine 1.025 (1.002-1.036); Squamous Epithelial None Seen HPF (0-3); WBC/HPF 0-3 HPF (0-3)
[2019-12-30] MEDS ORDERED: Promethazine HCl 25 MG/ML VIAL ONE ×2 (18:01→18:08)
[2019-12-30] MEDS ORDERED: Dicyclomine 20 MG TAB ONE (18:01)
--- NOTE | 2019-12-30 18:24 | RAD ---
XR Abdomen 1 View/KUB HISTORY: Abdominal pain COMPARISON: 08/23/2019 FINDINGS: The bowel gas pattern is unremarkable. No suspicious calcifications are identified.
--- NOTE | 2019-12-30 18:49 | RAD ---
XR Abdomen 1 View/KUB HISTORY: Abdominal pain COMPARISON: Earlier exam of 6:11 PM from same date FINDINGS: The current upright exam demonstrates no evidence of free air or differential fluid levels. The bowel gas pattern is unremarkable.
[2019-12-31 11:41] LABS: SARS-CoV-2 MS2 Positive; SARS-CoV-2 N Gene Negative; SARS-CoV-2 S Gene Negative; SARS-CoV-2 by NAA Not Detected (NotDetected); SARS-CoV-2 orf1ab Negative
== END 2019-12-30 20:06 | disposition home or self-care (01) ==
LOC: ERS 16:16
DX: R10.84 Generalized abdominal pain (principal); R19.7 Diarrhea, unspecified; R11.2 Nausea with vomiting, unspecified; Z20.828 Contact with and (suspected) exposure to other viral communicable diseases; B20 Human immunodeficiency virus [HIV] disease; I10 Essential (primary) hypertension; F32.9 Major depressive disorder, single episode, unspecified; F17.210 Nicotine dependence, cigarettes, uncomplicated; Z79.899 Other long term (current) drug therapy
CPT/HCPCS: 36415; 74018; 80053; 81003; 81015; 83605; 83690; 85025; 87635; 87804; 94760; 96361; 96372; 96374; J0500; J2550; U0003

== ENCOUNTER 2020-01-02 09:34 | Emergency (ER) | payer BC ==
[2020-01-02] MEDS ORDERED: Morphine 4 MG/ML VIAL ONE (10:01)
[2020-01-02] MEDS ORDERED: Promethazine HCl 25 MG/ML VIAL ONE ×2 (10:01→12:58)
[2020-01-02 10:10] LABS: #Eosinphils 0.2 thou/uL (0.0-0.7); #Lymphocytes 2.3 thou/uL (1.20-3.40); #Monocytes 0.5 thou/uL (0.11-0.59); #Neutrophils 2.8 thou/uL (1.40-6.50); %Basophils 0.5 % (0.0-1.0); %Eosinophils 3.9 % (0.0-10.0); %Lymphocytes 38.5 % (21.0-51.0); %Monocytes 9.3 % (0.0-10.0); %Neutrophils 47.8 % (42.0-75.0); Hemoglobin 15.5 g/dL (14.0-18.0); Mean Corpuscular Hemoglobin 32.5 pg (27.0-31.0); Mean Corpuscular Volume 98.3 fL (78.0-98.0); Mean Platelet Volume 7.2 fL (7.4-10.4); Platelet Count 325 thou/uL (130-400); Red Blood Cell (RBC) Count 4.78 mill/uL (4.70-6.10); White Blood Cell (WBC) Count 5.9 thou/uL (4.8-10.8)
[2020-01-02 10:30] LABS: Bilirubin Negative (Negative); Blood, Urine Negative (Negative); Clarity Clear (Clear); Glucose, Urine (Dipstick) Normal (Negative); Ketone, Urine Negative (Negative); Leukocyte Negative Leu/uL (Negative); Nitrite Negative (Negative); Protein, Urine (Dipstick) Negative (Neg-Trace); Specific Gravity, Urine 1.006 (1.002-1.036); Urobilinogen Normal mg/dL (Less than 2)
[2020-01-02 10:34] LABS: ALT (SGPT) 26 U/L (8-55); AST (SGOT) 27 U/L (5-34); Albumin 4.2 g/dL (3.5-5.0); Alkaline Phosphatase 97 U/L (40-110); Anion Gap 13 mmol/L (10-20); BUN (Urea Nitrogen) 5 mg/dL (8.9-20.6); Bilirubin, Total 0.3 mg/dL (0.2-1.2); Calc. Creatinine Clearance 0 mL/min (70-130); Calcium 9.5 mg/dL (7.8-10.44); Carbon Dioxide 24 mmol/L (22-29); Chloride 105 mmol/L (98-107); Estimated GFR-MDRD 80; Glucose 104 mg/dL (70-105); Lipase 109 U/L (8-78); Potassium 3.7 mmol/L (3.5-5.1); Protein, Total 8.2 g/dL (6.0-8.3); Sodium 138 mmol/L (136-145)
--- NOTE | 2020-01-02 12:29 | RAD ---
KUB: HISTORY: Diffuse abdominal pain, nausea, vomiting, and diarrhea. FINDINGS: The bowel gas pattern appears nonobstructed. No renal calculi. No significant bony findings. The r ight colon wall shows questionable thickening versus under distention. If a colitis is clinical susp ected, a CT would be recommended. IMPRESSION: Nonobstructive bowel gas pattern. Questionable slight wall thickening to the right colon. POS: OFF
--- NOTE | 2020-01-02 12:39 | RAD ---
RADIOGRAPH ABDOMEN 2 VIEWS: DAET: 01/02/2020. HISTORY: A 34-year-old male with abdominal pain, nausea, and vomiting with diarrhea. Rule out free air. FINDINGS: There is no evidence of pneumoperitoneum. A moderate amount of gas in multiple nondilated loops of s mall and large intestine. No evidence of organomegaly. IMPRESSION: Negative. POS: JIN
[2020-01-02] MEDS ORDERED: Sucralfate 1 GM/10 ML UDCUP ONE (13:29)
[2020-01-02] MEDS ORDERED: Ketorolac Tromethamine 30 MG/ML VIAL ONE (14:26)
== END 2020-01-02 14:50 | disposition home or self-care (01) ==
LOC: ERS 09:34
DX: R10.84 Generalized abdominal pain (principal); R11.2 Nausea with vomiting, unspecified; R19.7 Diarrhea, unspecified; I10 Essential (primary) hypertension; F32.9 Major depressive disorder, single episode, unspecified; F17.210 Nicotine dependence, cigarettes, uncomplicated; Z79.899 Other long term (current) drug therapy
CPT/HCPCS: 74018; 80053; 81003; 83605; 83690; 85025; 96365; 96366; 96372; 96375; J0500; J1885; J2270; J2550

== ENCOUNTER 2020-01-04 08:33 | Emergency (ER) | payer BC, OTHER ==
[2020-01-04] MEDS ORDERED: Ondansetron ODT 4 MG TAB ONE (09:02)
[2020-01-04] MEDS ORDERED: Mag-Al 1200 mg/1200 mg/30 ML UDCUP ONE (09:02)
[2020-01-04] MEDS ORDERED: Lidocaine Viscous Sol 2% 15 ml UD Cup ONE (09:02)
[2020-01-04 09:34] LABS: #Basophils 0.1 thou/uL (0.0-0.2); #Eosinphils 0.2 thou/uL (0.0-0.7); #Lymphocytes 2.4 thou/uL (1.20-3.40); #Monocytes 0.6 thou/uL (0.11-0.59); #Neutrophils 2.9 thou/uL (1.40-6.50); %Basophils 1.7 % (0.0-1.0); %Eosinophils 2.7 % (0.0-10.0); %Lymphocytes 38.5 % (21.0-51.0); %Neutrophils 47.1 % (42.0-75.0); Hemoglobin 15.5 g/dL (14.0-18.0); Mean Corpuscular HGB CONC 32.5 g/dL (32.0-36.0); Mean Corpuscular Hemoglobin 32.1 pg (27.0-31.0); Mean Corpuscular Volume 98.6 fL (78.0-98.0); Mean Platelet Volume 7.3 fL (7.4-10.4); Platelet Count 320 thou/uL (130-400); RBC Distribution Width 14.9 % (11.5-14.5); Red Blood Cell (RBC) Count 4.82 mill/uL (4.70-6.10); White Blood Cell (WBC) Count 6.1 thou/uL (4.8-10.8)
[2020-01-04 09:49] LABS: ALT (SGPT) 23 U/L (8-55); AST (SGOT) 26 U/L (5-34); Albumin 3.8 g/dL (3.5-5.0); Alkaline Phosphatase 87 U/L (40-110); Anion Gap 12 mmol/L (10-20); BUN (Urea Nitrogen) 6 mg/dL (8.9-20.6); Bilirubin, Total 0.3 mg/dL (0.2-1.2); Calc. Creatinine Clearance 0 mL/min (70-130); Calcium 8.8 mg/dL (7.8-10.44); Carbon Dioxide 22 mmol/L (22-29); Chloride 107 mmol/L (98-107); Estimated GFR-MDRD 90; Globulin 3.5 g/dL (2.4-3.5); Glucose 84 mg/dL (70-105); Lipase 104 U/L (8-78); Potassium 4.1 mmol/L (3.5-5.1); Protein, Total 7.3 g/dL (6.0-8.3); Sodium 137 mmol/L (136-145)
[2020-01-04 10:07] LABS: Bilirubin Negative (Negative); Blood, Urine Negative (Negative); Clarity Clear (Clear); Glucose, Urine (Dipstick) Normal (Negative); Ketone, Urine Negative (Negative); Leukocyte Negative Leu/uL (Negative); Nitrite Negative (Negative); Protein, Urine (Dipstick) Negative (Neg-Trace); Specific Gravity, Urine 1.009 (1.002-1.036); Urobilinogen Normal mg/dL (Less than 2)
== END 2020-01-04 10:18 | disposition home or self-care (01) ==
LOC: ERS 08:33
DX: R10.11 Right upper quadrant pain (principal); G89.29 Other chronic pain; R10.816 Epigastric abdominal tenderness; Z21 Asymptomatic human immunodeficiency virus [HIV] infection status; F32.9 Major depressive disorder, single episode, unspecified; F17.210 Nicotine dependence, cigarettes, uncomplicated; I10 Essential (primary) hypertension; Z79.899 Other long term (current) drug therapy
CPT/HCPCS: 36415; 80053; 81003; 83690; 85025; 99284; Q0162

== ENCOUNTER 2020-01-30 09:30 | Emergency (ER) | payer BC ==
[2020-01-30] MEDS ORDERED: Acetaminophen 500 MG TAB ONE (10:16)
[2020-01-30] MEDS ORDERED: Ondansetron PF 4 MG/2 ML Vial ONE (10:16)
[2020-01-30] MEDS ORDERED: Ketorolac Tromethamine 30 MG/ML VIAL ONE (10:16)
[2020-01-30 10:39] LABS: #Basophils 0.1 thou/uL (0.0-0.2); #Eosinphils 0.3 thou/uL (0.0-0.7); #Lymphocytes 2.9 thou/uL (1.20-3.40); #Monocytes 0.8 thou/uL (0.11-0.59); #Neutrophils 3.6 thou/uL (1.40-6.50); %Basophils 0.8 % (0.0-1.0); %Eosinophils 3.4 % (0.0-10.0); %Lymphocytes 37.8 % (21.0-51.0); %Monocytes 10.6 % (0.0-10.0); %Neutrophils 47.4 % (42.0-75.0); Hemoglobin 16.7 g/dL (14.0-18.0); Mean Corpuscular HGB CONC 33.7 g/dL (32.0-36.0); Mean Corpuscular Hemoglobin 33.6 pg (27.0-31.0); Mean Corpuscular Volume 99.6 fL (78.0-98.0); Mean Platelet Volume 7.3 fL (7.4-10.4); Platelet Count 219 thou/uL (130-400); RBC Distribution Width 15.4 % (11.5-14.5); Red Blood Cell (RBC) Count 4.96 mill/uL (4.70-6.10); White Blood Cell (WBC) Count 7.7 thou/uL (4.8-10.8)
[2020-01-30 10:50] LABS: ALT (SGPT) 19 U/L (8-55); AST (SGOT) 25 U/L (5-34); Alkaline Phosphatase 87 U/L (40-110); Anion Gap 14 mmol/L (10-20); BUN (Urea Nitrogen) 9 mg/dL (8.9-20.6); Bilirubin, Total 0.3 mg/dL (0.2-1.2); Calc. Creatinine Clearance 0 mL/min (70-130); Calcium 9.2 mg/dL (7.8-10.44); Carbon Dioxide 24 mmol/L (22-29); Chloride 105 mmol/L (98-107); Estimated GFR-MDRD 76; Glucose 84 mg/dL (70-105); Potassium 4.2 mmol/L (3.5-5.1); Sodium 139 mmol/L (136-145)
--- NOTE | 2020-01-30 12:41 | CT ---
CT ABDOMEN AND PELVIS WITHOUT CONTRAST: 01/30/20 PROVIDED CLINICAL HISTORY: Back and abdominal pain. COMPARISON: 12/22/2019 FINDINGS: The visualized lung bases are free of significant opacity. The solid abdominal organs are suboptimally evaluated in the absence of IV contrast material but demo nstrate an unremarkable unenhanced CT appearance. There is no evidence for urinary tract calculi or h ydronephrosis. No bowel dilatation, inflammatory fat stranding, free fluid or free air apparent. There is no evidenc e for appendicitis. The gallbladder is decompressed. The osseous structures demonstrate no concerning lytic or blastic lesions. IMPRESSION: No evidence for urinary tract calculi or hydronephrosis. POS: MANOHAR
[2020-01-30 13:12] LABS: Bilirubin Negative (Negative); Blood, Urine Negative (Negative); Clarity Clear (Clear); Glucose, Urine (Dipstick) Normal (Negative); Ketone, Urine Negative (Negative); Leukocyte Negative Leu/uL (Negative); Nitrite Negative (Negative); Protein, Urine (Dipstick) Negative (Neg-Trace); Specific Gravity, Urine 1.016 (1.002-1.036); Urobilinogen Normal mg/dL (Less than 2)
== END 2020-01-30 13:44 | disposition home or self-care (01) ==
LOC: ERS 09:30
DX: M54.9 Dorsalgia, unspecified (principal); F32.9 Major depressive disorder, single episode, unspecified; F17.210 Nicotine dependence, cigarettes, uncomplicated; Z79.899 Other long term (current) drug therapy; B20 Human immunodeficiency virus [HIV] disease; I10 Essential (primary) hypertension; R10.813 Right lower quadrant abdominal tenderness
CPT/HCPCS: 74176; 80053; 81003; 85025; 93005; 96374; 96375; J1885; J2405

== ENCOUNTER 2020-02-17 09:07 | Emergency (ER) | payer BC ==
[2020-02-17] MEDS ORDERED: Ondansetron PF 4 MG/2 ML Vial ONE (10:09)
[2020-02-17 10:12] LABS: ALT (SGPT) 27 U/L (8-55); AST (SGOT) 35 U/L (5-34); Albumin 3.9 g/dL (3.5-5.0); Alkaline Phosphatase 101 U/L (40-110); Anion Gap 11 mmol/L (10-20); BUN (Urea Nitrogen) 7 mg/dL (8.9-20.6); Bilirubin, Total 0.3 mg/dL (0.2-1.2); Calc. Creatinine Clearance 0 mL/min (70-130); Calcium 9.3 mg/dL (7.8-10.44); Carbon Dioxide 25 mmol/L (22-29); Chloride 104 mmol/L (98-107); Estimated GFR-MDRD 74; Globulin 4.1 g/dL (2.4-3.5); Glucose 80 mg/dL (70-105); Lipase 165 U/L (8-78); Potassium 3.9 mmol/L (3.5-5.1); Sodium 136 mmol/L (136-145)
[2020-02-17 10:15] LABS: Bilirubin Negative (Negative); Blood, Urine Negative (Negative); Glucose, Urine (Dipstick) Negative (Negative); Ketone, Urine Negative (Negative); Leukocyte Negative (Negative); Nitrite Negative (Negative); Protein, Urine (Dipstick) Negative (Neg-Trace); Urobilinogen 0.2 mg/dL (Less than 2)
[2020-02-17 10:18] LABS: Clarity Clear (Clear)
[2020-02-17 10:22] LABS: #Eosinphils 0.2 thou/uL (0.0-0.7); #Lymphocytes 2.2 thou/uL (1.20-3.40); #Monocytes 0.7 thou/uL (0.11-0.59); %Basophils 0.4 % (0.0-1.0); %Eosinophils 3.6 % (0.0-10.0); %Lymphocytes 43.9 % (21.0-51.0); %Monocytes 13.9 % (0.0-10.0); %Neutrophils 38.2 % (42.0-75.0); Hemoglobin 15.5 g/dL (14.0-18.0); Mean Corpuscular HGB CONC 34.6 g/dL (32.0-36.0); Mean Corpuscular Hemoglobin 34.8 pg (27.0-31.0); Mean Platelet Volume 7.3 fL (7.4-10.4); Platelet Count 233 thou/uL (130-400); RBC Distribution Width 14.9 % (11.5-14.5); Red Blood Cell (RBC) Count 4.46 mill/uL (4.70-6.10); White Blood Cell (WBC) Count 5.1 thou/uL (4.8-10.8)
--- NOTE | 2020-02-17 12:18 | CT ---
CT ABDOMEN AND PELVIS WITH IV CONTRAST: INDICATION: Abdominal pain. COMPARISON: Comparison is made to CT abdomen and pelvis 12/22/2019. FINDINGS: Images through the lung bases show 2 small calcified granuloma in the right lower lobe. There is a 4 -5 mm noncalcified nodule in the peripheral right lower lobe. These are stable from the recent exam. Liver, spleen, and pancreas are unremarkable. Stomach and duodenum unremarkable. Adrenal glands normal. Kidneys unremarkable. Small bowel loops normal caliber. Appendix appears unremarkable. There continues to be mural thickening seen within the colon, primarily seen in the right colon and t ransverse colon, although prominent. Some areas are also seen in the left colon. The colon is poorl y distended which inhibits evaluation by CT. Aorta and retroperitoneum unremarkable. No adenopathy identified. Images through the pelvis unremarkable. The urinary bladder is mildly distended. Prostate unremarka ble. IMPRESSION: 1. Nonspecific mural thickening of the colon. This was also described on the prior exam. Correlate for colitis and consider further evaluation with colonoscopy as indicated. 2. Otherwise, no acute process or interval change. 3. Right lower lobe lung nodules as described. POS: [facility]
[2020-02-17] MEDS ORDERED: Iopamidol-370 76% 500 ML 1 ML ONE (14:33)
== END 2020-02-17 12:41 | disposition home or self-care (01) ==
LOC: ERS 09:07
DX: K52.9 Noninfective gastroenteritis and colitis, unspecified (principal); Z87.891 Personal history of nicotine dependence; Z79.899 Other long term (current) drug therapy
CPT/HCPCS: 36415; 74177; 80053; 81003; 83690; 85025; 96372; 96374; J0500; J2405; Q9967

== ENCOUNTER 2020-03-01 09:06 | Emergency (ER) | payer BC ==
[2020-03-01 09:55] LABS: #Eosinphils 0.2 thou/uL (0.0-0.7); #Lymphocytes 2.1 thou/uL (1.20-3.40); #Monocytes 0.6 thou/uL (0.11-0.59); #Neutrophils 1.8 thou/uL (1.40-6.50); %Basophils 0.6 % (0.0-1.0); %Eosinophils 3.5 % (0.0-10.0); %Lymphocytes 45.2 % (21.0-51.0); %Monocytes 13.1 % (0.0-10.0); %Neutrophils 37.6 % (42.0-75.0); Hemoglobin 15.3 g/dL (14.0-18.0); Mean Corpuscular HGB CONC 33.3 g/dL (32.0-36.0); Mean Corpuscular Hemoglobin 34.2 pg (27.0-31.0); Platelet Count 211 thou/uL (130-400); RBC Distribution Width 14.2 % (11.5-14.5); Red Blood Cell (RBC) Count 4.48 mill/uL (4.70-6.10); White Blood Cell (WBC) Count 4.7 thou/uL (4.8-10.8)
--- NOTE | 2020-03-01 10:06 | RAD ---
Acute abdominal series INDICATION: Constipation COMPARISON: None. FINDINGS: CHEST: LUNGS: There are calcified granuloma within both lower lobes and the left upper lobe. The lungs are o therwise clear. Cardiomediastinal silhouette: Normal. Pleural effusion or pneumothorax: Negative. Pneumoperitoneum: Negative. ABDOMEN: Bowel gas pattern: Unobstructed. Mild amount of retained stool is present within the colon. Abnormal calcifications: None Osseous structures: No acute osseous abnormality is demonstrated. Additional findings: None. IMPRESSION: 1. Mild amount retained stool within the colon.
[2020-03-01 10:09] LABS: ALT (SGPT) 19 U/L (8-55); AST (SGOT) 24 U/L (5-34); Albumin 3.6 g/dL (3.5-5.0); Alkaline Phosphatase 84 U/L (40-110); Anion Gap 12 mmol/L (10-20); BUN (Urea Nitrogen) 5 mg/dL (8.9-20.6); Bilirubin, Total 0.2 mg/dL (0.2-1.2); Calc. Creatinine Clearance 0 mL/min (70-130); Calcium 8.7 mg/dL (7.8-10.44); Carbon Dioxide 23 mmol/L (22-29); Chloride 105 mmol/L (98-107); Estimated GFR-MDRD 78; Globulin 4.1 g/dL (2.4-3.5); Glucose 72 mg/dL (70-105); Lipase 112 U/L (8-78); Potassium 3.9 mmol/L (3.5-5.1); Protein, Total 7.7 g/dL (6.0-8.3); Sodium 136 mmol/L (136-145)
[2020-03-01] MEDS ORDERED: Ondansetron PF 4 MG/2 ML Vial ONE (10:15)
[2020-03-01] MEDS ORDERED: Ketorolac Tromethamine 30 MG/ML VIAL ONE (10:15)
[2020-03-01 10:32] LABS: Bilirubin Negative (Negative); Blood, Urine Negative (Negative); Clarity Clear (Clear); Glucose, Urine (Dipstick) Normal (Negative); Ketone, Urine Negative (Negative); Leukocyte Negative Leu/uL (Negative); Nitrite Negative (Negative); Protein, Urine (Dipstick) Negative (Neg-Trace); Specific Gravity, Urine 1.003 (1.002-1.036); Urobilinogen Normal mg/dL (Less than 2)
== END 2020-03-01 11:38 | disposition home or self-care (01) ==
LOC: ERS 09:06
DX: R10.84 Generalized abdominal pain (principal); I10 Essential (primary) hypertension; F17.210 Nicotine dependence, cigarettes, uncomplicated; Z79.899 Other long term (current) drug therapy
CPT/HCPCS: 36415; 74022; 80053; 81003; 83690; 85025; 96374; 96375; J1885; J2405

== ENCOUNTER 2020-03-12 09:04 | Inpatient (IN) | payer BC ==
[2020-03-12] MEDS ORDERED: Ondansetron PF 4 MG/2 ML Vial ONE (09:35)
[2020-03-12 10:02] LABS: ALT (SGPT) 19 U/L (8-55); AST (SGOT) 26 U/L (5-34); Albumin 3.7 g/dL (3.5-5.0); Alkaline Phosphatase 95 U/L (40-110); Anion Gap 15 mmol/L (10-20); BUN (Urea Nitrogen) 8 mg/dL (8.9-20.6); Bilirubin, Total 0.2 mg/dL (0.2-1.2); Calc. Creatinine Clearance 0 mL/min (70-130); Calcium 8.5 mg/dL (7.8-10.44); Carbon Dioxide 22 mmol/L (22-29); Chloride 104 mmol/L (98-107); Globulin 4.6 g/dL (2.4-3.5); Glucose 109 mg/dL (70-105); Lipase 185 U/L (8-78); Potassium 4.8 mmol/L (3.5-5.1); Protein, Total 8.3 g/dL (6.0-8.3); Sodium 136 mmol/L (136-145)
[2020-03-12 10:03] LABS: Acetaminophen Less than 6.0 mcg/mL (10.0-30.0); Alcohol Less than 10 mg/dL (Less than 10); Salicylate Less than 8.0 mg/dL (15.0-30.0)
[2020-03-12 10:09] LABS: #Eosinphils 0.2 thou/uL (0.0-0.7); #Lymphocytes 2.3 thou/uL (1.20-3.40); #Monocytes 0.7 thou/uL (0.11-0.59); #Neutrophils 3.1 thou/uL (1.40-6.50); %Basophils 0.8 % (0.0-1.0); %Eosinophils 3.6 % (0.0-10.0); %Monocytes 11.6 % (0.0-10.0); %Neutrophils 48.1 % (42.0-75.0); Hemoglobin 16.7 g/dL (14.0-18.0); Mean Corpuscular HGB CONC 33.6 g/dL (32.0-36.0); Mean Corpuscular Hemoglobin 34.1 pg (27.0-31.0); Mean Platelet Volume 7.3 fL (7.4-10.4); Platelet Count 231 thou/uL (130-400); RBC Distribution Width 13.9 % (11.5-14.5); Red Blood Cell (RBC) Count 4.89 mill/uL (4.70-6.10); White Blood Cell (WBC) Count 6.4 thou/uL (4.8-10.8)
[2020-03-12 10:16] LABS: Bilirubin Negative (Negative); Blood, Urine Negative (Negative); Clarity Clear (Clear); Glucose, Urine (Dipstick) Normal (Negative); Ketone, Urine Negative (Negative); Leukocyte Negative Leu/uL (Negative); Nitrite Negative (Negative); Protein, Urine (Dipstick) 10 mg/dL (Neg-Trace); Specific Gravity, Urine 1.022 (1.002-1.036)
[2020-03-12 10:28] LABS: Amphetamine Detected (NotDetected); Medtox Reader # READER 1; Methamphetamine Detected (NotDetected); THC/Cannabinoid Screen Detected (NotDetected)
[2020-03-12 10:29] LABS: Barbiturates Screen Not Detected (NotDetected); Benzodiazepine Screen Not Detected (NotDetected); Cocaine Metabolite Screen Not Detected (NotDetected); Medtox Control Line Valid? VALID (VALID); Methadone Not Detected (NotDetected); Opiate Screen Not Detected (NotDetected); Oxycodone Screen Not Detected (NotDetected); Phencyclidine (PCP) Not Detected (NotDetected); Tricyclic Screen Not Detected (NotDetected)
[2020-03-12] MEDS ORDERED: Morphine 4 MG/ML VIAL ONE (10:31)
[2020-03-12] MEDS ORDERED: Metoclopramide HCl 10 MG/2 ML VIAL ONE (11:32)
[2020-03-12] MEDS ORDERED: Ondansetron PF 4 MG/2 ML Vial IVP PRN (12:49)
[2020-03-12] MEDS ORDERED: Acetaminophen 650 MG Suppository PR PRN (12:49)
[2020-03-12] MEDS: Lactated Ringer's 1,000 ML IV SCH ×2 (13:50→21:39)
--- NOTE | 2020-03-12 14:20 | PDOC.HHP ---
Hospitalist HPI - History of Present Illness Nausea and vomiting History of Present Illness: Mr. Doan is a 34-year-old male with a past medical history of HIV on Genvoya therapy, chronic drug-induced pancreatitis, hypertension who presents to the emergency room with nausea vomiting and p.o. intolerance. Patient reports that approximately 3 days prior to admission he developed intense nausea and abdomina l pain. Patient ports abdominal pain has been severely worsening and that this feels similar to previous episodes. Patient has been unable to keep down food or liquids. Patient denies chest pain, shortness of breath. He denies any melena, hematochezia or hematemesis. He denies numbness weakness or paresthesias. Patient has had multiple admissions for presumed pancreatitis. Patient has a chronically elevated lipase level and this was thought to be secondary to an HIV medication he was taking Genvoya. Patient follows with Dr. Chester of infectious disease who recommended that he stop taking this medication secondary to his repeated bouts of presumed pancreatitis. Patient historically has always had negative CT or ultrasound findings of pancreatitis and only a mildly elevated lipase. In emergency room initial vital signs 145/96, 18, 100% on room air. Lipase 185, H/H 16.7/49.7. WBC 6.4 BUN/CR 8/1.21. Lactic acid 1.6. Sodium 136, potassium 4.8. In the emergency room patient received 2 L of normal saline, morphine, metoclopramide and Zofran. Hospitalist ROS - Review of Systems Constitutional: denies: fever, chills, sweats, weakness, malaise, other Eyes: denies: pain, vision change, conjunctivae inflammation, eyelid inflammation, redness, other ENT: denies: ear pain, ear discharge, nose pain, nose discharge, nose congestion, mouth pain, mouth swelling, throat pain, throat swelling, other Respiratory: denies: cough, dry, shortness of breath, hemoptysis, SOB with excertion, pleuritic pain, sputum, wheezing, other Cardiovascular: denies: chest pain, palpitations, orthopnea, paroxysmal noc. dyspnea, edema, light headedness, other Gastrointestinal: reports: nausea, vomiting, abdominal pain. denies: diarrhea, constipation, melena, hematochezia, other Genitourinary: denies: dysuria, frequency, incontinence, hematuria, retention, other Musculoskeletal: denies: neck pain, shoulder pain, arm pain, back pain, hand pain, leg pain, foot pain, other Skin: denies: rash, lesions, elysia, bruising, other Neurological: denies: weakness, numbness, incoordination, change in speech, confusion, seizures, other - Medication Medications: Home medications include Clonidine Creatinine Medication list taken from ER records. Will confirm patient's home medications. Hospitalist History - Past Medical History Other Medical History: History of HIV previously on Genvoya therapy. Patient unaware of CD4 count. Follows with Dr. Lewis of infectious disease. 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[facility], office work Activity level: independent ambulation - Exam General Appearance: NAD, awake alert Eye: PERRL, anicteric sclera ENT: normocephalic atraumatic, no oropharyngeal lesions, moist mucosa Neck: supple, symmetric, no JVD, no thyromegaly, no lymphadenopathy, no carotid bruit Heart: RRR, no murmur, no gallops, no rubs, normal peripheral pulses Respiratory: CTAB, no wheezes, no rales, no ronchi, normal chest expansion, no tachypnea, normal percussion Gastrointestinal: soft, no guarding, no rigidity, tender to palpation Extremities: no cyanosis, no clubbing, no edema Skin: normal turgor, no lesions, no rashes Neurological: cranial nerve grossly intact, normal sensation to touch, no weakness, no focal deficits, no new deficit Musculoskeletal: normal tone, normal strength, no muscle wasting Psychiatric: normal affect, normal behavior, A&O x 3 Hospitalist Results - Labs Result Diagrams: 03/16/20 04:55 03/16/20 04:55 Lab results: WBC 6.4 thou/uL (4.8-10.8) 03/12/20 09:25 Hgb 16.7 g/dL (14.0-18.0) 03/12/20 09:25 Hct 49.7 % (42.0-52.0) 03/12/20 09:25 MCV 102.0 fL (78.0-98.0) H 03/12/20 09:25 Plt Count 231 thou/uL (130-400) 03/12/20 09:25 Neutrophils % 48.1 % (42.0-75.0) 03/12/20 09:25 Sodium 136 mmol/L (136-145) 03/12/20 09:25 Potassium 4.8 mmol/L (3.5-5.1) 03/12/20 09:25 Chloride 104 mmol/L (98-107) 03/12/20 09:25 Carbon Dioxide 22 mmol/L (22-29) 03/12/20 09:25 BUN 8 mg/dL (8.9-20.6) L 03/12/20 09:25 Creatinine 1.21 mg/dL (0.7-1.3) 03/12/20 09:25 Glucose 109 mg/dL (70-105) H 03/12/20 09:25 Lactic Acid 1.6 mmol/L (0.5-2.2) 03/12/20 09:22 Calcium 8.5 mg/dL (7.8-10.44) 03/12/20 09:25 Total Bilirubin 0.2 mg/dL (0.2-1.2) 03/12/20 09:25 AST 26 U/L (5-34) 03/12/20 09:25 ALT 19 U/L (8-55) 03/12/20 09:25 Alkaline Phosphatase 95 U/L (40-110) 03/12/20 09:25 Serum Total Protein 8.3 g/dL (6.0-8.3) 03/12/20 09:25 Albumin 3.7 g/dL (3.5-5.0) 03/12/20 09:25 Lipase 185 U/L (8-78) H 03/12/20 09:25 Urine Ketones Negative mg/dL (Negative) 03/12/20 09:24 Urine Blood Negative (Negative) 03/12/20 09:24 Urine Nitrite Negative (Negative) 03/12/20 09:24 Ur Leukocyte Esterase Negative Mesfin/uL (Negative) 03/12/20 09:24 Hospitalist H&P A/P - Plan Plan: 34-year-old male with past medical history of HIV previously on Genvoya therapy, chronic pancreatitis secondary to medication presents with chronically elevated lipase in setting of p.o. intolerance. P.o. intolerance, nausea and vomiting Patient has a history of chronically elevated lipase and bouts of pancreatitis thought to be secondary to HIV medication Genvoya. Patient was recently instructed by his infectious disease doctors to stop taking this medication approximately 3 weeks ago due to these problems. Patient reports that 3 days prior to admission he had worsening nausea vomiting and abdominal pain. Lipase on admission 185. This appears to be near patient's baseline. Patient has had multiple admissions in the past for similar complaints. Otherwise he is hemodynamically stable. Question if patient may have a component of cyclic vomiting secondary to marijuana use. We will continue IV fluids make patient n.p.o. and treat pain as needed. Plan IV fluids Antiemetics N.p.o., advance diet as tolerated HIV History of HIV previously on Genvoya therapy. Patient was instructed by ID doctor to stop this approximately 3 weeks ago. Patient is unsure of CD4 count. No current signs of opportunistic infections. Will obtain CD4 count. Plan CD4 count We will need outpatient follow-up Hypertension History of hypertension patient on Catapres, Cardizem, chlorthalidone. Patient mildly hypertensive in emergency room. We will continue home medications. Marijuana use History of marijuana use. Talk screen positive for marijuana, methamphetamine, amphetamine. Question if episodes of nausea and vomiting are secondary to cannabis hyperemesis syndrome. DVT prophylaxissq heparin Full code Case discussed with attending physician, Dr. Neal.
[2020-03-12] MEDS: Heparin 5,000 UNITS/ML VIAL SC SCH ×2 (15:02→19:50)
[2020-03-12] MEDS: Acetaminophen 325 MG TAB PO PRN ×2 (16:50→19:50)
[2020-03-12 19:28] LABS: SARS-CoV-2 MS2 Positive; SARS-CoV-2 N Gene Negative; SARS-CoV-2 S Gene Negative; SARS-CoV-2 by NAA Not Detected (NotDetected); SARS-CoV-2 orf1ab Negative
[2020-03-12] MEDS: Morphine 4 MG/ML VIAL SLOW IVP PRN (21:10)
[2020-03-12] MEDS ORDERED: cloNIDine 0.1 MG TAB PO SCH (23:45)
[2020-03-13] MEDS ORDERED: NIFEdipine XL 30 MG TAB PO SCH (01:00)
[2020-03-13] MEDS: Morphine 4 MG/ML VIAL SLOW IVP PRN ×4 (01:44→20:12)
[2020-03-13 05:49] LABS: Anion Gap 11 mmol/L (10-20); BUN (Urea Nitrogen) 5 mg/dL (8.9-20.6); Calc. Creatinine Clearance 60 mL/min (70-130); Calcium 8.5 mg/dL (7.8-10.44); Carbon Dioxide 26 mmol/L (22-29); Chloride 106 mmol/L (98-107); Glucose 79 mg/dL (70-105); Potassium 4.5 mmol/L (3.5-5.1); Sodium 138 mmol/L (136-145)
[2020-03-13 05:51] LABS: Hemoglobin 14.5 g/dL (14.0-18.0); MDiff Complete? YES; Mean Corpuscular HGB CONC 33.1 g/dL (32.0-36.0); Mean Corpuscular Hemoglobin 33.7 pg (27.0-31.0); Mean Platelet Volume 7.2 fL (7.4-10.4); Platelet Count 219 thou/uL (130-400); RBC Distribution Width 13.7 % (11.5-14.5); Red Blood Cell (RBC) Count 4.31 mill/uL (4.70-6.10); White Blood Cell (WBC) Count 5.6 thou/uL (4.8-10.8)
[2020-03-13 05:52] LABS: Band 1 % (5-11); Eosinophils 2 % (0-10); Hypochromia SLIGHT = 6-15 cells (100X) (0-5/hpf); Lymphocytes 50 % (21-51); Monocytes 6 % (0-10); Neutrophil 35 % (42-75); Platelet Morphology Comment Appears Adequate; Reactive Lymphocytes 6 % (0-10)
[2020-03-13] MEDS: Acetaminophen 325 MG TAB PO PRN ×2 (07:01→20:12)
[2020-03-13] MEDS: Lactated Ringer's 1,000 ML IV SCH ×2 (07:01→14:38)
[2020-03-13] MEDS: Amlodipine 5 MG TAB PO SCH (08:51)
[2020-03-13] MEDS: cloNIDine 0.1 MG TAB PO SCH ×2 (08:51→20:13)
[2020-03-13] MEDS: Heparin 5,000 UNITS/ML VIAL SC SCH ×3 (08:52→20:12)
[2020-03-13 12:22] VITALS: BMI 25.4
--- NOTE | 2020-03-13 13:18 | PDOC.HOSPP ---
- Subjective Encounter Date: 03/13/20 Encounter Time: 12:20 Subjective: Patient seen for follow-up of pancreatitis today. He states that his pain has decreased a little but he is still in need of morphine and Tylenol for pain control. He is requesting melatonin for sleep and a nicotine patch. Still has no interest in food at this time. - Objective Vital Signs & Weight: Vital Signs (12 hours) Temp Pulse Resp BP BP Pulse Ox 03/13/20 11:05 98.5 F 76 16 148/99 H 98 03/13/20 09:46 159/94 H 03/13/20 08:51 60 179/125 H 03/13/20 07:15 98.6 F 60 16 184/110 H 100 03/13/20 05:25 98 03/13/20 03:31 98.3 F 61 14 155/107 H 98 03/13/20 01:49 166/101 H Weight Admit Weight 102 lb Weight 188 lb 1 oz I&O: 03/12/20 03/13/20 03/14/20 06:59 06:59 06:59 Intake Total 1876 Output Total 400 Balance 1476 Result Diagrams: 03/13/20 05:06 03/13/20 05:06 Hospitalist ROS - Review of Systems Gastrointestinal: reports: abdominal pain All other systems reviewed; all pertinent +/- noted in HPI/Subj - Medication Medications: Active Medications Generic Name Dose Route Start Last Admin Trade Name Freq PRN Reason Stop Dose Admin Acetaminophen 650 mg 03/12/20 12:49 03/13/20 07:01 Acetaminophen 325 Mg Tab PO 650 mg Q4H PRN Administration Headache/Fever/Mild Pain (1-3) Amlodipine Besylate 5 mg 03/13/20 09:00 03/13/20 08:51 Amlodipine 5 Mg Tab PO 5 mg DAILY ELISHA Administration Clonidine 0.1 mg 03/13/20 09:00 03/13/20 08:51 Clonidine 0.1 Mg Tab PO 0.1 mg BID ELISHA Administration Heparin Sodium (Porcine) 5,000 units 03/12/20 15:00 03/13/20 08:52 Heparin 5,000 Units/Ml Vial SC 5,000 units TID ELISHA Administration Lactated Ringer's 1,000 mls @ 125 mls/hr 03/12/20 13:00 03/13/20 07:01 Lactated Ringer's IV 1,000 mls .Q8H ELISHA Administration Morphine Sulfate 4 mg 03/12/20 20:55 03/13/20 07:02 Morphine 4 Mg/Ml Vial SLOW IVP 4 mg Q4H PRN Administration Pain - Exam General Appearance: NAD, awake alert Eye: PERRL ENT: normocephalic atraumatic Neck: supple, symmetric Heart: RRR, no murmur, no gallops, normal peripheral pulses Respiratory: CTAB, no wheezes, no rales, no ronchi, normal chest expansion Gastrointestinal: soft, non-distended, normal bowel sounds, tender to palpation Extremities: no edema Skin: normal turgor Neurological: no focal deficits Musculoskeletal: no muscle wasting Psychiatric: normal affect, normal behavior, A&O x 3 Hosp A/P - Plan P.o. intolerance, nausea and vomiting Continue IV fluids Antiemetics N.p.o., advance diet as tolerated HIV CD4 count We will need outpatient follow-up Hypertension Home medications restarted Tobacco use Nicotine patch initiated
[2020-03-13] MEDS: Nicotine 21 MG PATCH TD SCH (14:38)
[2020-03-13] MEDS: Ondansetron ODT 4 MG TAB PO PRN (18:22)
[2020-03-13] MEDS: Melatonin 3 MG TAB PO PRN (22:21)
[2020-03-14] MEDS: Acetaminophen 325 MG TAB PO PRN ×3 (00:13→20:09)
[2020-03-14] MEDS: Lactated Ringer's 1,000 ML IV SCH ×4 (00:14→22:34)
[2020-03-14] MEDS: Morphine 4 MG/ML VIAL SLOW IVP PRN ×5 (02:55→22:34)
[2020-03-14 05:57] LABS: #Eosinphils 0.1 thou/uL (0.0-0.7); #Lymphocytes 2.2 thou/uL (1.20-3.40); #Monocytes 0.5 thou/uL (0.11-0.59); #Neutrophils 2.1 thou/uL (1.40-6.50); %Basophils 0.8 % (0.0-1.0); %Eosinophils 2.7 % (0.0-10.0); %Lymphocytes 44.2 % (21.0-51.0); %Monocytes 9.7 % (0.0-10.0); %Neutrophils 42.6 % (42.0-75.0); Hemoglobin 14.6 g/dL (14.0-18.0); Mean Corpuscular HGB CONC 33.7 g/dL (32.0-36.0); Mean Corpuscular Hemoglobin 34.5 pg (27.0-31.0); Mean Platelet Volume 7.4 fL (7.4-10.4); Platelet Count 218 thou/uL (130-400); RBC Distribution Width 13.4 % (11.5-14.5); Red Blood Cell (RBC) Count 4.23 mill/uL (4.70-6.10); White Blood Cell (WBC) Count 4.9 thou/uL (4.8-10.8)
[2020-03-14 06:05] LABS: Anion Gap 11 mmol/L (10-20); BUN (Urea Nitrogen) 6 mg/dL (8.9-20.6); Calc. Creatinine Clearance 123 mL/min (70-130); Calcium 8.6 mg/dL (7.8-10.44); Carbon Dioxide 24 mmol/L (22-29); Chloride 102 mmol/L (98-107); Glucose 71 mg/dL (70-105); Potassium 3.8 mmol/L (3.5-5.1); Sodium 133 mmol/L (136-145)
[2020-03-14] MEDS: cloNIDine 0.1 MG TAB PO SCH ×2 (08:24→20:09)
[2020-03-14] MEDS: Amlodipine 5 MG TAB PO SCH (08:25)
[2020-03-14] MEDS: Heparin 5,000 UNITS/ML VIAL SC SCH ×3 (08:25→20:09)
[2020-03-14] MEDS ORDERED: Pantoprazole 40 MG VIAL IVP SCH (09:30)
[2020-03-14] MEDS: Ondansetron ODT 4 MG TAB PO PRN (09:43)
[2020-03-14] MEDS ORDERED: Scopolamine 1.5 mg/72 hour Patch TD SCH (10:00)
[2020-03-14] MEDS: Nicotine 21 MG PATCH TD SCH (14:57)
--- NOTE | 2020-03-14 16:52 | PDOC.HOSPP ---
- Subjective Encounter Date: 03/14/20 Subjective: Persistent nausea and vomiting. - Objective Vital Signs & Weight: Vital Signs (12 hours) Temp Pulse Resp BP BP BP Pulse Ox 03/14/20 15:45 98.4 F 61 16 147/93 H 97 03/14/20 11:55 98.1 F 69 18 150/102 H 98 03/14/20 08:24 146/96 H 03/14/20 07:44 97.9 F 69 16 146/96 H 97 Weight Admit Weight 102 lb Weight 188 lb 1 oz I&O: 03/13/20 03/14/20 03/15/20 06:59 06:59 06:59 Intake Total 1876 3000 Output Total 400 1975 Balance 1476 1025 Result Diagrams: 03/14/20 05:17 03/14/20 05:17 Hospitalist ROS - Medication Medications: Active Medications Generic Name Dose Route Start Last Admin Trade Name Freq PRN Reason Stop Dose Admin Acetaminophen 650 mg 03/12/20 12:49 03/14/20 13:03 Acetaminophen 325 Mg Tab PO 650 mg Q4H PRN Administration Headache/Fever/Mild Pain (1-3) Amlodipine Besylate 5 mg 03/13/20 09:00 03/14/20 08:25 Amlodipine 5 Mg Tab PO 5 mg DAILY ELISHA Administration Clonidine 0.1 mg 03/13/20 09:00 03/14/20 08:24 Clonidine 0.1 Mg Tab PO 0.1 mg BID ELISHA Administration Heparin Sodium (Porcine) 5,000 units 03/12/20 15:00 03/14/20 14:57 Heparin 5,000 Units/Ml Vial SC 5,000 units TID ELISHA Administration Lactated Ringer's 1,000 mls @ 125 mls/hr 03/12/20 13:00 03/14/20 15:02 Lactated Ringer's IV 1,000 mls .Q8H ELISHA Administration Melatonin 9 mg 03/13/20 13:10 03/13/20 22:21 Melatonin 3 Mg Tab PO 9 mg HS PRN Administration Insomnia Morphine Sulfate 4 mg 03/12/20 20:55 03/14/20 14:56 Morphine 4 Mg/Ml Vial SLOW IVP 4 mg Q4H PRN Administration Pain Nicotine 21 mg 03/13/20 14:00 03/14/20 14:57 Nicotine 21 Mg Patch TD 21 mg 1400 ELISHA Administration Ondansetron HCl 4 mg 03/12/20 12:49 03/14/20 09:43 Ondansetron Odt 4 Mg Tab PO 4 mg Q6H PRN Administration Nausea/Vomiting Ondansetron HCl 4 mg 03/12/20 12:49 03/14/20 00:13 Ondansetron Pf 4 Mg/2 Ml Vial IVP 4 mg Q6H PRN Administration Nausea/Vomiting Scopolamine 1.5 mg 03/14/20 10:00 03/14/20 09:43 Scopolamine 1.5 Mg/72 Hour Patch TD 1.5 mg Q3D ELISHA Administration - Exam General Appearance: awake alert ENT: normocephalic atraumatic Neck: supple, no JVD Heart: RRR Respiratory: normal chest expansion, no tachypnea Gastrointestinal: soft Extremities: no cyanosis Neurological: cranial nerve grossly intact, no focal deficits Hosp A/P (1) Chronic pancreatitis Code(s): K86.1 - OTHER CHRONIC PANCREATITIS Status: Acute (2) Hx of peptic ulcer Code(s): Z87.11 - PERSONAL HISTORY OF PEPTIC ULCER DISEASE Status: Acute (3) Nausea & vomiting Code(s): R11.2 - NAUSEA WITH VOMITING, UNSPECIFIED Status: Acute (4) ZENIA (acute kidney injury) Code(s): N17.9 - ACUTE KIDNEY FAILURE, UNSPECIFIED Status: Acute (5) HIV (human immunodeficiency virus infection) Code(s): B20 - HUMAN IMMUNODEFICIENCY VIRUS [HIV] DISEASE Status: Chronic - Plan The patient is a 34-year-old male with history of chronic pancreatitis and peptic ulcer disease who is admitted to the hospital for dehydration and acute kidney injury rate persistent nausea and vomiting. Patient is complaining of intermittent severe abdominal pain that is worse with ingestion of food. I will continue IV hydration, start liquid diet, start Protonix, and consult GI.
[2020-03-14 20:36] LABS: %CD4 (Helper/Inducer) 30.3 % (30.8-58.5); Absolute CD4 667 /uL (359-1519); Lymphocytes/Gated Cell Count 2.2 x10E3/uL (0.7-3.1); Total Lymphocyte 41 % (Not Estab.); WBC Total Count 5.3 x10E3/uL (3.4-10.8)
[2020-03-15] MEDS: Morphine 4 MG/ML VIAL SLOW IVP PRN ×5 (02:49→21:08)
[2020-03-15 05:59] LABS: Anion Gap 13 mmol/L (10-20); BUN (Urea Nitrogen) 7 mg/dL (8.9-20.6); Calc. Creatinine Clearance 121 mL/min (70-130); Calcium 8.6 mg/dL (7.8-10.44); Carbon Dioxide 23 mmol/L (22-29); Chloride 103 mmol/L (98-107); Glucose 75 mg/dL (70-105); Potassium 3.8 mmol/L (3.5-5.1); Sodium 135 mmol/L (136-145)
[2020-03-15 06:04] LABS: Band 1 % (5-11); Eosinophils 2 % (0-10); Hemoglobin 14.1 g/dL (14.0-18.0); Hypochromia SLIGHT = 6-15 cells (100X) (0-5/hpf); Lymphocytes 58 % (21-51); MDiff Complete? YES; Mean Corpuscular HGB CONC 33.5 g/dL (32.0-36.0); Mean Corpuscular Hemoglobin 33.6 pg (27.0-31.0); Mean Platelet Volume 7.2 fL (7.4-10.4); Monocytes 6 % (0-10); Neutrophil 21 % (42-75); Platelet Count 225 thou/uL (130-400); Platelet Morphology Comment Appears Adequate; RBC Distribution Width 13.3 % (11.5-14.5); Reactive Lymphocytes 12 % (0-10); Red Blood Cell (RBC) Count 4.19 mill/uL (4.70-6.10); White Blood Cell (WBC) Count 4.1 thou/uL (4.8-10.8)
[2020-03-15] MEDS: Heparin 5,000 UNITS/ML VIAL SC SCH ×3 (08:57→21:07)
[2020-03-15] MEDS: cloNIDine 0.1 MG TAB PO SCH ×2 (08:58→21:07)
[2020-03-15] MEDS: Amlodipine 5 MG TAB PO SCH (08:58)
[2020-03-15] MEDS: Lactated Ringer's 1,000 ML IV SCH ×3 (08:59→21:08)
[2020-03-15] MEDS ORDERED: traMADol HCl 50 MG TAB PO PRN (09:45)
[2020-03-15] MEDS ORDERED: Morphine 4 MG/ML VIAL SLOW IVP PRN (09:45)
[2020-03-15] MEDS ORDERED: Lidocaine 1% PF 5 ML VIAL ONE (11:28)
[2020-03-15] MEDS ORDERED: PROPOFOL 200 MG/20 ML VIAL ONE (11:28)
--- NOTE | 2020-03-15 11:52 | CON ---
DATE OF CONSULTATION: 03/15/2020 CHIEF COMPLAINT: Abdominal pain. HISTORY OF PRESENT ILLNESS: Mr. Doan is a 34-year-old man, who was admitted on 03/12/2020 with epigastric pain and nausea and vomiting that worsened over the three days prior to admission. Reports that he has actually lost 30 pounds over the last month. He has had some diarrhea previously for which he was started on Creon and feels like this has helped. He has a formed bowel movement every couple of days lately. He has had no blood in the stool. He has been treated for chronic recurrent pancreatitis, which has been idiopathic and thought to be possibly drug-induced and his HIV medications were discontinued for that reason. Back in July, he was found to have a significant ulcer at the incisor of the stomach and he also presented with similar symptoms. His biopsies were positive for Helicobacter pylori and he was treated with antibiotics for that. He had a followup endoscopy back in October, which showed the stomach to have healed. He is now back again with recurrent nausea and vomiting and epigastric pain, which he believes is similar to previous pancreatitis, flares. His nausea is now doing better. His pain is currently under control. He took some pills with clear liquids this morning, but otherwise has been n.p.o. PAST MEDICAL HISTORY: 1. Recurrent chronic pancreatitis and diarrhea improved with pancreatic supplementation. 2. Peptic ulcer disease. 3. HIV. 4. Anal condyloma. He had colonoscopy back in October of 2019 that showed anal condyloma. Random biopsies were negative for microscopic colitis. 5. Hypertension. 6. Herpes zoster. PAST SURGICAL HISTORY: Upper and lower endoscopy. FAMILY HISTORY: His father had pancreatitis. SOCIAL HISTORY: Smokes a pack a day. Rare alcohol use. His drug screen was positive for marijuana and methamphetamines and opiates. He states he smokes marijuana a couple times per week. ALLERGIES: NO KNOWN DRUG ALLERGIES. MEDICATIONS: At home now include, 1. Clonidine. 2. Tramadol. 3. Melatonin. 4. Genvoya. 5. Dovato. 6. Diltiazem. 7. Chlorthalidone. 8. Amlodipine. REVIEW OF SYSTEMS: Negative x10 systems reviewed except as stated in the history of present illness. PHYSICAL EXAMINATION: VITAL SIGNS: Temperature 98.0, pulse 58, blood pressure 155/95. GENERAL: He is in no acute distress. Alert and oriented x3. HEENT: Eyes have no scleral icterus. Oropharynx is clear without lesions. No cervical or supraclavicular lymphadenopathy. LUNGS: Clear to auscultation bilaterally. HEART: Regular rate and rhythm without murmur. ABDOMEN: Soft, tender diffusely across upper abdomen with slight voluntary guarding. Bowel sounds are present. EXTREMITIES: No lower extremity edema. Cranial nerves are grossly intact. LABORATORY DATA: Hemoglobin is 14.1, white blood cell count 4.1, platelets 13.3, creatinine 1.06, bilirubin 0.2, AST 26, ALT 19, alkaline phosphatase 95, albumin 3.7, lipase 185. IMAGING: He last had abdominal and pelvis CT in January, which was negative except for some mural thickening in the colon. Again, he has had a recent colonoscopy. IMPRESSION: Recurrent upper abdominal pain with nausea and vomiting. He has had chronic elevation of his lipase, but this has only been mildly elevated in the two times upper limit of normal range. No CT findings of acute pancreatitis. He has had some diarrhea which might have improved with Creon. It is unclear that he actually has recurrent or chronic pancreatitis at this point. I do not see any clear objective evidence of that. He did have an obvious significant ulcer in his incisor of his stomach back in July and he was positive for Helicobacter pylori at that time. He was treated with antibiotics with H pylori. He had a followup EGD in October, which showed healing of the ulcer. Colonoscopy in October of 2019, was also negative except for condyloma. The patient does use marijuana a couple times a week at least and cannabis hyperemesis syndrome certainly could be another consideration. RECOMMENDATIONS: 1. Restart proton pump inhibitor. 2. We will plan EGD today to see if he has recurrent ulcer. Biopsies can be obtained from the stomach to evaluate for recurrent H pylori. He has been off proton pump inhibitor over the last couple months per his report. 3. Complete cessation of marijuana is advised. 4. If his diarrhea truly improves with Creon, then he should continue that as well. 5. If the upper endoscopy is negative for a recurrent ulcer, then primary treatment at this point is symptom control and fluids and once he is tolerating an oral diet, he can discharge home. He can follow up in the office for further outpatient evaluation. Endoscopic ultrasound could potentially be considered in the future. Job ID: [id number]
--- NOTE | 2020-03-15 12:49 | OP ---
DATE OF PROCEDURE: 03/15/2020 PROCEDURE PERFORMED: Esophagogastroduodenoscopy with biopsy. PREOPERATIVE DIAGNOSES: Epigastric pain and history of gastric ulcer. DESCRIPTION OF PROCEDURE: Informed consent was obtained from the patient. He was sedated with total intravenous anesthesia. The bite block was placed and the endoscope was advanced easily to the second portion of the duodenum and retroflexion was performed in the stomach. The esophagus had fungal esophagitis with patchy white plaques in the proximal esophagus. The distal esophagus and GE junction were unremarkable. The stomach had erythematous gastritis in the body and antrum. The site of the previous ulcer at the incisura was identified and had a slightly raised mucosa, which again was erythematous, but did not have any irregular pattern. Biopsies were obtained from this site. Additional biopsies were obtained from the antrum to rule out persistent H pylori. Of note, the patient has not been on a proton pump inhibitor lately. Retroflexed views in the stomach were otherwise unremarkable. The pylorus and first and second portions of the duodenum were normal. Please note that the biopsies from the antrum and the focal area in the incisura were accidentally placed too in the same bottle together. IMPRESSION: 1. Erythematous gastritis in the antrum and body, biopsied to verify eradication of Helicobacter pylori with previous treatment. 2. Slightly raised area of mucosa at the previous site of the healed ulcer on the incisura, which was biopsied. 3. Fungal esophagitis. RECOMMENDATIONS: 1. Await histopathology. 2. Proton pump inhibitor daily. 3. Advance diet as tolerated. 4. Fluconazole 400 mg p.o. today and then 200 mg daily for 13 more days. Job ID: [id number]
[2020-03-15] MEDS: Metoclopramide 10 MG/10 ML UDCUP PO SCH ×3 (12:55→21:08)
[2020-03-15] MEDS ORDERED: Fluconazole 100 MG TAB PO SCH (13:00)
[2020-03-15] MEDS: Nicotine 21 MG PATCH TD SCH (14:23)
--- NOTE | 2020-03-15 14:44 | PDOC.HOSPP ---
- Subjective Encounter Date: 03/15/20 Subjective: The patient was taken for EGD today. - Objective Vital Signs & Weight: Vital Signs (12 hours) Temp Pulse Resp BP Pulse Ox 03/15/20 07:30 98 F 58 L 16 155/95 H 98 03/15/20 02:50 98.1 F 50 L 18 150/92 H 99 Weight Admit Weight 102 lb Weight 188 lb 1 oz I&O: 03/14/20 03/15/20 03/16/20 06:59 06:59 06:59 Intake Total 3000 2170 Output Total 1975 500 Balance 1025 1670 Result Diagrams: 03/15/20 04:36 03/15/20 04:35 Hospitalist ROS - Medication Medications: Active Medications Generic Name Dose Route Start Last Admin Trade Name Freq PRN Reason Stop Dose Admin Acetaminophen 650 mg 03/12/20 12:49 03/14/20 20:09 Acetaminophen 325 Mg Tab PO 650 mg Q4H PRN Administration Headache/Fever/Mild Pain (1-3) Amlodipine Besylate 5 mg 03/13/20 09:00 03/15/20 08:58 Amlodipine 5 Mg Tab PO 5 mg DAILY ELISHA Administration Clonidine 0.1 mg 03/13/20 09:00 03/15/20 08:58 Clonidine 0.1 Mg Tab PO 0.1 mg BID ELISHA Administration Fluconazole 400 mg 03/15/20 13:00 03/15/20 12:57 Fluconazole 100 Mg Tab PO 03/15/20 15:00 400 mg NOW ELISHA Administration Heparin Sodium (Porcine) 5,000 units 03/12/20 15:00 03/15/20 14:20 Heparin 5,000 Units/Ml Vial SC 5,000 units TID ELISHA Administration Lactated Ringer's 1,000 mls @ 125 mls/hr 03/12/20 13:00 03/15/20 13:08 Lactated Ringer's IV 1,000 mls .Q8H ELISHA Administration Melatonin 9 mg 03/13/20 13:10 03/13/20 22:21 Melatonin 3 Mg Tab PO 9 mg HS PRN Administration Insomnia Metoclopramide HCl 10 mg 03/15/20 11:30 03/15/20 12:55 Metoclopramide 10 Mg/10 Ml Udcup PO Not Given ACHS ELISHA Morphine Sulfate 2 mg 03/15/20 09:45 03/15/20 13:06 Morphine 4 Mg/Ml Vial SLOW IVP 2 mg Q4H PRN Administration Pain Nicotine 21 mg 03/13/20 14:00 03/15/20 14:23 Nicotine 21 Mg Patch TD 21 mg 1400 ELISHA Administration Pantoprazole Sodium 40 mg 03/15/20 09:00 03/15/20 08:58 Pantoprazole 40 Mg Tab PO 40 mg DAILY ELISHA Administration Tramadol HCl 50 mg 03/15/20 09:45 03/15/20 13:00 Tramadol Hcl 50 Mg Tab PO 50 mg Q6H PRN Administration Pain Hosp A/P (1) Chronic pancreatitis Code(s): K86.1 - OTHER CHRONIC PANCREATITIS Status: Acute (2) Hx of peptic ulcer Code(s): Z87.11 - PERSONAL HISTORY OF PEPTIC ULCER DISEASE Status: Acute (3) Nausea & vomiting Code(s): R11.2 - NAUSEA WITH VOMITING, UNSPECIFIED Status: Acute (4) ZENIA (acute kidney injury) Code(s): N17.9 - ACUTE KIDNEY FAILURE, UNSPECIFIED Status: Acute (5) HIV (human immunodeficiency virus infection) Code(s): B20 - HUMAN IMMUNODEFICIENCY VIRUS [HIV] DISEASE Status: Chronic (6) Fungal esophagitis Code(s): K20.80 - OTHER ESOPHAGITIS WITHOUT BLEEDING; B49 - UNSPECIFIED MYCOSIS Status: Acute (7) Gastritis Code(s): K29.70 - GASTRITIS, UNSPECIFIED, WITHOUT BLEEDING Status: Acute - Plan The patient is a 34-year-old male with history of chronic pancreatitis and peptic ulcer disease who is admitted to the hospital for dehydration and acute kidney injury rate persistent nausea and vomiting. Status post EGD showing gastritis and fungal esophagitis. Continue PPI and start fluconazole. Follow biopsy results.
[2020-03-15] MEDS: Melatonin 3 MG TAB PO PRN (21:09)
[2020-03-16] MEDS: Lactated Ringer's 1,000 ML IV SCH ×2 (02:35→12:44)
[2020-03-16] MEDS: Morphine 4 MG/ML VIAL SLOW IVP PRN ×2 (02:35→08:14)
[2020-03-16 05:28] LABS: #Eosinphils 0.1 thou/uL (0.0-0.7); #Lymphocytes 2.1 thou/uL (1.20-3.40); #Monocytes 0.6 thou/uL (0.11-0.59); #Neutrophils 1.6 thou/uL (1.40-6.50); %Basophils 0.5 % (0.0-1.0); %Eosinophils 2.6 % (0.0-10.0); %Lymphocytes 47.4 % (21.0-51.0); %Monocytes 13.7 % (0.0-10.0); %Neutrophils 35.9 % (42.0-75.0); Hemoglobin 14.2 g/dL (14.0-18.0); Mean Platelet Volume 7.1 fL (7.4-10.4); Platelet Count 209 thou/uL (130-400); RBC Distribution Width 13.2 % (11.5-14.5); Red Blood Cell (RBC) Count 4.31 mill/uL (4.70-6.10); White Blood Cell (WBC) Count 4.3 thou/uL (4.8-10.8)
[2020-03-16 05:43] LABS: Anion Gap 11 mmol/L (10-20); BUN (Urea Nitrogen) 6 mg/dL (8.9-20.6); Calc. Creatinine Clearance 117 mL/min (70-130); Calcium 8.6 mg/dL (7.8-10.44); Carbon Dioxide 28 mmol/L (22-29); Chloride 102 mmol/L (98-107); Glucose 76 mg/dL (70-105); Potassium 3.6 mmol/L (3.5-5.1); Sodium 137 mmol/L (136-145)
[2020-03-16] MEDS: cloNIDine 0.1 MG TAB PO SCH (08:07)
[2020-03-16] MEDS: Metoclopramide 10 MG/10 ML UDCUP PO SCH ×2 (08:07→12:44)
[2020-03-16] MEDS: Amlodipine 5 MG TAB PO SCH (08:07)
[2020-03-16] MEDS: Heparin 5,000 UNITS/ML VIAL SC SCH (08:08)
[2020-03-16] MEDS ORDERED: Fluconazole 100 MG TAB PO SCH (09:00)
--- NOTE | 2020-03-16 10:04 | PRG ---
DATE OF SERVICE: 03/16/2020 SUBJECTIVE: Mr. Doan says he feels a little bit better. He still has epigastric pain and some nausea, but no vomiting. He tolerated some of his breakfast today. OBJECTIVE: VITAL SIGNS: Temperature 98.5, pulse 55, blood pressure 163/102, and oxygen saturation 97% on room air. GENERAL: No acute distress. HEART: Regular rate and rhythm. LUNGS: Clear to auscultation bilaterally. ABDOMEN: Bowel sounds present. Tender to palpation of the epigastrium, but no guarding or rebound tenderness. EXTREMITIES: No peripheral edema. LABORATORY STUDIES: Sodium 137, potassium 3.6, BUN 6, and creatinine 1.09. WBC 4.3, hemoglobin 14.2, and platelets 209. Biopsies from the gastric antrum and body are still pending. ASSESSMENT AND PLAN: 1. Gastritis, persistent. The patient had evidently not been on a PPI. He does have persistent gastritis, but his ulcer has healed. Awaiting biopsy results. These can be followed up on an outpatient basis. Continue with daily proton pump inhibitor. 2. Lakisha esophagitis. This was demonstrated on his EGD yesterday. Recommend 2-week course of fluconazole as outlined by Dr. Olvera. GI will sign off at this time. Please call back anytime with questions or concerns. Job ID: [id number]
[2020-03-16 12:24] VITALS: BP 144/97; TEMP 98.9
[2020-03-16] MEDS ORDERED: Acetaminophen/Codeine 30-300mg Tablet PO SCH (12:45)
--- NOTE | 2020-03-16 13:55 | PDOC.DS.DS ---
Provider - Provider Date of Admission: 03/14/20 13:00 Date of Discharge: 03/16/20 Admitting Provider: Yunier Neal DO Primary Care Physician: [facility] Clinic Course - Hospital Course Hospital Course: The patient is a 34-year-old male with past medical history of HIV on antiretroviral therapy, chronic pancreatitis, and hypertension who was admitted to the hospital for worsening abdominal pain in addition to nausea and vomiting. The patient was not able to tolerate diet. GI service were consulted and the patient underwent an EGD which showed fungal esophagitis in addition to gastritis. Biopsies were taken and the patient was prescribed fluconazole and PPI. Outpatient follow-up was recommended in 1 week. Resuscitation Status: 03/12/20 12:49 Resuscitation Status Routine Co-Sign Provider: Resuscitation Status: FULL: Full Resuscitation - Labs Lab Results: 03/16/20 04:55 03/16/20 04:55 Abnormal Lab Results - Last 48 hrs 03/12/20 13:13: % [place]/Inducer 30.3 L 03/15/20 04:35: Sodium 135 L, BUN 7 L 03/15/20 04:36: WBC 4.1 L, RBC 4.19 L, MCV 100.0 H, MCH 33.6 H, MPV 7.2 L, Neutrophils % (Manual) 21 L, Band Neuts % (Manual) 1 L, Lymphocytes % (Manual) 58 H, Reactive Lymphs % 12 H 03/16/20 04:55: BUN 6 L 03/16/20 04:55: WBC 4.3 L, RBC 4.31 L, MCV 100.0 H, MCH 33.0 H, MPV 7.1 L, Neutrophils % 35.9 L, Monocytes % 13.7 H, Monocytes # 0.6 H - Physical Exam Vitals: Vital Signs (12 hours) Temp Pulse Resp BP BP Pulse Ox 03/16/20 11:57 98.9 F 75 20 144/97 H 98 03/16/20 08:07 55 L 163/102 H 03/16/20 07:55 98.5 F 60 20 163/102 H 97 03/16/20 04:00 98 03/16/20 03:30 98.2 F 55 L 16 149/94 H 98 Weight Admit Weight 102 lb Weight 188 lb 1 oz Physical Exam: The patient was seen and examined on the day of discharge. Problem - Problem (1) Chronic pancreatitis Code(s): K86.1 - OTHER CHRONIC PANCREATITIS Status: Acute (2) Hx of peptic ulcer Code(s): Z87.11 - PERSONAL HISTORY OF PEPTIC ULCER DISEASE Status: Acute (3) Nausea & vomiting Code(s): R11.2 - NAUSEA WITH VOMITING, UNSPECIFIED Status: Acute (4) ZENIA (acute kidney injury) Code(s): N17.9 - ACUTE KIDNEY FAILURE, UNSPECIFIED Status: Acute (5) HIV (human immunodeficiency virus infection) Code(s): B20 - HUMAN IMMUNODEFICIENCY VIRUS [HIV] DISEASE Status: Chronic (6) Fungal esophagitis Code(s): K20.80 - OTHER ESOPHAGITIS WITHOUT BLEEDING; B49 - UNSPECIFIED MYCOSIS Status: Acute (7) Gastritis Code(s): K29.70 - GASTRITIS, UNSPECIFIED, WITHOUT BLEEDING Status: Acute Plan - Discharge Medications Prescriptions: Acetaminophen With Codeine [Tylenol with Codeine #3] 1 tablet PO Q6HR PRN #30 tablet PRN Reason: Pain Fluconazole 200 mg PO DAILY #24 tablet Pantoprazole [Protonix] 40 mg PO BID #60 tab Home Medications: Medication Instructions Recorded Confirmed Type Elviteg/Cob/Emtri/Tenof Alafen 1 tab PO DAILY 04/16/18 03/12/20 History [Genvoya Tablet] Chlorthalidone [Hygroton] 25 mg PO DAILY 30 Days #30 tab 08/05/19 03/13/20 Rx Diltiazem HCl [Cardizem CD] 180 mg PO BID 30 Days #60 cap 08/05/19 03/13/20 Rx cloNIDine [Catapres] 0.1 mg PO BID 30 Days #60 tab 08/05/19 03/12/20 Rx Melatonin 15 mg PO HS 11/18/19 11/29/19 History Amlodipine Besylate [amLODIPine 5 mg PO DAILY 03/12/20 03/13/20 History Besylate] Ondansetron [Zofran ODT] 4 mg PO PRN PRN 03/12/20 03/12/20 History Promethazine HCl 12.5 mg PO PRN PRN 03/12/20 03/12/20 History Dolutegravir Sodium/Lamivudine 1 tab PO DAILY 03/13/20 03/13/20 History [Dovato 50-300 mg Tablet] Acetaminophen With Codeine 1 tablet PO Q6HR PRN #30 tablet 03/16/20 Rx [Tylenol with Codeine #3] Fluconazole 200 mg PO DAILY #24 tablet 03/16/20 Rx Pantoprazole [Protonix] 40 mg PO BID #60 tab 03/16/20 Rx Allergies: No Known Drug Allergies Allergy (Verified 11/29/19 21:34) - Follow up Plan Referrals: [facility] [Primary Care Provider] - Disposition: HOME Quality - Care Measures CORE MEASURES:: N/A
--- NOTE | 2020-03-20 20:34 | PQF ---
CLINICAL DOCUMENTATION CLARIFICATION FORM: Dear : Chris Smith Date / Time: 03/21/2020 Please exercise your independent, professional judgment in responding to the clarification form. Clinical indicators are provided on the bottom of this form for your review Please check appropriate box(es): [ >] Nausea/vomiting and abdominal pain due to fungal esophagitis [ ] Nausea/vomiting and abdominal pain due to chronic pancreatitis [ ] Nausea/vomiting and abdominal pain due to gastritis [ ] Other diagnosis [ ] Unable to determine In addition, please specify: Present on Admission (POA): [ > ] Yes [ ] No [ ] Unable to determine To be completed by CDI/Coding staff for physician review: Present Clinical Indicators - Signs / Symptoms / Labs Results and Location in Medical Record [ x ] Patient presents to the ED with nausea, vomiting and po intolerance and reports that 3 days prior to admission, he developed intense abdominal pain and nausea H and P [ x ] Patient has had multiple admissions for presumed pancreatitis and has chronically elevated lipase level and this was thought to be secondary to HIV medication Genvoya H and P [ x ] It is unclear that he actually has recurrent or chronic pancreatitis at this point. I do not see any clear objective evidence of that Consult 03/15 by Yunier Kevin [ x ] Erythematous gastritis in the antrum and body. Final esophagitis EGD report 03/15 by Yunier Kevin [ x ] Gastritis, persistent. The patient had evidently not been on PPI. He does have persistent gasritis. Continue with daily PPI Progress note 03/16 by Fareed Murrell [ x ] Candidal esophagitis. This was demonstrated on his EGD yesterday. Recommend 2-week course of fluconazole as outlined by Dr. Olvera Progress note 03/16 by Fareed Murrell Present Risk Factors Results and Location in Medical Record [ x ] History of chronic pancreatitis and peptic ulcer disease, being on HIV medication, marijuana use Progress note 03/14 by Chris Martinez Present Treatments Results and Location in Medical Record [ x ] Continue fluconazole and daily PPI Progress note 03/15 by Chris Martinez [ x ] EGD with biopsy Reports [ x ] Ondansetron 4 mg 03/12-03/15 Medications [ ] CDS/[employer] Vendor Signature: [email or web address] Phone #: Date/Time: 03/21/2020 This is a permanent part of the Medical Record [facility]
== END 2020-03-16 14:30 | disposition home or self-care (01) | DRG 975 ==
LOC: ERS 09:04 → SURG A 12:06 → OBSVTOIN 03-14 13:00
PROVIDERS: ADMIT Family Medicine; ATTEND Internal Medicine
PROC: 0DB68ZX Excision of Stomach, Via Natural or Artificial Opening Endoscopic, Diagnostic (ICD-10-PCS; principal; 2020-03-15)
DX: B37.81 Candidal esophagitis (principal); K86.1 Other chronic pancreatitis; B20 Human immunodeficiency virus [HIV] disease; N17.9 Acute kidney failure, unspecified; K29.60 Other gastritis without bleeding; Z20.828 Contact with and (suspected) exposure to other viral communicable diseases; I10 Essential (primary) hypertension; E86.0 Dehydration; F12.90 Cannabis use, unspecified, uncomplicated; F17.210 Nicotine dependence, cigarettes, uncomplicated; Z87.11 Personal history of peptic ulcer disease; Z71.51 Drug abuse counseling and surveillance of drug abuser
CPT/HCPCS: 36415; 80048; 80053; 80306; 80307; 81003; 83605; 83690; 85025; 85048; 86361; 87635; 88305; 88312; 94760; 96361; 96372; 96374; 96375; 96376; C9113; G0378; J1644; J2270; J2405; J2704; J2765; Q0162; U0003

== ENCOUNTER 2020-03-20 17:31 | Emergency (ER) | payer BC ==
--- NOTE | 2020-03-20 19:22 | ULT ---
EXAM: Right lower extremity venous ultrasound HISTORY: Right lower extremity pain and edema COMPARISON: None TECHNIQUE: Multiplanar grayscale and color Doppler images were obtained in a right lower extremity ve nous ultrasound. Spectral analysis of the Doppler waveforms were performed. FINDINGS: The common femoral vein, profunda femoral vein, superficial femoral vein, and popliteal vei n are normal in appearance without visible thrombus. These vessels demonstrate normal compression, flow, and augmentation. The posterior tibial vein and greater saphenous vein are patent without evidence of thrombus. IMPRESSION: No evidence of DVT.
== END 2020-03-20 20:26 | disposition left against medical advice (07) ==
LOC: ERS 17:31
DX: Z53.21 Procedure and treatment not carried out due to patient leaving prior to being seen by health care provider (principal)

== ENCOUNTER 2020-03-21 09:19 | Emergency (ER) | payer BC | END 2020-03-21 10:38 | disposition home or self-care (01) | LOC: ERS 09:19 | DX: M25.561 Pain in right knee (principal); M79.604 Pain in right leg; Z79.899 Other long term (current) drug therapy; I10 Essential (primary) hypertension; B20 Human immunodeficiency virus [HIV] disease; F17.210 Nicotine dependence, cigarettes, uncomplicated | CPT/HCPCS: 99283 ==

== ENCOUNTER 2020-04-30 19:44 | Emergency (ER) | payer BC ==
[~2020-04-30 19:44] MED LIST changes: -Iopamidol 370 76% 50 ML VIAL FS ONE
[2020-04-30 20:39] LABS: #Basophils 0.1 thou/uL (0.0-0.2); #Eosinphils 0.3 thou/uL (0.0-0.7); #Lymphocytes 2.6 thou/uL (1.20-3.40); #Monocytes 0.6 thou/uL (0.11-0.59); #Neutrophils 3.5 thou/uL (1.40-6.50); %Basophils 1.1 % (0.0-1.0); %Eosinophils 3.8 % (0.0-10.0); %Lymphocytes 36.8 % (21.0-51.0); %Monocytes 8.1 % (0.0-10.0); %Neutrophils 50.2 % (42.0-75.0); Hemoglobin 15.5 g/dL (14.0-18.0); Mean Corpuscular HGB CONC 33.6 g/dL (32.0-36.0); Mean Corpuscular Hemoglobin 33.5 pg (27.0-31.0); Mean Corpuscular Volume 99.7 fL (78.0-98.0); Mean Platelet Volume 6.7 fL (7.4-10.4); Platelet Count 250 thou/uL (130-400); RBC Distribution Width 13.8 % (11.5-14.5); Red Blood Cell (RBC) Count 4.64 mill/uL (4.70-6.10)
[2020-04-30 21:00] LABS: ALT (SGPT) 13 U/L (8-55); AST (SGOT) 16 U/L (5-34); Albumin 3.3 g/dL (3.5-5.0); Alkaline Phosphatase 91 U/L (40-110); Anion Gap 10 mmol/L (10-20); BUN (Urea Nitrogen) 10 mg/dL (8.9-20.6); Bilirubin, Total 0.3 mg/dL (0.2-1.2); Calc. Creatinine Clearance 0 mL/min (70-130); Calcium 8.4 mg/dL (7.8-10.44); Carbon Dioxide 22 mmol/L (22-29); Chloride 108 mmol/L (98-107); Glucose 95 mg/dL (70-105); Lipase 211 U/L (8-78); Potassium 4.1 mmol/L (3.5-5.1); Protein, Total 7.3 g/dL (6.0-8.3); Sodium 136 mmol/L (136-145)
--- NOTE | 2020-04-30 21:32 | CT ---
CT Abdomen Pelvis W Con: 04/30/2020 9:00 PM CLINICAL INFORMATION: Right-sided abdominal pain COMPARISON: 02/17/2020 TECHNIQUE: Multiple contiguous axial images were obtained and a CT of the abdomen and pelvis with IV contrast. C oronal and sagittal reformats were performed. FINDINGS: Lower Chest: Calcified granulomas in the right lung base. Abdomen: Liver: within normal limits. Bile Ducts: Normal caliber. Gallbladder: No calcified gallstones. Normal caliber wall. Pancreas: within normal limits. Spleen: within normal limits. Adrenals: within normal limits. Kidneys: within normal limits. Pelvis: Reproductive Organs: No pelvic masses. Ureters: within normal limits. Bladder: within normal limits. Peritoneum: No ascites or free air, no fluid collection. Bowel: Normal caliber. Normal appendix. Mesentery and Retroperitoneum: No enlarged mesenteric or retroperitoneal lymph nodes. Vessels: Normal. Abdominal Wall: within normal limits. Bones: Within normal limits IMPRESSION: No evidence of acute intraabdominal or pelvic abnormality.
[2020-04-30] MEDS ORDERED: Morphine 4 MG/ML VIAL ONE (21:38)
[2020-04-30] MEDS ORDERED: Ondansetron PF 4 MG/2 ML Vial ONE (21:38)
== END 2020-04-30 23:21 | disposition home or self-care (01) ==
LOC: ERS 19:44
DX: R10.11 Right upper quadrant pain (principal); R10.31 Right lower quadrant pain; B20 Human immunodeficiency virus [HIV] disease; I10 Essential (primary) hypertension; F17.210 Nicotine dependence, cigarettes, uncomplicated; Z79.899 Other long term (current) drug therapy
CPT/HCPCS: 36415; 74177; 80053; 83690; 84484; 85025; 93005; 96374; J2270; J2405; Q9967

== ENCOUNTER 2020-06-04 16:01 | Emergency (ER) | payer BC ==
[2020-06-04] MEDS ORDERED: Gabapentin 300 MG CAP PO SCH (17:15)
[2020-06-04 18:41] LABS: #Eosinphils 0.1 thou/uL (0.0-0.7); #Lymphocytes 2.8 thou/uL (1.20-3.40); #Monocytes 0.5 thou/uL (0.11-0.59); #Neutrophils 2.7 thou/uL (1.40-6.50); %Basophils 0.7 % (0.0-1.0); %Lymphocytes 45.3 % (21.0-51.0); %Monocytes 8.3 % (0.0-10.0); %Neutrophils 43.6 % (42.0-75.0); Hemoglobin 15.2 g/dL (14.0-18.0); Mean Corpuscular HGB CONC 33.7 g/dL (32.0-36.0); Mean Platelet Volume 7.2 fL (7.4-10.4); Platelet Count 178 thou/uL (130-400); RBC Distribution Width 14.1 % (11.5-14.5); Red Blood Cell (RBC) Count 4.45 mill/uL (4.70-6.10); White Blood Cell (WBC) Count 6.1 thou/uL (4.8-10.8)
[2020-06-04 18:52] LABS: Albumin 3.5 g/dL (3.5-5.0)
[2020-06-04 18:53] LABS: Calcium 8.6 mg/dL (7.8-10.44); Chloride 104 mmol/L (98-107); Potassium 3.9 mmol/L (3.5-5.1); Sodium 134 mmol/L (136-145)
[2020-06-04 18:54] LABS: Globulin 4.4 g/dL (2.4-3.5); Glucose 76 mg/dL (70-105); Protein, Total 7.9 g/dL (6.0-8.3)
[2020-06-04 18:55] LABS: Anion Gap 11 mmol/L (10-20); Carbon Dioxide 23 mmol/L (22-29)
[2020-06-04 18:56] LABS: Bilirubin, Total 0.3 mg/dL (0.2-1.2)
[2020-06-04 18:57] LABS: Alkaline Phosphatase 98 U/L (40-110); Calc. Creatinine Clearance 0 mL/min (70-130)
[2020-06-04 18:58] LABS: BUN (Urea Nitrogen) 8 mg/dL (8.9-20.6)
[2020-06-04 18:59] LABS: AST (SGOT) 24 U/L (5-34)
[2020-06-04 19:00] LABS: ALT (SGPT) 21 U/L (8-55); Lipase 128 U/L (8-78)
== END 2020-06-04 20:06 | disposition home or self-care (01) ==
LOC: ERS 16:01
DX: R10.84 Generalized abdominal pain (principal); G62.9 Polyneuropathy, unspecified; Z21 Asymptomatic human immunodeficiency virus [HIV] infection status; I10 Essential (primary) hypertension; F17.210 Nicotine dependence, cigarettes, uncomplicated; B19.20 Unspecified viral hepatitis C without hepatic coma; Z79.899 Other long term (current) drug therapy
CPT/HCPCS: 36415; 80053; 83690; 85025; 94760

== ENCOUNTER 2020-09-20 11:08 | Emergency (ER) | payer SELFPAY ==
[2020-09-20 11:31] LABS: #Basophils 0.1 thou/uL (0.0-0.2); #Eosinphils 0.1 thou/uL (0.0-0.7); #Lymphocytes 2.7 thou/uL (1.20-3.40); #Monocytes 0.6 thou/uL (0.11-0.59); #Neutrophils 2.4 thou/uL (1.40-6.50); %Basophils 1.5 % (0.0-1.0); %Eosinophils 1.9 % (0.0-10.0); %Lymphocytes 45.8 % (21.0-51.0); %Monocytes 10.7 % (0.0-10.0); %Neutrophils 40.1 % (42.0-75.0); Hemoglobin 15.4 g/dL (14.0-18.0); Mean Corpuscular HGB CONC 32.7 g/dL (32.0-36.0); Mean Corpuscular Hemoglobin 33.3 pg (27.0-31.0); Mean Platelet Volume 7.1 fL (7.4-10.4); Platelet Count 242 thou/uL (130-400); RBC Distribution Width 12.8 % (11.5-14.5); Red Blood Cell (RBC) Count 4.62 mill/uL (4.70-6.10); White Blood Cell (WBC) Count 5.9 thou/uL (4.8-10.8)
[2020-09-20 11:48] LABS: Anion Gap 12 mmol/L (10-20); BUN (Urea Nitrogen) 8 mg/dL (8.9-20.6); Calc. Creatinine Clearance 0 mL/min (70-130); Carbon Dioxide 22 mmol/L (22-29); Chloride 105 mmol/L (98-107); Potassium 4.3 mmol/L (3.5-5.1); Sodium 135 mmol/L (136-145)
[2020-09-20 11:49] LABS: ALT (SGPT) 32 U/L (8-55); AST (SGOT) 40 U/L (5-34); Albumin 3.7 g/dL (3.5-5.0); Alkaline Phosphatase 92 U/L (40-110); Bilirubin, Total 0.4 mg/dL (0.2-1.2); Calcium 9.1 mg/dL (7.8-10.44); Glucose 82 mg/dL (70-105); Lipase 152 U/L (8-78); Protein, Total 8.7 g/dL (6.0-8.3)
[2020-09-20] MEDS ORDERED: Ondansetron PF 4 MG/2 ML Vial ONE (11:51)
== END 2020-09-20 14:44 | disposition home or self-care (01) ==
LOC: ERS 11:08
DX: R10.11 Right upper quadrant pain (principal); R11.2 Nausea with vomiting, unspecified; I10 Essential (primary) hypertension; B20 Human immunodeficiency virus [HIV] disease; F17.210 Nicotine dependence, cigarettes, uncomplicated; Z79.899 Other long term (current) drug therapy
CPT/HCPCS: 74177; 80053; 83690; 85025; 96374; J2405

== ENCOUNTER 2020-12-23 06:20 | Emergency (ER) | payer OTHER ==
[2020-12-23] MEDS ORDERED: Metoclopramide HCl 10 MG/2 ML VIAL ONE (07:29)
[2020-12-23] MEDS ORDERED: Ondansetron PF 4 MG/2 ML Vial ONE (07:29)
[2020-12-23] MEDS ORDERED: Ketorolac Tromethamine 30 MG/ML VIAL ONE (07:29)
[2020-12-23 08:15] LABS: #Basophils 0.1 thou/uL (0.0-0.2); #Eosinphils 0.1 thou/uL (0.0-0.7); #Lymphocytes 1.9 thou/uL (1.20-3.40); #Monocytes 0.5 thou/uL (0.11-0.59); %Basophils 1.8 % (0.0-1.0); %Eosinophils 2.8 % (0.0-10.0); %Lymphocytes 41.9 % (21.0-51.0); %Monocytes 9.8 % (0.0-10.0); %Neutrophils 43.8 % (42.0-75.0); Hemoglobin 15.4 g/dL (14.0-18.0); Mean Corpuscular HGB CONC 32.6 g/dL (32.0-36.0); Mean Corpuscular Hemoglobin 33.1 pg (27.0-31.0); Mean Platelet Volume 6.9 fL (7.4-10.4); Platelet Count 233 thou/uL (130-400); RBC Distribution Width 13.3 % (11.5-14.5); Red Blood Cell (RBC) Count 4.66 mill/uL (4.70-6.10); White Blood Cell (WBC) Count 4.6 thou/uL (4.8-10.8)
[2020-12-23 08:29] LABS: ALT (SGPT) 23 U/L (8-55); AST (SGOT) 25 U/L (5-34); Albumin 3.4 g/dL (3.5-5.0); Alkaline Phosphatase 80 U/L (40-110); Anion Gap 9 mmol/L (10-20); BUN (Urea Nitrogen) 11 mg/dL (8.9-20.6); Bilirubin, Total 0.3 mg/dL (0.2-1.2); Calc. Creatinine Clearance 0 mL/min (70-130); Calcium 8.7 mg/dL (7.8-10.44); Carbon Dioxide 27 mmol/L (22-29); Chloride 105 mmol/L (98-107); Globulin 4.5 g/dL (2.4-3.5); Glucose 77 mg/dL (70-105); Potassium 3.7 mmol/L (3.5-5.1); Protein, Total 7.9 g/dL (6.0-8.3); Sodium 137 mmol/L (136-145)
[2020-12-23 17:44] LABS: SARS-CoV-2 PCR by NAA Not Detected (NotDetected)
== END 2020-12-23 08:26 | disposition left against medical advice (07) ==
LOC: ERS 06:20
DX: R51.9 Headache, unspecified (principal); M79.10 Myalgia, unspecified site; M54.2 Cervicalgia; R11.2 Nausea with vomiting, unspecified; Z20.822 Contact with and (suspected) exposure to COVID-19; Z21 Asymptomatic human immunodeficiency virus [HIV] infection status; I10 Essential (primary) hypertension; F17.210 Nicotine dependence, cigarettes, uncomplicated; Z87.19 Personal history of other diseases of the digestive system
CPT/HCPCS: 80053; 85025; 96374; 96375; J1885; J2405; J2765; U0003; U0005

== ENCOUNTER 2020-12-24 09:13 | Emergency (ER) | payer OTHER ==
[2020-12-24] MEDS ORDERED: methylPREDNISolone Sod Succ/PF 125 MG/2 ML VIAL ONE (09:35)
[2020-12-24] MEDS ORDERED: Ketorolac Tromethamine 30 MG/ML VIAL ONE (09:35)
[2020-12-24] MEDS ORDERED: diphenhydrAMINE 50 MG/ML VIAL ONE (09:35)
== END 2020-12-24 12:14 | disposition home or self-care (01) ==
LOC: ERS 09:13
DX: R51.9 Headache, unspecified (principal); B20 Human immunodeficiency virus [HIV] disease; I10 Essential (primary) hypertension; F17.210 Nicotine dependence, cigarettes, uncomplicated
CPT/HCPCS: 96374; 96375; J1200; J1885; J2930

== ENCOUNTER 2020-12-28 17:33 | Inpatient (IN) | payer OTHER ==
[2020-12-28 17:54] LABS: #Eosinphils 0.1 thou/uL (0.0-0.7); #Lymphocytes 2.5 thou/uL (1.20-3.40); #Monocytes 0.6 thou/uL (0.11-0.59); #Neutrophils 3.7 thou/uL (1.40-6.50); %Basophils 0.5 % (0.0-1.0); %Eosinophils 0.7 % (0.0-10.0); %Lymphocytes 36.2 % (21.0-51.0); %Monocytes 9.1 % (0.0-10.0); %Neutrophils 53.5 % (42.0-75.0); Mean Corpuscular HGB CONC 33.2 g/dL (32.0-36.0); Mean Corpuscular Hemoglobin 33.2 pg (27.0-31.0); Mean Platelet Volume 7.1 fL (7.4-10.4); Platelet Count 226 thou/uL (130-400); RBC Distribution Width 13.2 % (11.5-14.5); Red Blood Cell (RBC) Count 4.82 mill/uL (4.70-6.10); White Blood Cell (WBC) Count 6.9 thou/uL (4.8-10.8)
[2020-12-28 18:07] LABS: Prothrombin Time 13.1 sec (12.0-14.7)
[2020-12-28 18:08] LABS: PTT 40.7 sec (22.9-36.1)
[2020-12-28 18:26] LABS: ALT (SGPT) 26 U/L (8-55); AST (SGOT) 24 U/L (5-34); Albumin 3.8 g/dL (3.5-5.0); Alkaline Phosphatase 75 U/L (40-110); Anion Gap 10 mmol/L (10-20); BUN (Urea Nitrogen) 12 mg/dL (8.9-20.6); Bilirubin, Total 0.3 mg/dL (0.2-1.2); CK (CPK) 86 U/L (30-200); Calc. Creatinine Clearance 0 mL/min (70-130); Calcium 9.5 mg/dL (7.8-10.44); Carbon Dioxide 27 mmol/L (22-29); Chloride 103 mmol/L (98-107); Globulin 4.4 g/dL (2.4-3.5); Glucose 109 mg/dL (70-105); Potassium 3.6 mmol/L (3.5-5.1); Protein, Total 8.2 g/dL (6.0-8.3); Sodium 136 mmol/L (136-145)
[2020-12-28] MEDS ORDERED: Acetaminophen 325 MG TAB PO PRN ×2 (20:51→21:56)
[2020-12-28] MEDS ORDERED: Ondansetron PF 4 MG/2 ML Vial IVP PRN (21:56)
[2020-12-28] MEDS ORDERED: Ondansetron ODT 4 MG TAB PO PRN (21:56)
[2020-12-28 22:15] LABS: Syphilis Antibody INDETERMINATE (Nonreactive)
[2020-12-28 22:30] VITALS: BMI 19.6
[2020-12-28] MEDS ORDERED: hydrALAZINE 20 MG/ML VIAL SLOW IVP PRN (22:46)
[2020-12-28] MEDS ORDERED: Aspirin 325 mg Enteric Coated Tablet PO SCH (22:46)
[2020-12-28] MEDS ORDERED: Penicillin G Potassium 4 MILL.UNITS in Sodium Chloride 0.9% 50 ML IVPB SCH (23:30)
[2020-12-28] MEDS: Melatonin 3 MG TAB PO PRN (23:54)
[2020-12-28] MEDS: HYDROcodone/Acetaminophen 5/325 mg Tablet PO PRN (23:54)
[2020-12-29] MEDS: Penicillin G Potassium 4 MILL.UNITS in Sodium Chloride 0.9% 100 ML IVPB SCH ×6 (04:53→20:59)
[2020-12-29] MEDS: HYDROcodone/Acetaminophen 5/325 mg Tablet PO PRN ×4 (04:54→20:58)
[2020-12-29 06:56] LABS: #Basophils 0.1 thou/uL (0.0-0.2); #Eosinphils 0.1 thou/uL (0.0-0.7); #Lymphocytes 2.6 thou/uL (1.20-3.40); #Monocytes 0.7 thou/uL (0.11-0.59); #Neutrophils 2.1 thou/uL (1.40-6.50); %Basophils 1.5 % (0.0-1.0); %Eosinophils 1.8 % (0.0-10.0); %Monocytes 12.2 % (0.0-10.0); %Neutrophils 38.5 % (42.0-75.0); Hemoglobin 15.3 g/dL (14.0-18.0); Mean Corpuscular HGB CONC 32.7 g/dL (32.0-36.0); Mean Corpuscular Hemoglobin 32.6 pg (27.0-31.0); Mean Corpuscular Volume 99.5 fL (78.0-98.0); Mean Platelet Volume 7.2 fL (7.4-10.4); Platelet Count 218 thou/uL (130-400); RBC Distribution Width 13.3 % (11.5-14.5); Red Blood Cell (RBC) Count 4.69 mill/uL (4.70-6.10); White Blood Cell (WBC) Count 5.6 thou/uL (4.8-10.8)
[2020-12-29 07:13] LABS: Anion Gap 11 mmol/L (10-20); BUN (Urea Nitrogen) 11 mg/dL (8.9-20.6); Calc. Creatinine Clearance 80 mL/min (70-130); Calcium 9.2 mg/dL (7.8-10.44); Carbon Dioxide 26 mmol/L (22-29); Cardiac Risk 6.3 (Less than 4.5); Chloride 105 mmol/L (98-107); Cholesterol 158 mg/dl (< 200 Desired); Glucose 91 mg/dL (70-105); HDL Cholesterol 25 mg/dL (>60 Neg Risk); LDL Cholesterol, Calculated 110 mg/dL; Potassium 3.9 mmol/L (3.5-5.1); Sodium 138 mmol/L (136-145); Triglycerides 113 mg/dL (Less than 150)
[2020-12-29] MEDS ORDERED: Cyclobenzaprine 10 MG TAB PO SCH (10:45)
[2020-12-29 12:57] LABS: SARS-CoV-2 PCR by NAA Not Detected (NotDetected)
[2020-12-29] MEDS: Atorvastatin Calcium 40 MG TAB PO SCH (20:58)
[2020-12-29] MEDS: Cyclobenzaprine 10 MG TAB PO PRN (21:02)
[2020-12-30] MEDS: Penicillin G Potassium 4 MILL.UNITS in Sodium Chloride 0.9% 100 ML IVPB SCH ×7 (00:16→23:09)
[2020-12-30] MEDS: Melatonin 3 MG TAB PO PRN ×2 (00:16→20:21)
[2020-12-30] MEDS: Emtricitabine/Tenofovir 200-300 MG TAB PO SCH (08:38)
[2020-12-30] MEDS: HYDROcodone/Acetaminophen 5/325 mg Tablet PO PRN ×3 (08:41→20:21)
[2020-12-30] MEDS: Cyclobenzaprine 10 MG TAB PO PRN ×2 (10:25→18:28)
[2020-12-30] MEDS: Atorvastatin Calcium 40 MG TAB PO SCH (20:21)
[2020-12-31] MEDS: Penicillin G Potassium 4 MILL.UNITS in Sodium Chloride 0.9% 100 ML IVPB SCH ×3 (03:09→11:55)
[2020-12-31] MEDS: Cyclobenzaprine 10 MG TAB PO PRN (03:15)
[2020-12-31] MEDS: HYDROcodone/Acetaminophen 5/325 mg Tablet PO PRN (04:26)
[2020-12-31] MEDS: Emtricitabine/Tenofovir 200-300 MG TAB PO SCH (08:13)
[2020-12-31 08:47] VITALS: BP 126/84
[2020-12-31 11:35] VITALS: TEMP 98
[2021-01-02 10:39] LABS: Hep C PCR-Quant HCV Not Detected IU/mL (.)
== END 2020-12-31 12:58 | disposition home or self-care (01) | DRG 56 ==
LOC: ERS 17:33 → 3SE 19:20 → OBSVTOIN 12-30 10:01 → SURG A 12-30 15:36
PROVIDERS: ADMIT Internal Medicine; ATTEND Internal Medicine
DX: A52.3 Neurosyphilis, unspecified (principal); E43 Unspecified severe protein-calorie malnutrition; B20 Human immunodeficiency virus [HIV] disease; Z68.1 Body mass index [BMI] 19.9 or less, adult; I10 Essential (primary) hypertension; F17.210 Nicotine dependence, cigarettes, uncomplicated; Z20.822 Contact with and (suspected) exposure to COVID-19
CPT/HCPCS: 36415; 70450; 70496; 70498; 70551; 80048; 80053; 80061; 82550; 84484; 85025; 85610; 85730; 86593; 86780; 87040; 87522; 93005; 93306; 96365; 96366; G0378; J2540; J3490; U0003; U0005

== ENCOUNTER 2021-01-25 00:36 | Emergency (ER) | payer OTHER, SELFPAY ==
[2021-01-25] MEDS ORDERED: Ketorolac Tromethamine 30 MG/ML VIAL ONE (01:17)
[2021-01-25] MEDS ORDERED: diphenhydrAMINE 50 MG/ML VIAL ONE (01:17)
[2021-01-25] MEDS ORDERED: Cyclobenzaprine 10 MG TAB ONE (01:17)
[2021-01-25] MEDS ORDERED: Metoclopramide 10 MG/10 ML UDCUP ONE (01:17)
[2021-01-25] MEDS ORDERED: Acetaminophen 500 MG TAB ONE (01:17)
[2021-01-25] MEDS ORDERED: Metoclopramide HCl 10 MG/2 ML VIAL ONE (01:18)
[2021-01-25 01:49] LABS: #Basophils 0.1 thou/uL (0.0-0.2); #Eosinphils 0.1 thou/uL (0.0-0.7); #Lymphocytes 2.4 thou/uL (1.20-3.40); #Monocytes 0.6 thou/uL (0.11-0.59); #Neutrophils 2.3 thou/uL (1.40-6.50); %Eosinophils 2.3 % (0.0-10.0); %Lymphocytes 44.5 % (21.0-51.0); %Monocytes 10.4 % (0.0-10.0); %Neutrophils 41.9 % (42.0-75.0); Hemoglobin 14.3 g/dL (14.0-18.0); Mean Corpuscular Hemoglobin 34.4 pg (27.0-31.0); Mean Platelet Volume 7.1 fL (7.4-10.4); Platelet Count 218 thou/uL (130-400); RBC Distribution Width 13.2 % (11.5-14.5); Red Blood Cell (RBC) Count 4.17 mill/uL (4.70-6.10); White Blood Cell (WBC) Count 5.4 thou/uL (4.8-10.8)
[2021-01-25 02:07] LABS: Bilirubin Negative (Negative); Blood, Urine Negative (Negative); Clarity Clear (Clear); Glucose, Urine (Dipstick) Normal (Negative); Ketone, Urine Negative (Negative); Leukocyte Negative Leu/uL (Negative); Nitrite Negative (Negative); Protein, Urine (Dipstick) Negative (Neg-Trace); Specific Gravity, Urine 1.016 (1.002-1.036); Urobilinogen Normal mg/dL (Less than 2)
== END 2021-01-25 02:26 | disposition left against medical advice (07) ==
LOC: ERS 00:36
DX: R51.9 Headache, unspecified (principal); M54.2 Cervicalgia; R00.2 Palpitations; R19.7 Diarrhea, unspecified; M54.9 Dorsalgia, unspecified; R53.81 Other malaise; I10 Essential (primary) hypertension; F17.210 Nicotine dependence, cigarettes, uncomplicated; Z21 Asymptomatic human immunodeficiency virus [HIV] infection status; Z79.899 Other long term (current) drug therapy
CPT/HCPCS: 71045; 81003; 84443; 84484; 85025; 93005; 96374; 96375; J1200; J1885; J2765

== ENCOUNTER 2021-03-10 04:39 | Inpatient (IN) | payer OTHER, SELFPAY ==
[2021-03-10 05:09] LABS: #Basophils 0.1 thou/uL (0.0-0.2); #Eosinphils 0.1 thou/uL (0.0-0.7); #Lymphocytes 3.5 thou/uL (1.20-3.40); #Monocytes 0.6 thou/uL (0.11-0.59); #Neutrophils 3.2 thou/uL (1.40-6.50); %Basophils 1.4 % (0.0-1.0); %Lymphocytes 46.3 % (21.0-51.0); %Monocytes 8.3 % (0.0-10.0); Hemoglobin 15.6 g/dL (14.0-18.0); Mean Corpuscular HGB CONC 34.3 g/dL (32.0-36.0); Mean Corpuscular Hemoglobin 34.6 pg (27.0-31.0); Mean Platelet Volume 6.5 fL (7.4-10.4); Platelet Count 269 thou/uL (130-400); RBC Distribution Width 13.1 % (11.5-14.5); Red Blood Cell (RBC) Count 4.52 mill/uL (4.70-6.10); White Blood Cell (WBC) Count 7.5 thou/uL (4.8-10.8)
[2021-03-10] MEDS ORDERED: diphenhydrAMINE 50 MG/ML VIAL ONE (05:20)
[2021-03-10] MEDS ORDERED: Metoclopramide HCl 10 MG/2 ML VIAL ONE (05:20)
[2021-03-10] MEDS ORDERED: Ketorolac Tromethamine 30 MG/ML VIAL ONE (05:20)
[2021-03-10] MEDS ORDERED: Ondansetron PF 4 MG/2 ML Vial ONE (05:20)
[2021-03-10] MEDS ORDERED: Metoclopramide 10 MG/10 ML UDCUP ONE (05:20)
[2021-03-10 05:32] LABS: ALT (SGPT) 14 U/L (8-55); AST (SGOT) 20 U/L (5-34); Albumin 3.7 g/dL (3.5-5.0); Alkaline Phosphatase 81 U/L (40-110); Anion Gap 14 mmol/L (10-20); BUN (Urea Nitrogen) 9 mg/dL (8.9-20.6); Bilirubin, Total Less than 0.2 mg/dL (0.2-1.2); Calc. Creatinine Clearance 0 mL/min (70-130); Calcium 9.2 mg/dL (7.8-10.44); Carbon Dioxide 21 mmol/L (22-29); Chloride 107 mmol/L (98-107); Globulin 4.5 g/dL (2.4-3.5); Glucose 106 mg/dL (70-105); Potassium 3.8 mmol/L (3.5-5.1); Protein, Total 8.2 g/dL (6.0-8.3); Sodium 138 mmol/L (136-145)
[2021-03-10 06:50] LABS: Bilirubin Negative (Negative); Blood, Urine Negative (Negative); Clarity Clear (Clear); Glucose, Urine (Dipstick) Normal (Negative); Ketone, Urine Negative (Negative); Leukocyte Negative Leu/uL (Negative); Nitrite Negative (Negative); Protein, Urine (Dipstick) Negative (Neg-Trace); Specific Gravity, Urine 1.038 (1.002-1.036); Urobilinogen Normal mg/dL (Less than 2)
[2021-03-10] MEDS ORDERED: Piperacillin/Tazobactam 3.375 GM VIAL ONE (06:56)
[2021-03-10] MEDS ORDERED: hydrALAZINE 20 MG/ML VIAL ONE (06:56)
[2021-03-10] MEDS ORDERED: Ondansetron PF 4 MG/2 ML Vial IVP PRN (07:29)
[2021-03-10] MEDS ORDERED: Acetaminophen 325 MG TAB PO PRN (07:29)
[2021-03-10] MEDS ORDERED: Ondansetron PF 4 MG/2 ML Vial IVP SCH (10:00)
[2021-03-10] MEDS ORDERED: Morphine 4 MG/ML VIAL SLOW IVP SCH (10:00)
[2021-03-10] MEDS ORDERED: Iopamidol-370 76% 500 ML 1 ML ONE (10:22)
[2021-03-10 10:29] VITALS: BMI 31.8
[2021-03-10] MEDS: Sodium Chloride 0.9% 1,000 ML IV SCH ×2 (10:57→13:08)
[2021-03-10] MEDS ORDERED: Piperacillin/Tazobactam 3.375 GM in Sodium Chloride 0.9% 100 ML IVPB SCH (12:30)
[2021-03-10] MEDS: Piperacillin/Tazobactam 3.375 GM in Sodium Chloride 0.9% 100 ML IVPB SCH ×2 (12:40→19:50)
[2021-03-10 14:54] LABS: Cardiac Risk 4.5 (Less than 4.5)
[2021-03-10] MEDS: Morphine 4 MG/ML VIAL SLOW IVP PRN ×3 (14:56→23:42)
[2021-03-10] MEDS ORDERED: hydrALAZINE 20 MG/ML VIAL SLOW IVP PRN (19:01)
[2021-03-10] MEDS: Melatonin 3 MG TAB PO PRN (19:52)
[2021-03-10] MEDS: Acetaminophen 325 MG TAB PO PRN (19:58)
[2021-03-10 23:29] LABS: SARS-CoV-2 PCR by NAA Not Detected (NotDetected)
[2021-03-11] MEDS: Acetaminophen 325 MG TAB PO PRN ×2 (01:52→08:39)
[2021-03-11] MEDS: Piperacillin/Tazobactam 3.375 GM in Sodium Chloride 0.9% 100 ML IVPB SCH ×3 (05:01→20:26)
[2021-03-11] MEDS: Morphine 4 MG/ML VIAL SLOW IVP PRN ×4 (06:05→20:24)
[2021-03-11 07:06] LABS: ALT (SGPT) 11 U/L (8-55); AST (SGOT) 15 U/L (5-34); Alkaline Phosphatase 60 U/L (40-110); Anion Gap 9 mmol/L (10-20); BUN (Urea Nitrogen) 6 mg/dL (8.9-20.6); Bilirubin, Total 0.2 mg/dL (0.2-1.2); Calc. Creatinine Clearance 127 mL/min (70-130); Calcium 8.4 mg/dL (7.8-10.44); Carbon Dioxide 22 mmol/L (22-29); Chloride 110 mmol/L (98-107); Globulin 3.6 g/dL (2.4-3.5); Glucose 83 mg/dL (70-105); Lipase 89 U/L (8-78); Potassium 3.9 mmol/L (3.5-5.1); Protein, Total 6.6 g/dL (6.0-8.3); Sodium 137 mmol/L (136-145)
[2021-03-11] MEDS: Amlodipine 10 MG TAB PO SCH (08:38)
[2021-03-11 08:42] LABS: Eosinophils 6 % (0-10); Hemoglobin 14.3 g/dL (14.0-18.0); Lymphocytes 41 % (21-51); MDiff Complete? YES; Macrocytosis SLIGHT = 6-15 cells (100X) (0-5/hpf); Mean Corpuscular HGB CONC 32.4 g/dL (32.0-36.0); Mean Corpuscular Hemoglobin 34.8 pg (27.0-31.0); Mean Platelet Volume 7.1 fL (7.4-10.4); Monocytes 11 % (0-10); Neutrophil 38 % (42-75); Platelet Count 225 thou/uL (130-400); Platelet Morphology Comment Appears Adequate; RBC Distribution Width 13.6 % (11.5-14.5); Reactive Lymphocytes 4 % (0-10); Red Blood Cell (RBC) Count 4.11 mill/uL (4.70-6.10); White Blood Cell (WBC) Count 5.5 thou/uL (4.8-10.8)
[2021-03-11] MEDS ORDERED: Ondansetron PF 4 MG/2 ML Vial IVP PRN (15:26)
[2021-03-11] MEDS ORDERED: Sodium Chloride 0.9% 1,000 ML IV SCH (15:30)
[2021-03-11] MEDS ORDERED: Ketorolac Tromethamine 30 MG/ML VIAL IVP SCH (16:30)
[2021-03-11] MEDS ORDERED: Prochlorperazine Edisylate 10 MG in Sodium Chloride 0.9% 50 ML IVPB SCH (17:30)
[2021-03-11] MEDS: Melatonin 3 MG TAB PO PRN (20:26)
[2021-03-12] MEDS: Morphine 4 MG/ML VIAL SLOW IVP PRN ×2 (04:03→08:00)
[2021-03-12] MEDS: Piperacillin/Tazobactam 3.375 GM in Sodium Chloride 0.9% 100 ML IVPB SCH (04:05)
[2021-03-12 07:16] LABS: #Eosinphils 0.2 thou/uL (0.0-0.7); #Lymphocytes 2.3 thou/uL (1.20-3.40); #Monocytes 0.5 thou/uL (0.11-0.59); #Neutrophils 2.2 thou/uL (1.40-6.50); %Basophils 0.9 % (0.0-1.0); %Eosinophils 3.5 % (0.0-10.0); %Lymphocytes 44.7 % (21.0-51.0); %Monocytes 8.9 % (0.0-10.0); Hemoglobin 14.9 g/dL (14.0-18.0); Mean Corpuscular HGB CONC 33.5 g/dL (32.0-36.0); Mean Corpuscular Hemoglobin 34.5 pg (27.0-31.0); Mean Platelet Volume 6.6 fL (7.4-10.4); Platelet Count 280 thou/uL (130-400); RBC Distribution Width 13.4 % (11.5-14.5); Red Blood Cell (RBC) Count 4.32 mill/uL (4.70-6.10); White Blood Cell (WBC) Count 5.2 thou/uL (4.8-10.8)
[2021-03-12 07:38] LABS: ALT (SGPT) 12 U/L (8-55); AST (SGOT) 17 U/L (5-34); Albumin 3.4 g/dL (3.5-5.0); Alkaline Phosphatase 63 U/L (40-110); Anion Gap 10 mmol/L (10-20); BUN (Urea Nitrogen) 6 mg/dL (8.9-20.6); Bilirubin, Total 0.3 mg/dL (0.2-1.2); Calc. Creatinine Clearance 115 mL/min (70-130); Calcium 8.8 mg/dL (7.8-10.44); Carbon Dioxide 23 mmol/L (22-29); Chloride 109 mmol/L (98-107); Globulin 3.7 g/dL (2.4-3.5); Glucose 84 mg/dL (70-105); Potassium 3.8 mmol/L (3.5-5.1); Protein, Total 7.1 g/dL (6.0-8.3); Sodium 138 mmol/L (136-145)
[2021-03-12] MEDS: Amlodipine 10 MG TAB PO SCH (08:00)
[2021-03-12 08:28] VITALS: BP 180/83; TEMP 98.1
[2021-03-12] MEDS ORDERED: Sodium Chloride 0.9% 1,000 ML IV SCH (08:32)
[2021-03-12] MEDS ORDERED: traMADol HCl 50 MG TAB PO PRN (08:33)
[2021-03-12] MEDS ORDERED: Metoclopramide HCl 10 MG/2 ML VIAL IVP PRN (08:34)
[2021-03-13 11:38] LABS: %CD4 (Helper/Inducer) 28.7 % (30.8-58.5); Absolute CD4 631 /uL (359-1519); Lymphocytes/Gated Cell Count 2.2 x10E3/uL (0.7-3.1); Total Lymphocyte 43 % (Not Estab.)
== END 2021-03-12 10:35 | disposition home or self-care (01) | DRG 392 ==
LOC: ERS 04:39 → T4-A 07:34
PROVIDERS: ADMIT Family Medicine; ATTEND Internal Medicine
DX: K52.9 Noninfective gastroenteritis and colitis, unspecified (principal); K86.1 Other chronic pancreatitis; N17.9 Acute kidney failure, unspecified; G43.909 Migraine, unspecified, not intractable, without status migrainosus; Z21 Asymptomatic human immunodeficiency virus [HIV] infection status; I10 Essential (primary) hypertension; F32.A Depression, unspecified; F17.210 Nicotine dependence, cigarettes, uncomplicated; Z20.822 Contact with and (suspected) exposure to COVID-19; Z79.899 Other long term (current) drug therapy
CPT/HCPCS: 36415; 70450; 71045; 74177; 80053; 80061; 81003; 83605; 83690; 84484; 85025; 85048; 86361; 87040; 87045; 87046; 87081; 87324; 87328; 87329; 87427; 87449; 93005; 96365; 96367; 96375; J0360; J0780; J1200; J1885; J2270; J2405; J2543; J2765; J3490; J7050; Q9967; U0003; U0005

== ENCOUNTER 2021-03-16 12:55 | Emergency (ER) | payer OTHER ==
[2021-03-16 13:27] LABS: #Eosinphils 0.1 thou/uL (0.0-0.7); #Lymphocytes 1.6 thou/uL (1.20-3.40); #Monocytes 0.5 thou/uL (0.11-0.59); #Neutrophils 3.5 thou/uL (1.40-6.50); %Basophils 0.5 % (0.0-1.0); %Eosinophils 1.3 % (0.0-10.0); %Lymphocytes 27.1 % (21.0-51.0); %Monocytes 9.2 % (0.0-10.0); %Neutrophils 61.9 % (42.0-75.0); Hemoglobin 15.3 g/dL (14.0-18.0); Mean Corpuscular HGB CONC 33.4 g/dL (32.0-36.0); Mean Corpuscular Hemoglobin 33.8 pg (27.0-31.0); Mean Platelet Volume 6.6 fL (7.4-10.4); Platelet Count 273 thou/uL (130-400); RBC Distribution Width 13.3 % (11.5-14.5); Red Blood Cell (RBC) Count 4.52 mill/uL (4.70-6.10); White Blood Cell (WBC) Count 5.7 thou/uL (4.8-10.8)
[2021-03-16] MEDS ORDERED: Dicyclomine 20 MG TAB ONE (13:35)
[2021-03-16] MEDS ORDERED: Ondansetron ODT 4 MG TAB ONE (13:35)
[2021-03-16 13:46] LABS: ALT (SGPT) 22 U/L (8-55); AST (SGOT) 22 U/L (5-34); Albumin 3.7 g/dL (3.5-5.0); Alkaline Phosphatase 76 U/L (40-110); Anion Gap 12 mmol/L (10-20); BUN (Urea Nitrogen) 9 mg/dL (8.9-20.6); Bilirubin, Total 0.2 mg/dL (0.2-1.2); Calc. Creatinine Clearance 0 mL/min (70-130); Calcium 9.4 mg/dL (7.8-10.44); Carbon Dioxide 23 mmol/L (22-29); Chloride 105 mmol/L (98-107); Globulin 4.3 g/dL (2.4-3.5); Glucose 95 mg/dL (70-105); Lipase 165 U/L (8-78); Potassium 3.8 mmol/L (3.5-5.1); Sodium 136 mmol/L (136-145)
== END 2021-03-16 14:30 ==
LOC: ERS 12:55
DX: R10.13 Epigastric pain (principal); R10.12 Left upper quadrant pain; I10 Essential (primary) hypertension; Z21 Asymptomatic human immunodeficiency virus [HIV] infection status; F17.210 Nicotine dependence, cigarettes, uncomplicated; Z79.899 Other long term (current) drug therapy
CPT/HCPCS: 36415; 80053; 83690; 85025; 99284; Q0162

== ENCOUNTER 2021-08-24 19:42 | Inpatient (IN) | payer OTHER, SELFPAY ==
[2021-08-24 20:11] LABS: #Eosinphils 0.2 thou/uL (0.0-0.7); #Lymphocytes 2.2 thou/uL (1.20-3.40); #Monocytes 0.6 thou/uL (0.11-0.59); #Neutrophils 1.7 thou/uL (1.40-6.50); %Basophils 0.9 % (0.0-1.0); %Eosinophils 4.2 % (0.0-10.0); %Lymphocytes 46.4 % (21.0-51.0); %Monocytes 12.2 % (0.0-10.0); %Neutrophils 36.3 % (42.0-75.0); Hemoglobin 15.3 g/dL (14.0-18.0); Mean Corpuscular HGB CONC 33.2 g/dL (32.0-36.0); Mean Platelet Volume 6.9 fL (7.4-10.4); Platelet Count 218 thou/uL (130-400); White Blood Cell (WBC) Count 4.7 thou/uL (4.8-10.8)
[2021-08-24 20:35] LABS: ALT (SGPT) 22 U/L (8-55); AST (SGOT) 27 U/L (5-34); Albumin 3.6 g/dL (3.5-5.0); Alkaline Phosphatase 86 U/L (40-110); Anion Gap 9 mmol/L (10-20); BUN (Urea Nitrogen) 9 mg/dL (8.9-20.6); Bilirubin, Total 0.4 mg/dL (0.2-1.2); Calc. Creatinine Clearance 0 mL/min (70-130); Calcium 8.7 mg/dL (7.8-10.44); Carbon Dioxide 26 mmol/L (22-29); Chloride 105 mmol/L (98-107); Globulin 4.3 g/dL (2.4-3.5); Glucose 108 mg/dL (70-105); Potassium 3.8 mmol/L (3.5-5.1); Protein, Total 7.9 g/dL (6.0-8.3); Sodium 136 mmol/L (136-145)
[2021-08-24 20:57] LABS: Bacteria/HPF None Seen HPF (None Seen); Bilirubin Negative (Negative); Blood, Urine Trace (Negative); Clarity Clear (Clear); Glucose, Urine (Dipstick) 30 mg/dL (Negative); Ketone, Urine Trace mg/dL (Negative); Leukocyte Negative Leu/uL (Negative); Mucous/LPF 1+ LPF (<2+); Nitrite Negative (Negative); Protein, Urine (Dipstick) 50 mg/dL (Neg-Trace); Specific Gravity, Urine 1.037 (1.002-1.036); Squamous Epithelial 0-3 HPF (0-3); Urobilinogen 6 mg/dL (Less than 2); WBC/HPF 0-3 HPF (0-3)
[2021-08-24] MEDS ORDERED: Senokot S 8.6-50 MG TAB PO PRN (22:45)
[2021-08-24] MEDS ORDERED: Bisacodyl 5 MG TAB PO PRN (22:45)
[2021-08-24] MEDS ORDERED: Pantoprazole 40 MG VIAL IVP SCH (22:56)
[2021-08-24] MEDS ORDERED: Melatonin 3 MG TAB PO PRN (22:59)
[2021-08-24] MEDS ORDERED: Morphine 2 MG/ML VIAL SLOW IVP PRN (23:06)
[2021-08-24] MEDS ORDERED: Morphine 4 MG/ML VIAL ONE (23:09)
[2021-08-24] MEDS ORDERED: Ondansetron PF 4 MG/2 ML Vial ONE (23:09)
[2021-08-24] MEDS ORDERED: Amlodipine 10 MG TAB PO SCH (23:15)
[2021-08-24] MEDS: Sodium Chloride 0.9% 1,000 ML IV SCH (23:59)
[2021-08-24] MEDS ORDERED: Piperacillin/Tazobactam 3.375 GM in Sodium Chloride 0.9% 100 ML IVPB SCH (23:59)
[2021-08-25] MEDS: hydrALAZINE 20 MG/ML VIAL SLOW IVP PRN ×2 (00:28→17:54)
[2021-08-25 01:11] VITALS: BMI 31.6
[2021-08-25] MEDS: Piperacillin/Tazobactam 3.375 GM in Sodium Chloride 0.9% 100 ML IVPB SCH ×3 (03:20→21:25)
[2021-08-25] MEDS: Morphine 4 MG/ML VIAL SLOW IVP PRN ×5 (03:20→21:35)
[2021-08-25] MEDS: Sodium Chloride 0.9% 1,000 ML IV SCH ×3 (05:32→17:51)
[2021-08-25 06:19] LABS: #Eosinphils 0.2 thou/uL (0.0-0.7); #Lymphocytes 1.9 thou/uL (1.20-3.40); #Monocytes 0.6 thou/uL (0.11-0.59); %Basophils 0.5 % (0.0-1.0); %Eosinophils 3.5 % (0.0-10.0); %Lymphocytes 40.4 % (21.0-51.0); %Monocytes 12.7 % (0.0-10.0); %Neutrophils 42.9 % (42.0-75.0); Hemoglobin 15.2 g/dL (14.0-18.0); Mean Corpuscular HGB CONC 32.6 g/dL (32.0-36.0); Mean Corpuscular Hemoglobin 33.6 pg (27.0-31.0); Mean Platelet Volume 7.1 fL (7.4-10.4); Platelet Count 204 thou/uL (130-400); RBC Distribution Width 13.2 % (11.5-14.5); Red Blood Cell (RBC) Count 4.52 mill/uL (4.70-6.10); White Blood Cell (WBC) Count 4.6 thou/uL (4.8-10.8)
[2021-08-25 06:44] LABS: ALT (SGPT) 22 U/L (8-55); AST (SGOT) 26 U/L (5-34); Albumin 3.4 g/dL (3.5-5.0); Alkaline Phosphatase 79 U/L (40-110); Anion Gap 8 mmol/L (10-20); BUN (Urea Nitrogen) 7 mg/dL (8.9-20.6); Bilirubin, Total 0.6 mg/dL (0.2-1.2); Calc. Creatinine Clearance 108 mL/min (70-130); Calcium 8.5 mg/dL (7.8-10.44); Carbon Dioxide 24 mmol/L (22-29); Chloride 108 mmol/L (98-107); Globulin 4.4 g/dL (2.4-3.5); Glucose 81 mg/dL (70-105); Potassium 3.8 mmol/L (3.5-5.1); Protein, Total 7.8 g/dL (6.0-8.3); Sodium 136 mmol/L (136-145)
[2021-08-25] MEDS: Pantoprazole 40 MG VIAL IVP SCH (08:18)
[2021-08-25] MEDS ORDERED: Amlodipine 10 MG TAB PO SCH (09:00)
[2021-08-25] MEDS ORDERED: Morphine 4 MG/ML VIAL SLOW IVP SCH (09:45)
[2021-08-25] MEDS ORDERED: Morphine 2 MG/ML VIAL SLOW IVP SCH (09:45)
[2021-08-25] MEDS: Ondansetron PF 4 MG/2 ML Vial IVP PRN ×2 (10:27→21:35)
[2021-08-25 14:59] LABS: CRP (Inflammatory) 0.8 mg/dL (= or < 0.5)
[2021-08-25 15:48] LABS: SARS-CoV-2 PCR by NAA Not Detected (NotDetected)
[2021-08-25] MEDS: Nicotine 21 MG PATCH TOP SCH (21:29)
[2021-08-26] MEDS: Acetaminophen 325 MG TAB PO PRN ×2 (01:25→20:52)
[2021-08-26] MEDS: Morphine 4 MG/ML VIAL SLOW IVP PRN ×3 (02:14→11:07)
[2021-08-26] MEDS: Sodium Chloride 0.9% 1,000 ML IV SCH ×3 (02:15→18:33)
[2021-08-26] MEDS: Piperacillin/Tazobactam 3.375 GM in Sodium Chloride 0.9% 100 ML IVPB SCH ×2 (04:55→12:38)
[2021-08-26] MEDS: Ondansetron PF 4 MG/2 ML Vial IVP PRN ×2 (06:53→17:42)
[2021-08-26 07:08] LABS: #Eosinphils 0.1 thou/uL (0.0-0.7); #Lymphocytes 1.4 thou/uL (1.20-3.40); #Monocytes 0.4 thou/uL (0.11-0.59); #Neutrophils 1.9 thou/uL (1.40-6.50); %Basophils 0.4 % (0.0-1.0); %Eosinophils 3.3 % (0.0-10.0); %Lymphocytes 37.5 % (21.0-51.0); %Monocytes 10.8 % (0.0-10.0); Hemoglobin 13.9 g/dL (14.0-18.0); Mean Corpuscular HGB CONC 32.2 g/dL (32.0-36.0); Mean Corpuscular Hemoglobin 33.3 pg (27.0-31.0); Platelet Count 179 thou/uL (130-400); RBC Distribution Width 12.8 % (11.5-14.5); Red Blood Cell (RBC) Count 4.16 mill/uL (4.70-6.10); White Blood Cell (WBC) Count 3.9 thou/uL (4.8-10.8)
[2021-08-26 08:16] LABS: Anion Gap 7 mmol/L (10-20); BUN (Urea Nitrogen) 7 mg/dL (8.9-20.6); Calc. Creatinine Clearance 126 mL/min (70-130); Calcium 8.4 mg/dL (7.8-10.44); Carbon Dioxide 23 mmol/L (22-29); Chloride 106 mmol/L (98-107); Glucose 68 mg/dL (70-105); Potassium 3.5 mmol/L (3.5-5.1); Sodium 132 mmol/L (136-145)
[2021-08-26] MEDS: Pantoprazole 40 MG VIAL IVP SCH (09:03)
[2021-08-26] MEDS: Pancrelipase DR 12,000 1 CAP PO SCH ×3 (09:24→17:42)
[2021-08-26] MEDS: hydrALAZINE 20 MG/ML VIAL SLOW IVP PRN ×3 (12:38→23:25)
[2021-08-26] MEDS ORDERED: Lidocaine 1% PF 5 ML VIAL FS SCH (12:45)
[2021-08-26] MEDS ORDERED: Lidocaine 1% (PF) 30 ML VIAL IJ SCH (12:45)
[2021-08-26] MEDS: Morphine 2 MG/ML VIAL SLOW IVP PRN ×2 (14:45→20:43)
[2021-08-26 17:44] LABS: Synovial Fluid, Protein 4.1 g/dL (Not Available); Synovial Fluid, Uric Acid 3.6 mg/dL (Not Available)
[2021-08-26] MEDS: Nicotine 21 MG PATCH TOP SCH (20:44)
[2021-08-26] MEDS: Metoclopramide HCl 10 MG/2 ML VIAL IVP PRN (21:38)
[2021-08-27] MEDS: Morphine 2 MG/ML VIAL SLOW IVP PRN ×3 (02:59→11:16)
[2021-08-27] MEDS: Ondansetron PF 4 MG/2 ML Vial IVP PRN ×3 (02:59→19:47)
[2021-08-27] MEDS: Acetaminophen 325 MG TAB PO PRN ×4 (03:08→20:00)
[2021-08-27 06:12] LABS: #Lymphocytes 1.3 thou/uL (1.20-3.40); #Monocytes 0.6 thou/uL (0.11-0.59); #Neutrophils 2.7 thou/uL (1.40-6.50); %Basophils 0.8 % (0.0-1.0); %Neutrophils 58.2 % (42.0-75.0); Hemoglobin 14.9 g/dL (14.0-18.0); Mean Corpuscular HGB CONC 32.7 g/dL (32.0-36.0); Mean Corpuscular Hemoglobin 33.5 pg (27.0-31.0); Platelet Count 192 thou/uL (130-400); RBC Distribution Width 12.9 % (11.5-14.5); Red Blood Cell (RBC) Count 4.45 mill/uL (4.70-6.10); White Blood Cell (WBC) Count 4.7 thou/uL (4.8-10.8)
[2021-08-27 06:32] LABS: Anion Gap 11 mmol/L (10-20); BUN (Urea Nitrogen) 5 mg/dL (8.9-20.6); Calc. Creatinine Clearance 131 mL/min (70-130); Carbon Dioxide 21 mmol/L (22-29); Chloride 107 mmol/L (98-107); Glucose 89 mg/dL (70-105); Potassium 3.7 mmol/L (3.5-5.1); Sodium 135 mmol/L (136-145)
[2021-08-27] MEDS: Pancrelipase DR 12,000 1 CAP PO SCH ×3 (08:00→17:31)
[2021-08-27] MEDS: Pantoprazole 40 MG VIAL IVP SCH (08:05)
[2021-08-27] MEDS: hydrALAZINE 20 MG/ML VIAL SLOW IVP PRN (08:11)
[2021-08-27 08:18] LABS: RBC Count-Automated (BF) 3156 /cu.mm; WBC/Nucleated-Auto (BF) 2039 /cu.mm
[2021-08-27 08:32] LABS: BF Color Yellow; Body Fluid Source Synovial Fluid; Clarity Cloudy/Turbid (Clear); Tube # EDTA
[2021-08-27 08:38] LABS: BF Segmented Neutrophils 14 %; Cell Count Non Hematic 18 %; Lymphocytes 68 %
[2021-08-27] MEDS ORDERED: Labetalol HCl 100 MG/20 ML VIAL SLOW IVP PRN (08:45)
[2021-08-27] MEDS ORDERED: Amlodipine 5 MG TAB PO SCH (09:00)
[2021-08-27] MEDS: hydrALAZINE 25 MG TAB PO SCH ×3 (09:31→19:53)
[2021-08-27] MEDS: Metoclopramide HCl 10 MG/2 ML VIAL IVP PRN (13:49)
[2021-08-27] MEDS ORDERED: NIFEdipine XL 60 MG TAB PO SCH (16:00)
[2021-08-27] MEDS: Morphine 4 MG/ML VIAL SLOW IVP PRN ×2 (16:47→20:35)
[2021-08-27] MEDS: Nicotine 21 MG PATCH TOP SCH (19:53)
[2021-08-28] MEDS: Morphine 4 MG/ML VIAL SLOW IVP PRN ×6 (00:02→21:10)
[2021-08-28] MEDS: Ondansetron PF 4 MG/2 ML Vial IVP PRN ×2 (03:20→11:41)
[2021-08-28 05:49] LABS: #Basophils 0.1 thou/uL (0.0-0.2); #Eosinphils 0.1 thou/uL (0.0-0.7); #Lymphocytes 1.6 thou/uL (1.20-3.40); #Monocytes 0.8 thou/uL (0.11-0.59); #Neutrophils 2.6 thou/uL (1.40-6.50); %Eosinophils 2.3 % (0.0-10.0); %Lymphocytes 30.4 % (21.0-51.0); %Monocytes 14.9 % (0.0-10.0); %Neutrophils 51.3 % (42.0-75.0); Hemoglobin 15.3 g/dL (14.0-18.0); Mean Corpuscular Hemoglobin 34.3 pg (27.0-31.0); Mean Platelet Volume 6.8 fL (7.4-10.4); Platelet Count 195 thou/uL (130-400); RBC Distribution Width 13.1 % (11.5-14.5); Red Blood Cell (RBC) Count 4.45 mill/uL (4.70-6.10); White Blood Cell (WBC) Count 5.2 thou/uL (4.8-10.8)
[2021-08-28 06:15] LABS: Anion Gap 9 mmol/L (10-20); BUN (Urea Nitrogen) 4 mg/dL (8.9-20.6); Calc. Creatinine Clearance 128 mL/min (70-130); Calcium 8.9 mg/dL (7.8-10.44); Carbon Dioxide 24 mmol/L (22-29); Chloride 107 mmol/L (98-107); Glucose 87 mg/dL (70-105); Potassium 3.9 mmol/L (3.5-5.1); Sodium 136 mmol/L (136-145)
[2021-08-28] MEDS: Pancrelipase DR 12,000 1 CAP PO SCH ×3 (08:22→17:08)
[2021-08-28] MEDS: Pantoprazole 40 MG VIAL IVP SCH (08:23)
[2021-08-28] MEDS: NIFEdipine XL 90 MG TAB PO SCH (08:23)
[2021-08-28] MEDS: hydrALAZINE 25 MG TAB PO SCH ×3 (08:23→21:10)
[2021-08-28] MEDS ORDERED: NIFEdipine XL 60 MG TAB PO SCH (09:00)
[2021-08-28 14:14] LABS: %CD4 (Helper/Inducer) 27.5 % (30.8-58.5); Absolute CD4 358 /uL (359-1519); Lymphocytes/Gated Cell Count 1.3 x10E3/uL (0.7-3.1); Total Lymphocyte 36 % (Not Estab.); WBC Total Count 3.8 x10E3/uL (3.4-10.8)
[2021-08-28] MEDS: Nicotine 21 MG PATCH TOP SCH (21:10)
[2021-08-29] MEDS: Morphine 4 MG/ML VIAL SLOW IVP PRN ×5 (02:29→20:11)
[2021-08-29] MEDS: Ondansetron PF 4 MG/2 ML Vial IVP PRN (08:19)
[2021-08-29] MEDS: Pancrelipase DR 12,000 1 CAP PO SCH ×3 (09:15→16:50)
[2021-08-29] MEDS: NIFEdipine XL 90 MG TAB PO SCH (09:37)
[2021-08-29] MEDS: hydrALAZINE 25 MG TAB PO SCH ×3 (09:37→20:05)
[2021-08-29] MEDS: Pantoprazole 40 MG VIAL IVP SCH (09:38)
[2021-08-29 11:54] LABS: Chlam.trachomatis by PCR,Urine Not Detected (NotDetected)
[2021-08-29] MEDS: Acetaminophen 325 MG TAB PO PRN (17:56)
[2021-08-29] MEDS: Nicotine 21 MG PATCH TOP SCH (20:05)
[2021-08-30] MEDS: Morphine 4 MG/ML VIAL SLOW IVP PRN ×3 (01:11→08:57)
[2021-08-30] MEDS: Acetaminophen 325 MG TAB PO PRN ×2 (03:00→12:28)
[2021-08-30] MEDS: Ondansetron PF 4 MG/2 ML Vial IVP PRN (05:10)
[2021-08-30 08:11] VITALS: BP 133/93; TEMP 97.6
[2021-08-30] MEDS: Pancrelipase DR 12,000 1 CAP PO SCH ×2 (08:47→10:52)
[2021-08-30] MEDS: hydrALAZINE 25 MG TAB PO SCH (08:56)
[2021-08-30] MEDS: Pantoprazole 40 MG VIAL IVP SCH (08:56)
[2021-08-30] MEDS: NIFEdipine XL 90 MG TAB PO SCH (08:56)
[2021-08-30] MEDS ORDERED: Cyclobenzaprine 10 MG TAB PO PRN (09:34)
[2021-08-30] MEDS ORDERED: Cyclobenzaprine 10 MG TAB PO SCH (09:45)
== END 2021-08-30 15:20 | disposition home or self-care (01) | DRG 564 ==
LOC: ERS 19:42 → T4-A 22:29 → OBSVTOIN 08-26 14:02
PROVIDERS: ADMIT Internal Medicine; ATTEND Internal Medicine
PROC: 0S9D3ZZ Drainage of Left Knee Joint, Percutaneous Approach (ICD-10-PCS; principal; 2021-08-26)
DX: M25.462 Effusion, left knee (principal); K85.90 Acute pancreatitis without necrosis or infection, unspecified; N17.9 Acute kidney failure, unspecified; K86.1 Other chronic pancreatitis; Z20.822 Contact with and (suspected) exposure to COVID-19; Z21 Asymptomatic human immunodeficiency virus [HIV] infection status; I10 Essential (primary) hypertension; K52.9 Noninfective gastroenteritis and colitis, unspecified; M54.50 Low back pain, unspecified; G89.29 Other chronic pain; N18.2 Chronic kidney disease, stage 2 (mild); I16.0 Hypertensive urgency; F17.210 Nicotine dependence, cigarettes, uncomplicated; Z86.73 Personal history of transient ischemic attack (TIA), and cerebral infarction without residual deficits; Z91.14 Patient's other noncompliance with medication regimen
CPT/HCPCS: 36415; 72128; 72131; 74177; 80048; 80053; 81003; 81015; 82945; 83690; 84157; 84560; 85025; 85060; 85652; 86140; 86361; 86593; 86780; 87040; 87045; 87046; 87070; 87086; 87205; 87324; 87338; 87427; 87449; 87491; 87591; 89051; 89060; 93005; 96374; 96375; 96376; C9113; G0378; J0360; J2270; J2405; J2543; J2765; J3490; J7050; Q9967; U0003; U0005

== ENCOUNTER 2022-03-04 14:57 | Inpatient (IN) | payer SELFPAY ==
[2022-03-04 15:43] LABS: #Eosinphils 0.1 thou/uL (0.0-0.7); #Lymphocytes 2.3 thou/uL (1.20-3.40); #Monocytes 0.7 thou/uL (0.11-0.59); #Neutrophils 3.3 thou/uL (1.40-6.50); %Basophils 0.5 % (0.0-1.0); %Eosinophils 1.9 % (0.0-10.0); %Lymphocytes 35.2 % (21.0-51.0); %Monocytes 10.7 % (0.0-10.0); %Neutrophils 51.8 % (42.0-75.0); Hemoglobin 11.6 g/dL (14.0-18.0); Mean Corpuscular HGB CONC 33.6 g/dL (32.0-36.0); Mean Corpuscular Hemoglobin 34.5 pg (27.0-31.0); RBC Distribution Width 14.1 % (11.5-14.5); Red Blood Cell (RBC) Count 3.36 mill/uL (4.70-6.10); White Blood Cell (WBC) Count 6.5 10x3/uL (4.8-10.8)
[2022-03-04 16:01] LABS: ALT (SGPT) 23 U/L (8-55); AST (SGOT) 35 U/L (5-34); Albumin 3.4 g/dL (3.5-5.0); Alkaline Phosphatase 85 U/L (40-110); Anion Gap 9 mmol/L (10-20); BUN (Urea Nitrogen) 9 mg/dL (8.9-20.6); Bilirubin, Total 1.1 mg/dL (0.2-1.2); Calc. Creatinine Clearance 0 mL/min (70-130); Calcium 8.5 mg/dL (7.8-10.44); Carbon Dioxide 24 mmol/L (22-29); Chloride 104 mmol/L (98-107); Estimated GFR 54; Globulin 4.5 g/dL (2.4-3.5); Glucose 87 mg/dL (70-105); Potassium 3.9 mmol/L (3.5-5.1); Protein, Total 7.9 g/dL (6.0-8.3); Sodium 133 mmol/L (136-145)
[2022-03-04 16:14] LABS: MDiff Complete? YES; Macrocytosis SLIGHT = 6-15 cells (100X) (0-5/hpf); Mean Platelet Volume 9.9 fL (7.4-10.4); Platelet Count 78 10x3/uL (130-400); Platelet Morphology Comment Appears Decreased; Polychromasia SLIGHT = 2-3 cells (100X) (0-2/hpf)
[2022-03-04 16:24] LABS: CKMB 0.8 ng/mL (0-6.6)
[2022-03-04] MEDS ORDERED: Morphine 4 MG/ML VIAL ONE (17:16)
[2022-03-04] MEDS ORDERED: cefTRIAXone\\ROCEPHIN 1 GM VIAL ONE (17:16)
[2022-03-04] MEDS ORDERED: Aspirin Chewable 81 MG TAB ONE (17:58)
[2022-03-04 19:58] LABS: Troponin I 0.037 ng/mL (< 0.028)
[2022-03-04] MEDS ORDERED: Famotidine 20 MG TAB PO SCH (21:00)
[2022-03-04] MEDS: Sodium Chloride 0.9% 1,000 ML IV SCH (21:11)
[2022-03-04] MEDS: Acetaminophen/Codeine 30-300mg Tablet PO PRN (21:12)
[2022-03-04 22:32] LABS: SARS-CoV-2 NAA Rapid Test Not Detected (NotDetected)
[2022-03-04] MEDS: Azithromycin 500 MG in Sodium Chloride 0.9% 250 ML 250 ML IVPB SCH (22:56)
[2022-03-04 22:57] LABS: Troponin I 0.031 ng/mL (< 0.028)
[2022-03-05] MEDS: Ondansetron ODT 4 MG TAB PO PRN (03:42)
[2022-03-05] MEDS: Acetaminophen/Codeine 30-300mg Tablet PO PRN ×2 (03:43→08:14)
[2022-03-05] MEDS ORDERED: hydrALAZINE 20 MG/ML VIAL SLOW IVP SCH (03:45)
[2022-03-05 05:47] LABS: #Eosinphils 0.1 thou/uL (0.0-0.7); #Lymphocytes 1.6 thou/uL (1.20-3.40); #Monocytes 0.6 thou/uL (0.11-0.59); #Neutrophils 2.4 thou/uL (1.40-6.50); %Basophils 0.6 % (0.0-1.0); %Eosinophils 2.6 % (0.0-10.0); %Lymphocytes 33.4 % (21.0-51.0); %Monocytes 13.3 % (0.0-10.0); %Neutrophils 50.1 % (42.0-75.0); Hemoglobin 11.1 g/dL (14.0-18.0); Mean Corpuscular HGB CONC 32.6 g/dL (32.0-36.0); Mean Platelet Volume 9.8 fL (7.4-10.4); Platelet Count 84 10x3/uL (130-400); RBC Distribution Width 14.5 % (11.5-14.5); Red Blood Cell (RBC) Count 3.26 mill/uL (4.70-6.10); White Blood Cell (WBC) Count 4.8 10x3/uL (4.8-10.8)
[2022-03-05 06:06] LABS: Anion Gap 10 mmol/L (10-20); BUN (Urea Nitrogen) 8 mg/dL (8.9-20.6); Calc. Creatinine Clearance 80 mL/min (70-130); Calcium 8.6 mg/dL (7.8-10.44); Carbon Dioxide 21 mmol/L (22-29); Chloride 107 mmol/L (98-107); Estimated GFR 58; Glucose 86 mg/dL (70-105); Potassium 4.2 mmol/L (3.5-5.1); Sodium 134 mmol/L (136-145)
[2022-03-05] MEDS ORDERED: Carvedilol 25 MG TAB PO SCH (08:00)
[2022-03-05] MEDS ORDERED: Carvedilol 6.25 MG TAB PO SCH (08:00)
[2022-03-05] MEDS: Amlodipine 10 MG TAB PO SCH (08:16)
[2022-03-05] MEDS: Pancrelipase DR 12,000 1 CAP PO SCH ×3 (08:16→17:03)
[2022-03-05] MEDS: Enoxaparin Sodium 30 MG/0.3 ML SYRINGE SC SCH (08:52)
[2022-03-05] MEDS: Lidocaine 5% Patch TD SCH (09:51)
[2022-03-05] MEDS: Sodium Chloride 0.9% 1,000 ML IV SCH (12:13)
[2022-03-05 15:59] VITALS: BMI 25.9
[2022-03-05] MEDS: traMADol HCl 50 MG TAB PO PRN ×2 (17:01→22:50)
[2022-03-05] MEDS: cefTRIAXone\\ROCEPHIN 1 GM in Sodium Chloride 0.9% 100 ML IVPB SCH (17:01)
[2022-03-05] MEDS: Carvedilol 6.25 MG TAB PO SCH (17:02)
[2022-03-05] MEDS: LIDOCAINE Patch Removal TOP SCH (20:26)
[2022-03-05] MEDS: Azithromycin 500 MG in Sodium Chloride 0.9% 250 ML 250 ML IVPB SCH (20:26)
[2022-03-05] MEDS ORDERED: Melatonin 3 MG TAB PO SCH (23:45)
[2022-03-06] MEDS: traMADol HCl 50 MG TAB PO PRN (04:09)
[2022-03-06] MEDS: Acetaminophen 325 MG TAB PO PRN ×2 (04:09→08:36)
[2022-03-06] MEDS: Sodium Chloride 0.9% 1,000 ML IV SCH ×2 (04:09→16:25)
[2022-03-06 05:40] LABS: #Eosinphils 0.1 thou/uL (0.0-0.7); #Lymphocytes 1.8 thou/uL (1.20-3.40); #Monocytes 0.6 thou/uL (0.11-0.59); #Neutrophils 2.2 thou/uL (1.40-6.50); %Basophils 0.4 % (0.0-1.0); %Eosinophils 2.4 % (0.0-10.0); %Lymphocytes 38.2 % (21.0-51.0); %Monocytes 13.1 % (0.0-10.0); Hemoglobin 11.1 g/dL (14.0-18.0); Mean Corpuscular HGB CONC 33.5 g/dL (32.0-36.0); Mean Corpuscular Hemoglobin 34.7 pg (27.0-31.0); Mean Platelet Volume 9.4 fL (7.4-10.4); Platelet Count 84 10x3/uL (130-400); RBC Distribution Width 14.5 % (11.5-14.5); Red Blood Cell (RBC) Count 3.19 mill/uL (4.70-6.10); White Blood Cell (WBC) Count 4.8 10x3/uL (4.8-10.8)
[2022-03-06] MEDS: Morphine 4 MG/ML VIAL SLOW IVP PRN ×2 (05:46→10:34)
[2022-03-06 05:57] LABS: Anion Gap 9 mmol/L (10-20); BUN (Urea Nitrogen) 8 mg/dL (8.9-20.6); Calc. Creatinine Clearance 80 mL/min (70-130); Calcium 8.5 mg/dL (7.8-10.44); Carbon Dioxide 21 mmol/L (22-29); Chloride 108 mmol/L (98-107); Estimated GFR 58; Glucose 99 mg/dL (70-105); Sodium 134 mmol/L (136-145)
[2022-03-06] MEDS: Lidocaine 5% Patch TD SCH (08:26)
[2022-03-06] MEDS: Amlodipine 10 MG TAB PO SCH (08:27)
[2022-03-06] MEDS: Carvedilol 6.25 MG TAB PO SCH ×2 (08:27→16:24)
[2022-03-06] MEDS: Pancrelipase DR 12,000 1 CAP PO SCH ×3 (08:28→17:17)
[2022-03-06] MEDS: Enoxaparin Sodium 30 MG/0.3 ML SYRINGE SC SCH (08:29)
[2022-03-06 15:14] LABS: %CD4 (Helper/Inducer) 27.5 % (30.8-58.5); Absolute CD4 605 /uL (359-1519); Lymphocytes/Gated Cell Count 2.2 x10E3/uL (0.7-3.1); Total Lymphocyte 36 % (Not Estab.); WBC Total Count 6.1 x10E3/uL (3.4-10.8)
[2022-03-06] MEDS: cefTRIAXone\\ROCEPHIN 1 GM in Sodium Chloride 0.9% 100 ML IVPB SCH (16:24)
[2022-03-06] MEDS ORDERED: Morphine 4 MG/ML VIAL SLOW IVP SCH (18:45)
[2022-03-06] MEDS: Azithromycin 500 MG in Sodium Chloride 0.9% 250 ML 250 ML IVPB SCH (20:03)
[2022-03-06] MEDS: LIDOCAINE Patch Removal TOP SCH (20:04)
[2022-03-06] MEDS: HYDROcodone/Acetaminophen 5/325 mg Tablet PO PRN (23:39)
[2022-03-07 05:28] LABS: Anion Gap 7 mmol/L (10-20); BUN (Urea Nitrogen) 9 mg/dL (8.9-20.6); Calc. Creatinine Clearance 83 mL/min (70-130); Calcium 8.5 mg/dL (7.8-10.44); Carbon Dioxide 23 mmol/L (22-29); Chloride 109 mmol/L (98-107); Estimated GFR 60; Glucose 78 mg/dL (70-105); Sodium 135 mmol/L (136-145)
[2022-03-07 05:37] LABS: #Eosinphils 0.1 thou/uL (0.0-0.7); #Lymphocytes 1.7 thou/uL (1.20-3.40); #Monocytes 0.5 thou/uL (0.11-0.59); #Neutrophils 1.9 thou/uL (1.40-6.50); %Eosinophils 2.7 % (0.0-10.0); %Lymphocytes 39.3 % (21.0-51.0); %Monocytes 12.2 % (0.0-10.0); %Neutrophils 45.7 % (42.0-75.0); Mean Corpuscular HGB CONC 33.2 g/dL (32.0-36.0); Mean Corpuscular Hemoglobin 34.4 pg (27.0-31.0); Mean Platelet Volume 9.7 fL (7.4-10.4); Platelet Count 92 10x3/uL (130-400); RBC Distribution Width 14.7 % (11.5-14.5); Red Blood Cell (RBC) Count 3.18 mill/uL (4.70-6.10); White Blood Cell (WBC) Count 4.3 10x3/uL (4.8-10.8)
[2022-03-07] MEDS: Sodium Chloride 0.9% 1,000 ML IV SCH ×2 (06:30→20:15)
[2022-03-07] MEDS: Enoxaparin Sodium 30 MG/0.3 ML SYRINGE SC SCH (08:10)
[2022-03-07] MEDS: Carvedilol 3.125 MG TAB PO SCH ×2 (08:11→16:34)
[2022-03-07] MEDS: Amlodipine 10 MG TAB PO SCH (08:11)
[2022-03-07] MEDS: Lidocaine 5% Patch TD SCH (08:11)
[2022-03-07] MEDS: HYDROcodone/Acetaminophen 5/325 mg Tablet PO PRN ×2 (10:30→16:34)
[2022-03-07] MEDS: cefTRIAXone\\ROCEPHIN 1 GM in Sodium Chloride 0.9% 100 ML IVPB SCH (16:34)
[2022-03-07] MEDS ORDERED: cloNIDine 0.1 MG TAB PO PRN (18:20)
[2022-03-07] MEDS: Ondansetron ODT 4 MG TAB PO PRN (18:50)
[2022-03-07] MEDS: Azithromycin 500 MG in Sodium Chloride 0.9% 250 ML 250 ML IVPB SCH (20:14)
[2022-03-07] MEDS: NIFEdipine XL 30 MG TAB PO SCH (20:14)
[2022-03-07] MEDS: Carvedilol 6.25 MG TAB PO SCH (20:15)
[2022-03-07] MEDS: Morphine 4 MG/ML VIAL SLOW IVP PRN (20:15)
[2022-03-07] MEDS: LIDOCAINE Patch Removal TOP SCH (20:15)
[2022-03-08] MEDS: Morphine 4 MG/ML VIAL SLOW IVP PRN ×2 (02:50→14:48)
[2022-03-08 05:20] LABS: #Eosinphils 0.1 thou/uL (0.0-0.7); #Lymphocytes 1.6 thou/uL (1.20-3.40); #Monocytes 0.6 thou/uL (0.11-0.59); %Basophils 0.5 % (0.0-1.0); %Eosinophils 3.2 % (0.0-10.0); %Lymphocytes 37.6 % (21.0-51.0); %Neutrophils 45.7 % (42.0-75.0); Hemoglobin 11.4 g/dL (14.0-18.0); Mean Corpuscular HGB CONC 33.6 g/dL (32.0-36.0); Mean Platelet Volume 9.4 fL (7.4-10.4); Platelet Count 99 10x3/uL (130-400); RBC Distribution Width 14.9 % (11.5-14.5); Red Blood Cell (RBC) Count 3.24 mill/uL (4.70-6.10); White Blood Cell (WBC) Count 4.3 10x3/uL (4.8-10.8)
[2022-03-08 05:41] LABS: Anion Gap 8 mmol/L (10-20); BUN (Urea Nitrogen) 10 mg/dL (8.9-20.6); Calc. Creatinine Clearance 75 mL/min (70-130); Calcium 8.8 mg/dL (7.8-10.44); Carbon Dioxide 24 mmol/L (22-29); Chloride 109 mmol/L (98-107); Estimated GFR 53; Glucose 118 mg/dL (70-105); Potassium 4.1 mmol/L (3.5-5.1); Sodium 137 mmol/L (136-145)
[2022-03-08] MEDS: Carvedilol 6.25 MG TAB PO SCH ×2 (09:24→19:57)
[2022-03-08] MEDS: NIFEdipine XL 30 MG TAB PO SCH ×2 (09:25→19:57)
[2022-03-08] MEDS: Lidocaine 5% Patch TD SCH (09:25)
[2022-03-08] MEDS: HYDROcodone/Acetaminophen 5/325 mg Tablet PO PRN (09:26)
[2022-03-08] MEDS: Enoxaparin Sodium 30 MG/0.3 ML SYRINGE SC SCH (09:34)
[2022-03-08] MEDS: cloNIDine 0.1 MG TAB PO PRN ×2 (10:45→15:30)
[2022-03-08] MEDS: Sodium Chloride 0.9% 1,000 ML IV SCH (15:34)
[2022-03-08] MEDS: cefTRIAXone\\ROCEPHIN 1 GM in Sodium Chloride 0.9% 100 ML IVPB SCH (16:06)
[2022-03-08] MEDS ORDERED: Morphine 4 MG/ML VIAL SLOW IVP SCH (19:45)
[2022-03-08] MEDS: Azithromycin 500 MG in Sodium Chloride 0.9% 250 ML 250 ML IVPB SCH (21:22)
[2022-03-08] MEDS: LIDOCAINE Patch Removal TOP SCH (21:31)
[2022-03-09] MEDS: HYDROcodone/Acetaminophen 5/325 mg Tablet PO PRN ×2 (01:09→08:59)
[2022-03-09 07:54] LABS: #Eosinphils 0.2 thou/uL (0.0-0.7); #Lymphocytes 1.6 thou/uL (1.20-3.40); #Monocytes 0.7 thou/uL (0.11-0.59); #Neutrophils 2.2 thou/uL (1.40-6.50); %Basophils 0.5 % (0.0-1.0); %Eosinophils 3.5 % (0.0-10.0); %Lymphocytes 34.2 % (21.0-51.0); %Monocytes 14.2 % (0.0-10.0); %Neutrophils 47.5 % (42.0-75.0); Hemoglobin 10.8 g/dL (14.0-18.0); Mean Corpuscular HGB CONC 32.3 g/dL (32.0-36.0); Mean Corpuscular Hemoglobin 33.9 pg (27.0-31.0); Mean Platelet Volume 9.2 fL (7.4-10.4); Platelet Count 118 10x3/uL (130-400); RBC Distribution Width 14.7 % (11.5-14.5); Red Blood Cell (RBC) Count 3.18 mill/uL (4.70-6.10); White Blood Cell (WBC) Count 4.6 10x3/uL (4.8-10.8)
[2022-03-09 07:56] LABS: Anion Gap 12 mmol/L (10-20); BUN (Urea Nitrogen) 11 mg/dL (8.9-20.6); Calc. Creatinine Clearance 76 mL/min (70-130); Calcium 8.9 mg/dL (7.8-10.44); Carbon Dioxide 20 mmol/L (22-29); Chloride 107 mmol/L (98-107); Estimated GFR 55; Glucose 75 mg/dL (70-105); Potassium 4.5 mmol/L (3.5-5.1); Sodium 134 mmol/L (136-145)
[2022-03-09] MEDS: NIFEdipine XL 30 MG TAB PO SCH (08:59)
[2022-03-09] MEDS: Carvedilol 6.25 MG TAB PO SCH (08:59)
[2022-03-09] MEDS: Lidocaine 5% Patch TD SCH (09:00)
[2022-03-09] MEDS: Enoxaparin Sodium 30 MG/0.3 ML SYRINGE SC SCH (09:00)
[2022-03-09] MEDS: cloNIDine 0.1 MG TAB PO PRN (12:32)
[2022-03-09 12:46] VITALS: BP 165/110; TEMP 98.4
== END 2022-03-09 13:52 | disposition home or self-care (01) | DRG 178 ==
LOC: ERS 14:57 → 2SW 18:04 → OBSVTOIN 03-05 14:33 → T4-A 03-08 15:06
PROVIDERS: ADMIT Family Medicine; ATTEND Family Medicine
DX: J15.6 Pneumonia due to other Gram-negative bacteria (principal); Z20.822 Contact with and (suspected) exposure to COVID-19; B02.29 Other postherpetic nervous system involvement; E87.1 Hypo-osmolality and hyponatremia; N17.9 Acute kidney failure, unspecified; Z21 Asymptomatic human immunodeficiency virus [HIV] infection status; I16.0 Hypertensive urgency; N18.30 Chronic kidney disease, stage 3 unspecified; F17.210 Nicotine dependence, cigarettes, uncomplicated; R77.8 Other specified abnormalities of plasma proteins; E86.0 Dehydration; I10 Essential (primary) hypertension; K21.9 Gastro-esophageal reflux disease without esophagitis; G89.4 Chronic pain syndrome; Z91.14 Patient's other noncompliance with medication regimen; Z79.899 Other long term (current) drug therapy; Z87.11 Personal history of peptic ulcer disease
CPT/HCPCS: 36415; 71045; 71275; 80048; 80053; 82553; 83605; 84443; 84484; 85025; 86361; 87040; 93005; 96365; 96367; 96375; G0378; J0360; J0456; J0696; J1956; J2270; J3490; J7050; Q0162; Q9967

== ENCOUNTER 2022-03-27 03:11 | Inpatient (IN) | payer SELFPAY ==
[2022-03-27 03:44] LABS: #Eosinphils 0.1 thou/uL (0.0-0.7); #Lymphocytes 1.6 thou/uL (1.20-3.40); #Monocytes 0.7 thou/uL (0.11-0.59); %Basophils 0.2 % (0.0-1.0); %Eosinophils 2.3 % (0.0-10.0); %Lymphocytes 29.8 % (21.0-51.0); %Monocytes 12.3 % (0.0-10.0); %Neutrophils 55.4 % (42.0-75.0); Hemoglobin 11.9 g/dL (14.0-18.0); Mean Corpuscular HGB CONC 35.6 g/dL (32.0-36.0); Mean Corpuscular Hemoglobin 38.2 pg (27.0-31.0); Mean Platelet Volume 8.7 fL (7.4-10.4); Platelet Count 77 10x3/uL (130-400); RBC Distribution Width 15.9 % (11.5-14.5); White Blood Cell (WBC) Count 5.5 10x3/uL (4.8-10.8)
[2022-03-27] MEDS ORDERED: Aspirin Chewable 81 MG TAB ONE (04:03)
[2022-03-27] MEDS ORDERED: Morphine 4 MG/ML VIAL ONE ×2 (04:03→06:10)
[2022-03-27 04:07] LABS: ALT (SGPT) 18 U/L (8-55); AST (SGOT) 37 U/L (5-34); Albumin 3.9 g/dL (3.5-5.0); Alkaline Phosphatase 86 U/L (40-110); Anion Gap 12 mmol/L (10-20); BUN (Urea Nitrogen) 18 mg/dL (8.9-20.6); Bilirubin, Total 0.7 mg/dL (0.2-1.2); Calc. Creatinine Clearance 0 mL/min (70-130); Calcium 8.8 mg/dL (7.8-10.44); Carbon Dioxide 22 mmol/L (22-29); Chloride 102 mmol/L (98-107); Estimated GFR 33; Globulin 4.5 g/dL (2.4-3.5); Glucose 92 mg/dL (70-105); Lipase 252 U/L (8-78); Potassium 4.4 mmol/L (3.5-5.1); Protein, Total 8.4 g/dL (6.0-8.3); Sodium 132 mmol/L (136-145)
[2022-03-27 04:28] LABS: CKMB 0.9 ng/mL (0-6.6)
[2022-03-27] MEDS ORDERED: Nitroglycerin 2% Ointment 1 INCH/1 GM Packet ONE (05:07)
[2022-03-27 05:20] LABS: SARS-CoV-2 NAA Rapid Test Not Detected (NotDetected)
[2022-03-27 05:25] LABS: Magnesium 2.6 mg/dL (1.6-2.6)
[2022-03-27] MEDS ORDERED: Morphine 4 MG/ML VIAL SLOW IVP PRN (06:04)
[2022-03-27] MEDS ORDERED: Carvedilol 25 MG TAB PO SCH (06:15)
[2022-03-27] MEDS ORDERED: Sodium Chloride 0.9% 1,000 ML IV SCH (06:15)
[2022-03-27 08:07] LABS: Troponin I 0.079 ng/mL (< 0.028)
[2022-03-27] MEDS ORDERED: Labetalol HCl 100 MG/20 ML VIAL SLOW IVP SCH (08:15)
[2022-03-27] MEDS ORDERED: Labetalol HCl 100 MG/20 ML VIAL ONE (08:50)
[2022-03-27] MEDS ORDERED: Nicotine 14 MG PATCH ONE (08:51)
[2022-03-27] MEDS: Nicotine 14 MG PATCH TD SCH (08:55)
[2022-03-27] MEDS: Sodium Chloride 0.9% 1,000 ML IV SCH ×3 (08:56→23:15)
[2022-03-27] MEDS ORDERED: Famotidine/PF 20 mg/2ml Vial SLOW IVP SCH (09:00)
[2022-03-27] MEDS ORDERED: Heparin 5,000 UNITS/ML VIAL SC SCH (09:00)
[2022-03-27] MEDS ORDERED: Famotidine/PF 20 mg/2ml Vial ONE (09:01)
[2022-03-27] MEDS ORDERED: Pantoprazole 40 MG VIAL ONE (09:03)
[2022-03-27] MEDS: Acetaminophen 325 MG TAB PO PRN ×2 (09:59→14:39)
[2022-03-27] MEDS: Pantoprazole 40 MG VIAL IVP SCH (10:01)
[2022-03-27] MEDS ORDERED: Acetaminophen 325 MG TAB ONE ×2 (10:02→14:35)
[2022-03-27 10:18] LABS: Troponin I 0.082 ng/mL (< 0.028)
[2022-03-27] MEDS ORDERED: Iopamidol-370 76% 500 ML 1 ML ONE (12:59)
[2022-03-27] MEDS: Ondansetron ODT 4 MG TAB PO PRN (14:51)
[2022-03-27] MEDS ORDERED: Ondansetron ODT 4 MG TAB ONE (14:51)
[2022-03-27 15:11] LABS: Bacteria/HPF None Seen HPF (None Seen); Bilirubin Negative (Negative); Blood, Urine 1+ (Negative); Clarity Clear (Clear); Glucose, Urine (Dipstick) Normal (Negative); Ketone, Urine Negative (Negative); Leukocyte Negative Leu/uL (Negative); Nitrite Negative (Negative); Protein, Urine (Dipstick) 30 mg/dL (Neg-Trace); RBC/HPF 0-3 HPF (0-3); Specific Gravity, Urine 1.017 (1.002-1.036); Squamous Epithelial None Seen HPF (0-3); Urobilinogen Normal mg/dL (Less than 2); WBC/HPF 0-3 HPF (0-3)
[2022-03-27 18:14] VITALS: BMI 26.4
[2022-03-27] MEDS: Morphine 4 MG/ML VIAL SLOW IVP PRN (19:58)
[2022-03-27] MEDS: hydrALAZINE 20 MG/ML VIAL SLOW IVP PRN (19:58)
[2022-03-28] MEDS: Morphine 4 MG/ML VIAL SLOW IVP PRN ×4 (03:25→19:52)
[2022-03-28] MEDS: hydrALAZINE 20 MG/ML VIAL SLOW IVP PRN ×2 (03:26→07:25)
[2022-03-28 05:11] LABS: BUN (Urea Nitrogen) Less than 20 mg/dL (8.9-20.6)
[2022-03-28 05:16] LABS: #Eosinphils 0.1 thou/uL (0.0-0.7); #Lymphocytes 1.4 thou/uL (1.20-3.40); #Monocytes 0.5 thou/uL (0.11-0.59); #Neutrophils 2.2 thou/uL (1.40-6.50); %Basophils 0.2 % (0.0-1.0); %Eosinophils 2.9 % (0.0-10.0); %Lymphocytes 32.8 % (21.0-51.0); %Monocytes 11.7 % (0.0-10.0); %Neutrophils 52.5 % (42.0-75.0); Hemoglobin 11.6 g/dL (14.0-18.0); Mean Corpuscular HGB CONC 32.9 g/dL (32.0-36.0); Mean Corpuscular Hemoglobin 35.9 pg (27.0-31.0); Mean Platelet Volume 8.6 fL (7.4-10.4); Platelet Count 78 10x3/uL (130-400); RBC Distribution Width 15.8 % (11.5-14.5); Red Blood Cell (RBC) Count 3.24 mill/uL (4.70-6.10); White Blood Cell (WBC) Count 4.2 10x3/uL (4.8-10.8)
[2022-03-28 05:33] LABS: Chloride 107 mmol/L (98-107); Sodium 133 mmol/L (136-145)
[2022-03-28 05:34] LABS: Calcium 8.8 mg/dL (7.8-10.44); Glucose 92 mg/dL (70-105)
[2022-03-28 05:36] LABS: Anion Gap 11 mmol/L (10-20); Carbon Dioxide 19 mmol/L (22-29)
[2022-03-28 05:38] LABS: Calc. Creatinine Clearance 56 mL/min (70-130); Estimated GFR 37
[2022-03-28] MEDS: Sodium Chloride 0.9% 1,000 ML IV SCH ×2 (06:04→14:15)
[2022-03-28] MEDS: Pantoprazole 40 MG VIAL IVP SCH (07:25)
[2022-03-28] MEDS: Ondansetron PF 4 MG/2 ML Vial IVP PRN (07:27)
[2022-03-28] MEDS ORDERED: FLU VACC QS2022-23(6MOS UP)/PF 60 MCG/0.5 ML SYRINGE IM ONE (09:00)
[2022-03-28] MEDS ORDERED: Amlodipine 10 MG TAB PO SCH (09:00)
[2022-03-28] MEDS ORDERED: Sodium Chloride 0.9% 1,000 ML IV SCH (09:10)
[2022-03-28] MEDS ORDERED: NIFEdipine XL 30 MG TAB PO SCH ×2 (09:15→21:00)
[2022-03-28] MEDS ORDERED: HYDROcodone/Acetaminophen 5/325 mg Tablet PO PRN (12:11)
[2022-03-28] MEDS ORDERED: Nicotine 14 MG PATCH TD PRN (12:13)
[2022-03-28] MEDS: Nicotine 14 MG PATCH TD SCH (14:30)
[2022-03-28] MEDS: HYDROcodone/Acetaminophen 5/325 mg Tablet PO PRN (17:55)
[2022-03-28] MEDS: Melatonin 3 MG TAB PO SCH (19:48)
[2022-03-28] MEDS: Senokot S 8.6-50 MG TAB PO SCH (19:48)
[2022-03-28] MEDS ORDERED: Heparin 5,000 UNITS/ML VIAL SC SCH (21:00)
[2022-03-29] MEDS: Sodium Chloride 0.9% 1,000 ML IV SCH ×4 (00:20→20:31)
[2022-03-29] MEDS: Morphine 4 MG/ML VIAL SLOW IVP PRN ×4 (01:21→22:36)
[2022-03-29] MEDS: hydrALAZINE 20 MG/ML VIAL SLOW IVP PRN (03:26)
[2022-03-29 05:17] LABS: #Eosinphils 0.1 thou/uL (0.0-0.7); #Lymphocytes 1.5 thou/uL (1.20-3.40); #Monocytes 0.7 thou/uL (0.11-0.59); #Neutrophils 2.6 thou/uL (1.40-6.50); %Basophils 0.5 % (0.0-1.0); %Eosinophils 2.5 % (0.0-10.0); %Lymphocytes 30.2 % (21.0-51.0); %Monocytes 13.5 % (0.0-10.0); %Neutrophils 53.3 % (42.0-75.0); Hemoglobin 11.8 g/dL (14.0-18.0); Mean Corpuscular HGB CONC 33.3 g/dL (32.0-36.0); Mean Corpuscular Hemoglobin 35.9 pg (27.0-31.0); Mean Platelet Volume 9.5 fL (7.4-10.4); Platelet Count 62 10x3/uL (130-400); RBC Distribution Width 15.9 % (11.5-14.5); Red Blood Cell (RBC) Count 3.29 mill/uL (4.70-6.10); White Blood Cell (WBC) Count 4.9 10x3/uL (4.8-10.8)
[2022-03-29 05:48] LABS: ALT (SGPT) 12 U/L (8-55); AST (SGOT) 31 U/L (5-34); Albumin 3.6 g/dL (3.5-5.0); Alkaline Phosphatase 78 U/L (40-110); Anion Gap 10 mmol/L (10-20); BUN (Urea Nitrogen) 10 mg/dL (8.9-20.6); Bilirubin, Total 1.1 mg/dL (0.2-1.2); Calc. Creatinine Clearance 58 mL/min (70-130); Calcium 8.9 mg/dL (7.8-10.44); Carbon Dioxide 21 mmol/L (22-29); Chloride 106 mmol/L (98-107); Estimated GFR 38; Globulin 4.4 g/dL (2.4-3.5); Glucose 83 mg/dL (70-105); Lipase 60 U/L (8-78); Potassium 3.6 mmol/L (3.5-5.1); Sodium 133 mmol/L (136-145)
[2022-03-29] MEDS: Ondansetron ODT 4 MG TAB PO PRN (06:04)
[2022-03-29] MEDS: Polyethylene Glycol 3350 17 GM Packet PO SCH (08:37)
[2022-03-29] MEDS: hydrALAZINE 25 MG TAB PO SCH ×3 (08:37→20:30)
[2022-03-29] MEDS: HYDROcodone/Acetaminophen 5/325 mg Tablet PO PRN ×3 (08:37→20:30)
[2022-03-29] MEDS: Senokot S 8.6-50 MG TAB PO SCH ×2 (08:37→20:29)
[2022-03-29] MEDS ORDERED: NIFEdipine XL 60 MG TAB PO SCH (09:00)
[2022-03-29] MEDS ORDERED: Carvedilol 6.25 MG TAB PO SCH (12:45)
[2022-03-29] MEDS ORDERED: NIFEdipine XL 30 MG TAB PO SCH (18:00)
[2022-03-29] MEDS: Melatonin 3 MG TAB PO SCH (20:29)
[2022-03-29] MEDS: Carvedilol 6.25 MG TAB PO SCH (20:30)
[2022-03-30] MEDS: HYDROcodone/Acetaminophen 5/325 mg Tablet PO PRN ×3 (02:35→20:24)
[2022-03-30] MEDS: Morphine 4 MG/ML VIAL SLOW IVP PRN ×5 (04:41→22:32)
[2022-03-30 05:54] LABS: Anion Gap 11 mmol/L (10-20); BUN (Urea Nitrogen) 15 mg/dL (8.9-20.6); Calc. Creatinine Clearance 47 mL/min (70-130); Calcium 9.1 mg/dL (7.8-10.44); Carbon Dioxide 20 mmol/L (22-29); Chloride 104 mmol/L (98-107); Estimated GFR 30; Glucose 85 mg/dL (70-105); Lipase 65 U/L (8-78); Potassium 3.8 mmol/L (3.5-5.1); Sodium 131 mmol/L (136-145)
[2022-03-30 06:14] LABS: #Eosinphils 0.1 thou/uL (0.0-0.7); #Lymphocytes 1.4 thou/uL (1.20-3.40); #Monocytes 0.5 thou/uL (0.11-0.59); #Neutrophils 1.9 thou/uL (1.40-6.50); %Basophils 0.3 % (0.0-1.0); %Eosinophils 1.9 % (0.0-10.0); %Lymphocytes 36.1 % (21.0-51.0); %Monocytes 12.9 % (0.0-10.0); %Neutrophils 48.8 % (42.0-75.0); Hemoglobin 11.3 g/dL (14.0-18.0); Mean Corpuscular HGB CONC 33.4 g/dL (32.0-36.0); Mean Corpuscular Hemoglobin 35.8 pg (27.0-31.0); Mean Platelet Volume 9.6 fL (7.4-10.4); Platelet Count 68 10x3/uL (130-400); RBC Distribution Width 15.7 % (11.5-14.5); Red Blood Cell (RBC) Count 3.15 mill/uL (4.70-6.10)
[2022-03-30] MEDS: Carvedilol 6.25 MG TAB PO SCH ×2 (08:26→20:23)
[2022-03-30] MEDS: hydrALAZINE 25 MG TAB PO SCH ×2 (08:26→17:33)
[2022-03-30] MEDS: Polyethylene Glycol 3350 17 GM Packet PO SCH (08:27)
[2022-03-30] MEDS: Senokot S 8.6-50 MG TAB PO SCH ×2 (08:27→20:24)
[2022-03-30] MEDS: NIFEdipine XL 90 MG TAB PO SCH (08:27)
[2022-03-30 09:02] LABS: Bacteria/HPF None Seen HPF (None Seen); Bilirubin Negative (Negative); Blood, Urine Trace (Negative); Clarity Clear (Clear); Glucose, Urine (Dipstick) Normal (Negative); Ketone, Urine Negative (Negative); Leukocyte Negative Leu/uL (Negative); Nitrite Negative (Negative); Protein, Urine (Dipstick) 30 mg/dL (Neg-Trace); RBC/HPF 0-3 HPF (0-3); Squamous Epithelial 0-3 HPF (0-3); Urobilinogen Normal mg/dL (Less than 2); WBC/HPF 0-3 HPF (0-3)
[2022-03-30] MEDS: Pantoprazole 40 MG VIAL IVP SCH (11:04)
[2022-03-30 15:37] LABS: Complement-C4 32.1 mg/dL (15-53)
[2022-03-30 15:43] LABS: HBSAg Index 0.27 S/CO (0-0.99); Hep B Surf Ag Non-Reactive S/CO (NonReactive); Hep C IgG Ab Non-Reactive (NonReactive); Hep C Index 0.26 S/CO (0-0.79)
[2022-03-30] MEDS: Sodium Chloride 0.9% 1,000 ML IV SCH (17:32)
[2022-03-30 18:35] LABS: Creatinine, Urine 38.61 mg/dL (63-166)
[2022-03-30] MEDS: Melatonin 3 MG TAB PO SCH (20:24)
[2022-03-31] MEDS: hydrALAZINE 20 MG/ML VIAL SLOW IVP PRN (03:29)
[2022-03-31] MEDS: Morphine 4 MG/ML VIAL SLOW IVP PRN ×4 (03:30→20:01)
[2022-03-31] MEDS: Sodium Chloride 0.9% 1,000 ML IV SCH ×2 (04:41→15:01)
[2022-03-31 06:06] LABS: Hemoglobin 11.1 g/dL (14.0-18.0); Mean Corpuscular HGB CONC 33.8 g/dL (32.0-36.0); Mean Corpuscular Hemoglobin 35.9 pg (27.0-31.0); Mean Platelet Volume 9.9 fL (7.4-10.4); Platelet Count 68 10x3/uL (130-400); RBC Distribution Width 15.3 % (11.5-14.5); Red Blood Cell (RBC) Count 3.09 mill/uL (4.70-6.10); White Blood Cell (WBC) Count 3.2 10x3/uL (4.8-10.8)
[2022-03-31 06:22] LABS: Anion Gap 11 mmol/L (10-20); BUN (Urea Nitrogen) 16 mg/dL (8.9-20.6); Calc. Creatinine Clearance 46 mL/min (70-130); Calcium 8.9 mg/dL (7.8-10.44); Carbon Dioxide 20 mmol/L (22-29); Chloride 106 mmol/L (98-107); Estimated GFR 29; Glucose 80 mg/dL (70-105); Potassium 3.9 mmol/L (3.5-5.1); Sodium 133 mmol/L (136-145)
[2022-03-31 06:41] LABS: Band 2 % (5-11); Eosinophils 6 % (0-10); Lymphocytes 40 % (21-51); MDiff Complete? YES; Macrocytosis SLIGHT = 6-15 cells (100X) (0-5/hpf); Metamyelocyte 1 % (0-0); Monocytes 11 % (0-10); Neutrophil 40 % (42-75); Platelet Morphology Comment Appears Decreased
[2022-03-31] MEDS: Pantoprazole 40 MG VIAL IVP SCH (09:41)
[2022-03-31] MEDS ORDERED: Labetalol HCl 100 MG/20 ML VIAL ONE (11:48)
[2022-03-31] MEDS ORDERED: PROPOFOL 200 MG/20 ML VIAL ONE (12:51)
[2022-03-31] MEDS ORDERED: Lidocaine 1% PF 5 ML VIAL ONE (12:51)
[2022-03-31] MEDS ORDERED: Ondansetron HCl/PF 4 MG/2 ML Vial IVP PRN (13:06)
[2022-03-31] MEDS ORDERED: Promethazine HCl 25 MG/ML VIAL IVPB PRN (13:06)
[2022-03-31] MEDS ORDERED: Promethazine HCl 25 MG/ML VIAL IM PRN (13:06)
[2022-03-31] MEDS ORDERED: Fentanyl 100 MCG/2 ML VIAL ONE ×2 (13:17→13:32)
[2022-03-31] MEDS: Carvedilol 6.25 MG TAB PO SCH ×2 (14:53→20:01)
[2022-03-31] MEDS: Polyethylene Glycol 3350 17 GM Packet PO SCH (14:53)
[2022-03-31] MEDS: Senokot S 8.6-50 MG TAB PO SCH ×2 (14:54→20:20)
[2022-03-31] MEDS: NIFEdipine XL 90 MG TAB PO SCH (15:08)
[2022-03-31] MEDS: Pancrelipase DR 12,000 1 CAP PO SCH (17:26)
[2022-03-31] MEDS: Ondansetron PF 4 MG/2 ML Vial IVP PRN (20:01)
[2022-03-31] MEDS: Melatonin 3 MG TAB PO SCH (20:01)
[2022-04-01] MEDS: Morphine 4 MG/ML VIAL SLOW IVP PRN ×5 (00:21→19:56)
[2022-04-01] MEDS: Sodium Chloride 0.9% 1,000 ML IV SCH ×2 (04:43→16:49)
[2022-04-01 05:39] LABS: Anion Gap 11 mmol/L (10-20); BUN (Urea Nitrogen) 17 mg/dL (8.9-20.6); Calc. Creatinine Clearance 40 mL/min (70-130); Carbon Dioxide 21 mmol/L (22-29); Chloride 106 mmol/L (98-107); Estimated GFR 25; Glucose 83 mg/dL (70-105); Potassium 4.1 mmol/L (3.5-5.1); Sodium 134 mmol/L (136-145)
[2022-04-01 07:02] LABS: Band 1 % (5-11); Eosinophils 8 % (0-10); Hemoglobin 11.2 g/dL (14.0-18.0); Lymphocytes 40 % (21-51); MDiff Complete? YES; Mean Corpuscular HGB CONC 34.5 g/dL (32.0-36.0); Mean Corpuscular Hemoglobin 36.7 pg (27.0-31.0); Mean Platelet Volume 9.7 fL (7.4-10.4); Monocytes 3 % (0-10); Neutrophil 48 % (42-75); Platelet Count 73 10x3/uL (130-400); Platelet Morphology Comment Appears Decreased; Red Blood Cell (RBC) Count 3.05 mill/uL (4.70-6.10); White Blood Cell (WBC) Count 2.9 10x3/uL (4.8-10.8)
[2022-04-01] MEDS: Carvedilol 6.25 MG TAB PO SCH ×2 (08:17→16:48)
[2022-04-01] MEDS: Pancrelipase DR 12,000 1 CAP PO SCH ×3 (08:17→16:48)
[2022-04-01] MEDS: Senokot S 8.6-50 MG TAB PO SCH ×2 (08:17→19:37)
[2022-04-01] MEDS: NIFEdipine XL 90 MG TAB PO SCH (08:17)
[2022-04-01] MEDS: Pantoprazole 40 MG VIAL IVP SCH (08:18)
[2022-04-01] MEDS: hydrALAZINE 20 MG/ML VIAL SLOW IVP PRN (08:18)
[2022-04-01] MEDS: Polyethylene Glycol 3350 17 GM Packet PO SCH (08:25)
[2022-04-01] MEDS: HYDROcodone/Acetaminophen 5/325 mg Tablet PO PRN ×3 (10:56→22:28)
[2022-04-01 13:14] LABS: Hep B Surface AG-Rflx Sendout Negative (Negative); Hepatitis B Core Total Negative (Negative); Hepatitis B Surface AB-Sendout Non Reactive (.)
[2022-04-01] MEDS: Melatonin 3 MG TAB PO SCH (19:55)
[2022-04-02] MEDS: Morphine 4 MG/ML VIAL SLOW IVP PRN ×4 (03:54→21:46)
[2022-04-02] MEDS: hydrALAZINE 20 MG/ML VIAL SLOW IVP PRN ×2 (04:44→08:40)
[2022-04-02 05:55] LABS: Anion Gap 12 mmol/L (10-20); BUN (Urea Nitrogen) 19 mg/dL (8.9-20.6); Calc. Creatinine Clearance 35 mL/min (70-130); Calcium 9.1 mg/dL (7.8-10.44); Carbon Dioxide 22 mmol/L (22-29); Chloride 104 mmol/L (98-107); Estimated GFR 21; Glucose 80 mg/dL (70-105); Sodium 134 mmol/L (136-145)
[2022-04-02] MEDS: HYDROcodone/Acetaminophen 5/325 mg Tablet PO PRN ×3 (06:10→20:20)
[2022-04-02] MEDS ORDERED: Sodium Chloride 0.9% 1,000 ML IV SCH (08:13)
[2022-04-02] MEDS: Pancrelipase DR 12,000 1 CAP PO SCH ×3 (08:25→17:11)
[2022-04-02] MEDS: Carvedilol 6.25 MG TAB PO SCH (08:25)
[2022-04-02] MEDS: Senokot S 8.6-50 MG TAB PO SCH ×2 (08:26→20:22)
[2022-04-02] MEDS: Pantoprazole 40 MG VIAL IVP SCH (08:26)
[2022-04-02] MEDS: Polyethylene Glycol 3350 17 GM Packet PO SCH (08:26)
[2022-04-02 08:38] LABS: INR-International Normal Ratio 1.1; PTT 39.5 sec (22.9-36.1); Prothrombin Time 14.2 sec (12.0-14.7)
[2022-04-02] MEDS: NIFEdipine XL 90 MG TAB PO SCH (08:38)
[2022-04-02] MEDS: Sodium Chloride 0.9% 1,000 ML IV SCH (09:31)
[2022-04-02 16:13] LABS: A/G Ratio 0.7 (0.7-1.7); Albumin 3.2 g/dL (2.9-4.4); Alpha 1 0.3 g/dL (0.0-0.4); Alpha 2 0.5 g/dL (0.4-1.0); Beta 0.9 g/dL (0.7-1.3); Gamma 2.8 g/dL (0.4-1.8); Globulin, Total 4.5 g/dL (2.2-3.9); M-Spike Not Observed g/dL (Not Observed); Protein Electrophoresis Intrp Note: (.)
[2022-04-02 16:37] LABS: Albumin-Ur 28.1 % (.); Alpha 1 - Ur 6.4 % (.); Alpha 2 - Ur 10.7 % (.); Beta-Ur 33.2 % (.); Gamma-Ur 21.6 % (.); M-Spike,% Not Observed % (Not Observed); Protein, Urine 11.6 mg/dL (Not Estab.)
[2022-04-02] MEDS: Carvedilol 25 MG TAB PO SCH (17:11)
[2022-04-02] MEDS: Melatonin 3 MG TAB PO SCH (20:16)
[2022-04-02] MEDS ORDERED: Bacitracin Zinc Ointment 30 gm TUBE TOP SCH (22:15)
[2022-04-03] MEDS: Morphine 4 MG/ML VIAL SLOW IVP PRN ×4 (02:13→20:58)
[2022-04-03] MEDS: hydrALAZINE 20 MG/ML VIAL SLOW IVP PRN ×2 (03:58→08:54)
[2022-04-03] MEDS: HYDROcodone/Acetaminophen 5/325 mg Tablet PO PRN ×4 (03:58→23:37)
[2022-04-03 05:52] LABS: Anion Gap 12 mmol/L (10-20); BUN (Urea Nitrogen) 22 mg/dL (8.9-20.6); Calc. Creatinine Clearance 32 mL/min (70-130); Calcium 8.8 mg/dL (7.8-10.44); Carbon Dioxide 21 mmol/L (22-29); Chloride 104 mmol/L (98-107); Estimated GFR 19; Glucose 83 mg/dL (70-105); Potassium 3.8 mmol/L (3.5-5.1); Sodium 133 mmol/L (136-145)
[2022-04-03] MEDS: Carvedilol 25 MG TAB PO SCH ×2 (06:21→18:00)
[2022-04-03] MEDS: Polyethylene Glycol 3350 17 GM Packet PO SCH (08:35)
[2022-04-03] MEDS: Senokot S 8.6-50 MG TAB PO SCH ×2 (08:35→20:58)
[2022-04-03] MEDS: Bacitracin Zinc Ointment 30 gm TUBE TOP SCH (08:36)
[2022-04-03] MEDS: Pancrelipase DR 12,000 1 CAP PO SCH ×3 (08:36→17:59)
[2022-04-03] MEDS: NIFEdipine XL 90 MG TAB PO SCH (08:37)
[2022-04-03] MEDS: Pantoprazole 40 MG VIAL IVP SCH (08:37)
[2022-04-03] MEDS: hydrALAZINE 25 MG TAB PO SCH ×4 (08:37→20:57)
[2022-04-03] MEDS: Ondansetron PF 4 MG/2 ML Vial IVP PRN (12:09)
[2022-04-03 13:25] LABS: ANA Symphony (Qualitative) Negative (Negative); ANA Symphony (Quantitative) 0.6 Ratio (< 0.7 Negative); dsDNA IgG Antibody 2.3 IU/mL (<10 Negative)
[2022-04-03] MEDS ORDERED: hydrALAZINE 25 MG TAB PO SCH (14:36)
[2022-04-03] MEDS: cloNIDine 0.1 MG TAB PO PRN ×2 (18:13→23:36)
[2022-04-03] MEDS: Melatonin 3 MG TAB PO SCH (20:57)
[2022-04-04] MEDS: cloNIDine 0.1 MG TAB PO PRN (03:50)
[2022-04-04] MEDS: Morphine 4 MG/ML VIAL SLOW IVP PRN ×4 (03:52→18:18)
[2022-04-04] MEDS: Bacitracin Zinc Ointment 30 gm TUBE TOP SCH (05:58)
[2022-04-04] MEDS: Pancrelipase DR 12,000 1 CAP PO SCH ×4 (08:00→17:06)
[2022-04-04] MEDS: HYDROcodone/Acetaminophen 5/325 mg Tablet PO PRN (08:40)
[2022-04-04] MEDS: NIFEdipine XL 90 MG TAB PO SCH (08:41)
[2022-04-04] MEDS: hydrALAZINE 25 MG TAB PO SCH ×3 (08:42→20:40)
[2022-04-04] MEDS: Carvedilol 25 MG TAB PO SCH ×2 (08:42→17:06)
[2022-04-04] MEDS: Amitriptyline HCl 25 MG TAB PO SCH (08:42)
[2022-04-04] MEDS: Senokot S 8.6-50 MG TAB PO SCH ×2 (08:43→20:40)
[2022-04-04] MEDS: Polyethylene Glycol 3350 17 GM Packet PO SCH (08:43)
[2022-04-04] MEDS: Ondansetron PF 4 MG/2 ML Vial IVP PRN (09:11)
[2022-04-04] MEDS: Minoxidil 2.5 MG TAB PO SCH (09:58)
[2022-04-04] MEDS ORDERED: Carvedilol 25 MG TAB PO SCH (11:45)
[2022-04-04 12:06] LABS: Anion Gap 9 mmol/L (10-20); BUN (Urea Nitrogen) 24 mg/dL (8.9-20.6); Calc. Creatinine Clearance 26 mL/min (70-130); Calcium 8.9 mg/dL (7.8-10.44); Carbon Dioxide 23 mmol/L (22-29); Chloride 105 mmol/L (98-107); Estimated GFR 14; Glucose 100 mg/dL (70-105); Potassium 3.9 mmol/L (3.5-5.1); Sodium 133 mmol/L (136-145)
[2022-04-04 15:15] LABS: Cytoplasmic (C-ANCA) <1:20 titer (Neg:<1:20); Perinuclear (P-ANCA) <1:20 titer (Neg:<1:20)
[2022-04-04] MEDS: Melatonin 3 MG TAB PO SCH (20:40)
[2022-04-04] MEDS: Acetaminophen 325 MG TAB PO PRN (20:42)
[2022-04-04] MEDS: Morphine 2 MG/ML VIAL SLOW IVP PRN (23:54)
[2022-04-05] MEDS: Morphine 2 MG/ML VIAL SLOW IVP PRN ×3 (03:50→19:37)
[2022-04-05] MEDS: HYDROcodone/Acetaminophen 5/325 mg Tablet PO PRN ×2 (07:15→12:33)
[2022-04-05] MEDS: hydrALAZINE 25 MG TAB PO SCH ×3 (08:12→19:36)
[2022-04-05] MEDS: NIFEdipine XL 90 MG TAB PO SCH (08:12)
[2022-04-05] MEDS: Carvedilol 25 MG TAB PO SCH ×2 (08:13→16:24)
[2022-04-05] MEDS: Minoxidil 2.5 MG TAB PO SCH (09:25)
[2022-04-05] MEDS ORDERED: Fentanyl 100 MCG/2 ML VIAL ONE (10:47)
[2022-04-05] MEDS ORDERED: Sodium Bicarbonate 2.5 MEQ/5 ML VIAL ONE (10:47)
[2022-04-05] MEDS ORDERED: Midazolam HCl 2 mg/2 ml Vial ONE (10:47)
[2022-04-05] MEDS: Pancrelipase DR 12,000 1 CAP PO SCH ×3 (12:01→16:24)
[2022-04-05] MEDS ORDERED: Morphine 2 MG/ML VIAL SLOW IVP SCH (12:15)
[2022-04-05] MEDS: Amitriptyline HCl 25 MG TAB PO SCH (12:25)
[2022-04-05] MEDS: Senokot S 8.6-50 MG TAB PO SCH ×2 (12:25→19:42)
[2022-04-05] MEDS: Polyethylene Glycol 3350 17 GM Packet PO SCH (12:25)
[2022-04-05] MEDS: Bacitracin Zinc Ointment 30 gm TUBE TOP SCH (12:29)
[2022-04-05] MEDS ORDERED: Morphine 4 MG/ML VIAL SLOW IVP SCH (12:30)
[2022-04-05] MEDS: Melatonin 3 MG TAB PO SCH (19:42)
[2022-04-06] MEDS: Morphine 2 MG/ML VIAL SLOW IVP PRN ×4 (01:37→21:56)
[2022-04-06] MEDS: cloNIDine 0.1 MG TAB PO PRN (05:14)
[2022-04-06] MEDS: HYDROcodone/Acetaminophen 5/325 mg Tablet PO PRN ×3 (05:16→20:17)
[2022-04-06 05:34] LABS: #Eosinphils 0.1 thou/uL (0.0-0.7); #Lymphocytes 1.7 thou/uL (1.20-3.40); #Monocytes 0.7 thou/uL (0.11-0.59); #Neutrophils 3.8 thou/uL (1.40-6.50); %Basophils 0.5 % (0.0-1.0); %Eosinophils 2.2 % (0.0-10.0); %Lymphocytes 26.9 % (21.0-51.0); %Monocytes 11.4 % (0.0-10.0); %Neutrophils 59.1 % (42.0-75.0); Hemoglobin 10.4 g/dL (14.0-18.0); Mean Corpuscular Hemoglobin 36.8 pg (27.0-31.0); Mean Platelet Volume 8.2 fL (7.4-10.4); Platelet Count 131 10x3/uL (130-400); RBC Distribution Width 14.1 % (11.5-14.5); Red Blood Cell (RBC) Count 2.83 mill/uL (4.70-6.10); White Blood Cell (WBC) Count 6.5 10x3/uL (4.8-10.8)
[2022-04-06 05:57] LABS: Anion Gap 9 mmol/L (10-20); BUN (Urea Nitrogen) 29 mg/dL (8.9-20.6); Calc. Creatinine Clearance 22 mL/min (70-130); Calcium 9.1 mg/dL (7.8-10.44); Carbon Dioxide 22 mmol/L (22-29); Chloride 106 mmol/L (98-107); Estimated GFR 12; Glucose 100 mg/dL (70-105); Sodium 133 mmol/L (136-145)
[2022-04-06] MEDS: NIFEdipine XL 90 MG TAB PO SCH (08:21)
[2022-04-06] MEDS: hydrALAZINE 25 MG TAB PO SCH ×3 (08:21→20:16)
[2022-04-06] MEDS: Amitriptyline HCl 25 MG TAB PO SCH (08:22)
[2022-04-06] MEDS: Pancrelipase DR 12,000 1 CAP PO SCH ×3 (08:22→16:10)
[2022-04-06] MEDS: Minoxidil 2.5 MG TAB PO SCH (08:22)
[2022-04-06] MEDS: Carvedilol 25 MG TAB PO SCH ×2 (08:22→16:10)
[2022-04-06] MEDS: Bacitracin Zinc Ointment 30 gm TUBE TOP SCH (08:23)
[2022-04-06] MEDS: Polyethylene Glycol 3350 17 GM Packet PO SCH (08:26)
[2022-04-06] MEDS: Senokot S 8.6-50 MG TAB PO SCH ×2 (08:27→20:19)
[2022-04-06] MEDS: Ondansetron ODT 4 MG TAB PO PRN (16:57)
[2022-04-06] MEDS: cloNIDine 0.1 MG TAB PO SCH (20:16)
[2022-04-06] MEDS: Melatonin 3 MG TAB PO SCH (20:16)
[2022-04-07] MEDS: HYDROcodone/Acetaminophen 5/325 mg Tablet PO PRN ×4 (02:53→22:36)
[2022-04-07] MEDS: Morphine 2 MG/ML VIAL SLOW IVP PRN ×2 (05:21→09:56)
[2022-04-07 06:23] LABS: Anion Gap 11 mmol/L (10-20); BUN (Urea Nitrogen) 32 mg/dL (8.9-20.6); Calc. Creatinine Clearance 19 mL/min (70-130); Calcium 8.9 mg/dL (7.8-10.44); Carbon Dioxide 22 mmol/L (22-29); Chloride 102 mmol/L (98-107); Estimated GFR 10; Glucose 94 mg/dL (70-105); Potassium 3.9 mmol/L (3.5-5.1); Sodium 131 mmol/L (136-145)
[2022-04-07] MEDS: Polyethylene Glycol 3350 17 GM Packet PO SCH (08:51)
[2022-04-07] MEDS: Senokot S 8.6-50 MG TAB PO SCH ×2 (08:52→20:44)
[2022-04-07] MEDS: Carvedilol 25 MG TAB PO SCH ×2 (08:52→17:51)
[2022-04-07] MEDS: Pancrelipase DR 12,000 1 CAP PO SCH ×3 (08:52→17:50)
[2022-04-07] MEDS: cloNIDine 0.1 MG TAB PO SCH ×2 (08:53→20:45)
[2022-04-07] MEDS: Amitriptyline HCl 25 MG TAB PO SCH (08:53)
[2022-04-07] MEDS: Bacitracin Zinc Ointment 30 gm TUBE TOP SCH (08:53)
[2022-04-07] MEDS: NIFEdipine XL 90 MG TAB PO SCH (08:54)
[2022-04-07] MEDS: hydrALAZINE 25 MG TAB PO SCH ×3 (08:54→20:45)
[2022-04-07] MEDS: Minoxidil 2.5 MG TAB PO SCH (08:54)
[2022-04-07] MEDS: Ondansetron PF 4 MG/2 ML Vial IVP PRN ×2 (12:28→18:36)
[2022-04-07] MEDS ORDERED: HYDROcodone/Acetaminophen 5/325 mg Tablet PO SCH (15:00)
[2022-04-07] MEDS: Melatonin 3 MG TAB PO SCH (20:44)
[2022-04-07] MEDS ORDERED: Lidocaine 5% Patch TD SCH (21:30)
[2022-04-07] MEDS ORDERED: Acetaminophen 500 MG TAB PO SCH (21:30)
[2022-04-07] MEDS: Metoclopramide HCl 10 MG/2 ML VIAL IVP SCH (21:37)
[2022-04-08] MEDS: HYDROcodone/Acetaminophen 5/325 mg Tablet PO PRN ×4 (02:34→23:28)
[2022-04-08] MEDS: Ondansetron PF 4 MG/2 ML Vial IVP PRN ×3 (02:34→23:30)
[2022-04-08 06:40] LABS: Anion Gap 11 mmol/L (10-20); BUN (Urea Nitrogen) 39 mg/dL (8.9-20.6); Calc. Creatinine Clearance 15 mL/min (70-130); Carbon Dioxide 21 mmol/L (22-29); Chloride 99 mmol/L (98-107); Estimated GFR 8; Glucose 96 mg/dL (70-105); Potassium 4.2 mmol/L (3.5-5.1); Sodium 127 mmol/L (136-145)
[2022-04-08] MEDS: hydrALAZINE 25 MG TAB PO SCH ×3 (08:55→20:48)
[2022-04-08] MEDS: Carvedilol 25 MG TAB PO SCH ×2 (08:56→19:06)
[2022-04-08] MEDS: cloNIDine 0.1 MG TAB PO SCH ×2 (08:57→20:47)
[2022-04-08] MEDS: Minoxidil 2.5 MG TAB PO SCH (08:57)
[2022-04-08] MEDS: NIFEdipine XL 90 MG TAB PO SCH (08:58)
[2022-04-08] MEDS: Pancrelipase DR 12,000 1 CAP PO SCH ×3 (09:18→19:07)
[2022-04-08] MEDS ORDERED: Transdermal Patch Removal TOP SCH (09:30)
[2022-04-08] MEDS: Polyethylene Glycol 3350 17 GM Packet PO SCH (10:37)
[2022-04-08] MEDS: Senokot S 8.6-50 MG TAB PO SCH ×2 (10:37→19:39)
[2022-04-08] MEDS ORDERED: Heparin 10,000 UNITS/ 10 ML VIAL ONE (15:52)
[2022-04-08] MEDS ORDERED: Bupivacaine/Epinephrine 0.25% 30 ML VIAL ONE (15:52)
[2022-04-08] MEDS ORDERED: Lidocaine 2% PF 5 ML VIAL ONE (15:52)
[2022-04-08] MEDS ORDERED: Fentanyl 100 MCG/2 ML VIAL ONE ×2 (16:04→17:40)
[2022-04-08] MEDS ORDERED: Midazolam HCl 2 mg/2 ml Vial ONE (16:04)
[2022-04-08] MEDS ORDERED: Famotidine/PF 20 mg/2ml Vial ONE ×2 (16:04→16:05)
[2022-04-08] MEDS ORDERED: Sodium Chloride 0.9% 100 ML ONE (16:10)
[2022-04-08] MEDS ORDERED: CEFAZOLIN 2 GM VIAL ONE (16:10)
[2022-04-08] MEDS ORDERED: Ondansetron PF 4 MG/2 ML Vial ONE (16:20)
[2022-04-08] MEDS ORDERED: Lidocaine 1% PF 5 ML VIAL ONE (16:20)
[2022-04-08] MEDS ORDERED: PROPOFOL 200 MG/20 ML VIAL ONE (16:20)
[2022-04-08] MEDS ORDERED: Propofol 500 MG/50 ML VIAL ONE (16:39)
[2022-04-08] MEDS: Metoclopramide HCl 10 MG/2 ML VIAL IVP SCH ×3 (18:39→23:12)
[2022-04-08] MEDS: Bacitracin Zinc Ointment 30 gm TUBE TOP SCH (19:01)
[2022-04-08] MEDS: Amitriptyline HCl 25 MG TAB PO SCH (19:01)
[2022-04-08] MEDS: Melatonin 3 MG TAB PO SCH (20:48)
[2022-04-09] MEDS ORDERED: Fentanyl 100 MCG/2 ML VIAL SLOW IVP SCH (02:45)
[2022-04-09] MEDS: HYDROcodone/Acetaminophen 5/325 mg Tablet PO PRN ×5 (03:27→21:16)
[2022-04-09] MEDS: hydrALAZINE 25 MG TAB PO SCH ×3 (08:13→21:12)
[2022-04-09] MEDS: Pancrelipase DR 12,000 1 CAP PO SCH ×3 (08:13→18:11)
[2022-04-09] MEDS: Amitriptyline HCl 25 MG TAB PO SCH (08:13)
[2022-04-09] MEDS: Carvedilol 25 MG TAB PO SCH ×2 (08:14→18:08)
[2022-04-09] MEDS: cloNIDine 0.1 MG TAB PO SCH ×2 (08:14→21:12)
[2022-04-09] MEDS: NIFEdipine XL 90 MG TAB PO SCH (08:14)
[2022-04-09] MEDS: Minoxidil 2.5 MG TAB PO SCH (08:14)
[2022-04-09] MEDS: Bacitracin Zinc Ointment 30 gm TUBE TOP SCH (08:16)
[2022-04-09] MEDS: Metoclopramide HCl 10 MG/2 ML VIAL IVP SCH ×3 (08:17→21:13)
[2022-04-09] MEDS: Polyethylene Glycol 3350 17 GM Packet PO SCH (08:21)
[2022-04-09] MEDS: Senokot S 8.6-50 MG TAB PO SCH (08:21)
[2022-04-09] MEDS: Ondansetron PF 4 MG/2 ML Vial IVP PRN (08:22)
[2022-04-09] MEDS ORDERED: Morphine 2 MG/ML VIAL SLOW IVP PRN (13:10)
[2022-04-09] MEDS ORDERED: Lidocaine 5% Patch TD SCH (14:00)
[2022-04-09 14:38] LABS: %CD4 (Helper/Inducer) 23.3 % (30.8-58.5); Absolute CD4 256 /uL (359-1519); Lymphocytes/Gated Cell Count 1.1 x10E3/uL (0.7-3.1); Total Lymphocyte 17 % (Not Estab.); WBC Total Count 6.6 x10E3/uL (3.4-10.8)
[2022-04-09] MEDS: Melatonin 3 MG TAB PO SCH (21:11)
[2022-04-10] MEDS: Senokot S 8.6-50 MG TAB PO SCH ×3 (00:04→20:04)
[2022-04-10] MEDS ORDERED: Transdermal Patch Removal TOP SCH (02:00)
[2022-04-10] MEDS: HYDROcodone/Acetaminophen 5/325 mg Tablet PO PRN ×5 (02:08→20:18)
[2022-04-10] MEDS: Ondansetron PF 4 MG/2 ML Vial IVP PRN ×2 (05:53→20:20)
[2022-04-10] MEDS: Metoclopramide HCl 10 MG/2 ML VIAL IVP SCH ×3 (05:53→22:27)
[2022-04-10 06:06] LABS: INR-International Normal Ratio 1.1; PTT 58.4 sec (22.9-36.1); Prothrombin Time 14.9 sec (12.0-14.7)
[2022-04-10] MEDS ORDERED: Heparin 10,000 UNITS/ 10 ML VIAL ONE (07:40)
[2022-04-10] MEDS: Pancrelipase DR 12,000 1 CAP PO SCH ×3 (08:22→18:13)
[2022-04-10] MEDS: Amitriptyline HCl 25 MG TAB PO SCH (08:23)
[2022-04-10] MEDS: cloNIDine 0.1 MG TAB PO SCH ×2 (08:23→20:03)
[2022-04-10] MEDS: hydrALAZINE 25 MG TAB PO SCH ×3 (08:23→20:18)
[2022-04-10] MEDS: Carvedilol 25 MG TAB PO SCH ×2 (08:23→17:38)
[2022-04-10] MEDS: NIFEdipine XL 90 MG TAB PO SCH (08:23)
[2022-04-10] MEDS: Minoxidil 2.5 MG TAB PO SCH (08:23)
[2022-04-10] MEDS: Bacitracin Zinc Ointment 30 gm TUBE TOP SCH (08:24)
[2022-04-10 08:34] LABS: PT - Undiluted 14.4 sec (12.0-14.7); PTT - Undiluted 50.1 sec (22.9-36.1)
[2022-04-10 08:47] LABS: #Eosinphils 0.1 thou/uL (0.0-0.7); #Lymphocytes 1.2 thou/uL (1.20-3.40); #Monocytes 0.9 thou/uL (0.11-0.59); #Neutrophils 4.2 thou/uL (1.40-6.50); %Basophils 0.5 % (0.0-1.0); %Eosinophils 0.8 % (0.0-10.0); %Lymphocytes 18.2 % (21.0-51.0); %Neutrophils 66.5 % (42.0-75.0); Hemoglobin 9.3 g/dL (14.0-18.0); Mean Corpuscular HGB CONC 34.2 g/dL (32.0-36.0); Mean Corpuscular Hemoglobin 34.5 pg (27.0-31.0); Mean Platelet Volume 7.5 fL (7.4-10.4); Platelet Count 178 10x3/uL (130-400); RBC Distribution Width 14.2 % (11.5-14.5); Red Blood Cell (RBC) Count 2.68 mill/uL (4.70-6.10); White Blood Cell (WBC) Count 6.3 10x3/uL (4.8-10.8)
[2022-04-10 09:06] LABS: Anion Gap 11 mmol/L (10-20); BUN (Urea Nitrogen) 41 mg/dL (8.9-20.6); Calc. Creatinine Clearance 12 mL/min (70-130); Calcium 8.7 mg/dL (7.8-10.44); Carbon Dioxide 24 mmol/L (22-29); Chloride 95 mmol/L (98-107); Estimated GFR 6; Glucose 157 mg/dL (70-105); Potassium 3.3 mmol/L (3.5-5.1); Sodium 127 mmol/L (136-145)
[2022-04-10] MEDS: Polyethylene Glycol 3350 17 GM Packet PO SCH (09:27)
[2022-04-10 10:20] LABS: PTT 1:1 Mix 44.1 sec (22.9-36.1)
[2022-04-10 11:07] LABS: PT 1:1 37C-90 min. Incubation 14.7 sec (12.0-14.7); PTT 1:1 37C/90 MIN Incubation 46.5 sec (22.9-36.1)
[2022-04-10] MEDS ORDERED: Potassium Chloride 20 MEQ TAB PO SCH (11:15)
[2022-04-10 11:33] LABS: Bilirubin, Total 0.5 mg/dL (0.2-1.2)
[2022-04-10 14:01] LABS: Ref Lab Test Ordered ADAMTS13 ACTIVITY; Reference Lab Name LABCORP
[2022-04-10 14:29] LABS: DRVVT Confirm 41.7; HEX PHOS LA Tube 1 77.6 SEC; HEX PHOS LA Tube 2 55.6 SEC
[2022-04-10 14:30] LABS: Factor IX Test 176.3 % ACTIVE (56-149); Factor VIII Test 319.6 % ACTIVE (56-157)
[2022-04-10 15:20] LABS: Reticulocyte Count 2.9 % (0.5-1.5)
[2022-04-10 15:22] LABS: Platelet Count 169 10x3/uL (130-400)
[2022-04-10 15:32] LABS: Fibrinogen 554 mg/dL (253-463)
[2022-04-10 15:33] LABS: INR-International Normal Ratio 1.1; PTT 51.4 sec (22.9-36.1); Prothrombin Time 14.5 sec (12.0-14.7)
[2022-04-10 15:40] LABS: D-Dimer Test 4.29 *mcg/mL (0.27-0.43)
[2022-04-10 20:16] LABS: Cardiolipin IgA Ab 2.7 APL-U/mL (<14 Negative); EliA APS New Method **** NEW METHOD ****; beta-2-Glycoprotein I IgA Ab 3.3 U/mL (<7 Negative); beta-2-Glycoprotein I IgG Ab 5.8 U/mL (<7 Negative); beta-2-Glycoprotein I IgM Abs 5.3 U/mL (<7 Negative)
[2022-04-10] MEDS: Melatonin 3 MG TAB PO SCH (20:18)
[2022-04-11] MEDS: HYDROcodone/Acetaminophen 5/325 mg Tablet PO PRN ×6 (00:08→21:56)
[2022-04-11] MEDS: Metoclopramide HCl 10 MG/2 ML VIAL IVP SCH ×3 (05:25→21:52)
[2022-04-11] MEDS: Ondansetron PF 4 MG/2 ML Vial IVP PRN (08:06)
[2022-04-11] MEDS ORDERED: Heparin 10,000 UNITS/ 10 ML VIAL ONE (08:19)
[2022-04-11] MEDS: cloNIDine 0.1 MG TAB PO SCH ×2 (08:21→21:51)
[2022-04-11] MEDS: Minoxidil 2.5 MG TAB PO SCH (08:22)
[2022-04-11] MEDS: Carvedilol 25 MG TAB PO SCH ×2 (08:22→17:50)
[2022-04-11] MEDS: Polyethylene Glycol 3350 17 GM Packet PO SCH (08:23)
[2022-04-11] MEDS: Senokot S 8.6-50 MG TAB PO SCH ×2 (08:24→21:51)
[2022-04-11] MEDS: NIFEdipine XL 90 MG TAB PO SCH (08:25)
[2022-04-11] MEDS: hydrALAZINE 25 MG TAB PO SCH ×3 (08:25→21:51)
[2022-04-11] MEDS: Amitriptyline HCl 25 MG TAB PO SCH (08:26)
[2022-04-11] MEDS: Pancrelipase DR 12,000 1 CAP PO SCH ×3 (08:26→18:21)
[2022-04-11] MEDS: Bacitracin Zinc Ointment 30 gm TUBE TOP SCH (08:29)
[2022-04-11 09:38] LABS: Troponin I 0.033 ng/mL (< 0.028)
[2022-04-11] MEDS ORDERED: Heparin 10,000 UNITS/ 10 ML VIAL SLOW IVP SCH (15:30)
[2022-04-11] MEDS: Warfarin Sodium 5 MG TAB PO SCH (17:52)
[2022-04-11 18:11] LABS: Platelet Count 194 10x3/uL (130-400)
[2022-04-11] MEDS: Morphine 4 MG/ML VIAL SLOW IVP PRN (19:09)
[2022-04-11] MEDS: Heparin 25,000 units/D5W 500 ML IV SCH (19:12)
[2022-04-11] MEDS: Melatonin 3 MG TAB PO SCH (21:52)
[2022-04-12] MEDS: Morphine 4 MG/ML VIAL SLOW IVP PRN ×3 (02:11→20:13)
[2022-04-12 02:15] LABS: PTT 249.3 sec (22.9-36.1)
[2022-04-12 04:37] LABS: #Eosinphils 0.1 thou/uL (0.0-0.7); #Monocytes 0.8 thou/uL (0.11-0.59); #Neutrophils 3.1 thou/uL (1.40-6.50); %Basophils 0.5 % (0.0-1.0); %Eosinophils 2.4 % (0.0-10.0); %Lymphocytes 32.5 % (21.0-51.0); %Monocytes 12.7 % (0.0-10.0); Hemoglobin 8.2 g/dL (14.0-18.0); Mean Corpuscular HGB CONC 32.4 g/dL (32.0-36.0); Mean Corpuscular Hemoglobin 33.4 pg (27.0-31.0); Mean Platelet Volume 7.2 fL (7.4-10.4); Platelet Count 222 10x3/uL (130-400); RBC Distribution Width 14.7 % (11.5-14.5); Red Blood Cell (RBC) Count 2.45 mill/uL (4.70-6.10)
[2022-04-12] MEDS: Metoclopramide HCl 10 MG/2 ML VIAL IVP SCH ×3 (04:39→20:52)
[2022-04-12] MEDS: HYDROcodone/Acetaminophen 5/325 mg Tablet PO PRN ×4 (04:39→23:27)
[2022-04-12 04:47] LABS: Albumin 2.8 g/dL (3.5-5.0); Anion Gap 10 mmol/L (10-20); BUN (Urea Nitrogen) 16 mg/dL (8.9-20.6); BUN/Creatinine Ratio 2.35; Calc. Creatinine Clearance 18 mL/min (70-130); Calcium 8.4 mg/dL (7.8-10.44); Carbon Dioxide 27 mmol/L (22-29); Chloride 100 mmol/L (98-107); Estimated GFR 10; Glucose 91 mg/dL (70-105); Phosphorus 3.3 mg/dL (2.3-4.7); Potassium 4.2 mmol/L (3.5-5.1); Sodium 133 mmol/L (136-145)
[2022-04-12 04:48] LABS: INR-International Normal Ratio 1.1; Prothrombin Time 14.8 sec (12.0-14.7)
[2022-04-12 04:49] LABS: PTT 92.4 sec (22.9-36.1)
[2022-04-12] MEDS: Carvedilol 25 MG TAB PO SCH ×2 (09:55→17:59)
[2022-04-12] MEDS: Amitriptyline HCl 25 MG TAB PO SCH (09:56)
[2022-04-12] MEDS: predniSONE 20 MG TAB PO SCH (09:56)
[2022-04-12] MEDS: Pancrelipase DR 12,000 1 CAP PO SCH ×3 (09:56→17:59)
[2022-04-12] MEDS: hydrALAZINE 25 MG TAB PO SCH ×3 (09:57→20:13)
[2022-04-12] MEDS: cloNIDine 0.1 MG TAB PO SCH ×2 (09:57→20:12)
[2022-04-12] MEDS: Minoxidil 2.5 MG TAB PO SCH (09:57)
[2022-04-12] MEDS: Senokot S 8.6-50 MG TAB PO SCH ×2 (09:58→20:12)
[2022-04-12] MEDS: NIFEdipine XL 90 MG TAB PO SCH (09:58)
[2022-04-12] MEDS: Polyethylene Glycol 3350 17 GM Packet PO SCH (09:58)
[2022-04-12] MEDS: Bacitracin Zinc Ointment 30 gm TUBE TOP SCH (10:05)
[2022-04-12] MEDS: Ondansetron PF 4 MG/2 ML Vial IVP PRN (10:14)
[2022-04-12 12:18] LABS: PTT 121.3 sec (22.9-36.1)
[2022-04-12] MEDS: Warfarin Sodium 5 MG TAB PO SCH (18:00)
[2022-04-12] MEDS: Raltegravir Potassium 400 MG TAB PO SCH (20:13)
[2022-04-12] MEDS: Melatonin 3 MG TAB PO SCH (20:13)
[2022-04-12] MEDS: Heparin 25,000 units/D5W 500 ML IV SCH (20:14)
[2022-04-12 21:11] LABS: INR-International Normal Ratio 1.6; Prothrombin Time 19.8 sec (12.0-14.7)
[2022-04-12 21:16] LABS: PTT 135.1 sec (22.9-36.1)
[2022-04-13] MEDS: Acetaminophen 325 MG TAB PO PRN (01:15)
[2022-04-13] MEDS: Morphine 4 MG/ML VIAL SLOW IVP PRN ×3 (01:38→15:01)
[2022-04-13] MEDS: HYDROcodone/Acetaminophen 5/325 mg Tablet PO PRN ×3 (05:02→18:09)
[2022-04-13] MEDS: Metoclopramide HCl 10 MG/2 ML VIAL IVP SCH ×3 (05:04→21:04)
[2022-04-13 06:22] LABS: Prothrombin Time 23.9 sec (12.0-14.7)
[2022-04-13] MEDS: Pancrelipase DR 12,000 1 CAP PO SCH ×3 (08:21→18:13)
[2022-04-13] MEDS: NIFEdipine XL 90 MG TAB PO SCH (08:21)
[2022-04-13] MEDS: Senokot S 8.6-50 MG TAB PO SCH ×2 (08:22→21:04)
[2022-04-13] MEDS: Carvedilol 25 MG TAB PO SCH ×2 (08:22→18:10)
[2022-04-13] MEDS: cloNIDine 0.1 MG TAB PO SCH ×2 (08:22→21:03)
[2022-04-13] MEDS: Minoxidil 2.5 MG TAB PO SCH (08:23)
[2022-04-13] MEDS: predniSONE 20 MG TAB PO SCH (08:23)
[2022-04-13] MEDS: hydrALAZINE 25 MG TAB PO SCH ×3 (08:23→21:03)
[2022-04-13] MEDS: Polyethylene Glycol 3350 17 GM Packet PO SCH (08:24)
[2022-04-13] MEDS: Amitriptyline HCl 25 MG TAB PO SCH (08:24)
[2022-04-13] MEDS: Raltegravir Potassium 400 MG TAB PO SCH ×2 (08:24→21:03)
[2022-04-13] MEDS: Bacitracin Zinc Ointment 30 gm TUBE TOP SCH (08:38)
[2022-04-13] MEDS ORDERED: Warfarin Sodium 5 MG TAB PO SCH ×2 (09:25→17:00)
[2022-04-13] MEDS: Ondansetron PF 4 MG/2 ML Vial IVP PRN (11:05)
[2022-04-13 14:30] LABS: ALT (SGPT) 8 U/L (8-55); AST (SGOT) 28 U/L (5-34); Alkaline Phosphatase 102 U/L (40-110); Anion Gap 14 mmol/L (10-20); BUN (Urea Nitrogen) 30 mg/dL (8.9-20.6); Bilirubin, Total 0.3 mg/dL (0.2-1.2); Calc. Creatinine Clearance 12 mL/min (70-130); Calcium 8.6 mg/dL (7.8-10.44); Carbon Dioxide 25 mmol/L (22-29); Chloride 98 mmol/L (98-107); Estimated GFR 6; Globulin 4.6 g/dL (2.4-3.5); Glucose 132 mg/dL (70-105); Potassium 5.1 mmol/L (3.5-5.1); Protein, Total 7.6 g/dL (6.0-8.3); Sodium 132 mmol/L (136-145)
[2022-04-13 20:02] LABS: Troponin I Less than 0.010 ng/mL (< 0.028)
[2022-04-13] MEDS: Melatonin 3 MG TAB PO SCH (21:03)
[2022-04-14] MEDS: HYDROcodone/Acetaminophen 5/325 mg Tablet PO PRN ×5 (01:14→22:11)
[2022-04-14] MEDS: Ondansetron ODT 4 MG TAB PO PRN (03:04)
[2022-04-14] MEDS: Metoclopramide HCl 10 MG/2 ML VIAL IVP SCH ×4 (06:02→22:11)
[2022-04-14] MEDS: Pancrelipase DR 12,000 1 CAP PO SCH ×4 (08:54→16:33)
[2022-04-14] MEDS: cloNIDine 0.1 MG TAB PO SCH ×2 (08:54→22:10)
[2022-04-14] MEDS: NIFEdipine XL 90 MG TAB PO SCH (08:54)
[2022-04-14] MEDS: hydrALAZINE 25 MG TAB PO SCH ×3 (08:54→22:10)
[2022-04-14] MEDS: Raltegravir Potassium 400 MG TAB PO SCH ×2 (08:54→22:10)
[2022-04-14] MEDS: predniSONE 20 MG TAB PO SCH (08:54)
[2022-04-14] MEDS: Minoxidil 2.5 MG TAB PO SCH (08:54)
[2022-04-14] MEDS: Amitriptyline HCl 25 MG TAB PO SCH (08:54)
[2022-04-14] MEDS: Polyethylene Glycol 3350 17 GM Packet PO SCH (08:59)
[2022-04-14] MEDS: Senokot S 8.6-50 MG TAB PO SCH ×2 (08:59→22:12)
[2022-04-14] MEDS: Carvedilol 25 MG TAB PO SCH ×2 (09:00→16:31)
[2022-04-14 09:19] LABS: Hemoglobin 7.1 g/dL (14.0-18.0); Mean Corpuscular HGB CONC 32.5 g/dL (32.0-36.0); Mean Corpuscular Hemoglobin 34.2 pg (27.0-31.0); Mean Platelet Volume 7.1 fL (7.4-10.4); Platelet Count 333 10x3/uL (130-400); RBC Distribution Width 15.6 % (11.5-14.5); Red Blood Cell (RBC) Count 2.09 mill/uL (4.70-6.10); White Blood Cell (WBC) Count 10.5 10x3/uL (4.8-10.8)
[2022-04-14 09:20] LABS: #Eosinphils 0.1 thou/uL (0.0-0.7); #Lymphocytes 1.7 thou/uL (1.20-3.40); #Monocytes 0.6 thou/uL (0.11-0.59); #Neutrophils 8.1 thou/uL (1.40-6.50); %Basophils 0.3 % (0.0-1.0); %Eosinophils 0.9 % (0.0-10.0); %Lymphocytes 15.8 % (21.0-51.0); %Monocytes 5.8 % (0.0-10.0); %Neutrophils 77.2 % (42.0-75.0); INR-International Normal Ratio 2.8; Prothrombin Time 30.8 sec (12.0-14.7)
[2022-04-14 09:26] LABS: Anion Gap 13 mmol/L (10-20); BUN (Urea Nitrogen) 41 mg/dL (8.9-20.6); Calc. Creatinine Clearance 11 mL/min (70-130); Calcium 8.5 mg/dL (7.8-10.44); Carbon Dioxide 24 mmol/L (22-29); Chloride 100 mmol/L (98-107); Estimated GFR 5; Glucose 137 mg/dL (70-105); Potassium 4.4 mmol/L (3.5-5.1); Sodium 133 mmol/L (136-145)
[2022-04-14 09:44] LABS: Helmet Cells SLIGHT = 2-5 cells (100X) (0-1/hpf); MDiff Complete? YES; Macrocytosis SLIGHT = 6-15 cells (100X) (0-5/hpf); Platelet Morphology Comment Appears Adequate; Polychromasia MODERATE = 3-4 cells (100X) (0-2/hpf); Schistocytes SLIGHT = 2-5 cells (100X) (0-1/hpf); Tear Drops SLIGHT = 2-5 cells (100X) (0-1/hpf)
[2022-04-14] MEDS ORDERED: Heparin 10,000 UNITS/ 10 ML VIAL ONE (13:57)
[2022-04-14] MEDS: Warfarin Sodium 2.5 MG TAB PO SCH (16:31)
[2022-04-14] MEDS: Morphine IR 10 MG/5 ML UDCUP PO PRN (17:33)
[2022-04-14] MEDS ORDERED: Epoetin (ESRD) 10,000 UNITS/ML VIAL SC SCH (21:00)
[2022-04-14] MEDS: Melatonin 3 MG TAB PO SCH (22:10)
[2022-04-15] MEDS: Morphine IR 10 MG/5 ML UDCUP PO PRN (02:58)
[2022-04-15] MEDS: Metoclopramide HCl 10 MG/2 ML VIAL IVP SCH ×3 (05:15→21:01)
[2022-04-15 06:02] LABS: INR-International Normal Ratio 2.8; Prothrombin Time 30.6 sec (12.0-14.7)
[2022-04-15] MEDS: HYDROcodone/Acetaminophen 5/325 mg Tablet PO PRN ×3 (06:04→19:24)
[2022-04-15] MEDS: Amitriptyline HCl 25 MG TAB PO SCH (08:02)
[2022-04-15] MEDS: predniSONE 20 MG TAB PO SCH (08:02)
[2022-04-15] MEDS: Minoxidil 2.5 MG TAB PO SCH (08:02)
[2022-04-15] MEDS: Raltegravir Potassium 400 MG TAB PO SCH ×2 (08:02→20:37)
[2022-04-15] MEDS: Ondansetron PF 4 MG/2 ML Vial IVP PRN ×2 (08:02→21:18)
[2022-04-15 09:36] LABS: Anion Gap 15 mmol/L (10-20); BUN (Urea Nitrogen) 34 mg/dL (8.9-20.6); Calc. Creatinine Clearance 14 mL/min (70-130); Calcium 8.3 mg/dL (7.8-10.44); Carbon Dioxide 23 mmol/L (22-29); Chloride 100 mmol/L (98-107); Estimated GFR 7; Glucose 144 mg/dL (70-105); Potassium 4.3 mmol/L (3.5-5.1); Sodium 134 mmol/L (136-145)
[2022-04-15] MEDS ORDERED: Heparin 10,000 UNITS/ 10 ML VIAL ONE (10:07)
[2022-04-15] MEDS: Polyethylene Glycol 3350 17 GM Packet PO SCH (11:15)
[2022-04-15] MEDS: Pancrelipase DR 12,000 1 CAP PO SCH ×3 (11:15→17:49)
[2022-04-15] MEDS: Senokot S 8.6-50 MG TAB PO SCH ×2 (11:15→19:37)
[2022-04-15] MEDS: NIFEdipine XL 90 MG TAB PO SCH (13:28)
[2022-04-15] MEDS: hydrALAZINE 25 MG TAB PO SCH ×3 (13:28→20:38)
[2022-04-15] MEDS: Carvedilol 25 MG TAB PO SCH ×2 (13:28→15:59)
[2022-04-15] MEDS: cloNIDine 0.1 MG TAB PO SCH ×2 (13:31→20:38)
[2022-04-15] MEDS ORDERED: Morphine 10 MG/0.5 ML ORAL SYRINGE PO PRN (15:15)
[2022-04-15] MEDS: Morphine 10 MG/0.5 ML ORAL SYRINGE PO PRN ×2 (15:57→23:56)
[2022-04-15] MEDS: Warfarin Sodium 2.5 MG TAB PO SCH (15:58)
[2022-04-15] MEDS ORDERED: Tuberculin PPD 0.1 ML VIAL I-DERMAL SCH (17:15)
[2022-04-15] MEDS: Melatonin 3 MG TAB PO SCH (20:37)
[2022-04-15] MEDS: Lidocaine 5% Patch TD SCH (23:54)
[2022-04-15] MEDS: Baclofen 10 MG TAB PO PRN (23:57)
[2022-04-16] MEDS: Metoclopramide HCl 10 MG/2 ML VIAL IVP SCH ×3 (05:57→21:49)
[2022-04-16] MEDS: Ondansetron PF 4 MG/2 ML Vial IVP PRN (05:57)
[2022-04-16] MEDS: HYDROcodone/Acetaminophen 5/325 mg Tablet PO PRN ×2 (06:13→13:03)
[2022-04-16 06:53] LABS: Anion Gap 11 mmol/L (10-20); BUN (Urea Nitrogen) 27 mg/dL (8.9-20.6); Calc. Creatinine Clearance 18 mL/min (70-130); Calcium 8.6 mg/dL (7.8-10.44); Carbon Dioxide 30 mmol/L (22-29); Chloride 100 mmol/L (98-107); Estimated GFR 10; Glucose 77 mg/dL (70-105); Potassium 4.6 mmol/L (3.5-5.1); Sodium 136 mmol/L (136-145)
[2022-04-16 06:58] LABS: Hemoglobin 8.2 g/dL (14.0-18.0); Platelet Count 365 10x3/uL (130-400)
[2022-04-16 07:18] LABS: INR-International Normal Ratio 2.8; Prothrombin Time 30.7 sec (12.0-14.7)
[2022-04-16] MEDS: predniSONE 20 MG TAB PO SCH (08:48)
[2022-04-16] MEDS: Carvedilol 25 MG TAB PO SCH ×2 (08:49→18:39)
[2022-04-16] MEDS: Pancrelipase DR 12,000 1 CAP PO SCH ×3 (08:50→18:29)
[2022-04-16] MEDS: Amitriptyline HCl 25 MG TAB PO SCH (08:50)
[2022-04-16] MEDS: hydrALAZINE 25 MG TAB PO SCH ×3 (08:51→21:51)
[2022-04-16] MEDS: cloNIDine 0.1 MG TAB PO SCH ×2 (08:51→21:51)
[2022-04-16] MEDS: Minoxidil 2.5 MG TAB PO SCH (08:52)
[2022-04-16] MEDS: Senokot S 8.6-50 MG TAB PO SCH ×2 (08:52→21:50)
[2022-04-16] MEDS: NIFEdipine XL 90 MG TAB PO SCH (08:52)
[2022-04-16] MEDS: Raltegravir Potassium 400 MG TAB PO SCH ×2 (08:52→21:52)
[2022-04-16] MEDS: Polyethylene Glycol 3350 17 GM Packet PO SCH (08:52)
[2022-04-16] MEDS ORDERED: Lidocaine 5% Patch TD SCH (09:00)
[2022-04-16] MEDS: Morphine 10 MG/0.5 ML ORAL SYRINGE PO PRN ×2 (09:04→18:41)
[2022-04-16] MEDS: Transdermal Patch Removal TOP SCH (12:15)
[2022-04-16] MEDS: Warfarin Sodium 2.5 MG TAB PO SCH (18:40)
[2022-04-16] MEDS: Ondansetron ODT 4 MG TAB PO PRN (20:10)
[2022-04-16] MEDS ORDERED: Transdermal Patch Removal TOP SCH (21:00)
[2022-04-16] MEDS: Baclofen 10 MG TAB PO PRN (21:51)
[2022-04-16] MEDS: Melatonin 3 MG TAB PO SCH (21:51)
[2022-04-16] MEDS: Lidocaine 5% Patch TD SCH (23:27)
[2022-04-17] MEDS: Morphine 10 MG/0.5 ML ORAL SYRINGE PO PRN (04:00)
[2022-04-17 04:39] LABS: INR-International Normal Ratio 2.4
[2022-04-17 04:49] LABS: Anion Gap 14 mmol/L (10-20); BUN (Urea Nitrogen) 42 mg/dL (8.9-20.6); Calc. Creatinine Clearance 15 mL/min (70-130); Calcium 8.9 mg/dL (7.8-10.44); Carbon Dioxide 26 mmol/L (22-29); Chloride 100 mmol/L (98-107); Estimated GFR 8; Glucose 97 mg/dL (70-105); Potassium 5.1 mmol/L (3.5-5.1); Sodium 135 mmol/L (136-145)
[2022-04-17] MEDS: HYDROcodone/Acetaminophen 5/325 mg Tablet PO PRN ×4 (06:11→23:06)
[2022-04-17] MEDS: Metoclopramide HCl 10 MG/2 ML VIAL IVP SCH (06:13)
[2022-04-17] MEDS: cloNIDine 0.1 MG TAB PO PRN (06:18)
[2022-04-17] MEDS: predniSONE 20 MG TAB PO SCH (09:01)
[2022-04-17] MEDS: Pancrelipase DR 12,000 1 CAP PO SCH ×3 (09:02→18:01)
[2022-04-17] MEDS: Carvedilol 25 MG TAB PO SCH ×2 (09:03→18:01)
[2022-04-17] MEDS: hydrALAZINE 25 MG TAB PO SCH ×3 (09:03→21:04)
[2022-04-17] MEDS: cloNIDine 0.1 MG TAB PO SCH ×2 (09:04→21:05)
[2022-04-17] MEDS: NIFEdipine XL 90 MG TAB PO SCH (09:05)
[2022-04-17] MEDS: Amitriptyline HCl 25 MG TAB PO SCH (09:05)
[2022-04-17] MEDS: Senokot S 8.6-50 MG TAB PO SCH ×2 (09:05→21:05)
[2022-04-17] MEDS: Minoxidil 2.5 MG TAB PO SCH (09:06)
[2022-04-17] MEDS: Raltegravir Potassium 400 MG TAB PO SCH ×2 (09:06→21:04)
[2022-04-17] MEDS: Polyethylene Glycol 3350 17 GM Packet PO SCH (09:06)
[2022-04-17] MEDS ORDERED: Heparin 10,000 UNITS/ 10 ML VIAL ONE (11:12)
[2022-04-17] MEDS ORDERED: Metoclopramide 10 MG/10 ML UDCUP PO SCH (11:30)
[2022-04-17] MEDS: Transdermal Patch Removal TOP SCH (12:50)
[2022-04-17] MEDS: Metoclopramide 10 MG/10 ML UDCUP PO SCH ×2 (17:59→23:20)
[2022-04-17] MEDS: Warfarin Sodium 2.5 MG TAB PO SCH (18:02)
[2022-04-17] MEDS: Melatonin 3 MG TAB PO SCH (21:05)
[2022-04-17] MEDS: Baclofen 10 MG TAB PO PRN (21:15)
[2022-04-17] MEDS: Acetaminophen 325 MG TAB PO PRN (21:16)
[2022-04-17] MEDS: Lidocaine 5% Patch TD SCH (23:07)
[2022-04-18] MEDS: HYDROcodone/Acetaminophen 5/325 mg Tablet PO PRN ×3 (03:31→21:15)
[2022-04-18 04:12] LABS: Anion Gap 14 mmol/L (10-20); BUN (Urea Nitrogen) 35 mg/dL (8.9-20.6); Calc. Creatinine Clearance 18 mL/min (70-130); Calcium 8.6 mg/dL (7.8-10.44); Carbon Dioxide 26 mmol/L (22-29); Chloride 99 mmol/L (98-107); Estimated GFR 10; Glucose 117 mg/dL (70-105); Sodium 134 mmol/L (136-145)
[2022-04-18 04:30] LABS: INR-International Normal Ratio 2.6; Prothrombin Time 28.7 sec (12.0-14.7)
[2022-04-18] MEDS: Ondansetron PF 4 MG/2 ML Vial IVP PRN (04:54)
[2022-04-18] MEDS ORDERED: Benzonatate 100 MG CAP PO PRN (05:11)
[2022-04-18] MEDS ORDERED: Morphine 4 MG/ML VIAL SLOW IVP SCH (05:15)
[2022-04-18] MEDS: Albuterol 200 PUFF (6.7GM INHALER) INH PRN ×2 (05:38→09:46)
[2022-04-18] MEDS: cloNIDine 0.1 MG TAB PO PRN (05:39)
[2022-04-18 06:18] LABS: Hemoglobin 8.3 g/dL (14.0-18.0); Mean Corpuscular HGB CONC 32.8 g/dL (32.0-36.0); Mean Corpuscular Hemoglobin 35.3 pg (27.0-31.0); Mean Platelet Volume 7.3 fL (7.4-10.4); Platelet Count 354 10x3/uL (130-400); RBC Distribution Width 17.5 % (11.5-14.5); Red Blood Cell (RBC) Count 2.35 mill/uL (4.70-6.10)
[2022-04-18] MEDS ORDERED: Nitroglycerin 2% Ointment 1 INCH/1 GM Packet TOP SCH (06:30)
[2022-04-18] MEDS ORDERED: Aspirin 325 MG TAB PO SCH (06:30)
[2022-04-18 07:28] LABS: Troponin I 0.029 ng/mL (< 0.028)
[2022-04-18 07:33] LABS: Amphetamine Not Detected (NotDetected); Barbiturates Screen Not Detected (NotDetected); Benzodiazepine Screen Not Detected (NotDetected); Cocaine Metabolite Screen Not Detected (NotDetected); Methadone Not Detected (NotDetected); Methamphetamine Not Detected (NotDetected); Opiate Screen Detected (NotDetected); Oxycodone Screen Not Detected (NotDetected); Phencyclidine (PCP) Not Detected (NotDetected); THC/Cannabinoid Screen Detected (NotDetected); Tricyclic Screen Detected (NotDetected)
[2022-04-18] MEDS ORDERED: READ PPD TEST SITE PO SCH (09:00)
[2022-04-18] MEDS: Pancrelipase DR 12,000 1 CAP PO SCH ×3 (09:41→17:38)
[2022-04-18] MEDS: Carvedilol 25 MG TAB PO SCH ×2 (09:41→17:39)
[2022-04-18] MEDS: hydrALAZINE 25 MG TAB PO SCH ×3 (09:42→21:09)
[2022-04-18] MEDS: predniSONE 20 MG TAB PO SCH (09:42)
[2022-04-18] MEDS: Raltegravir Potassium 400 MG TAB PO SCH ×2 (09:43→21:09)
[2022-04-18] MEDS: Amitriptyline HCl 25 MG TAB PO SCH (09:44)
[2022-04-18] MEDS: cloNIDine 0.1 MG TAB PO SCH ×2 (09:44→21:12)
[2022-04-18] MEDS: Senokot S 8.6-50 MG TAB PO SCH ×2 (09:44→21:12)
[2022-04-18] MEDS: Polyethylene Glycol 3350 17 GM Packet PO SCH (09:44)
[2022-04-18] MEDS: NIFEdipine XL 90 MG TAB PO SCH (09:44)
[2022-04-18] MEDS: Minoxidil 2.5 MG TAB PO SCH (09:45)
[2022-04-18] MEDS: Metoclopramide 10 MG/10 ML UDCUP PO SCH ×2 (09:50→17:42)
[2022-04-18 10:51] LABS: Band 3 % (5-11); Hypochromia SLIGHT = 6-15 cells (100X) (0-5/hpf); Lymphocytes 17 % (21-51); MDiff Complete? YES; Monocytes 9 % (0-10); Neutrophil 67 % (42-75); Nucleated RBC 2 % (0); Platelet Morphology Comment Appears Adequate; Polychromasia MODERATE = 3-4 cells (100X) (0-2/hpf); Reactive Lymphocytes 4 % (0-10); White Blood Cell (WBC) Count 10.2 10x3/uL (4.8-10.8)
[2022-04-18] MEDS: Transdermal Patch Removal TOP SCH (12:54)
[2022-04-18] MEDS: Warfarin Sodium 2.5 MG TAB PO SCH (17:39)
[2022-04-18] MEDS: Melatonin 3 MG TAB PO SCH (21:11)
[2022-04-18] MEDS: Baclofen 10 MG TAB PO PRN (21:11)
[2022-04-19] MEDS: Lidocaine 5% Patch TD SCH (00:23)
[2022-04-19] MEDS: Metoclopramide 10 MG/10 ML UDCUP PO SCH ×3 (00:26→17:55)
[2022-04-19] MEDS: HYDROcodone/Acetaminophen 5/325 mg Tablet PO PRN ×3 (06:13→19:40)
[2022-04-19 06:43] LABS: INR-International Normal Ratio 2.6; Prothrombin Time 29.3 sec (12.0-14.7)
[2022-04-19 06:52] LABS: Anion Gap 16 mmol/L (10-20); BUN (Urea Nitrogen) 58 mg/dL (8.9-20.6); Calc. Creatinine Clearance 13 mL/min (70-130); Calcium 8.8 mg/dL (7.8-10.44); Carbon Dioxide 23 mmol/L (22-29); Chloride 98 mmol/L (98-107); Estimated GFR 7; Glucose 124 mg/dL (70-105); Potassium 4.3 mmol/L (3.5-5.1); Sodium 133 mmol/L (136-145)
[2022-04-19] MEDS ORDERED: Lisinopril 10 MG TAB PO SCH (09:00)
[2022-04-19] MEDS ORDERED: Heparin 10,000 UNITS/ 10 ML VIAL ONE (09:02)
[2022-04-19] MEDS: Pancrelipase DR 12,000 1 CAP PO SCH ×3 (09:34→17:56)
[2022-04-19] MEDS: Carvedilol 25 MG TAB PO SCH ×2 (09:35→17:56)
[2022-04-19] MEDS: Amitriptyline HCl 25 MG TAB PO SCH (09:35)
[2022-04-19] MEDS: predniSONE 20 MG TAB PO SCH (09:35)
[2022-04-19] MEDS: Raltegravir Potassium 400 MG TAB PO SCH ×2 (09:36→19:43)
[2022-04-19] MEDS: hydrALAZINE 25 MG TAB PO SCH ×3 (09:37→19:43)
[2022-04-19] MEDS: Polyethylene Glycol 3350 17 GM Packet PO SCH (09:37)
[2022-04-19] MEDS: Senokot S 8.6-50 MG TAB PO SCH (09:37)
[2022-04-19] MEDS: cloNIDine 0.1 MG TAB PO SCH ×2 (09:42→19:42)
[2022-04-19] MEDS: Ondansetron PF 4 MG/2 ML Vial IVP PRN (12:22)
[2022-04-19] MEDS: Transdermal Patch Removal TOP SCH (12:27)
[2022-04-19 16:48] VITALS: TEMP 97.5
[2022-04-19] MEDS: Minoxidil 2.5 MG TAB PO SCH (17:56)
[2022-04-19] MEDS: NIFEdipine XL 90 MG TAB PO SCH (17:56)
[2022-04-19] MEDS: Warfarin Sodium 2.5 MG TAB PO SCH (17:57)
[2022-04-19 19:45] VITALS: BP 164/98
[2022-04-20] MEDS ORDERED: predniSONE 20 MG TAB PO SCH (08:00)
[2022-04-23] MEDS ORDERED: predniSONE 20 MG TAB PO SCH (08:00)
[2022-04-26] MEDS ORDERED: predniSONE 5 MG TAB PO SCH (08:00)
[2022-04-29] MEDS ORDERED: predniSONE 5 MG TAB PO SCH (08:00)
== END 2022-04-19 20:30 | disposition left against medical advice (07) | DRG 545 ==
LOC: ERS 03:11 → ERHOLD 05:07 → 2SW 17:37 → MSONC 04-01 09:47 → T4-B 04-17 20:31
PROVIDERS: ADMIT Internal Medicine; ATTEND Internal Medicine
PROC: 0DB78ZX Excision of Stomach, Pylorus, Via Natural or Artificial Opening Endoscopic, Diagnostic (ICD-10-PCS; 2022-03-31)
PROC: 8E0ZXY6 Isolation (ICD-10-PCS; 2022-04-06)
PROC: 0JH60XZ Insertion of Tunneled Vascular Access Device into Chest Subcutaneous Tissue and Fascia, Open Approach (ICD-10-PCS; 2022-04-08)
PROC: 02HV33Z Insertion of Infusion Device into Superior Vena Cava, Percutaneous Approach (ICD-10-PCS; 2022-04-08)
PROC: B5181ZA Fluoroscopy of Superior Vena Cava using Low Osmolar Contrast, Guidance (ICD-10-PCS; 2022-04-08)
PROC: 02HV33Z Insertion of Infusion Device into Superior Vena Cava, Percutaneous Approach (ICD-10-PCS; 2022-04-08)
PROC: B548ZZA Ultrasonography of Superior Vena Cava, Guidance (ICD-10-PCS; 2022-04-08)
PROC: 5A1D70Z Performance of Urinary Filtration, Intermittent, Less than 6 Hours Per Day (ICD-10-PCS; 2022-04-09)
PROC: 0TB03ZX Excision of Right Kidney, Percutaneous Approach, Diagnostic (ICD-10-PCS; principal; 2022-04-11)
DX: M31.10 Thrombotic microangiopathy, unspecified (principal); K85.90 Acute pancreatitis without necrosis or infection, unspecified; N17.0 Acute kidney failure with tubular necrosis; U07.1 COVID-19; N18.6 End stage renal disease; N25.81 Secondary hyperparathyroidism of renal origin; E44.1 Mild protein-calorie malnutrition; E87.1 Hypo-osmolality and hyponatremia; K86.1 Other chronic pancreatitis; B20 Human immunodeficiency virus [HIV] disease; K21.9 Gastro-esophageal reflux disease without esophagitis; F17.210 Nicotine dependence, cigarettes, uncomplicated; I16.0 Hypertensive urgency; R77.8 Other specified abnormalities of plasma proteins; I08.1 Rheumatic disorders of both mitral and tricuspid valves; I10 Essential (primary) hypertension; D63.1 Anemia in chronic kidney disease; F32.A Depression, unspecified; Z87.11 Personal history of peptic ulcer disease; Z86.19 Personal history of other infectious and parasitic diseases; Z71.6 Tobacco abuse counseling; Z68.25 Body mass index [BMI] 25.0-25.9, adult; Z91.14 Patient's other noncompliance with medication regimen; Z79.899 Other long term (current) drug therapy
CPT/HCPCS: 36415; 50200; 71045; 71046; 74160; 74176; 76705; 77012; 80048; 80053; 80069; 80306; 81001; 81003; 81015; 82247; 82553; 82570; 83010; 83516; 83615; 83690; 83735; 83970; 84155; 84156; 84165; 84166; 84443; 84484; 85014; 85018; 85025; 85046; 85049; 85240; 85250; 85300; 85362; 85379; 85384; 85598; 85610; 85611; 85613; 85730; 85732; 86037; 86038; 86146; 86147; 86160; 86225; 86361; 86580; 86704; 86706; 86803; 86850; 86900; 86901; 87340; 87811; 88305; 88329; 90935; 93005; 93010; 93306; 93970; 96374; C1751; C1752; C9113; G0257; J0360; J1644; J2001; J2250; J2270; J2272; J2405; J2704; J2765; J3010; J3490; J7050; J7512; Q0162; Q4081; Q9967; S0028; U0002; U0003; U0005

== ENCOUNTER 2022-04-20 02:36 | Emergency (ER) | payer SELFPAY ==
[2022-04-20] MEDS ORDERED: Ondansetron PF 4 MG/2 ML Vial ONE (03:40)
[2022-04-20] MEDS ORDERED: Acetaminophen 500 MG TAB ONE (04:03)
[2022-04-20 04:34] LABS: #Lymphocytes 1.3 thou/uL (1.20-3.40); #Monocytes 0.8 thou/uL (0.11-0.59); #Neutrophils 4.4 thou/uL (1.40-6.50); %Basophils 0.1 % (0.0-1.0); %Eosinophils 0.4 % (0.0-10.0); %Lymphocytes 19.4 % (21.0-51.0); %Monocytes 12.7 % (0.0-10.0); %Neutrophils 67.4 % (42.0-75.0); Mean Corpuscular HGB CONC 33.5 g/dL (32.0-36.0); Mean Corpuscular Hemoglobin 35.7 pg (27.0-31.0); Mean Platelet Volume 7.6 fL (7.4-10.4); Platelet Count 311 10x3/uL (130-400); RBC Distribution Width 18.1 % (11.5-14.5); Red Blood Cell (RBC) Count 2.23 mill/uL (4.70-6.10); White Blood Cell (WBC) Count 6.5 10x3/uL (4.8-10.8)
[2022-04-20 04:54] LABS: ALT (SGPT) 41 U/L (8-55); AST (SGOT) 41 U/L (5-34); Alkaline Phosphatase 107 U/L (40-110); Anion Gap 15 mmol/L (10-20); BUN (Urea Nitrogen) 43 mg/dL (8.9-20.6); Bilirubin, Total 0.3 mg/dL (0.2-1.2); Calc. Creatinine Clearance 0 mL/min (70-130); Carbon Dioxide 24 mmol/L (22-29); Chloride 102 mmol/L (98-107); Estimated GFR 10; Globulin 4.3 g/dL (2.4-3.5); Glucose 125 mg/dL (70-105); Lipase 308 U/L (8-78); Potassium 4.3 mmol/L (3.5-5.1); Protein, Total 7.3 g/dL (6.0-8.3); Sodium 137 mmol/L (136-145)
== END 2022-04-20 05:08 | disposition home or self-care (01) ==
LOC: ERS 02:36
DX: R06.02 Shortness of breath (principal); R10.13 Epigastric pain; R11.2 Nausea with vomiting, unspecified; I12.0 Hypertensive chronic kidney disease with stage 5 chronic kidney disease or end stage renal disease; N18.6 End stage renal disease; B20 Human immunodeficiency virus [HIV] disease; F17.210 Nicotine dependence, cigarettes, uncomplicated; Z79.899 Other long term (current) drug therapy
CPT/HCPCS: 71045; 80053; 83690; 85025; 93005; 96374; J2405

== ENCOUNTER 2022-04-21 23:00 | Inpatient (IN) | payer OTHER, SELFPAY ==
[2022-04-22] MEDS ORDERED: Ondansetron PF 4 MG/2 ML Vial ONE (00:05)
[2022-04-22] MEDS ORDERED: Morphine 4 MG/ML VIAL ONE ×2 (00:05→10:37)
[2022-04-22 00:22] LABS: #Eosinphils 0.1 thou/uL (0.0-0.7); #Lymphocytes 1.1 thou/uL (1.20-3.40); #Monocytes 0.7 thou/uL (0.11-0.59); #Neutrophils 3.6 thou/uL (1.40-6.50); %Basophils 0.6 % (0.0-1.0); %Eosinophils 1.5 % (0.0-10.0); %Lymphocytes 20.4 % (21.0-51.0); %Neutrophils 65.5 % (42.0-75.0); Hemoglobin 7.9 g/dL (14.0-18.0); Mean Corpuscular HGB CONC 32.6 g/dL (32.0-36.0); Mean Corpuscular Hemoglobin 34.7 pg (27.0-31.0); Mean Platelet Volume 7.4 fL (7.4-10.4); Platelet Count 220 10x3/uL (130-400); RBC Distribution Width 17.7 % (11.5-14.5); Red Blood Cell (RBC) Count 2.29 mill/uL (4.70-6.10); White Blood Cell (WBC) Count 5.5 10x3/uL (4.8-10.8)
[2022-04-22 00:23] LABS: Bacteria/HPF None Seen HPF (None Seen); Bilirubin Negative (Negative); Blood, Urine Trace (Negative); Clarity Clear (Clear); Glucose, Urine (Dipstick) Normal (Negative); Ketone, Urine Negative (Negative); Leukocyte Negative Leu/uL (Negative); Nitrite Negative (Negative); Protein, Urine (Dipstick) 100 mg/dL (Neg-Trace); Specific Gravity, Urine 1.011 (1.002-1.036); Squamous Epithelial None Seen HPF (0-3); Urobilinogen Normal mg/dL (Less than 2); WBC/HPF 0-3 HPF (0-3); pH, Urine 7.5 (5.0-9.0)
[2022-04-22 00:44] LABS: ALT (SGPT) 40 U/L (8-55); AST (SGOT) 38 U/L (5-34); Albumin 2.7 g/dL (3.5-5.0); Alkaline Phosphatase 86 U/L (40-110); Anion Gap 14 mmol/L (10-20); BUN (Urea Nitrogen) 53 mg/dL (8.9-20.6); Bilirubin, Total 0.3 mg/dL (0.2-1.2); Calc. Creatinine Clearance 0 mL/min (70-130); Calcium 7.6 mg/dL (7.8-10.44); Carbon Dioxide 25 mmol/L (22-29); Chloride 103 mmol/L (98-107); Estimated GFR 5; Globulin 3.9 g/dL (2.4-3.5); Glucose 89 mg/dL (70-105); Lipase 285 U/L (8-78); Magnesium 1.6 mg/dL (1.6-2.6); Protein, Total 6.6 g/dL (6.0-8.3); Sodium 138 mmol/L (136-145)
[2022-04-22] MEDS ORDERED: Fentanyl 100 MCG/2 ML VIAL ONE (00:52)
[2022-04-22] MEDS ORDERED: hydrALAZINE 20 MG/ML VIAL ONE (01:27)
[2022-04-22] MEDS ORDERED: Vancomycin 1 GM/200 ML (FROZEN) BAG ONE (01:50)
[2022-04-22] MEDS ORDERED: Cefepime 2 GM VIAL ONE (01:50)
[2022-04-22 02:06] VITALS: BMI 27.3
[2022-04-22] MEDS ORDERED: traZODone HCl 50 MG TAB PO PRN (02:27)
[2022-04-22] MEDS ORDERED: Senokot S 8.6-50 MG TAB PO PRN (02:31)
[2022-04-22] MEDS ORDERED: traZODone HCl 50 MG TAB ONE (02:36)
[2022-04-22] MEDS ORDERED: Ondansetron ODT 4 MG TAB ONE ×3 (03:48→17:16)
[2022-04-22] MEDS: Ondansetron ODT 4 MG TAB PO PRN ×3 (03:50→17:15)
[2022-04-22] MEDS ORDERED: hydrOXYzine 25 MG/ML VIAL IM SCH (05:30)
[2022-04-22] MEDS ORDERED: Albuterol 200 PUFF (6.7GM INHALER) INH PRN (06:19)
[2022-04-22] MEDS ORDERED: Albuterol 200 PUFF (6.7GM INHALER) ONE (06:25)
[2022-04-22 07:10] LABS: INR-International Normal Ratio 1.4; Prothrombin Time 17.3 sec (12.0-14.7)
[2022-04-22] MEDS ORDERED: predniSONE 20 MG TAB ONE (08:23)
[2022-04-22] MEDS ORDERED: Famotidine 20 MG TAB ONE (08:23)
[2022-04-22] MEDS ORDERED: Acetaminophen 325 MG TAB ONE (08:40)
[2022-04-22] MEDS: Acetaminophen 325 MG TAB PO PRN (08:41)
[2022-04-22] MEDS: predniSONE 20 MG TAB PO SCH (08:42)
[2022-04-22] MEDS: Famotidine 20 MG TAB PO SCH (08:42)
[2022-04-22] MEDS: Pancrelipase DR 12,000 1 CAP PO SCH ×3 (08:42→17:15)
[2022-04-22] MEDS: Amlodipine 10 MG TAB PO SCH (08:43)
[2022-04-22] MEDS ORDERED: Labetalol HCl 100 MG/20 ML VIAL SLOW IVP SCH (09:23)
[2022-04-22] MEDS ORDERED: Morphine 2 MG/ML VIAL SLOW IVP SCH (09:44)
[2022-04-22] MEDS ORDERED: Labetalol HCl 100 MG/20 ML VIAL ONE (10:12)
[2022-04-22] MEDS ORDERED: Nicotine 14 MG PATCH TD SCH (11:00)
[2022-04-22] MEDS ORDERED: Nicotine 14 MG PATCH ONE (11:30)
[2022-04-22 14:53] LABS: Amphetamine Not Detected (NotDetected); Barbiturates Screen Not Detected (NotDetected); Benzodiazepine Screen Not Detected (NotDetected); Cocaine Metabolite Screen Not Detected (NotDetected); Methadone Not Detected (NotDetected); Methamphetamine Not Detected (NotDetected); Opiate Screen Detected (NotDetected); Oxycodone Screen Not Detected (NotDetected); Phencyclidine (PCP) Not Detected (NotDetected); THC/Cannabinoid Screen Detected (NotDetected); Tricyclic Screen Not Detected (NotDetected)
[2022-04-22] MEDS ORDERED: HYDROcodone/Acetaminophen 5/325 mg Tablet PO SCH (16:14)
[2022-04-22] MEDS ORDERED: HYDROcodone/Acetaminophen 5/325 mg Tablet ONE (16:31)
[2022-04-22] MEDS ORDERED: Warfarin Sodium 5 MG TAB PO SCH (17:00)
[2022-04-23] MEDS ORDERED: Cefepime 1 GM in Sodium Chloride 0.9% 100 ML IVPB SCH (02:00)
[2022-04-23] MEDS: Acetaminophen 325 MG TAB PO PRN (03:30)
[2022-04-23] MEDS: Ondansetron ODT 4 MG TAB PO PRN ×2 (03:30→11:35)
[2022-04-23] MEDS: Acetaminophen/Codeine 30-300mg Tablet PO PRN ×2 (04:56→10:05)
[2022-04-23] MEDS ORDERED: hydrALAZINE 25 MG TAB PO SCH (09:00)
[2022-04-23] MEDS: predniSONE 20 MG TAB PO SCH (10:02)
[2022-04-23] MEDS: Amlodipine 10 MG TAB PO SCH (10:03)
[2022-04-23] MEDS: Pancrelipase DR 12,000 1 CAP PO SCH (10:03)
[2022-04-23] MEDS: Famotidine 20 MG TAB PO SCH (10:03)
[2022-04-23 10:47] LABS: INR-International Normal Ratio 1.2; Prothrombin Time 15.8 sec (12.0-14.7)
[2022-04-23 11:00] LABS: Anion Gap 19 mmol/L (10-20); BUN (Urea Nitrogen) 47 mg/dL (8.9-20.6); Calc. Creatinine Clearance 13 mL/min (70-130); Calcium 8.8 mg/dL (7.8-10.44); Carbon Dioxide 24 mmol/L (22-29); Chloride 100 mmol/L (98-107); Estimated GFR 6; Glucose 88 mg/dL (70-105); Potassium 4.4 mmol/L (3.5-5.1); Sodium 139 mmol/L (136-145)
[2022-04-23 11:54] LABS: Band 4 % (5-11); Helmet Cells SLIGHT = 2-5 cells (100X) (0-1/hpf); Hemoglobin 9.1 g/dL (14.0-18.0); Lymphocytes 27 % (21-51); MDiff Complete? YES; Macrocytosis SLIGHT = 6-15 cells (100X) (0-5/hpf); Mean Corpuscular HGB CONC 31.8 g/dL (32.0-36.0); Mean Corpuscular Hemoglobin 33.6 pg (27.0-31.0); Mean Platelet Volume 7.9 fL (7.4-10.4); Monocytes 10 % (0-10); Neutrophil 58 % (42-75); Nucleated RBC 1 % (0); Platelet Count 212 10x3/uL (130-400); Platelet Morphology Comment Appears Adequate; Polychromasia MODERATE = 3-4 cells (100X) (0-2/hpf); RBC Distribution Width 17.5 % (11.5-14.5); Reactive Lymphocytes 1 % (0-10); Schistocytes SLIGHT = 2-5 cells (100X) (0-1/hpf); Tear Drops SLIGHT = 2-5 cells (100X) (0-1/hpf); White Blood Cell (WBC) Count 3.9 10x3/uL (4.8-10.8)
[2022-04-23 12:17] VITALS: BP 195/116; TEMP 98.1
[2022-04-25] MEDS ORDERED: FLU VACC QS2022-23(6MOS UP)/PF 60 MCG/0.5 ML SYRINGE IM ONE (09:00)
== END 2022-04-23 12:59 | disposition left against medical advice (07) | DRG 193 ==
LOC: ERS 23:00 → ERHOLD 04-22 01:43 → T4-B 04-22 21:12
PROVIDERS: ADMIT Internal Medicine; ATTEND Internal Medicine
PROC: 5A1D70Z Performance of Urinary Filtration, Intermittent, Less than 6 Hours Per Day (ICD-10-PCS; principal; 2022-04-22)
DX: J18.9 Pneumonia, unspecified organism (principal); M31.10 Thrombotic microangiopathy, unspecified; N18.6 End stage renal disease; K86.1 Other chronic pancreatitis; I12.0 Hypertensive chronic kidney disease with stage 5 chronic kidney disease or end stage renal disease; Z21 Asymptomatic human immunodeficiency virus [HIV] infection status; D63.1 Anemia in chronic kidney disease; Z91.199 Patient's noncompliance with other medical treatment and regimen due to unspecified reason; Z99.2 Dependence on renal dialysis; Z79.899 Other long term (current) drug therapy
CPT/HCPCS: 36415; 71045; 74176; 74250; 80048; 80053; 80306; 81003; 81015; 83690; 83735; 83880; 85025; 85610; 87040; 87086; 87149; 93005; 96374; 96375; J0360; J0692; J1956; J2270; J2272; J2405; J3010; J3370-JW; J3410; J3490; J7512; Q0162

== ENCOUNTER 2022-04-30 09:29 | Emergency (ER) | payer OTHER | END 2022-04-30 09:38 | disposition left against medical advice (07) | LOC: ERS 09:29 | DX: Z53.21 Procedure and treatment not carried out due to patient leaving prior to being seen by health care provider (principal) ==

== ENCOUNTER 2022-04-30 22:48 | Inpatient (IN) | payer BC, OTHER ==
[2022-04-30] MEDS ORDERED: Ondansetron PF 4 MG/2 ML Vial ONE ×2 (22:54→23:05)
[2022-04-30] MEDS ORDERED: Morphine 4 MG/ML VIAL ONE ×3 (22:54→23:55)
[2022-04-30 23:40] LABS: Hemoglobin 8.9 g/dL (14.0-18.0); Mean Corpuscular HGB CONC 31.9 g/dL (32.0-36.0); Mean Corpuscular Hemoglobin 33.4 pg (27.0-31.0); Mean Platelet Volume 10.4 fL (7.4-10.4); Platelet Count 130 10x3/uL (130-400); RBC Distribution Width 20.7 % (11.5-14.5); Red Blood Cell (RBC) Count 2.66 mill/uL (4.70-6.10)
[2022-04-30 23:47] LABS: Prothrombin Time 13.5 sec (12.0-14.7)
[2022-04-30 23:48] LABS: PTT 34.2 sec (22.9-36.1)
[2022-04-30 23:49] LABS: ALT (SGPT) 18 U/L (8-55); AST (SGOT) 31 U/L (5-34); Albumin 3.3 g/dL (3.5-5.0); Alkaline Phosphatase 78 U/L (40-110); Anion Gap 15 mmol/L (10-20); BUN (Urea Nitrogen) 22 mg/dL (8.9-20.6); Bilirubin, Total 0.5 mg/dL (0.2-1.2); Calc. Creatinine Clearance 0 mL/min (70-130); Calcium 8.7 mg/dL (7.8-10.44); Carbon Dioxide 27 mmol/L (22-29); Chloride 100 mmol/L (98-107); Estimated GFR 7; Globulin 4.4 g/dL (2.4-3.5); Glucose 98 mg/dL (70-105); Lipase 454 U/L (8-78); Magnesium 1.8 mg/dL (1.6-2.6); Potassium 4.5 mmol/L (3.5-5.1); Protein, Total 7.7 g/dL (6.0-8.3); Sodium 137 mmol/L (136-145)
[2022-05-01 00:03] LABS: Anisocytosis MODERATE=16-30 cells (100X) (0-5/hpf); Band 3 % (5-11); Eosinophils 1 % (0-10); Lymphocytes 8 % (21-51); MDiff Complete? YES; Metamyelocyte 1 % (0-0); Monocytes 3 % (0-10); Neutrophil 84 % (42-75); Nucleated RBC 4 % (0); Platelet Morphology Comment Appears Adequate; Polychromasia MODERATE = 3-4 cells (100X) (0-2/hpf); Stomatocytes SLIGHT = 2-5 cells (100X) (0-1/hpf); Vacuoles SLIGHT; White Blood Cell (WBC) Count 6.7 10x3/uL (4.8-10.8)
[2022-05-01 00:09] LABS: CKMB 0.9 ng/mL (0-6.6)
[2022-05-01] MEDS ORDERED: Aspirin Chewable 81 MG TAB ONE (01:25)
[2022-05-01] MEDS ORDERED: Morphine 4 MG/ML VIAL ONE (02:39)
[2022-05-01] MEDS ORDERED: Ondansetron PF 4 MG/2 ML Vial ONE (02:58)
[2022-05-01 03:30] LABS: CKMB 0.6 ng/mL (0-6.6)
[2022-05-01 05:48] VITALS: BMI 28.0
[2022-05-01] MEDS ORDERED: Morphine 4 MG/ML VIAL SLOW IVP PRN ×2 (06:09→06:10)
[2022-05-01] MEDS ORDERED: Ketorolac Tromethamine 30 MG/ML VIAL IVP PRN (06:10)
[2022-05-01] MEDS ORDERED: Sodium Chloride 0.9% 1,000 ML IV SCH (06:15)
[2022-05-01] MEDS ORDERED: Acetaminophen 325 MG TAB PO PRN (06:15)
[2022-05-01] MEDS ORDERED: Ondansetron PF 4 MG/2 ML Vial IVP PRN (06:15)
[2022-05-01] MEDS ORDERED: Ondansetron ODT 4 MG TAB SL PRN (06:15)
[2022-05-01] MEDS ORDERED: Piperacillin/Tazobactam 3.375 GM in Sodium Chloride 0.9% 100 ML IVPB SCH ×2 (06:49→14:00)
[2022-05-01] MEDS ORDERED: Acetaminophen 650 MG Suppository PR PRN (07:14)
[2022-05-01] MEDS: VANCOMYCIN 1.25 GM/250 ML BAG 1.25 GM in Premix Bag 1 BAG IVPB SCH ×2 (08:56→20:05)
[2022-05-01] MEDS: Morphine 4 MG/ML VIAL SLOW IVP PRN ×3 (08:57→20:17)
[2022-05-01] MEDS: Heparin 5,000 UNITS/ML VIAL SC SCH ×3 (08:58→20:20)
[2022-05-01] MEDS ORDERED: Iopamidol 370 76% 100 ML VIAL ONE (09:04)
[2022-05-01] MEDS ORDERED: Pantoprazole 40 MG VIAL IVP SCH (11:45)
[2022-05-01] MEDS: cloNIDine 0.1 MG TAB PO PRN ×2 (12:07→19:46)
[2022-05-01] MEDS: Sodium Chloride 0.9% 1,000 ML IV SCH (14:44)
[2022-05-01 15:00] LABS: HBSAg Index 0.21 S/CO (0-0.99); Hep B Surf Ag Non-Reactive S/CO (NonReactive); Hep C IgG Ab Non-Reactive (NonReactive); Hep C Index 0.09 S/CO (0-0.79)
[2022-05-01] MEDS ORDERED: FLU VACC QS2022-23(6MOS UP)/PF 60 MCG/0.5 ML SYRINGE IM ONE (18:00)
[2022-05-01 19:58] LABS: HBSAB Concentration 11.04 mIU/mL
[2022-05-01 19:59] LABS: Hep B Surf AB Indeterminate (NonReactive)
[2022-05-01 20:01] LABS: Hep B Core Total Ab Indeterminate (NonReactive); Hep B Core Total Index 1.06 S/CO (0-0.79)
[2022-05-01] MEDS ORDERED: Amlodipine 10 MG TAB PO SCH (22:45)
[2022-05-02] MEDS: cloNIDine 0.1 MG TAB PO PRN (00:34)
[2022-05-02] MEDS: Piperacillin/Tazobactam 3.375 GM in Sodium Chloride 0.9% 100 ML IVPB SCH ×2 (00:35→14:53)
[2022-05-02] MEDS: Sodium Chloride 0.9% 1,000 ML IV SCH ×2 (02:00→14:51)
[2022-05-02] MEDS: Morphine 4 MG/ML VIAL SLOW IVP PRN ×3 (02:01→23:54)
[2022-05-02] MEDS ORDERED: Losartan 25 MG TAB PO SCH (03:15)
[2022-05-02] MEDS: Ondansetron ODT 4 MG TAB PO PRN (03:31)
[2022-05-02 04:30] LABS: Hemoglobin 8.5 g/dL (14.0-18.0); Mean Corpuscular HGB CONC 31.2 g/dL (32.0-36.0); Mean Corpuscular Hemoglobin 32.8 pg (27.0-31.0); RBC Distribution Width 19.8 % (11.5-14.5)
[2022-05-02 04:39] LABS: Anion Gap 17 mmol/L (10-20); BUN (Urea Nitrogen) 43 mg/dL (8.9-20.6); Calc. Creatinine Clearance 12 mL/min (70-130); Calcium 8.4 mg/dL (7.8-10.44); Carbon Dioxide 25 mmol/L (22-29); Chloride 98 mmol/L (98-107); Estimated GFR 5; Glucose 77 mg/dL (70-105); Potassium 4.6 mmol/L (3.5-5.1); Sodium 135 mmol/L (136-145)
[2022-05-02 05:01] LABS: #Eosinphils 0.1 thou/uL (0.0-0.7); #Lymphocytes 1.5 thou/uL (1.20-3.40); #Monocytes 0.5 thou/uL (0.11-0.59); #Neutrophils 3.9 thou/uL (1.40-6.50); %Basophils 0.5 % (0.0-1.0); %Eosinophils 2.1 % (0.0-10.0); %Lymphocytes 25.1 % (21.0-51.0); %Monocytes 7.9 % (0.0-10.0); %Neutrophils 64.4 % (42.0-75.0); Anisocytosis SLIGHT = 6-15 cells (100X) (0-5/hpf); MDiff Complete? YES; Macrocytosis SLIGHT = 6-15 cells (100X) (0-5/hpf); Mean Platelet Volume 11.2 fL (7.4-10.4); Platelet Count 96 10x3/uL (130-400); Platelet Morphology Comment Appears Decreased; Polychromasia MODERATE = 3-4 cells (100X) (0-2/hpf); Schistocytes SLIGHT = 2-5 cells (100X) (0-1/hpf)
[2022-05-02] MEDS ORDERED: Heparin 10,000 UNITS/1 ML VIAL ONE (08:44)
[2022-05-02] MEDS ORDERED: Epoetin (ESRD) 10,000 UNITS/ML VIAL IVP SCH (09:00)
[2022-05-02] MEDS ORDERED: Vancomycin Dialysis Sliding Scale (Wt > 99) FS SCH (10:30)
[2022-05-02] MEDS ORDERED: Labetalol HCl 100 MG/20 ML VIAL ONE (10:54)
[2022-05-02] MEDS ORDERED: Ondansetron PF 4 MG/2 ML Vial ONE ×2 (12:08→12:58)
[2022-05-02] MEDS ORDERED: Iopamidol 30 ML ONE (12:15)
[2022-05-02] MEDS ORDERED: Bupivacaine HCl 0.5%/Epinephrine 1:200,000/PF 30 ml Vial ONE (12:15)
[2022-05-02] MEDS ORDERED: Fentanyl 250 MCG/5 ML VIAL ONE (12:16)
[2022-05-02] MEDS ORDERED: Glycopyrrolate 0.2 MG/ML 5 ML SYRINGE ONE (12:58)
[2022-05-02] MEDS ORDERED: Rocuronium Bromide 10 MG/ML (10ML VIAL) ONE (12:58)
[2022-05-02] MEDS ORDERED: Lidocaine 1% PF 5 ML VIAL ONE (12:58)
[2022-05-02] MEDS ORDERED: PROPOFOL 200 MG/20 ML VIAL ONE (12:58)
[2022-05-02] MEDS ORDERED: Dexamethasone 20 MG/5 ML VIAL ONE (12:58)
[2022-05-02] MEDS ORDERED: NEOSTIGMINE 3 MG/3 ML SYR 3 MG/3 ML SYRINGE ONE (12:58)
[2022-05-02] MEDS ORDERED: Ondansetron HCl/PF 4 MG/2 ML Vial IVP PRN (13:57)
[2022-05-02] MEDS ORDERED: Promethazine HCl 25 MG/ML VIAL IM PRN (13:57)
[2022-05-02] MEDS ORDERED: hydrALAZINE 20 MG/ML VIAL ONE (13:58)
[2022-05-02] MEDS ORDERED: hydrALAZINE 20 MG/ML VIAL SLOW IVP SCH (14:00)
[2022-05-02] MEDS: Heparin 5,000 UNITS/ML VIAL SC SCH ×3 (14:30→23:56)
[2022-05-02] MEDS: hydrALAZINE 25 MG TAB PO SCH ×3 (14:31→23:55)
[2022-05-02] MEDS: VANCOMYCIN 1.25 GM/250 ML BAG 1.25 GM in Premix Bag 1 BAG IVPB SCH (14:34)
[2022-05-02] MEDS: Losartan 25 MG TAB PO SCH (14:52)
[2022-05-02] MEDS: Amlodipine 10 MG TAB PO SCH (14:52)
[2022-05-02] MEDS: Pantoprazole 40 MG VIAL IVP SCH (14:53)
[2022-05-02] MEDS: Nicotine 14 MG PATCH TD SCH (15:34)
[2022-05-02 17:16] LABS: Vancomycin, Random 53.7 ug/mL (See Comment)
[2022-05-02] MEDS: HYDROcodone/Acetaminophen 10/325 mg Tablet PO PRN ×2 (17:33→21:23)
[2022-05-02] MEDS ORDERED: Labetalol HCl 100 MG/20 ML VIAL SLOW IVP PRN (20:09)
[2022-05-02] MEDS: Melatonin 3 MG TAB PO SCH (23:56)
[2022-05-03] MEDS: Piperacillin/Tazobactam 3.375 GM in Sodium Chloride 0.9% 100 ML IVPB SCH ×2 (02:11→14:41)
[2022-05-03] MEDS: HYDROcodone/Acetaminophen 10/325 mg Tablet PO PRN ×4 (02:12→20:16)
[2022-05-03] MEDS: cloNIDine 0.1 MG TAB PO PRN (02:13)
[2022-05-03] MEDS ORDERED: Morphine 4 MG/ML VIAL ONE (06:36)
[2022-05-03] MEDS ORDERED: Bupivacaine HCl 0.5%/Epinephrine 1:200,000/PF 30 ml Vial ONE (06:44)
[2022-05-03] MEDS ORDERED: Lidocaine 2% PF 5 ML VIAL ONE (06:44)
[2022-05-03] MEDS ORDERED: Heparin 5,000 UNITS/ML VIAL ONE (06:44)
[2022-05-03] MEDS ORDERED: Iopamidol 0 ML ONE (06:44)
[2022-05-03] MEDS ORDERED: Protamine Sulfate 50 MG/5 ML VIAL ONE (06:44)
[2022-05-03] MEDS ORDERED: Famotidine/PF 20 mg/2ml Vial ONE (06:58)
[2022-05-03] MEDS ORDERED: fentaNYL PF 100 MCG/2 ML SYRINGE ONE (06:58)
[2022-05-03] MEDS ORDERED: Phenylephrine 10 MG/ML VIAL ONE (07:26)
[2022-05-03] MEDS ORDERED: Albumin 5% 0 ML ONE (07:26)
[2022-05-03] MEDS ORDERED: SUGAMMADEX SODIUM 200 MG/2 ML VIAL ONE (07:32)
[2022-05-03] MEDS ORDERED: Esmolol 100 MG/10 ML VIAL ONE (07:57)
[2022-05-03] MEDS ORDERED: Rocuronium Bromide 10 MG/ML (10ML VIAL) ONE (07:57)
[2022-05-03] MEDS ORDERED: Ondansetron PF 4 MG/2 ML Vial ONE (07:57)
[2022-05-03] MEDS ORDERED: Lidocaine 1% PF 5 ML VIAL ONE (07:57)
[2022-05-03] MEDS ORDERED: PROPOFOL 200 MG/20 ML VIAL ONE (07:57)
[2022-05-03] MEDS ORDERED: Promethazine HCl 25 MG/ML VIAL IM PRN (08:57)
[2022-05-03] MEDS ORDERED: HYDROmorphone 2 MG/ML VIAL SLOW IVP PRN (08:57)
[2022-05-03] MEDS ORDERED: Promethazine HCl 25 MG/ML VIAL ONE (09:20)
[2022-05-03] MEDS ORDERED: Fentanyl 100 MCG/2 ML VIAL ONE (09:20)
[2022-05-03] MEDS ORDERED: hydrALAZINE 20 MG/ML VIAL ONE (09:37)
[2022-05-03] MEDS: Heparin 5,000 UNITS/ML VIAL SC SCH ×3 (11:05→20:21)
[2022-05-03] MEDS: Pantoprazole 40 MG VIAL IVP SCH (11:13)
[2022-05-03] MEDS: hydrALAZINE 25 MG TAB PO SCH ×3 (11:15→20:15)
[2022-05-03] MEDS: Losartan 25 MG TAB PO SCH (11:15)
[2022-05-03] MEDS: Amlodipine 10 MG TAB PO SCH (11:16)
[2022-05-03] MEDS: Morphine 4 MG/ML VIAL SLOW IVP PRN ×3 (12:40→22:27)
[2022-05-03] MEDS: Nicotine 14 MG PATCH TD SCH (14:42)
[2022-05-03] MEDS: Melatonin 3 MG TAB PO SCH (22:27)
[2022-05-04] MEDS: Piperacillin/Tazobactam 3.375 GM in Sodium Chloride 0.9% 100 ML IVPB SCH ×2 (02:09→14:50)
[2022-05-04] MEDS: Morphine 4 MG/ML VIAL SLOW IVP PRN ×4 (02:12→22:40)
[2022-05-04] MEDS: HYDROcodone/Acetaminophen 10/325 mg Tablet PO PRN ×2 (06:10→15:51)
[2022-05-04 07:31] LABS: Vancomycin, Random 33.7 ug/mL (See Comment)
[2022-05-04] MEDS: Amlodipine 10 MG TAB PO SCH (08:23)
[2022-05-04] MEDS: Heparin 5,000 UNITS/ML VIAL SC SCH ×3 (08:23→21:10)
[2022-05-04] MEDS: hydrALAZINE 25 MG TAB PO SCH ×3 (08:23→21:00)
[2022-05-04] MEDS: Pantoprazole 40 MG VIAL IVP SCH (08:23)
[2022-05-04] MEDS: Losartan 25 MG TAB PO SCH (08:24)
[2022-05-04] MEDS: EPOETIN ALFA-EPBX (ESRD) 10,000 UNIT/ML VIAL IVP SCH (10:03)
[2022-05-04] MEDS ORDERED: Heparin 10,000 UNITS/ 10 ML VIAL ONE (12:10)
[2022-05-04] MEDS: Nicotine 14 MG PATCH TD SCH (14:58)
[2022-05-04] MEDS: cloNIDine 0.1 MG TAB PO PRN (15:51)
[2022-05-04] MEDS ORDERED: hydrALAZINE 20 MG/ML VIAL SLOW IVP PRN (17:48)
[2022-05-04] MEDS: Ondansetron ODT 4 MG TAB PO PRN (18:31)
[2022-05-04] MEDS: NIFEdipine XL 30 MG TAB PO SCH (21:00)
[2022-05-04] MEDS ORDERED: Doxycycline 100 MG CAP PO SCH (21:00)
[2022-05-04] MEDS: HYDROcodone/Acetaminophen 5/325 mg Tablet PO PRN (21:00)
[2022-05-04] MEDS: Melatonin 3 MG TAB PO SCH (22:41)
[2022-05-05] MEDS: Morphine 4 MG/ML VIAL SLOW IVP PRN ×4 (03:08→22:45)
[2022-05-05] MEDS: Piperacillin/Tazobactam 3.375 GM in Sodium Chloride 0.9% 100 ML IVPB SCH ×2 (03:09→15:36)
[2022-05-05] MEDS: hydrALAZINE 25 MG TAB PO SCH ×3 (07:22→20:16)
[2022-05-05] MEDS: NIFEdipine XL 30 MG TAB PO SCH ×2 (07:23→20:15)
[2022-05-05] MEDS: Losartan 25 MG TAB PO SCH (07:23)
[2022-05-05] MEDS: HYDROcodone/Acetaminophen 5/325 mg Tablet PO PRN ×3 (07:23→20:16)
[2022-05-05 08:01] LABS: Hemoglobin 8.8 g/dL (14.0-18.0); Mean Corpuscular HGB CONC 29.9 g/dL (32.0-36.0); RBC Distribution Width 18.1 % (11.5-14.5); Red Blood Cell (RBC) Count 2.74 mill/uL (4.70-6.10); White Blood Cell (WBC) Count 5.3 10x3/uL (4.8-10.8)
[2022-05-05 08:18] LABS: ALT (SGPT) 14 U/L (8-55); AST (SGOT) 14 U/L (5-34); Albumin 2.9 g/dL (3.5-5.0); Alkaline Phosphatase 65 U/L (40-110); Anion Gap 14 mmol/L (10-20); BUN (Urea Nitrogen) 17 mg/dL (8.9-20.6); Bilirubin, Total 0.4 mg/dL (0.2-1.2); Calc. Creatinine Clearance 15 mL/min (70-130); Calcium 8.5 mg/dL (7.8-10.44); Carbon Dioxide 28 mmol/L (22-29); Chloride 98 mmol/L (98-107); Estimated GFR 6; Globulin 3.9 g/dL (2.4-3.5); Glucose 94 mg/dL (70-105); Potassium 3.9 mmol/L (3.5-5.1); Protein, Total 6.8 g/dL (6.0-8.3); Sodium 136 mmol/L (136-145)
[2022-05-05] MEDS ORDERED: Dexamethasone 1 MG TAB PO SCH (09:00)
[2022-05-05] MEDS: Metoprolol Tartrate 50 MG TAB PO SCH ×2 (10:31→20:15)
[2022-05-05 11:02] LABS: #Eosinphils 0.2 thou/uL (0.0-0.7); #Lymphocytes 1.5 thou/uL (1.20-3.40); #Monocytes 0.5 thou/uL (0.11-0.59); #Neutrophils 3.1 thou/uL (1.40-6.50); %Basophils 0.4 % (0.0-1.0); %Eosinophils 3.1 % (0.0-10.0); %Lymphocytes 28.3 % (21.0-51.0); %Neutrophils 58.3 % (42.0-75.0); Hypochromia SLIGHT = 6-15 cells (100X) (0-5/hpf); MDiff Complete? YES; Mean Platelet Volume 7.9 fL (7.4-10.4); Ovalocytes SLIGHT = 2-5 cells (100X) (0-1/hpf); Platelet Count 209 10x3/uL (130-400); Platelet Morphology Comment Appears Adequate; Polychromasia SLIGHT = 2-3 cells (100X) (0-2/hpf)
[2022-05-05] MEDS: Heparin 5,000 UNITS/ML VIAL SC SCH ×3 (15:33→20:16)
[2022-05-05] MEDS: Nicotine 14 MG PATCH TD SCH (15:36)
[2022-05-05] MEDS: Melatonin 3 MG TAB PO SCH (22:45)
[2022-05-06] MEDS: Piperacillin/Tazobactam 3.375 GM in Sodium Chloride 0.9% 100 ML IVPB SCH ×2 (02:35→14:16)
[2022-05-06] MEDS: HYDROcodone/Acetaminophen 5/325 mg Tablet PO PRN ×4 (02:35→21:57)
[2022-05-06] MEDS: Morphine 4 MG/ML VIAL SLOW IVP PRN ×3 (04:28→19:41)
[2022-05-06 05:51] LABS: #Eosinphils 0.2 thou/uL (0.0-0.7); #Lymphocytes 1.6 thou/uL (1.20-3.40); #Monocytes 0.6 thou/uL (0.11-0.59); #Neutrophils 2.9 thou/uL (1.40-6.50); %Basophils 0.2 % (0.0-1.0); %Eosinophils 4.2 % (0.0-10.0); %Lymphocytes 30.1 % (21.0-51.0); %Monocytes 11.3 % (0.0-10.0); %Neutrophils 54.2 % (42.0-75.0); Hemoglobin 8.2 g/dL (14.0-18.0); Mean Corpuscular HGB CONC 30.7 g/dL (32.0-36.0); Mean Corpuscular Hemoglobin 32.5 pg (27.0-31.0); Mean Platelet Volume 8.4 fL (7.4-10.4); Platelet Count 217 10x3/uL (130-400); RBC Distribution Width 17.8 % (11.5-14.5); Red Blood Cell (RBC) Count 2.51 mill/uL (4.70-6.10); White Blood Cell (WBC) Count 5.3 10x3/uL (4.8-10.8)
[2022-05-06 06:10] LABS: Anion Gap 15 mmol/L (10-20); BUN (Urea Nitrogen) 23 mg/dL (8.9-20.6); Calc. Creatinine Clearance 12 mL/min (70-130); Calcium 8.7 mg/dL (7.8-10.44); Carbon Dioxide 25 mmol/L (22-29); Chloride 100 mmol/L (98-107); Estimated GFR 5; Glucose 87 mg/dL (70-105); Potassium 4.1 mmol/L (3.5-5.1); Sodium 136 mmol/L (136-145)
[2022-05-06] MEDS: Heparin 5,000 UNITS/ML VIAL SC SCH ×2 (08:26→20:25)
[2022-05-06] MEDS: Losartan 25 MG TAB PO SCH (08:26)
[2022-05-06] MEDS: Metoprolol Tartrate 50 MG TAB PO SCH ×2 (08:26→20:24)
[2022-05-06] MEDS: hydrALAZINE 25 MG TAB PO SCH ×3 (08:26→20:24)
[2022-05-06] MEDS: NIFEdipine XL 30 MG TAB PO SCH (08:26)
[2022-05-06] MEDS ORDERED: NIFEdipine XL 30 MG TAB PO SCH (09:38)
[2022-05-06] MEDS ORDERED: NIFEdipine XL 60 MG TAB PO SCH (10:00)
[2022-05-06] MEDS: Nicotine 14 MG PATCH TD SCH (15:35)
[2022-05-06] MEDS: NIFEdipine XL 60 MG TAB PO SCH (20:24)
[2022-05-06] MEDS: Melatonin 3 MG TAB PO SCH (21:55)
[2022-05-07] MEDS: Piperacillin/Tazobactam 3.375 GM in Sodium Chloride 0.9% 100 ML IVPB SCH ×2 (01:20→14:46)
[2022-05-07] MEDS: Morphine 4 MG/ML VIAL SLOW IVP PRN ×4 (01:30→19:51)
[2022-05-07] MEDS: HYDROcodone/Acetaminophen 5/325 mg Tablet PO PRN ×2 (05:57→23:37)
[2022-05-07 07:56] LABS: #Eosinphils 0.1 thou/uL (0.0-0.7); #Lymphocytes 1.4 thou/uL (1.20-3.40); #Monocytes 0.6 thou/uL (0.11-0.59); #Neutrophils 2.8 thou/uL (1.40-6.50); %Basophils 0.2 % (0.0-1.0); %Eosinophils 2.5 % (0.0-10.0); %Monocytes 12.8 % (0.0-10.0); %Neutrophils 55.5 % (42.0-75.0); Hemoglobin 8.8 g/dL (14.0-18.0); Mean Corpuscular HGB CONC 30.6 g/dL (32.0-36.0); Mean Corpuscular Hemoglobin 32.3 pg (27.0-31.0); Mean Platelet Volume 7.8 fL (7.4-10.4); Platelet Count 296 10x3/uL (130-400); RBC Distribution Width 17.3 % (11.5-14.5); Red Blood Cell (RBC) Count 2.73 mill/uL (4.70-6.10)
[2022-05-07 08:11] LABS: Vancomycin, Random 19.3 ug/mL (See Comment)
[2022-05-07] MEDS: Losartan 25 MG TAB PO SCH (08:11)
[2022-05-07] MEDS: Heparin 5,000 UNITS/ML VIAL SC SCH ×2 (08:11→19:51)
[2022-05-07] MEDS: hydrALAZINE 25 MG TAB PO SCH ×3 (08:11→19:49)
[2022-05-07] MEDS: NIFEdipine XL 60 MG TAB PO SCH ×2 (08:12→19:50)
[2022-05-07] MEDS: Metoprolol Tartrate 50 MG TAB PO SCH ×2 (08:12→19:50)
[2022-05-07 08:14] LABS: Anion Gap 18 mmol/L (10-20); BUN (Urea Nitrogen) 33 mg/dL (8.9-20.6); Calc. Creatinine Clearance 9 mL/min (70-130); Calcium 8.7 mg/dL (7.8-10.44); Carbon Dioxide 23 mmol/L (22-29); Chloride 101 mmol/L (98-107); Estimated GFR 4; Glucose 106 mg/dL (70-105); Potassium 4.3 mmol/L (3.5-5.1); Sodium 138 mmol/L (136-145)
[2022-05-07] MEDS ORDERED: Heparin 10,000 UNITS/ 10 ML VIAL ONE (09:02)
[2022-05-07] MEDS ORDERED: Iopamidol-370 76% 500 ML 1 ML ONE (12:22)
[2022-05-07] MEDS: Ondansetron PF 4 MG/2 ML Vial IVP PRN ×2 (14:44→19:54)
[2022-05-07] MEDS: EPOETIN ALFA-EPBX (ESRD) 10,000 UNIT/ML VIAL IVP SCH (15:14)
[2022-05-07] MEDS: Nicotine 14 MG PATCH TD SCH (16:37)
[2022-05-07 16:39] LABS: %CD4 (Helper/Inducer) 26.8 % (30.8-58.5); Absolute CD4 402 /uL (359-1519); Lymphocytes/Gated Cell Count 1.5 x10E3/uL (0.7-3.1); Total Lymphocyte 28 % (Not Estab.); WBC Total Count 5.4 x10E3/uL (3.4-10.8); nRBC 1 % (0 - 0)
[2022-05-07] MEDS ORDERED: Vancomycin 1 GM in Premix Bag 1 BAG IVPB SCH (17:00)
[2022-05-07] MEDS: Melatonin 3 MG TAB PO SCH (23:37)
[2022-05-08] MEDS: Morphine 4 MG/ML VIAL SLOW IVP PRN ×5 (00:22→21:44)
[2022-05-08] MEDS: Piperacillin/Tazobactam 3.375 GM in Sodium Chloride 0.9% 100 ML IVPB SCH (01:39)
[2022-05-08] MEDS: HYDROcodone/Acetaminophen 5/325 mg Tablet PO PRN ×3 (06:00→20:25)
[2022-05-08 07:07] LABS: Mean Corpuscular HGB CONC 30.3 g/dL (32.0-36.0); Mean Corpuscular Hemoglobin 31.9 pg (27.0-31.0); Mean Platelet Volume 7.5 fL (7.4-10.4); Platelet Count 313 10x3/uL (130-400); RBC Distribution Width 17.4 % (11.5-14.5); Red Blood Cell (RBC) Count 2.83 mill/uL (4.70-6.10); White Blood Cell (WBC) Count 4.6 10x3/uL (4.8-10.8)
[2022-05-08 07:24] LABS: Anion Gap 16 mmol/L (10-20); BUN (Urea Nitrogen) 17 mg/dL (8.9-20.6); Calc. Creatinine Clearance 14 mL/min (70-130); Carbon Dioxide 27 mmol/L (22-29); Chloride 97 mmol/L (98-107); Estimated GFR 6; Glucose 81 mg/dL (70-105); Potassium 4.4 mmol/L (3.5-5.1); Sodium 136 mmol/L (136-145)
[2022-05-08 08:02] LABS: Band 1 % (5-11); Eosinophils 1 % (0-10); Lymphocytes 39 % (21-51); MDiff Complete? YES; Monocytes 15 % (0-10); Neutrophil 44 % (42-75); Platelet Morphology Comment Appears Adequate; Polychromasia SLIGHT = 2-3 cells (100X) (0-2/hpf)
[2022-05-08] MEDS: NIFEdipine XL 60 MG TAB PO SCH ×2 (10:12→20:25)
[2022-05-08] MEDS: Heparin 5,000 UNITS/ML VIAL SC SCH ×2 (10:12→20:25)
[2022-05-08] MEDS: Metoprolol Tartrate 50 MG TAB PO SCH ×2 (10:13→20:25)
[2022-05-08] MEDS: Losartan 25 MG TAB PO SCH (10:13)
[2022-05-08] MEDS: hydrALAZINE 25 MG TAB PO SCH ×3 (10:13→20:26)
[2022-05-08] MEDS: Nicotine 14 MG PATCH TD SCH (14:37)
[2022-05-08] MEDS: Melatonin 3 MG TAB PO SCH (20:26)
[2022-05-09] MEDS: Morphine 4 MG/ML VIAL SLOW IVP PRN ×2 (04:35→09:01)
[2022-05-09] MEDS: Ondansetron PF 4 MG/2 ML Vial IVP PRN (05:10)
[2022-05-09 07:12] LABS: Hemoglobin 9.2 g/dL (14.0-18.0); Mean Corpuscular HGB CONC 31.7 g/dL (32.0-36.0); Mean Platelet Volume 7.7 fL (7.4-10.4); Platelet Count 302 10x3/uL (130-400); RBC Distribution Width 17.1 % (11.5-14.5); Red Blood Cell (RBC) Count 2.78 mill/uL (4.70-6.10)
[2022-05-09 07:18] LABS: Anion Gap 19 mmol/L (10-20); BUN (Urea Nitrogen) 24 mg/dL (8.9-20.6); Calc. Creatinine Clearance 11 mL/min (70-130); Calcium 9.3 mg/dL (7.8-10.44); Carbon Dioxide 24 mmol/L (22-29); Chloride 97 mmol/L (98-107); Estimated GFR 4; Glucose 86 mg/dL (70-105); Potassium 4.6 mmol/L (3.5-5.1); Sodium 135 mmol/L (136-145)
[2022-05-09 07:37] LABS: Vancomycin, Random 27.1 ug/mL (See Comment)
[2022-05-09] MEDS: Losartan 25 MG TAB PO SCH (08:47)
[2022-05-09] MEDS: hydrALAZINE 25 MG TAB PO SCH ×2 (08:47→15:16)
[2022-05-09] MEDS: NIFEdipine XL 60 MG TAB PO SCH (08:47)
[2022-05-09] MEDS: Metoprolol Tartrate 50 MG TAB PO SCH (08:48)
[2022-05-09] MEDS: Heparin 5,000 UNITS/ML VIAL SC SCH (08:48)
[2022-05-09] MEDS: EPOETIN ALFA-EPBX (ESRD) 10,000 UNIT/ML VIAL IVP SCH (08:49)
[2022-05-09 09:25] LABS: Band 2 % (5-11); Eosinophils 5 % (0-10); Lymphocytes 35 % (21-51); MDiff Complete? YES; Metamyelocyte 1 % (0-0); Monocytes 10 % (0-10); Myelocyte 3 % (0-0); Neutrophil 43 % (42-75); Platelet Morphology Comment Appears Adequate; Polychromasia SLIGHT = 2-3 cells (100X) (0-2/hpf)
[2022-05-09] MEDS ORDERED: Labetalol HCl 100 MG TAB PO SCH ×3 (09:32→15:00)
[2022-05-09] MEDS ORDERED: Heparin 10,000 UNITS/ 10 ML VIAL ONE (14:00)
[2022-05-09] MEDS: HYDROcodone/Acetaminophen 5/325 mg Tablet PO PRN (14:21)
[2022-05-09] MEDS: Nicotine 14 MG PATCH TD SCH (15:18)
[2022-05-09 15:21] VITALS: BP 155/100
[2022-05-09 16:28] VITALS: TEMP 98.3
== END 2022-05-09 16:20 | disposition home or self-care (01) | DRG 417 ==
LOC: ERS 22:48 → ERHOLD 05-01 05:28 → 2NO 05-01 08:19 → SURG A 05-03 19:52
PROVIDERS: ADMIT Student in an Organized Health Care Education/Training Program; ATTEND Hospitalist
PROC: 5A1D70Z Performance of Urinary Filtration, Intermittent, Less than 6 Hours Per Day (ICD-10-PCS; 2022-05-01)
PROC: 0FT44ZZ Resection of Gallbladder, Percutaneous Endoscopic Approach (ICD-10-PCS; principal; 2022-05-02)
PROC: BF101ZZ Fluoroscopy of Bile Ducts using Low Osmolar Contrast (ICD-10-PCS; 2022-05-02)
PROC: 031 Upper Arteries, Bypass (ICD-10-PCS; 2022-05-03)
DX: K85.10 Biliary acute pancreatitis without necrosis or infection (principal); J85.2 Abscess of lung without pneumonia; U07.1 COVID-19; N18.6 End stage renal disease; I12.0 Hypertensive chronic kidney disease with stage 5 chronic kidney disease or end stage renal disease; I47.20 Ventricular tachycardia, unspecified; T82.868A Thrombosis due to vascular prosthetic devices, implants and grafts, initial encounter; N25.81 Secondary hyperparathyroidism of renal origin; Z21 Asymptomatic human immunodeficiency virus [HIV] infection status; Z20.822 Contact with and (suspected) exposure to COVID-19; D63.1 Anemia in chronic kidney disease; F17.210 Nicotine dependence, cigarettes, uncomplicated; Y83.8 Other surgical procedures as the cause of abnormal reaction of the patient, or of later complication, without mention of misadventure at the time of the procedure; D69.6 Thrombocytopenia, unspecified; Z99.2 Dependence on renal dialysis; Z79.899 Other long term (current) drug therapy
CPT/HCPCS: 36415; 47532; 71045; 71250; 71275; 74177; 76705; 80048; 80053; 80202; 82553; 83605; 83690; 83735; 83880; 84484; 85025; 85610; 85730; 86361; 86704; 87040; 87070; 87205; 88304; 90935; 93005; 93306; 96374; 96375; 96376; C1713; C1776; C1889; C9113; G0257; J0360; J1100; J1611; J1643; J1644; J1885; J2001; J2270; J2370; J2405; J2543; J2550; J2704; J2720; J3010; J3370; J3370-JW; J3490; J7050; L8670; P9045; Q0162; Q4081; Q5105; Q9967; S0028; U0003; U0005

== ENCOUNTER 2022-05-11 02:42 | Observation (INO) | payer BC ==
[2022-05-11] MEDS ORDERED: Morphine 4 MG/ML VIAL ONE (03:23)
[2022-05-11] MEDS ORDERED: Labetalol HCl 100 MG/20 ML VIAL ONE (03:23)
[2022-05-11] MEDS ORDERED: Ondansetron PF 4 MG/2 ML Vial ONE ×3 (03:23→11:09)
[2022-05-11 04:13] LABS: Hemoglobin 8.8 g/dL (14.0-18.0); Mean Corpuscular HGB CONC 32.2 g/dL (32.0-36.0); Mean Corpuscular Hemoglobin 33.1 pg (27.0-31.0); Mean Platelet Volume 7.8 fL (7.4-10.4); Platelet Count 275 10x3/uL (130-400); Red Blood Cell (RBC) Count 2.66 mill/uL (4.70-6.10); White Blood Cell (WBC) Count 5.1 10x3/uL (4.8-10.8)
[2022-05-11 04:36] LABS: ALT (SGPT) 7 U/L (8-55); AST (SGOT) 13 U/L (5-34); Albumin 3.1 g/dL (3.5-5.0); Alkaline Phosphatase 71 U/L (40-110); Anion Gap 19 mmol/L (10-20); BUN (Urea Nitrogen) 20 mg/dL (8.9-20.6); Bilirubin, Total 0.2 mg/dL (0.2-1.2); Calc. Creatinine Clearance 0 mL/min (70-130); Carbon Dioxide 25 mmol/L (22-29); Chloride 100 mmol/L (98-107); Estimated GFR 4; Globulin 3.9 g/dL (2.4-3.5); Glucose 86 mg/dL (70-105); Potassium 4.2 mmol/L (3.5-5.1); Sodium 140 mmol/L (136-145)
[2022-05-11 04:37] LABS: Lipase 169 U/L (8-78)
[2022-05-11 04:44] LABS: Band 1 % (5-11); Lymphocytes 32 % (21-51); MDiff Complete? YES; Monocytes 18 % (0-10); Neutrophil 49 % (42-75); Nucleated RBC 2 % (0); Polychromasia SLIGHT = 2-3 cells (100X) (0-2/hpf); Schistocytes SLIGHT = 2-5 cells (100X) (0-1/hpf)
[2022-05-11] MEDS ORDERED: HYDROmorphone 0.5 MG/0.5 ML SYRINGE ONE (05:24)
[2022-05-11] MEDS ORDERED: Acetaminophen 325 MG TAB PO PRN (07:57)
[2022-05-11] MEDS ORDERED: Senokot S 8.6-50 MG TAB PO PRN (07:57)
[2022-05-11] MEDS ORDERED: Ondansetron PF 4 MG/2 ML Vial IVP PRN (07:57)
[2022-05-11] MEDS ORDERED: Aluminum & Magnesium Hydroxide 60 ML, diphenhydrAMINE 150 MG, Lidocaine 2% Viscous Solu... SSW PRN (08:00)
[2022-05-11] MEDS: NIFEdipine XL 60 MG TAB PO SCH ×2 (08:30→21:55)
[2022-05-11] MEDS: Losartan 25 MG TAB PO SCH (08:30)
[2022-05-11] MEDS: Sodium Chloride 0.9% 1,000 ML IV SCH ×2 (08:30→22:56)
[2022-05-11] MEDS ORDERED: Labetalol HCl 100 MG TAB ONE (10:29)
[2022-05-11] MEDS: Pantoprazole 40 MG VIAL IVP SCH ×2 (10:34→22:52)
[2022-05-11] MEDS: Labetalol HCl 100 MG TAB PO SCH ×3 (10:35→21:53)
[2022-05-11] MEDS ORDERED: hydrALAZINE 25 MG TAB ONE (10:35)
[2022-05-11] MEDS: hydrALAZINE 25 MG TAB PO SCH ×3 (10:36→21:56)
[2022-05-11] MEDS: Heparin 5,000 UNITS/ML VIAL SC SCH ×3 (10:42→22:02)
[2022-05-11] MEDS ORDERED: Metoclopramide HCl 10 MG/2 ML VIAL ONE (11:09)
[2022-05-11] MEDS ORDERED: Morphine 2 MG/ML VIAL ONE (11:09)
[2022-05-11] MEDS: Morphine 2 MG/ML VIAL SLOW IVP PRN ×2 (11:13→21:32)
[2022-05-11] MEDS: Metoclopramide HCl 10 MG/2 ML VIAL IVP SCH ×3 (11:15→22:52)
[2022-05-11] MEDS ORDERED: Metoclopramide HCl 10 MG/2 ML VIAL IVP SCH (11:30)
[2022-05-11] MEDS: Aluminum & Magnesium Hydroxide 60 ML, diphenhydrAMINE 150 MG, Lidocaine 2% Viscous Solu... SSW SCH ×3 (11:37→21:58)
[2022-05-11] MEDS ORDERED: Heparin 10,000 UNITS/ 10 ML VIAL ONE (13:42)
[2022-05-11] MEDS ORDERED: Labetalol HCl 100 MG/20 ML VIAL SLOW IVP PRN (13:50)
[2022-05-11] MEDS ORDERED: cloNIDine 0.1mg/24 Hour PATCH TD SCH (14:00)
[2022-05-11] MEDS ORDERED: FLU VACC QS2022-23(6MOS UP)/PF 60 MCG/0.5 ML SYRINGE IM ONE (15:30)
[2022-05-11 15:32] VITALS: BMI 26.6
[2022-05-11 18:38] LABS: HBSAg Index 0.21 S/CO (0-0.99); Hep B Surf Ag Non-Reactive S/CO (NonReactive)
[2022-05-11 18:39] LABS: Hep C IgG Ab Non-Reactive (NonReactive); Hep C Index 0.13 S/CO (0-0.79)
[2022-05-11 18:40] LABS: HBSAB Concentration 14.13 mIU/mL; Hep B Surf AB Reactive (NonReactive)
[2022-05-11 20:08] LABS: Hep B Core Total Index 1.19 S/CO (0-0.79)
[2022-05-11] MEDS ORDERED: Melatonin 3 MG TAB PO SCH (21:00)
[2022-05-11] MEDS ORDERED: Nicotine 21 MG PATCH TD PRN (23:57)
[2022-05-12] MEDS: Morphine 2 MG/ML VIAL SLOW IVP PRN (03:54)
[2022-05-12 05:42] LABS: Hemoglobin 8.3 g/dL (14.0-18.0); Mean Corpuscular HGB CONC 30.3 g/dL (32.0-36.0); Mean Corpuscular Hemoglobin 31.3 pg (27.0-31.0); Mean Platelet Volume 7.4 fL (7.4-10.4); Platelet Count 283 10x3/uL (130-400); Red Blood Cell (RBC) Count 2.66 mill/uL (4.70-6.10); White Blood Cell (WBC) Count 3.5 10x3/uL (4.8-10.8)
[2022-05-12 06:58] LABS: MDiff Complete? YES
[2022-05-12 06:59] LABS: Anisocytosis SLIGHT = 6-15 cells (100X) (0-5/hpf); Eosinophils 4 % (0-10); Hypochromia SLIGHT = 6-15 cells (100X) (0-5/hpf); Lymphocytes 28 % (21-51); Monocytes 11 % (0-10); Neutrophil 57 % (42-75); Platelet Morphology Comment Appears Adequate; Polychromasia SLIGHT = 2-3 cells (100X) (0-2/hpf); Schistocytes SLIGHT = 2-5 cells (100X) (0-1/hpf)
[2022-05-12 07:27] LABS: Albumin 3.3 g/dL (3.5-5.0)
[2022-05-12 07:28] LABS: Chloride 102 mmol/L (98-107); Potassium 4.3 mmol/L (3.5-5.1); Sodium 138 mmol/L (136-145)
[2022-05-12 07:29] LABS: Calcium 8.7 mg/dL (7.8-10.44)
[2022-05-12 07:30] LABS: Glucose 129 mg/dL (70-105); Protein, Total 7.3 g/dL (6.0-8.3)
[2022-05-12 07:31] LABS: Anion Gap 13 mmol/L (10-20); Bilirubin, Total 0.2 mg/dL (0.2-1.2); Carbon Dioxide 27 mmol/L (22-29)
[2022-05-12 07:32] LABS: Alkaline Phosphatase 72 U/L (40-110)
[2022-05-12 07:33] LABS: Calc. Creatinine Clearance 15 mL/min (70-130); Estimated GFR 8
[2022-05-12 07:34] LABS: BUN (Urea Nitrogen) 12 mg/dL (8.9-20.6)
[2022-05-12 07:35] LABS: ALT (SGPT) 7 U/L (8-55); AST (SGOT) 13 U/L (5-34)
[2022-05-12] MEDS: Sodium Chloride 0.9% 1,000 ML IV SCH (09:13)
[2022-05-12] MEDS: NIFEdipine XL 60 MG TAB PO SCH (09:14)
[2022-05-12] MEDS: Losartan 25 MG TAB PO SCH (09:14)
[2022-05-12] MEDS: Labetalol HCl 100 MG TAB PO SCH ×2 (09:14→14:58)
[2022-05-12] MEDS: hydrALAZINE 25 MG TAB PO SCH ×2 (09:15→14:16)
[2022-05-12] MEDS: HYDROcodone/Acetaminophen 5/325 mg Tablet PO PRN ×2 (09:15→13:28)
[2022-05-12] MEDS: Heparin 5,000 UNITS/ML VIAL SC SCH ×2 (09:15→14:16)
[2022-05-12] MEDS: Metoclopramide HCl 10 MG/2 ML VIAL IVP SCH ×2 (09:15→13:19)
[2022-05-12] MEDS: Pantoprazole 40 MG VIAL IVP SCH (09:16)
[2022-05-12 12:09] VITALS: TEMP 99
[2022-05-12] MEDS: Aluminum & Magnesium Hydroxide 60 ML, diphenhydrAMINE 150 MG, Lidocaine 2% Viscous Solu... SSW SCH ×2 (13:16→13:17)
[2022-05-12 14:21] VITALS: BP 134/80
== END 2022-05-12 15:43 | disposition home or self-care (01) ==
LOC: ERS 02:42 → SUATTDRO 02:42 → ERHOLD 06:38 → 2SW 14:32
PROVIDERS: ADMIT Internal Medicine; ATTEND Internal Medicine
DX: R10.13 Epigastric pain (principal); R11.2 Nausea with vomiting, unspecified; I12.0 Hypertensive chronic kidney disease with stage 5 chronic kidney disease or end stage renal disease; N18.6 End stage renal disease; D63.1 Anemia in chronic kidney disease; J18.9 Pneumonia, unspecified organism; N25.81 Secondary hyperparathyroidism of renal origin; Z21 Asymptomatic human immunodeficiency virus [HIV] infection status; Z91.14 Patient's other noncompliance with medication regimen; Z79.2 Long term (current) use of antibiotics; Z79.899 Other long term (current) drug therapy; Z99.2 Dependence on renal dialysis
CPT/HCPCS: 36415; 36416; 74176; 80053; 83605; 83690; 83880; 84484; 85025; 86704; 93005; 96372; 96375; 96376; C9113; G0378; J1170; J1644; J2270; J2272; J2405; J2765; J7050; Q0163

== ENCOUNTER 2022-05-14 09:22 | Emergency (ER) | payer BC ==
[2022-05-14] MEDS ORDERED: Iopamidol-370 76% 500 ML 1 ML ONE (09:42)
[2022-05-14 10:27] LABS: Actual Bicarbonate (HCO3v) 23 mEq/L (22-28); Base Excess 1.9 mEq/L (-2.0 to +3.0); Calcium, Ionized (venous) 1.03 mmol/L (1.16-1.32); Chloride (VBG) 100 mmol/L (98-106); Hemoglobin (Hb) 9.8 g/dL (13.2-17.3); Potassium (VBG) 4.55 mmol/L (3.70-5.30); Sodium 137.2 mmol/L (133-146); pH (venous) 7.56 (7.32-7.43)
[2022-05-14 10:30] LABS: #Eosinphils 0.1 thou/uL (0.0-0.7); #Lymphocytes 1.2 thou/uL (1.20-3.40); #Monocytes 0.5 thou/uL (0.11-0.59); #Neutrophils 2.3 thou/uL (1.40-6.50); %Basophils 0.5 % (0.0-1.0); %Eosinophils 2.4 % (0.0-10.0); %Lymphocytes 28.7 % (21.0-51.0); %Monocytes 11.9 % (0.0-10.0); %Neutrophils 56.6 % (42.0-75.0); Hemoglobin 9.2 g/dL (14.0-18.0); Mean Corpuscular HGB CONC 31.3 g/dL (32.0-36.0); Mean Corpuscular Hemoglobin 31.5 pg (27.0-31.0); Mean Platelet Volume 7.8 fL (7.4-10.4); Platelet Count 314 10x3/uL (130-400); RBC Distribution Width 17.1 % (11.5-14.5); Red Blood Cell (RBC) Count 2.92 mill/uL (4.70-6.10); White Blood Cell (WBC) Count 4.1 10x3/uL (4.8-10.8)
[2022-05-14 10:33] LABS: ALT (SGPT) 9 U/L (8-55); AST (SGOT) 22 U/L (5-34); Albumin 3.6 g/dL (3.5-5.0); Alkaline Phosphatase 80 U/L (40-110); Anion Gap 18 mmol/L (10-20); BUN (Urea Nitrogen) 18 mg/dL (8.9-20.6); Bilirubin, Total 0.2 mg/dL (0.2-1.2); Calc. Creatinine Clearance 0 mL/min (70-130); Calcium 9.7 mg/dL (7.8-10.44); Carbon Dioxide 24 mmol/L (22-29); Chloride 100 mmol/L (98-107); Estimated GFR 5; Globulin 4.6 g/dL (2.4-3.5); Glucose 79 mg/dL (70-105); Potassium 4.5 mmol/L (3.5-5.1); Protein, Total 8.2 g/dL (6.0-8.3); Sodium 137 mmol/L (136-145)
[2022-05-14] MEDS ORDERED: Vancomycin 1 GM/200 ML (FROZEN) BAG ONE (12:19)
[2022-05-14] MEDS ORDERED: Cefepime 2 GM VIAL ONE (12:19)
[2022-05-14] MEDS ORDERED: Acetaminophen 500 MG TAB ONE (12:38)
[2022-05-14 13:17] LABS: Lactic Acid 1.3 mmol/L (0.5-2.2)
== END 2022-05-14 14:03 | disposition home or self-care (01) ==
LOC: ERS 09:22
DX: R07.89 Other chest pain (principal); I12.0 Hypertensive chronic kidney disease with stage 5 chronic kidney disease or end stage renal disease; N18.6 End stage renal disease; E87.3 Alkalosis; D72.819 Decreased white blood cell count, unspecified; B20 Human immunodeficiency virus [HIV] disease; F17.210 Nicotine dependence, cigarettes, uncomplicated; Z99.2 Dependence on renal dialysis
CPT/HCPCS: 36415; 71260; 74177; 80053; 82805; 83605; 85025; 87040; 93005; J0692; J3370-JW

== ENCOUNTER 2022-05-14 21:26 | Inpatient (IN) | payer BC ==
[2022-05-14] MEDS ORDERED: Nitroglycerin 2% Ointment 1 INCH/1 GM Packet ONE (21:44)
[2022-05-14] MEDS ORDERED: Morphine 2 MG/ML VIAL ONE (22:26)
[2022-05-14] MEDS ORDERED: hydrALAZINE 20 MG/ML VIAL ONE (22:27)
[2022-05-14 22:30] LABS: #Eosinphils 0.1 thou/uL (0.0-0.7); #Monocytes 0.7 thou/uL (0.11-0.59); #Neutrophils 3.5 thou/uL (1.40-6.50); %Basophils 0.5 % (0.0-1.0); %Eosinophils 1.7 % (0.0-10.0); %Monocytes 13.2 % (0.0-10.0); %Neutrophils 66.6 % (42.0-75.0); Hemoglobin 8.4 g/dL (14.0-18.0); Mean Corpuscular HGB CONC 30.8 g/dL (32.0-36.0); Mean Corpuscular Hemoglobin 31.1 pg (27.0-31.0); Mean Platelet Volume 7.4 fL (7.4-10.4); Platelet Count 278 10x3/uL (130-400); Red Blood Cell (RBC) Count 2.71 mill/uL (4.70-6.10); White Blood Cell (WBC) Count 5.3 10x3/uL (4.8-10.8)
[2022-05-14 22:50] LABS: ALT (SGPT) 8 U/L (8-55); AST (SGOT) 15 U/L (5-34); Albumin 3.2 g/dL (3.5-5.0); Alkaline Phosphatase 70 U/L (40-110); Anion Gap 15 mmol/L (10-20); BUN (Urea Nitrogen) 19 mg/dL (8.9-20.6); Bilirubin, Total 0.2 mg/dL (0.2-1.2); Calc. Creatinine Clearance 0 mL/min (70-130); Calcium 9.2 mg/dL (7.8-10.44); Carbon Dioxide 25 mmol/L (22-29); Chloride 99 mmol/L (98-107); Estimated GFR 5; Glucose 94 mg/dL (70-105); Potassium 4.6 mmol/L (3.5-5.1); Protein, Total 7.2 g/dL (6.0-8.3); Sodium 134 mmol/L (136-145)
[2022-05-15] MEDS ORDERED: Acetaminophen 500 MG TAB ONE (00:59)
[2022-05-15] MEDS ORDERED: Promethazine HCl 12.5 MG in Sodium Chloride 0.9% 50 ML IVPB SCH (01:30)
[2022-05-15] MEDS ORDERED: hydrOXYzine Pamoate 25 mg Capsule ONE (02:37)
[2022-05-15] MEDS ORDERED: diphenhydrAMINE 50 MG/ML VIAL ONE (02:51)
[2022-05-15] MEDS ORDERED: Lorazepam 2 MG/ML VIAL ONE (03:26)
[2022-05-15 03:37] LABS: Actual Bicarbonate (HCO3a) 27.4 mEq/L (22-28); Analyzer IN Cardio ER; Base Excess (BEa) 2.6 mEq/L (-2.0 to +3.0); Calcium, Ionized (arterial) 1.14 mmol/L (1.12-1.30); Carboxyhemoglobin (COHb) 1.1 gm% (0.0-3.0); Hemoglobin (Hb) 10.9 g/dL (14.0-18.0); O2 Tension (PaO2), arterial 71.3 mmHg (80.0-100.0); Potassium - ABG Lab 4.16 mmol/L (3.70-5.30); pH, Arterial 7.42 (7.35-7.45)
[2022-05-15 03:40] LABS: Puncture Site RRA
[2022-05-15] MEDS ORDERED: Ondansetron PF 4 MG/2 ML Vial IVP PRN (03:53)
[2022-05-15] MEDS ORDERED: Acetaminophen 325 MG TAB PO PRN (03:53)
[2022-05-15] MEDS ORDERED: Nitroglycerin 50 MG/250 ML BOT 0 ML ONE (04:01)
[2022-05-15] MEDS: niCARdipine 25 MG in Sodium Chloride 0.9% 250 ML 250 ML IVPB SCH ×2 (04:09→06:37)
[2022-05-15 04:22] VITALS: BP 197/133
[2022-05-15 04:42] LABS: Anion Gap 15 mmol/L (10-20); BUN (Urea Nitrogen) 15 mg/dL (8.9-20.6); Calc. Creatinine Clearance 0 mL/min (70-130); Calcium 9.6 mg/dL (7.8-10.44); Carbon Dioxide 26 mmol/L (22-29); Chloride 98 mmol/L (98-107); Estimated GFR 7; Glucose 107 mg/dL (70-105); Lipase 73 U/L (8-78); Potassium 4.3 mmol/L (3.5-5.1); Sodium 135 mmol/L (136-145)
[2022-05-15 06:19] LABS: #Basophils 0.1 thou/uL (0.0-0.2); #Eosinphils 0.1 thou/uL (0.0-0.7); #Lymphocytes 1.5 thou/uL (1.20-3.40); #Monocytes 1.2 thou/uL (0.11-0.59); #Neutrophils 8.8 thou/uL (1.40-6.50); %Basophils 0.4 % (0.0-1.0); %Eosinophils 1.2 % (0.0-10.0); %Monocytes 10.5 % (0.0-10.0); Hemoglobin 9.8 g/dL (14.0-18.0); Mean Corpuscular HGB CONC 30.3 g/dL (32.0-36.0); Mean Corpuscular Hemoglobin 30.7 pg (27.0-31.0); Mean Platelet Volume 8.1 fL (7.4-10.4); Platelet Count 318 10x3/uL (130-400); RBC Distribution Width 16.7 % (11.5-14.5); Red Blood Cell (RBC) Count 3.19 mill/uL (4.70-6.10); White Blood Cell (WBC) Count 11.8 10x3/uL (4.8-10.8)
[2022-05-15 06:36] VITALS: BMI 27.3
[2022-05-15 07:33] LABS: SARS-CoV-2 NAA Rapid Test DETECTED (NotDetected)
[2022-05-15] MEDS ORDERED: Heparin 10,000 UNITS/ 10 ML VIAL ONE (08:45)
[2022-05-15] MEDS ORDERED: FLU VACC QS2022-23(6MOS UP)/PF 60 MCG/0.5 ML SYRINGE IM ONE (09:00)
[2022-05-15] MEDS ORDERED: NIFEdipine XL 60 MG TAB PO SCH (09:00)
[2022-05-15] MEDS ORDERED: Losartan 25 MG TAB PO SCH (09:00)
[2022-05-15] MEDS ORDERED: Nitroglycerin 2% Ointment 1 INCH/1 GM Packet TOP SCH (09:00)
[2022-05-15] MEDS ORDERED: Heparin 5,000 UNITS/ML VIAL SC SCH (09:00)
[2022-05-15] MEDS ORDERED: Famotidine 20 MG TAB PO SCH (09:00)
[2022-05-15] MEDS ORDERED: Labetalol HCl 100 MG TAB PO SCH (09:00)
[2022-05-15 10:26] VITALS: TEMP 99.2
== END 2022-05-15 13:00 | disposition left against medical advice (07) | DRG 640 ==
LOC: ERS 21:26 → CCU 05-15 03:55
PROVIDERS: ADMIT Student in an Organized Health Care Education/Training Program; ATTEND Internal Medicine
PROC: 5A1D70Z Performance of Urinary Filtration, Intermittent, Less than 6 Hours Per Day (ICD-10-PCS; principal; 2022-05-15)
DX: E87.70 Fluid overload, unspecified (principal); G93.41 Metabolic encephalopathy; J96.01 Acute respiratory failure with hypoxia; N18.6 End stage renal disease; U07.1 COVID-19; I16.1 Hypertensive emergency; B20 Human immunodeficiency virus [HIV] disease; D63.1 Anemia in chronic kidney disease; F41.9 Anxiety disorder, unspecified; F32.A Depression, unspecified; Z99.2 Dependence on renal dialysis; Z90.49 Acquired absence of other specified parts of digestive tract; Z79.899 Other long term (current) drug therapy; Z91.14 Patient's other noncompliance with medication regimen; E87.1 Hypo-osmolality and hyponatremia; Z53.29 Procedure and treatment not carried out because of patient's decision for other reasons
CPT/HCPCS: 36415; 36416; 36600; 71045; 71260; 74176; 74177; 80048; 80053; 82805; 83605; 83690; 83880; 84484; 85025; 86704; 87040; 90935; 93005; 94660; 96372; 96374; 96375; 96376; C9113; G0257; G0378; J0360; J0692; J1170; J1200; J1644; J2060; J2270; J2272; J2405; J2550; J2765; J3370-JW; J7050; Q0163; Q0177; Q9967; U0002

== ENCOUNTER 2022-05-16 23:50 | Observation (INO) | payer BC ==
[2022-05-17] MEDS ORDERED: Labetalol HCl 100 MG/20 ML VIAL ONE (00:27)
[2022-05-17] MEDS ORDERED: Dicyclomine 20 MG TAB ONE (00:47)
[2022-05-17] MEDS ORDERED: Acetaminophen 500 MG TAB ONE (00:47)
[2022-05-17 01:02] LABS: Mean Corpuscular HGB CONC 32.1 g/dL (32.0-36.0); Mean Corpuscular Hemoglobin 31.8 pg (27.0-31.0); Mean Corpuscular Volume 99.3 fl (78.0-98.0); Mean Platelet Volume 7.8 fL (7.4-10.4); Platelet Count 232 10x3/uL (130-400); RBC Distribution Width 16.6 % (11.5-14.5); Red Blood Cell (RBC) Count 2.83 mill/uL (4.70-6.10); White Blood Cell (WBC) Count 3.9 10x3/uL (4.8-10.8)
[2022-05-17 01:21] LABS: ALT (SGPT) 7 U/L (8-55); AST (SGOT) 15 U/L (5-34); Albumin 3.1 g/dL (3.5-5.0); Alkaline Phosphatase 72 U/L (40-110); Anion Gap 14 mmol/L (10-20); BUN (Urea Nitrogen) 12 mg/dL (8.9-20.6); Bilirubin, Total 0.3 mg/dL (0.2-1.2); Calc. Creatinine Clearance 0 mL/min (70-130); Calcium 9.2 mg/dL (7.8-10.44); Carbon Dioxide 28 mmol/L (22-29); Chloride 98 mmol/L (98-107); Estimated GFR 9; Globulin 4.2 g/dL (2.4-3.5); Glucose 87 mg/dL (70-105); Lipase 114 U/L (8-78); Magnesium 1.9 mg/dL (1.6-2.6); Potassium 3.8 mmol/L (3.5-5.1); Protein, Total 7.3 g/dL (6.0-8.3); Sodium 136 mmol/L (136-145)
[2022-05-17 01:26] LABS: Anisocytosis SLIGHT = 6-15 cells (100X) (0-5/hpf); Band 1 % (5-11); Eosinophils 5 % (0-10); Lymphocytes 34 % (21-51); MDiff Complete? YES; Macrocytosis SLIGHT = 6-15 cells (100X) (0-5/hpf); Monocytes 11 % (0-10); Neutrophil 47 % (42-75); Nucleated RBC 1 % (0); Ovalocytes SLIGHT = 2-5 cells (100X) (0-1/hpf); Platelet Morphology Comment Appears Adequate; Reactive Lymphocytes 1 % (0-10); Target Cells SLIGHT = 2-5 cells (100X) (0-1/hpf)
[2022-05-17 01:43] LABS: CKMB 0.5 ng/mL (0-6.6)
[2022-05-17 04:06] VITALS: TEMP 99.2; BMI 20.9
[2022-05-17] MEDS ORDERED: Morphine 4 MG/ML VIAL SLOW IVP SCH (07:00)
[2022-05-17] MEDS ORDERED: Morphine 4 MG/ML VIAL ONE (07:12)
[2022-05-17] MEDS ORDERED: Aspirin Chewable 81 MG TAB PO SCH (09:00)
[2022-05-17] MEDS ORDERED: Nicotine 7 MG PATCH TD SCH (09:00)
[2022-05-17] MEDS ORDERED: Aspirin Chewable 81 MG TAB ONE (09:33)
[2022-05-17] MEDS ORDERED: Heparin 10,000 UNITS/ 10 ML VIAL ONE (10:16)
[2022-05-17] MEDS ORDERED: Ondansetron ODT 4 MG TAB ONE (10:32)
[2022-05-17 10:36] LABS: Troponin I 0.134 ng/mL (< 0.028)
[2022-05-17] MEDS ORDERED: HYDROcodone/Acetaminophen 5/325 mg Tablet PO SCH (12:00)
[2022-05-17] MEDS ORDERED: HYDROcodone/Acetaminophen 5/325 mg Tablet ONE (12:13)
[2022-05-17] MEDS ORDERED: Ondansetron PF 4 MG/2 ML Vial ONE (14:46)
[2022-05-17] MEDS ORDERED: Labetalol HCl 100 MG TAB PO SCH ×2 (15:15→21:00)
[2022-05-17] MEDS ORDERED: NIFEdipine XL 60 MG TAB PO SCH ×2 (15:15→21:00)
[2022-05-17] MEDS ORDERED: NIFEdipine XL 30 MG TAB ONE (15:25)
[2022-05-17] MEDS ORDERED: Labetalol HCl 100 MG TAB ONE (15:25)
[2022-05-17] MEDS ORDERED: hydrALAZINE 25 MG TAB ONE (15:26)
[2022-05-17] MEDS ORDERED: hydrALAZINE 25 MG TAB PO SCH (15:30)
[2022-05-17 16:10] VITALS: BP 191/130
[2022-05-17] MEDS ORDERED: Albuterol 2.5 MG/0.5 ML NEB ONE (16:52)
[2022-05-17] MEDS ORDERED: Non-Formulary Item 1 EACH (Hydralazine Hcl [Hydralazine Hcl] 100 MG Tablet) PO SCH (21:00)
== END 2022-05-17 19:00 ==
LOC: ERS 23:50 → ERHOLD 05-17 02:45
PROVIDERS: ADMIT Student in an Organized Health Care Education/Training Program; ATTEND Nurse Practitioner Family
DX: R07.89 Other chest pain (principal); R10.9 Unspecified abdominal pain; I12.0 Hypertensive chronic kidney disease with stage 5 chronic kidney disease or end stage renal disease; N18.6 End stage renal disease; D63.1 Anemia in chronic kidney disease; F17.210 Nicotine dependence, cigarettes, uncomplicated; E88.09 Other disorders of plasma-protein metabolism, not elsewhere classified; Z21 Asymptomatic human immunodeficiency virus [HIV] infection status; Z79.899 Other long term (current) drug therapy; Z99.2 Dependence on renal dialysis
CPT/HCPCS: 36415; 71046; 80053; 82553; 83690; 83735; 84443; 84484; 85025; 90935; 93005; 96374; 96375; G0257; G0378; J1644; J2270; J2405; J7611; Q0162

== ENCOUNTER 2022-05-18 00:55 | Emergency (ER) | payer BC ==
[2022-05-18] MEDS ORDERED: Acetaminophen 500 MG TAB ONE (01:22)
[2022-05-18] MEDS ORDERED: Ondansetron ODT 4 MG TAB ONE (01:35)
[2022-05-18 02:24] LABS: Albumin 3.6 g/dL (3.5-5.0); Anion Gap 18 mmol/L (10-20); BUN (Urea Nitrogen) 11 mg/dL (8.9-20.6); Bilirubin, Total 0.5 mg/dL (0.2-1.2); Calc. Creatinine Clearance 0 mL/min (70-130); Carbon Dioxide 27 mmol/L (22-29); Chloride 95 mmol/L (98-107); Estimated GFR 10; Globulin 4.7 g/dL (2.4-3.5); Glucose 87 mg/dL (70-105); Potassium 3.5 mmol/L (3.5-5.1); Protein, Total 8.3 g/dL (6.0-8.3); Sodium 136 mmol/L (136-145)
[2022-05-18 02:25] LABS: ALT (SGPT) 9 U/L (8-55); AST (SGOT) 18 U/L (5-34); Alkaline Phosphatase 90 U/L (40-110)
[2022-05-18 02:30] LABS: Hemoglobin 9.3 g/dL (14.0-18.0); Mean Corpuscular Hemoglobin 30.6 pg (27.0-31.0); Mean Corpuscular Volume 98.7 fl (78.0-98.0); Mean Platelet Volume 8.1 fL (7.4-10.4); Platelet Count 239 10x3/uL (130-400); RBC Distribution Width 16.7 % (11.5-14.5); Red Blood Cell (RBC) Count 3.04 mill/uL (4.70-6.10); White Blood Cell (WBC) Count 5.5 10x3/uL (4.8-10.8)
[2022-05-18 02:47] LABS: CKMB 0.6 ng/mL (0-6.6)
[2022-05-18 02:55] LABS: Hypochromia SLIGHT = 6-15 cells (100X) (0-5/hpf); Lymphocytes 23 % (21-51); MDiff Complete? YES; Monocytes 16 % (0-10); Neutrophil 56 % (42-75); Platelet Morphology Comment Appears Adequate; Reactive Lymphocytes 5 % (0-10)
== END 2022-05-18 02:57 ==
LOC: ERS 00:55
DX: R07.9 Chest pain, unspecified (principal); I10 Essential (primary) hypertension; B20 Human immunodeficiency virus [HIV] disease; F17.210 Nicotine dependence, cigarettes, uncomplicated
CPT/HCPCS: 36415; 71045; 80053; 82553; 84484; 85025; 93005; Q0162

== ENCOUNTER 2022-05-18 20:41 | Emergency (ER) | payer BC ==
[2022-05-18] MEDS ORDERED: Labetalol HCl 100 MG/20 ML VIAL ONE (21:09)
[2022-05-18 21:52] LABS: Hemoglobin 9.2 g/dL (14.0-18.0); Mean Corpuscular HGB CONC 31.6 g/dL (32.0-36.0); Mean Platelet Volume 8.3 fL (7.4-10.4); Platelet Count 215 10x3/uL (130-400); RBC Distribution Width 16.4 % (11.5-14.5); Red Blood Cell (RBC) Count 2.97 mill/uL (4.70-6.10); White Blood Cell (WBC) Count 4.9 10x3/uL (4.8-10.8)
[2022-05-18 22:11] LABS: ALT (SGPT) 8 U/L (8-55); AST (SGOT) 15 U/L (5-34); Albumin 3.5 g/dL (3.5-5.0); Alkaline Phosphatase 76 U/L (40-110); Anion Gap 17 mmol/L (10-20); BUN (Urea Nitrogen) 19 mg/dL (8.9-20.6); Bilirubin, Total 0.3 mg/dL (0.2-1.2); Calc. Creatinine Clearance 0 mL/min (70-130); Calcium 9.7 mg/dL (7.8-10.44); Carbon Dioxide 24 mmol/L (22-29); Chloride 96 mmol/L (98-107); Estimated GFR 6; Globulin 4.2 g/dL (2.4-3.5); Glucose 97 mg/dL (70-105); Lipase 110 U/L (8-78); Magnesium 1.9 mg/dL (1.6-2.6); Potassium 3.8 mmol/L (3.5-5.1); Protein, Total 7.7 g/dL (6.0-8.3); Sodium 133 mmol/L (136-145)
[2022-05-18 22:25] LABS: Anisocytosis SLIGHT = 6-15 cells (100X) (0-5/hpf); Band 3 % (5-11); Eosinophils 1 % (0-10); Hypochromia SLIGHT = 6-15 cells (100X) (0-5/hpf); Lymphocytes 26 % (21-51); MDiff Complete? YES; Monocytes 16 % (0-10); Neutrophil 55 % (42-75); Nucleated RBC 1 % (0); Platelet Morphology Comment Appears Adequate; Polychromasia SLIGHT = 2-3 cells (100X) (0-2/hpf)
[2022-05-18 22:33] LABS: CKMB 0.6 ng/mL (0-6.6)
== END 2022-05-18 21:58 | disposition left against medical advice (07) ==
LOC: ERS 20:41
DX: Z53.29 Procedure and treatment not carried out because of patient's decision for other reasons (principal)
CPT/HCPCS: 36415; 71045; 82553; 83690; 83735; 83880; 93005; 96374

== ENCOUNTER 2022-05-24 22:27 | Emergency (ER) | payer BC ==
[2022-05-24] MEDS ORDERED: Morphine 4 MG/ML VIAL ONE (22:47)
[2022-05-24 23:34] LABS: #Eosinphils 0.2 thou/uL (0.0-0.7); #Lymphocytes 1.4 thou/uL (1.20-3.40); #Monocytes 0.8 thou/uL (0.11-0.59); #Neutrophils 3.1 thou/uL (1.40-6.50); %Basophils 0.8 % (0.0-1.0); %Eosinophils 4.1 % (0.0-10.0); %Lymphocytes 25.8 % (21.0-51.0); %Monocytes 14.7 % (0.0-10.0); %Neutrophils 54.6 % (42.0-75.0); Mean Corpuscular HGB CONC 32.2 g/dL (32.0-36.0); Mean Corpuscular Hemoglobin 31.2 pg (27.0-31.0); Mean Corpuscular Volume 96.9 fl (78.0-98.0); Mean Platelet Volume 7.8 fL (7.4-10.4); Platelet Count 219 10x3/uL (130-400); RBC Distribution Width 16.6 % (11.5-14.5); White Blood Cell (WBC) Count 5.6 10x3/uL (4.8-10.8)
[2022-05-24 23:59] LABS: ALT (SGPT) 12 U/L (8-55); AST (SGOT) 15 U/L (5-34); Alkaline Phosphatase 73 U/L (40-110); Anion Gap 19 mmol/L (10-20); BUN (Urea Nitrogen) 42 mg/dL (8.9-20.6); Bilirubin, Total 0.2 mg/dL (0.2-1.2); Calc. Creatinine Clearance 0 mL/min (70-130); Calcium 8.7 mg/dL (7.8-10.44); Carbon Dioxide 21 mmol/L (22-29); Chloride 98 mmol/L (98-107); Estimated GFR 3; Globulin 3.8 g/dL (2.4-3.5); Glucose 88 mg/dL (70-105); Potassium 4.2 mmol/L (3.5-5.1); Protein, Total 6.8 g/dL (6.0-8.3); Sodium 134 mmol/L (136-145)
== END 2022-05-25 03:04 | disposition home or self-care (01) ==
LOC: ERS 22:27
DX: K51.00 Ulcerative (chronic) pancolitis without complications (principal); D64.9 Anemia, unspecified; I12.0 Hypertensive chronic kidney disease with stage 5 chronic kidney disease or end stage renal disease; N18.6 End stage renal disease; B20 Human immunodeficiency virus [HIV] disease; F17.210 Nicotine dependence, cigarettes, uncomplicated; Z99.2 Dependence on renal dialysis; Z79.899 Other long term (current) drug therapy
CPT/HCPCS: 36415; 71045; 74177; 80053; 83880; 85025; 93005; 96374; J2270

== ENCOUNTER 2022-05-25 09:38 | Inpatient (IN) | payer BC ==
[2022-05-25] MEDS ORDERED: Ondansetron PF 4 MG/2 ML Vial ONE (10:10)
[2022-05-25] MEDS ORDERED: Nitroglycerin 0.4 MG TAB 1 EACH ONE (10:10)
[2022-05-25] MEDS ORDERED: Acetaminophen 500 MG TAB ONE (10:10)
[2022-05-25] MEDS ORDERED: Heparin 10,000 UNITS/ 10 ML VIAL ONE (10:15)
[2022-05-25] MEDS ORDERED: Nitroglycerin 50 MG/250 ML BOT 0 ML ONE (10:47)
[2022-05-25 10:55] LABS: #Basophils 0.1 thou/uL (0.0-0.2); #Eosinphils 0.2 thou/uL (0.0-0.7); #Lymphocytes 1.4 thou/uL (1.20-3.40); #Monocytes 0.9 thou/uL (0.11-0.59); #Neutrophils 3.9 thou/uL (1.40-6.50); %Basophils 1.3 % (0.0-1.0); %Eosinophils 2.8 % (0.0-10.0); %Lymphocytes 21.6 % (21.0-51.0); %Neutrophils 60.4 % (42.0-75.0); Hemoglobin 10.3 g/dL (14.0-18.0); Mean Corpuscular HGB CONC 33.3 g/dL (32.0-36.0); Mean Corpuscular Volume 96.1 fl (78.0-98.0); Platelet Count 208 10x3/uL (130-400); RBC Distribution Width 16.7 % (11.5-14.5); White Blood Cell (WBC) Count 6.5 10x3/uL (4.8-10.8)
[2022-05-25 10:56] LABS: ALT (SGPT) 11 U/L (8-55); AST (SGOT) 16 U/L (5-34); Albumin 3.3 g/dL (3.5-5.0); Alkaline Phosphatase 83 U/L (40-110); Anion Gap 21 mmol/L (10-20); BUN (Urea Nitrogen) 47 mg/dL (8.9-20.6); Bilirubin, Total 0.2 mg/dL (0.2-1.2); Calc. Creatinine Clearance 0 mL/min (70-130); Calcium 8.9 mg/dL (7.8-10.44); Carbon Dioxide 21 mmol/L (22-29); Chloride 96 mmol/L (98-107); Estimated GFR 3; Globulin 3.9 g/dL (2.4-3.5); Glucose 92 mg/dL (70-105); Magnesium 1.8 mg/dL (1.6-2.6); Potassium 4.7 mmol/L (3.5-5.1); Protein, Total 7.2 g/dL (6.0-8.3); Sodium 133 mmol/L (136-145)
[2022-05-25 11:17] LABS: CKMB 1.1 ng/mL (0-6.6)
[2022-05-25] MEDS ORDERED: Nitroglycerin 2% Ointment 1 INCH/1 GM Packet ONE (12:57)
[2022-05-25] MEDS ORDERED: Senokot S 8.6-50 MG TAB PO PRN (13:10)
[2022-05-25] MEDS ORDERED: Calcium Carbonate 500 MG ChewTAB PO PRN (13:10)
[2022-05-25] MEDS ORDERED: Ondansetron ODT 4 MG TAB PO PRN (13:10)
[2022-05-25] MEDS ORDERED: hydrALAZINE 20 MG/ML VIAL SLOW IVP PRN (13:14)
[2022-05-25] MEDS ORDERED: Nitroglycerin 50 MG/250 ML BOT 250 ML ONE (13:33)
[2022-05-25] MEDS ORDERED: Labetalol HCl 100 MG/20 ML VIAL ONE (13:43)
[2022-05-25] MEDS ORDERED: hydrALAZINE 25 MG TAB PO SCH (16:15)
[2022-05-25] MEDS ORDERED: Labetalol HCl 100 MG/20 ML VIAL SLOW IVP PRN (17:26)
[2022-05-25] MEDS ORDERED: Nitroglycerin 50 MG/250 ML BOT 250 ML IVPB SCH (18:15)
[2022-05-25] MEDS: HYDROcodone/Acetaminophen 5/325 mg Tablet PO PRN (20:04)
[2022-05-25] MEDS: Labetalol HCl 100 MG TAB PO SCH ×2 (20:04→20:44)
[2022-05-25] MEDS: Heparin 5,000 UNITS/ML VIAL SC SCH ×2 (20:04→20:07)
[2022-05-25] MEDS: NIFEdipine XL 60 MG TAB PO SCH (20:05)
[2022-05-25] MEDS: hydrALAZINE 25 MG TAB PO SCH (20:05)
[2022-05-25] MEDS: Ondansetron PF 4 MG/2 ML Vial IVP PRN (20:24)
[2022-05-25 21:22] LABS: SARS-CoV-2 NAA Rapid Test Not Detected (NotDetected)
[2022-05-25] MEDS ORDERED: Melatonin 3 MG TAB PO PRN (22:18)
[2022-05-25] MEDS ORDERED: Nicotine 7 MG PATCH TD SCH (22:45)
[2022-05-25] MEDS: Acetaminophen 325 MG TAB PO PRN (23:10)
[2022-05-25] MEDS: Melatonin 3 MG TAB PO PRN (23:11)
[2022-05-26] MEDS: HYDROcodone/Acetaminophen 5/325 mg Tablet PO PRN ×3 (03:37→20:51)
[2022-05-26 05:41] LABS: #Eosinphils 0.2 thou/uL (0.0-0.7); #Lymphocytes 1.2 thou/uL (1.20-3.40); #Monocytes 0.6 thou/uL (0.11-0.59); #Neutrophils 2.2 thou/uL (1.40-6.50); %Basophils 0.5 % (0.0-1.0); %Lymphocytes 28.1 % (21.0-51.0); %Monocytes 14.9 % (0.0-10.0); %Neutrophils 52.6 % (42.0-75.0); Mean Corpuscular HGB CONC 32.1 g/dL (32.0-36.0); Mean Corpuscular Hemoglobin 30.8 pg (27.0-31.0); Mean Corpuscular Volume 95.9 fl (78.0-98.0); Mean Platelet Volume 8.2 fL (7.4-10.4); Platelet Count 191 10x3/uL (130-400); RBC Distribution Width 16.5 % (11.5-14.5); Red Blood Cell (RBC) Count 2.92 mill/uL (4.70-6.10); White Blood Cell (WBC) Count 4.2 10x3/uL (4.8-10.8)
[2022-05-26 06:14] LABS: ALT (SGPT) 10 U/L (8-55); AST (SGOT) 22 U/L (5-34); Albumin 3.1 g/dL (3.5-5.0); Alkaline Phosphatase 76 U/L (40-110); Anion Gap 15 mmol/L (10-20); BUN (Urea Nitrogen) 22 mg/dL (8.9-20.6); Bilirubin, Total 0.3 mg/dL (0.2-1.2); Calc. Creatinine Clearance 11 mL/min (70-130); Calcium 8.4 mg/dL (7.8-10.44); Carbon Dioxide 26 mmol/L (22-29); Chloride 98 mmol/L (98-107); Estimated GFR 6; Globulin 3.8 g/dL (2.4-3.5); Glucose 92 mg/dL (70-105); Magnesium 1.9 mg/dL (1.6-2.6); Potassium 3.7 mmol/L (3.5-5.1); Protein, Total 6.9 g/dL (6.0-8.3); Sodium 135 mmol/L (136-145)
[2022-05-26] MEDS: Losartan 25 MG TAB PO SCH (08:53)
[2022-05-26] MEDS: Labetalol HCl 100 MG TAB PO SCH ×3 (08:53→20:50)
[2022-05-26] MEDS: Aspirin Chewable 81 MG TAB PO SCH (08:54)
[2022-05-26] MEDS: NIFEdipine XL 60 MG TAB PO SCH ×2 (08:54→20:50)
[2022-05-26] MEDS: hydrALAZINE 25 MG TAB PO SCH ×3 (08:54→20:51)
[2022-05-26] MEDS: Ondansetron PF 4 MG/2 ML Vial IVP PRN (08:57)
[2022-05-26] MEDS ORDERED: [UNRECOGNIZED DRUG - OTHER] PO SCH (09:00)
[2022-05-26] MEDS ORDERED: FLU VACC QS2022-23(6MOS UP)/PF 60 MCG/0.5 ML SYRINGE IM ONE (09:00)
[2022-05-26] MEDS: Heparin 5,000 UNITS/ML VIAL SC SCH ×3 (09:01→20:53)
[2022-05-26] MEDS: hydrOXYzine 25 MG TAB PO PRN (12:04)
[2022-05-26] MEDS: Melatonin 3 MG TAB PO PRN (23:26)
[2022-05-27 06:20] LABS: Hemoglobin 9.2 g/dL (14.0-18.0); Mean Corpuscular HGB CONC 31.5 g/dL (32.0-36.0); Mean Corpuscular Hemoglobin 30.4 pg (27.0-31.0); Mean Corpuscular Volume 96.5 fl (78.0-98.0); Mean Platelet Volume 8.1 fL (7.4-10.4); Platelet Count 211 10x3/uL (130-400); RBC Distribution Width 16.5 % (11.5-14.5); Red Blood Cell (RBC) Count 3.02 mill/uL (4.70-6.10); White Blood Cell (WBC) Count 3.8 10x3/uL (4.8-10.8)
[2022-05-27 06:24] LABS: Anion Gap 20 mmol/L (10-20); BUN (Urea Nitrogen) 30 mg/dL (8.9-20.6); Calc. Creatinine Clearance 9 mL/min (70-130); Carbon Dioxide 22 mmol/L (22-29); Chloride 98 mmol/L (98-107); Estimated GFR 4; Glucose 90 mg/dL (70-105); Magnesium 2.2 mg/dL (1.6-2.6); Phosphorus 6.8 mg/dL (2.3-4.7); Potassium 3.9 mmol/L (3.5-5.1); Sodium 136 mmol/L (136-145)
[2022-05-27] MEDS: Heparin 5,000 UNITS/ML VIAL SC SCH ×3 (08:42→19:49)
[2022-05-27] MEDS: HYDROcodone/Acetaminophen 5/325 mg Tablet PO PRN (08:43)
[2022-05-27] MEDS: hydrALAZINE 25 MG TAB PO SCH ×3 (08:45→20:02)
[2022-05-27] MEDS: Aspirin Chewable 81 MG TAB PO SCH (08:46)
[2022-05-27] MEDS: NIFEdipine XL 60 MG TAB PO SCH ×2 (08:46→20:02)
[2022-05-27] MEDS: Losartan 25 MG TAB PO SCH (08:47)
[2022-05-27] MEDS: Labetalol HCl 100 MG TAB PO SCH ×3 (08:47→20:02)
[2022-05-27 08:50] LABS: Band 1 % (5-11); Eosinophils 4 % (0-10); Hypochromia SLIGHT = 6-15 cells (100X) (0-5/hpf); Lymphocytes 29 % (21-51); MDiff Complete? YES; Monocytes 14 % (0-10); Neutrophil 52 % (42-75); Platelet Morphology Comment Appears Adequate; Polychromasia SLIGHT = 2-3 cells (100X) (0-2/hpf)
[2022-05-27 11:59] VITALS: BMI 23.6
[2022-05-27] MEDS: Acetaminophen 325 MG TAB PO PRN (21:38)
[2022-05-27] MEDS: Melatonin 3 MG TAB PO PRN (21:39)
[2022-05-27] MEDS: hydrOXYzine 25 MG TAB PO PRN (21:39)
[2022-05-27] MEDS ORDERED: Morphine 2 MG/ML VIAL SLOW IVP SCH (22:00)
[2022-05-28] MEDS ORDERED: Morphine 2 MG/ML VIAL SLOW IVP SCH (05:15)
[2022-05-28 07:38] LABS: Anion Gap 19 mmol/L (10-20); BUN (Urea Nitrogen) 34 mg/dL (8.9-20.6); Calc. Creatinine Clearance 7 mL/min (70-130); Calcium 9.2 mg/dL (7.8-10.44); Carbon Dioxide 23 mmol/L (22-29); Chloride 98 mmol/L (98-107); Estimated GFR 4; Glucose 98 mg/dL (70-105); Potassium 3.5 mmol/L (3.5-5.1); Sodium 136 mmol/L (136-145)
[2022-05-28 07:41] LABS: #Eosinphils 0.3 thou/uL (0.0-0.7); #Lymphocytes 1.3 thou/uL (1.20-3.40); #Monocytes 0.5 thou/uL (0.11-0.59); #Neutrophils 1.4 thou/uL (1.40-6.50); %Basophils 1.2 % (0.0-1.0); %Eosinophils 8.5 % (0.0-10.0); %Lymphocytes 36.9 % (21.0-51.0); %Monocytes 14.2 % (0.0-10.0); %Neutrophils 39.3 % (42.0-75.0); Hemoglobin 9.4 g/dL (14.0-18.0); Mean Corpuscular Hemoglobin 29.8 pg (27.0-31.0); Mean Corpuscular Volume 96.2 fl (78.0-98.0); Mean Platelet Volume 7.9 fL (7.4-10.4); Platelet Count 227 10x3/uL (130-400); RBC Distribution Width 16.6 % (11.5-14.5); Red Blood Cell (RBC) Count 3.15 mill/uL (4.70-6.10); White Blood Cell (WBC) Count 3.5 10x3/uL (4.8-10.8)
[2022-05-28] MEDS ORDERED: Heparin 10,000 UNITS/ 10 ML VIAL ONE (08:23)
[2022-05-28 08:30] VITALS: BP 158/96; TEMP 98.8
[2022-05-28] MEDS: Heparin 5,000 UNITS/ML VIAL SC SCH ×2 (08:33→14:57)
[2022-05-28] MEDS: Labetalol HCl 100 MG TAB PO SCH ×2 (08:33→14:57)
[2022-05-28] MEDS: Aspirin Chewable 81 MG TAB PO SCH (08:33)
[2022-05-28] MEDS: hydrALAZINE 25 MG TAB PO SCH ×2 (08:34→14:57)
[2022-05-28] MEDS: NIFEdipine XL 60 MG TAB PO SCH (08:34)
[2022-05-28] MEDS: Losartan 25 MG TAB PO SCH (08:34)
[2022-05-28] MEDS: Acetaminophen 325 MG TAB PO PRN (08:37)
== END 2022-05-28 15:35 | disposition home or self-care (01) | DRG 640 ==
LOC: SUATTDRO 09:38 → ERS 09:38 → RESEARCH 09:38 → CCU 13:13 → T4-A 05-27 16:08
PROVIDERS: ADMIT Internal Medicine; ATTEND Internal Medicine
PROC: 5A1D70Z Performance of Urinary Filtration, Intermittent, Less than 6 Hours Per Day (ICD-10-PCS; principal; 2022-05-25)
DX: E87.70 Fluid overload, unspecified (principal); J81.0 Acute pulmonary edema; N18.6 End stage renal disease; J96.01 Acute respiratory failure with hypoxia; I12.0 Hypertensive chronic kidney disease with stage 5 chronic kidney disease or end stage renal disease; I16.1 Hypertensive emergency; N25.81 Secondary hyperparathyroidism of renal origin; B20 Human immunodeficiency virus [HIV] disease; K51.00 Ulcerative (chronic) pancolitis without complications; Z20.822 Contact with and (suspected) exposure to COVID-19; F41.9 Anxiety disorder, unspecified; F32.A Depression, unspecified; F17.210 Nicotine dependence, cigarettes, uncomplicated; I16.0 Hypertensive urgency; D63.1 Anemia in chronic kidney disease; Z99.2 Dependence on renal dialysis; Z90.49 Acquired absence of other specified parts of digestive tract; Z79.899 Other long term (current) drug therapy; Z91.15 Patient's noncompliance with renal dialysis; Z79.82 Long term (current) use of aspirin; Z91.14 Patient's other noncompliance with medication regimen
CPT/HCPCS: 36415; 71045; 71250; 74177; 76770; 80048; 80053; 82553; 83735; 83880; 84100; 84145; 84484; 85025; 90935; 93005; 96374; 96375; G0257; J1644; J2270; J2272; J2405; Q9967; U0002

== ENCOUNTER 2022-06-01 02:56 | Emergency (ER) | payer SELFPAY ==
[2022-06-01] MEDS ORDERED: Metoclopramide HCl 10 MG/2 ML VIAL ONE (03:59)
[2022-06-01] MEDS ORDERED: Metoclopramide HCl 10 MG TAB ONE (03:59)
[2022-06-01] MEDS ORDERED: Acetaminophen 500 MG TAB ONE (03:59)
[2022-06-01] MEDS ORDERED: diphenhydrAMINE 25 MG CAP ONE (03:59)
[2022-06-01 04:04] LABS: #Basophils 0.1 thou/uL (0.0-0.2); #Eosinphils 0.3 thou/uL (0.0-0.7); #Lymphocytes 1.8 thou/uL (1.20-3.40); #Monocytes 0.6 thou/uL (0.11-0.59); #Neutrophils 2.6 thou/uL (1.40-6.50); %Eosinophils 5.7 % (0.0-10.0); %Lymphocytes 34.2 % (21.0-51.0); %Monocytes 10.7 % (0.0-10.0); %Neutrophils 48.4 % (42.0-75.0); Hemoglobin 9.7 g/dL (14.0-18.0); Mean Corpuscular HGB CONC 32.4 g/dL (32.0-36.0); Mean Corpuscular Hemoglobin 30.7 pg (27.0-31.0); Mean Corpuscular Volume 94.7 fl (78.0-98.0); Mean Platelet Volume 9.9 fL (7.4-10.4); Platelet Count 226 10x3/uL (130-400); RBC Distribution Width 17.3 % (11.5-14.5); Red Blood Cell (RBC) Count 3.15 mill/uL (4.70-6.10); White Blood Cell (WBC) Count 5.4 10x3/uL (4.8-10.8)
[2022-06-01 04:23] LABS: ALT (SGPT) 9 U/L (8-55); AST (SGOT) 19 U/L (5-34); Alkaline Phosphatase 73 U/L (40-110); Anion Gap 20 mmol/L (10-20); BUN (Urea Nitrogen) 27 mg/dL (8.9-20.6); Bilirubin, Total 0.2 mg/dL (0.2-1.2); Calc. Creatinine Clearance 0 mL/min (70-130); Calcium 9.2 mg/dL (7.8-10.44); Carbon Dioxide 23 mmol/L (22-29); Chloride 102 mmol/L (98-107); Estimated GFR 4; Globulin 4.2 g/dL (2.4-3.5); Glucose 79 mg/dL (70-105); Protein, Total 7.2 g/dL (6.0-8.3); Sodium 140 mmol/L (136-145)
[2022-06-01] MEDS ORDERED: Ondansetron ODT 4 MG TAB ONE (06:05)
[2022-06-01] MEDS ORDERED: Dexamethasone 4 MG TAB ONE (06:06)
== END 2022-06-01 09:11 | disposition home or self-care (01) ==
LOC: ERS 02:56
DX: R51.9 Headache, unspecified (principal); I10 Essential (primary) hypertension; R11.0 Nausea; R20.2 Paresthesia of skin; I12.0 Hypertensive chronic kidney disease with stage 5 chronic kidney disease or end stage renal disease; N18.6 End stage renal disease; F17.210 Nicotine dependence, cigarettes, uncomplicated; Z99.2 Dependence on renal dialysis
CPT/HCPCS: 36415; 70450; 71046; 80053; 83880; 85025; J2765; J8540; Q0162

== ENCOUNTER 2022-06-01 11:40 | Emergency (ER) | payer BC, SELFPAY | END 2022-06-01 12:12 | disposition home or self-care (01) | LOC: ERS 11:40 | DX: J02.9 Acute pharyngitis, unspecified (principal); I12.0 Hypertensive chronic kidney disease with stage 5 chronic kidney disease or end stage renal disease; N18.6 End stage renal disease; F17.210 Nicotine dependence, cigarettes, uncomplicated; Z99.2 Dependence on renal dialysis | CPT/HCPCS: 36415; 70450; 71046; 80053; 83880; 85025; 93005; J2765; J8540; Q0162 ==

== ENCOUNTER 2022-06-08 07:56 | Emergency (ER) | payer BC ==
[2022-06-08] MEDS ORDERED: Nitroglycerin 2% Ointment 1 INCH/1 GM Packet ONE (08:31)
[2022-06-08] MEDS ORDERED: Acetaminophen 500 MG TAB ONE (08:31)
[2022-06-08 09:21] LABS: #Eosinphils 0.4 thou/uL (0.0-0.7); #Lymphocytes 1.6 thou/uL (1.20-3.40); #Monocytes 0.5 thou/uL (0.11-0.59); #Neutrophils 1.4 thou/uL (1.40-6.50); %Basophils 0.6 % (0.0-1.0); %Eosinophils 9.6 % (0.0-10.0); %Lymphocytes 40.4 % (21.0-51.0); %Neutrophils 36.4 % (42.0-75.0); Hemoglobin 10.5 g/dL (14.0-18.0); Mean Corpuscular HGB CONC 31.5 g/dL (32.0-36.0); Mean Corpuscular Hemoglobin 29.4 pg (27.0-31.0); Mean Corpuscular Volume 93.3 fl (78.0-98.0); Mean Platelet Volume 8.8 fL (7.4-10.4); Platelet Count 163 10x3/uL (130-400); RBC Distribution Width 16.1 % (11.5-14.5); Red Blood Cell (RBC) Count 3.56 mill/uL (4.70-6.10); White Blood Cell (WBC) Count 3.8 10x3/uL (4.8-10.8)
[2022-06-08 09:39] LABS: ALT (SGPT) 15 U/L (8-55); AST (SGOT) 21 U/L (5-34); Albumin 3.4 g/dL (3.5-5.0); Alkaline Phosphatase 76 U/L (40-110); Anion Gap 18 mmol/L (10-20); BUN (Urea Nitrogen) 22 mg/dL (8.9-20.6); Bilirubin, Total 0.3 mg/dL (0.2-1.2); CK (CPK) 66 U/L (30-200); Calc. Creatinine Clearance 0 mL/min (70-130); Carbon Dioxide 27 mmol/L (22-29); Chloride 99 mmol/L (98-107); Estimated GFR 5; Globulin 4.2 g/dL (2.4-3.5); Glucose 79 mg/dL (70-105); Lipase 146 U/L (8-78); Potassium 4.9 mmol/L (3.5-5.1); Protein, Total 7.6 g/dL (6.0-8.3); Sodium 139 mmol/L (136-145)
[2022-06-08 10:00] LABS: CKMB 0.5 ng/mL (0-6.6)
== END 2022-06-08 09:53 | disposition home or self-care (01) ==
LOC: ERS 07:56
DX: E87.70 Fluid overload, unspecified (principal); D72.819 Decreased white blood cell count, unspecified; I12.0 Hypertensive chronic kidney disease with stage 5 chronic kidney disease or end stage renal disease; N18.6 End stage renal disease; Z99.2 Dependence on renal dialysis
CPT/HCPCS: 36415; 71045; 80053; 82550; 82553; 83690; 83880; 84484; 85025; 93005

== ENCOUNTER 2022-06-18 09:17 | Inpatient (IN) | payer BC ==
[2022-06-18 10:22] LABS: #Eosinphils 0.4 thou/uL (0.0-0.7); #Lymphocytes 1.5 thou/uL (1.20-3.40); #Monocytes 0.5 thou/uL (0.11-0.59); #Neutrophils 2.3 thou/uL (1.40-6.50); %Basophils 0.1 % (0.0-1.0); %Eosinophils 8.1 % (0.0-10.0); %Lymphocytes 33.3 % (21.0-51.0); %Monocytes 9.7 % (0.0-10.0); %Neutrophils 48.8 % (42.0-75.0); Hemoglobin 10.2 g/dL (14.0-18.0); Mean Corpuscular HGB CONC 31.4 g/dL (32.0-36.0); Mean Corpuscular Hemoglobin 28.9 pg (27.0-31.0); Mean Platelet Volume 9.4 fL (7.4-10.4); Platelet Count 150 10x3/uL (130-400); RBC Distribution Width 16.9 % (11.5-14.5); Red Blood Cell (RBC) Count 3.54 mill/uL (4.70-6.10); White Blood Cell (WBC) Count 4.6 10x3/uL (4.8-10.8)
[2022-06-18 10:35] LABS: INR-International Normal Ratio 1.1; Prothrombin Time 14.3 sec (12.0-14.7)
[2022-06-18 10:36] LABS: PTT 44.5 sec (22.9-36.1)
[2022-06-18] MEDS ORDERED: Cefepime 2 GM VIAL ONE (10:40)
[2022-06-18] MEDS ORDERED: Acetaminophen 500 MG TAB ONE (10:41)
[2022-06-18 10:51] LABS: ALT (SGPT) 12 U/L (8-55); AST (SGOT) 18 U/L (5-34); Albumin 3.6 g/dL (3.5-5.0); Alkaline Phosphatase 90 U/L (40-110); Anion Gap 16 mmol/L (10-20); BUN (Urea Nitrogen) 27 mg/dL (8.9-20.6); Bilirubin, Total 0.4 mg/dL (0.2-1.2); Calc. Creatinine Clearance 0 mL/min (70-130); Calcium 9.4 mg/dL (7.8-10.44); Carbon Dioxide 24 mmol/L (22-29); Chloride 97 mmol/L (98-107); Estimated GFR 6; Globulin 4.5 g/dL (2.4-3.5); Glucose 103 mg/dL (70-105); Lipase 97 U/L (8-78); Potassium 5.2 mmol/L (3.5-5.1); Protein, Total 8.1 g/dL (6.0-8.3); Sodium 132 mmol/L (136-145)
[2022-06-18 10:51] LABS: Actual Bicarbonate (HCO3v) 24 mEq/L (22-28); Base Excess 3.3 mEq/L (-2.0 to +3.0); Chloride (VBG) 97 mmol/L (98-106); Hemoglobin (Hb) 11.2 g/dL (13.2-17.3); Potassium (VBG) 5.12 mmol/L (3.70-5.30); Sodium 133.3 mmol/L (133-146); pH (venous) 7.59 (7.32-7.43)
[2022-06-18] MEDS ORDERED: Vancomycin 1 GM/200 ML (FROZEN) BAG ONE (11:50)
[2022-06-18] MEDS ORDERED: Ondansetron PF 4 MG/2 ML Vial IVP PRN (11:59)
[2022-06-18] MEDS ORDERED: Acetaminophen 325 MG TAB PO PRN (11:59)
[2022-06-18] MEDS ORDERED: Ondansetron ODT 4 MG TAB SL PRN (11:59)
[2022-06-18 13:11] LABS: SARS-CoV-2 NAA Rapid Test Not Detected (NotDetected)
[2022-06-18 14:20] LABS: CKMB 0.3 ng/mL (0-6.6)
[2022-06-18 14:51] VITALS: BMI 20.3
[2022-06-18] MEDS ORDERED: Vancomycin 1 GM in Premix Bag 1 BAG IVPB SCH (15:15)
[2022-06-18] MEDS: Morphine 2 MG/ML VIAL SLOW IVP PRN ×2 (15:37→20:57)
[2022-06-18] MEDS ORDERED: Vancomycin Hemodialysis Sliding Scale FS SCH (15:45)
[2022-06-18] MEDS ORDERED: hydrALAZINE 20 MG/ML VIAL SLOW IVP SCH (16:15)
[2022-06-18] MEDS ORDERED: hydrALAZINE 25 MG TAB PO SCH (16:15)
[2022-06-18] MEDS: NIFEdipine XL 60 MG TAB PO SCH ×3 (17:00→22:53)
[2022-06-18] MEDS: hydrALAZINE 25 MG TAB PO SCH (20:57)
[2022-06-18] MEDS: Labetalol HCl 100 MG TAB PO SCH (20:57)
[2022-06-18] MEDS ORDERED: Cefepime 1 GM in Sodium Chloride 0.9% 100 ML IVPB SCH (21:00)
[2022-06-18] MEDS ORDERED: Melatonin 3 MG TAB PO PRN (22:41)
[2022-06-18] MEDS: Nicotine 14 MG PATCH TD SCH (22:53)
[2022-06-18] MEDS ORDERED: Acetaminophen 500 MG TAB PO PRN (23:20)
[2022-06-19] MEDS: NIFEdipine XL 60 MG TAB PO SCH (00:51)
[2022-06-19] MEDS: HYDROcodone/Acetaminophen 5/325 mg Tablet PO PRN ×4 (00:51→21:03)
[2022-06-19] MEDS: Morphine 2 MG/ML VIAL SLOW IVP PRN ×4 (03:50→23:26)
[2022-06-19 06:50] LABS: #Eosinphils 0.5 thou/uL (0.0-0.7); #Lymphocytes 1.5 thou/uL (1.20-3.40); #Monocytes 0.5 thou/uL (0.11-0.59); #Neutrophils 2.2 thou/uL (1.40-6.50); %Basophils 0.7 % (0.0-1.0); %Eosinophils 10.9 % (0.0-10.0); %Lymphocytes 32.7 % (21.0-51.0); %Monocytes 9.7 % (0.0-10.0); Mean Corpuscular HGB CONC 33.4 g/dL (32.0-36.0); Mean Corpuscular Hemoglobin 30.3 pg (27.0-31.0); Mean Corpuscular Volume 90.6 fl (78.0-98.0); Mean Platelet Volume 9.5 fL (7.4-10.4); Platelet Count 124 10x3/uL (130-400); RBC Distribution Width 16.7 % (11.5-14.5); Red Blood Cell (RBC) Count 3.29 mill/uL (4.70-6.10); White Blood Cell (WBC) Count 4.7 10x3/uL (4.8-10.8)
[2022-06-19 07:06] LABS: Anion Gap 15 mmol/L (10-20); BUN (Urea Nitrogen) 21 mg/dL (8.9-20.6); Calc. Creatinine Clearance 13 mL/min (70-130); Calcium 9.5 mg/dL (7.8-10.44); Carbon Dioxide 27 mmol/L (22-29); Chloride 93 mmol/L (98-107); Estimated GFR 9; Glucose 111 mg/dL (70-105); Potassium 4.2 mmol/L (3.5-5.1); Sodium 131 mmol/L (136-145)
[2022-06-19] MEDS: hydrALAZINE 25 MG TAB PO SCH ×3 (08:18→21:06)
[2022-06-19] MEDS: Labetalol HCl 100 MG TAB PO SCH ×3 (08:18→21:05)
[2022-06-19] MEDS: Aspirin Chewable 81 MG TAB PO SCH (08:19)
[2022-06-19] MEDS ORDERED: NIFEdipine XL 60 MG TAB PO SCH (09:00)
[2022-06-19] MEDS ORDERED: Amlodipine 10 MG TAB PO SCH (09:00)
[2022-06-19] MEDS ORDERED: FLU VACC QS2022-23(6MO UP)/PF 60 MCG/0.5 ML SYRINGE IM ONE (09:00)
[2022-06-19] MEDS: Cefepime 0.5 GM, Admixture Fee 1 EACH in Sodium Chloride 0.9% 100 ML IVPB SCH (11:30)
[2022-06-19] MEDS: Carvedilol 6.25 MG TAB PO SCH (17:16)
[2022-06-19] MEDS: Nicotine 14 MG PATCH TD SCH (21:03)
[2022-06-20] MEDS: HYDROcodone/Acetaminophen 5/325 mg Tablet PO PRN ×4 (03:25→20:18)
[2022-06-20] MEDS: Morphine 2 MG/ML VIAL SLOW IVP PRN ×2 (06:09→18:23)
[2022-06-20 07:37] LABS: Vancomycin, Random 12.2 ug/mL (See Comment)
[2022-06-20] MEDS: Labetalol HCl 100 MG TAB PO SCH ×3 (08:25→19:24)
[2022-06-20] MEDS: hydrALAZINE 25 MG TAB PO SCH ×3 (08:25→20:11)
[2022-06-20] MEDS: Aspirin Chewable 81 MG TAB PO SCH (08:26)
[2022-06-20] MEDS: Carvedilol 6.25 MG TAB PO SCH ×2 (08:26→18:47)
[2022-06-20] MEDS ORDERED: Heparin 10,000 UNITS/ 10 ML VIAL ONE (09:00)
[2022-06-20] MEDS: Cefepime 0.5 GM, Admixture Fee 1 EACH in Sodium Chloride 0.9% 100 ML IVPB SCH (13:29)
[2022-06-20] MEDS ORDERED: cefTRIAXone\\ROCEPHIN 1 GM in Sodium Chloride 0.9% 100 ML IVPB SCH (13:30)
[2022-06-20 13:34] LABS: #Eosinphils 0.6 thou/uL (0.0-0.7); #Monocytes 0.2 thou/uL (0.11-0.59); #Neutrophils 2.3 thou/uL (1.40-6.50); %Basophils 0.2 % (0.0-1.0); %Eosinophils 14.4 % (0.0-10.0); %Lymphocytes 25.1 % (21.0-51.0); %Monocytes 4.2 % (0.0-10.0); %Neutrophils 56.1 % (42.0-75.0); Hemoglobin 8.6 g/dL (14.0-18.0); Mean Corpuscular HGB CONC 31.8 g/dL (32.0-36.0); Mean Corpuscular Hemoglobin 29.4 pg (27.0-31.0); Mean Corpuscular Volume 92.5 fl (78.0-98.0); Mean Platelet Volume 8.5 fL (7.4-10.4); Platelet Count 134 10x3/uL (130-400); RBC Distribution Width 16.5 % (11.5-14.5); Red Blood Cell (RBC) Count 2.92 mill/uL (4.70-6.10); White Blood Cell (WBC) Count 4.1 10x3/uL (4.8-10.8)
[2022-06-20 13:57] LABS: ALT (SGPT) Less than 7 U/L (8-55); AST (SGOT) 11 U/L (5-34); Albumin 3.3 g/dL (3.5-5.0); Alkaline Phosphatase 78 U/L (40-110); Anion Gap 17 mmol/L (10-20); BUN (Urea Nitrogen) 28 mg/dL (8.9-20.6); Bilirubin, Total 0.2 mg/dL (0.2-1.2); Calc. Creatinine Clearance 9 mL/min (70-130); Calcium 9.5 mg/dL (7.8-10.44); Carbon Dioxide 24 mmol/L (22-29); Chloride 92 mmol/L (98-107); Estimated GFR 6; Globulin 4.4 g/dL (2.4-3.5); Glucose 95 mg/dL (70-105); Potassium 4.4 mmol/L (3.5-5.1); Protein, Total 7.7 g/dL (6.0-8.3); Sodium 129 mmol/L (136-145)
[2022-06-20] MEDS ORDERED: Vancomycin HCl 750 MG in Sodium Chloride 0.9% 250 ML 250 ML IVPB SCH (17:00)
[2022-06-20] MEDS: cefTRIAXone\\ROCEPHIN 1 GM in Sodium Chloride 0.9% 100 ML IVPB SCH (18:46)
[2022-06-20] MEDS ORDERED: Ondansetron PF 4 MG/2 ML Vial IVP PRN (19:02)
[2022-06-20] MEDS ORDERED: Ondansetron ODT 4 MG TAB PO PRN (19:02)
[2022-06-20] MEDS: Nicotine 14 MG PATCH TD SCH (22:42)
[2022-06-21] MEDS: Morphine 2 MG/ML VIAL SLOW IVP PRN ×3 (00:32→12:53)
[2022-06-21] MEDS: HYDROcodone/Acetaminophen 5/325 mg Tablet PO PRN ×3 (04:28→14:57)
[2022-06-21 09:05] LABS: ALT (SGPT) 7 U/L (8-55); AST (SGOT) 17 U/L (5-34); Albumin 3.3 g/dL (3.5-5.0); Alkaline Phosphatase 91 U/L (40-110); Anion Gap 19 mmol/L (10-20); BUN (Urea Nitrogen) 18 mg/dL (8.9-20.6); Bilirubin, Total 0.3 mg/dL (0.2-1.2); Calc. Creatinine Clearance 13 mL/min (70-130); Calcium 9.9 mg/dL (7.8-10.44); Carbon Dioxide 21 mmol/L (22-29); Chloride 94 mmol/L (98-107); Estimated GFR 9; Glucose 92 mg/dL (70-105); Potassium 4.8 mmol/L (3.5-5.1); Protein, Total 8.3 g/dL (6.0-8.3); Sodium 129 mmol/L (136-145)
[2022-06-21] MEDS: Carvedilol 6.25 MG TAB PO SCH ×2 (09:14→15:54)
[2022-06-21] MEDS: hydrALAZINE 25 MG TAB PO SCH ×2 (09:14→14:18)
[2022-06-21] MEDS: Aspirin Chewable 81 MG TAB PO SCH (09:15)
[2022-06-21] MEDS: Labetalol HCl 100 MG TAB PO SCH ×2 (09:15→14:19)
[2022-06-21 09:32] LABS: Hemoglobin 10.6 g/dL (14.0-18.0); Mean Corpuscular HGB CONC 30.6 g/dL (32.0-36.0); Mean Corpuscular Hemoglobin 29.4 pg (27.0-31.0); Mean Corpuscular Volume 95.9 fl (78.0-98.0); Mean Platelet Volume 9.7 fL (7.4-10.4); Platelet Count 126 10x3/uL (130-400); Red Blood Cell (RBC) Count 3.62 mill/uL (4.70-6.10); White Blood Cell (WBC) Count 4.1 10x3/uL (4.8-10.8)
[2022-06-21 11:21] LABS: Band 1 % (5-11); Eosinophils 11 % (0-10); Lymphocytes 37 % (21-51); MDiff Complete? YES; Monocytes 1 % (0-10); Neutrophil 49 % (42-75); Platelet Morphology Comment Appears Decreased; Polychromasia SLIGHT = 2-3 cells (100X) (0-2/hpf)
[2022-06-21 13:16] LABS: %CD4 (Helper/Inducer) 19.7 % (30.8-58.5); Absolute CD4 197 /uL (359-1519); Total Lymphocyte 25 % (Not Estab.)
[2022-06-21] MEDS: cefTRIAXone\\ROCEPHIN 1 GM in Sodium Chloride 0.9% 100 ML IVPB SCH (15:05)
[2022-06-21 17:00] VITALS: BP 150/91; TEMP 98.3
[2022-06-22] MEDS ORDERED: Sulfameth/Trimethoprim SS 400-80MG TAB PO SCH (09:00)
[2022-06-23 12:37] LABS: LOG10 HIV-1 RNA 5.561 (.)
== END 2022-06-21 17:14 | disposition home or self-care (01) | DRG 193 ==
LOC: ERS 09:17 → T4-B 12:49
PROVIDERS: ADMIT Family Medicine; ATTEND Family Medicine
PROC: 5A1D70Z Performance of Urinary Filtration, Intermittent, Less than 6 Hours Per Day (ICD-10-PCS; principal; 2022-06-18)
DX: J18.9 Pneumonia, unspecified organism (principal); N18.6 End stage renal disease; I12.0 Hypertensive chronic kidney disease with stage 5 chronic kidney disease or end stage renal disease; J98.11 Atelectasis; Z20.822 Contact with and (suspected) exposure to COVID-19; Z21 Asymptomatic human immunodeficiency virus [HIV] infection status; F17.210 Nicotine dependence, cigarettes, uncomplicated; I16.0 Hypertensive urgency; D63.1 Anemia in chronic kidney disease; Z28.21 Immunization not carried out because of patient refusal; Z99.2 Dependence on renal dialysis; Z91.14 Patient's other noncompliance with medication regimen; Z79.899 Other long term (current) drug therapy; Z79.82 Long term (current) use of aspirin; Z90.49 Acquired absence of other specified parts of digestive tract; Z82.49 Family history of ischemic heart disease and other diseases of the circulatory system; Z83.6 Family history of other diseases of the respiratory system
CPT/HCPCS: 36415; 36416; 71045; 74176; 80048; 80053; 80202; 82553; 82805; 83605; 83690; 83880; 84443; 84484; 85025; 85610; 85730; 86361; 87040; 87536; 87804; 90935; 93005; 94760; 96374; 96375; G0257; J0360; J0692; J0696; J1644; J1956; J2270; J2272; J2405; J3370-JW; J3490; U0002

== ENCOUNTER 2022-06-22 10:32 | Emergency (ER) | payer BC ==
[2022-06-22 11:25] LABS: #Eosinphils 1.3 thou/uL (0.0-0.7); #Lymphocytes 1.5 thou/uL (1.20-3.40); #Monocytes 0.6 thou/uL (0.11-0.59); #Neutrophils 2.1 thou/uL (1.40-6.50); %Basophils 0.6 % (0.0-1.0); %Eosinophils 23.2 % (0.0-10.0); %Lymphocytes 27.9 % (21.0-51.0); %Monocytes 10.7 % (0.0-10.0); %Neutrophils 37.6 % (42.0-75.0); Hemoglobin 10.3 g/dL (14.0-18.0); Mean Corpuscular HGB CONC 31.4 g/dL (32.0-36.0); Mean Corpuscular Hemoglobin 28.9 pg (27.0-31.0); Mean Corpuscular Volume 92.1 fl (78.0-98.0); Mean Platelet Volume 8.5 fL (7.4-10.4); Platelet Count 160 10x3/uL (130-400); RBC Distribution Width 16.4 % (11.5-14.5); Red Blood Cell (RBC) Count 3.57 mill/uL (4.70-6.10); White Blood Cell (WBC) Count 5.5 10x3/uL (4.8-10.8)
[2022-06-22 12:04] LABS: ALT (SGPT) 7 U/L (8-55); AST (SGOT) 14 U/L (5-34); Albumin 3.7 g/dL (3.5-5.0); Alkaline Phosphatase 95 U/L (40-110); Anion Gap 20 mmol/L (10-20); BUN (Urea Nitrogen) 31 mg/dL (8.9-20.6); Bilirubin, Total 0.3 mg/dL (0.2-1.2); Calc. Creatinine Clearance 0 mL/min (70-130); Calcium 10.2 mg/dL (7.8-10.44); Carbon Dioxide 22 mmol/L (22-29); Chloride 93 mmol/L (98-107); Estimated GFR 5; Globulin 5.3 g/dL (2.4-3.5); Glucose 104 mg/dL (70-105); Potassium 4.5 mmol/L (3.5-5.1); Sodium 130 mmol/L (136-145)
[2022-06-22 12:11] LABS: CKMB 0.5 ng/mL (0-6.6)
== END 2022-06-22 11:30 | disposition home or self-care (01) ==
LOC: ERS 10:32
DX: I12.0 Hypertensive chronic kidney disease with stage 5 chronic kidney disease or end stage renal disease (principal); N18.6 End stage renal disease; R11.0 Nausea; R00.0 Tachycardia, unspecified; F17.210 Nicotine dependence, cigarettes, uncomplicated; Z99.2 Dependence on renal dialysis
CPT/HCPCS: 36415; 71045; 80053; 82553; 84484; 85025; 93005

== ENCOUNTER 2022-06-29 09:54 | Emergency (ER) | payer BC | END 2022-06-29 10:20 | disposition left against medical advice (07) | LOC: ERS 09:54 | DX: N18.6 End stage renal disease (principal); Z99.2 Dependence on renal dialysis | CPT/HCPCS: 99284 ==

== ENCOUNTER 2022-07-01 19:20 | Emergency (ER) | payer BC ==
[2022-07-01 20:07] LABS: Hemoglobin 9.1 g/dL (14.0-18.0); Mean Corpuscular HGB CONC 31.8 g/dL (32.0-36.0); Mean Corpuscular Hemoglobin 29.4 pg (27.0-31.0); Mean Corpuscular Volume 92.7 fl (78.0-98.0); Mean Platelet Volume 7.9 fL (7.4-10.4); Platelet Count 227 10x3/uL (130-400); RBC Distribution Width 17.6 % (11.5-14.5); White Blood Cell (WBC) Count 8.6 10x3/uL (4.8-10.8)
[2022-07-01 20:25] LABS: Anisocytosis SLIGHT = 6-15 cells (100X) (0-5/hpf); Eosinophils 57 % (0-10); Lymphocytes 17 % (21-51); MDiff Complete? YES; Neutrophil 26 % (42-75); Platelet Morphology Comment Appears Adequate; Polychromasia SLIGHT = 2-3 cells (100X) (0-2/hpf)
[2022-07-01 20:30] LABS: ALT (SGPT) 17 U/L (8-55); AST (SGOT) 24 U/L (5-34); Albumin 3.5 g/dL (3.5-5.0); Alkaline Phosphatase 102 U/L (40-110); Anion Gap 17 mmol/L (10-20); BUN (Urea Nitrogen) 51 mg/dL (8.9-20.6); Bilirubin, Total 0.3 mg/dL (0.2-1.2); Calc. Creatinine Clearance 0 mL/min (70-130); Calcium 9.4 mg/dL (7.8-10.44); Carbon Dioxide 23 mmol/L (22-29); Chloride 95 mmol/L (98-107); Estimated GFR 4; Glucose 80 mg/dL (70-105); Lipase 117 U/L (8-78); Protein, Total 8.5 g/dL (6.0-8.3); Sodium 129 mmol/L (136-145)
== END 2022-07-01 21:11 | disposition left against medical advice (07) ==
LOC: ERS 19:20
DX: Z53.21 Procedure and treatment not carried out due to patient leaving prior to being seen by health care provider (principal)
CPT/HCPCS: 36415; 80053; 83605; 83690; 85025; 85060

== ENCOUNTER 2022-07-06 09:28 | Emergency (ER) | payer SELFPAY | END 2022-07-06 10:22 | disposition left against medical advice (07) | LOC: ERS 09:28 | DX: Z53.21 Procedure and treatment not carried out due to patient leaving prior to being seen by health care provider (principal) ==

== ENCOUNTER 2022-07-13 09:58 | Emergency (ER) | payer SELFPAY | END 2022-07-13 09:59 | disposition left against medical advice (07) | LOC: ERS 09:58 | DX: Z53.21 Procedure and treatment not carried out due to patient leaving prior to being seen by health care provider (principal) ==

== ENCOUNTER 2022-07-20 09:49 | Emergency (ER) | payer BC | END 2022-07-20 10:00 | disposition left against medical advice (07) | LOC: ERS 09:49 | DX: I12.0 Hypertensive chronic kidney disease with stage 5 chronic kidney disease or end stage renal disease (principal); N18.6 End stage renal disease; Z99.2 Dependence on renal dialysis | CPT/HCPCS: 99284 ==

== ENCOUNTER 2022-07-22 10:42 | Emergency (ER) | payer BC ==
[2022-07-22] MEDS ORDERED: Morphine 4 MG/ML VIAL ONE (11:25)
[2022-07-22] MEDS ORDERED: Ondansetron PF 4 MG/2 ML Vial ONE (11:25)
[2022-07-22 11:52] LABS: Mean Corpuscular Volume 96.8 fl (78.0-98.0)
[2022-07-22 11:57] LABS: ALT (SGPT) 23 U/L (8-55); AST (SGOT) 22 U/L (5-34); Alkaline Phosphatase 70 U/L (40-110); Anion Gap 14 mmol/L (10-20); BUN (Urea Nitrogen) 27 mg/dL (8.9-20.6); Bilirubin, Total 0.2 mg/dL (0.2-1.2); Calc. Creatinine Clearance 0 mL/min (70-130); Calcium 8.7 mg/dL (7.8-10.44); Carbon Dioxide 25 mmol/L (22-29); Chloride 98 mmol/L (98-107); Estimated GFR 6; Globulin 4.6 g/dL (2.4-3.5); Glucose 104 mg/dL (70-105); Lipase 157 U/L (8-78); Potassium 3.4 mmol/L (3.5-5.1); Protein, Total 7.6 g/dL (6.0-8.3); Sodium 134 mmol/L (136-145)
[2022-07-22 12:35] LABS: Eosinophils 23 % (0-10); Hemoglobin 8.1 g/dL (14.0-18.0); Hypochromia SLIGHT = 6-15 cells (100X) (0-5/hpf); Lymphocytes 26 % (21-51); MDiff Complete? YES; Mean Platelet Volume 7.8 fL (7.4-10.4); Monocytes 7 % (0-10); Neutrophil 44 % (42-75); Platelet Count 205 10x3/uL (130-400); Platelet Morphology Comment Appears Adequate; Polychromasia SLIGHT = 2-3 cells (100X) (0-2/hpf); RBC Distribution Width 19.1 % (11.5-14.5); White Blood Cell (WBC) Count 4.8 10x3/uL (4.8-10.8)
[2022-07-22 13:19] LABS: SARS-CoV-2 NAA Rapid Test Not Detected (NotDetected)
== END 2022-07-22 13:02 | disposition home or self-care (01) ==
LOC: ERS 10:42
DX: I12.0 Hypertensive chronic kidney disease with stage 5 chronic kidney disease or end stage renal disease (principal); N18.6 End stage renal disease; F17.210 Nicotine dependence, cigarettes, uncomplicated; Z99.2 Dependence on renal dialysis; Z20.822 Contact with and (suspected) exposure to COVID-19
CPT/HCPCS: 36415; 74177; 80053; 83605; 83690; 85025; 87040; 96374; 96375; J2270; J2405

== ENCOUNTER 2022-07-24 10:04 | Emergency (ER) | payer BC | END 2022-07-24 10:21 | disposition home or self-care (01) | LOC: ERS 10:04 | DX: N18.6 End stage renal disease (principal); Z99.2 Dependence on renal dialysis; Z91.158 Patient's noncompliance with renal dialysis for other reason | CPT/HCPCS: 99282 ==

== ENCOUNTER 2022-07-27 10:07 | Emergency (ER) | payer BC | END 2022-07-27 10:54 | disposition left against medical advice (07) | LOC: ERS 10:07 | DX: Z53.21 Procedure and treatment not carried out due to patient leaving prior to being seen by health care provider (principal) ==

== ENCOUNTER 2022-08-03 09:32 | Emergency (ER) | payer BC | END 2022-08-03 10:00 | disposition left against medical advice (07) | LOC: ERS 09:32 | DX: Z53.21 Procedure and treatment not carried out due to patient leaving prior to being seen by health care provider (principal) ==

== ENCOUNTER 2022-09-14 09:51 | Emergency (ER) | payer BC | END 2022-09-14 10:14 | disposition left against medical advice (07) | LOC: ERS 09:51 | DX: Z53.21 Procedure and treatment not carried out due to patient leaving prior to being seen by health care provider (principal) ==

== ENCOUNTER 2022-09-16 06:15 | Emergency (ER) | payer BC ==
[2022-09-16 06:43] LABS: Hemoglobin 7.7 g/dL (14.0-18.0); Mean Corpuscular HGB CONC 30.2 g/dL (32.0-36.0); Mean Corpuscular Hemoglobin 28.8 pg (27.0-31.0); Mean Corpuscular Volume 95.5 fl (78.0-98.0); Mean Platelet Volume 9.2 fL (7.4-10.4); Platelet Count 243 10x3/uL (130-400); RBC Distribution Width 20.6 % (11.5-14.5); Red Blood Cell (RBC) Count 2.67 mill/uL (4.70-6.10); White Blood Cell (WBC) Count 4.1 10x3/uL (4.8-10.8)
[2022-09-16 07:05] LABS: Delete Auto Diff?? YES; Manual Diff?? YES
[2022-09-16 07:12] LABS: ALT (SGPT) 7 U/L (8-55); AST (SGOT) 18 U/L (5-34); Albumin 3.1 g/dL (3.5-5.0); Alkaline Phosphatase 80 U/L (40-110); Anion Gap 14 mmol/L (10-20); BUN (Urea Nitrogen) 15 mg/dL (8.9-20.6); Bilirubin, Total Less than 0.2 mg/dL (0.2-1.2); Calc. Creatinine Clearance 0 mL/min (70-130); Calcium 8.8 mg/dL (7.8-10.44); Carbon Dioxide 25 mmol/L (22-29); Chloride 100 mmol/L (98-107); Estimated GFR 8; Globulin 5.2 g/dL (2.4-3.5); Glucose 94 mg/dL (70-105); Potassium 4.3 mmol/L (3.5-5.1); Protein, Total 8.3 g/dL (6.0-8.3); Sodium 135 mmol/L (136-145)
[2022-09-16] MEDS ORDERED: Dicyclomine 20 MG TAB ONE (07:20)
[2022-09-16 07:39] LABS: Band 1 % (5-11); CellaVision Operator ID LAB.GE; Eosinophils 5 % (0-10); Hypersegmented Neutrophil SLIGHT (None Seen); Hypochromia SLIGHT = 6-15 cells HPF (0-5); Large Platelets 2.3 % (0-5); Lymphocytes 24 % (21-51); Monocytes 5 % (0-10); Neutrophil 65 % (42-75); Platelet Adequacy Comment Platelets Normal; Polychromasia MODERATE = 3-4 cells HPF (0-2); Total Cell Count 88; Vacuoles SLIGHT
[2022-09-16] MEDS ORDERED: Heparin 10,000 UNITS/ 10 ML VIAL ONE (07:41)
== END 2022-09-16 15:19 | disposition short-term general hospital (02) ==
LOC: ERS 06:15
DX: I12.0 Hypertensive chronic kidney disease with stage 5 chronic kidney disease or end stage renal disease (principal); N18.6 End stage renal disease; J81.1 Chronic pulmonary edema; D72.819 Decreased white blood cell count, unspecified; B20 Human immunodeficiency virus [HIV] disease; F17.210 Nicotine dependence, cigarettes, uncomplicated; Z99.2 Dependence on renal dialysis
CPT/HCPCS: 36415; 71045; 80053; 83880; 85025; 90935; 93005; G0257; J1644

== ENCOUNTER 2022-10-05 10:38 | Emergency (ER) | payer BC ==
[~2022-10-05 10:38] MED LIST changes: +Heparin 10,000 UNITS/ 10 ML VIAL ONE; -Iopamidol-370 76% 500 ML 1 ML ONE
[2022-10-05] MEDS ORDERED: Morphine 4 MG/ML VIAL ONE ×2 (10:49→13:14)
[2022-10-05] MEDS ORDERED: Ondansetron PF 4 MG/2 ML Vial ONE ×2 (10:49→13:15)
[2022-10-05 11:26] LABS: #Eosinphils 0.1 thou/uL (0.0-0.7); #Monocytes 0.6 thou/uL (0.11-0.59); #Neutrophils 3.1 thou/uL (1.40-6.50); %Basophils 0.5 % (0.0-1.0); %Eosinophils 1.9 % (0.0-10.0); %Lymphocytes 32.7 % (21.0-51.0); %Monocytes 10.1 % (0.0-10.0); %Neutrophils 54.3 % (42.0-75.0); Hemoglobin 8.3 g/dL (14.0-18.0); Mean Corpuscular Volume 96.8 fl (78.0-98.0); Mean Platelet Volume 9.5 fL (7.4-10.4); Platelet Count 222 10x3/uL (130-400); RBC Distribution Width 19.7 % (11.5-14.5); Red Blood Cell (RBC) Count 2.77 mill/uL (4.70-6.10); White Blood Cell (WBC) Count 5.8 10x3/uL (4.8-10.8)
[2022-10-05 11:50] LABS: ALT (SGPT) 9 U/L (8-55); AST (SGOT) 24 U/L (5-34); Albumin 3.5 g/dL (3.5-5.0); Alkaline Phosphatase 87 U/L (40-110); Anion Gap 17 mmol/L (10-20); BUN (Urea Nitrogen) 18 mg/dL (8.9-20.6); Bilirubin, Total 0.4 mg/dL (0.2-1.2); Calc. Creatinine Clearance 0 mL/min (70-130); Calcium 9.4 mg/dL (7.8-10.44); Carbon Dioxide 24 mmol/L (22-29); Chloride 95 mmol/L (98-107); Estimated GFR 7; Glucose 108 mg/dL (70-105); Lipase 112 U/L (8-78); Potassium 3.9 mmol/L (3.5-5.1); Protein, Total 8.5 g/dL (6.0-8.3); Sodium 132 mmol/L (136-145)
[2022-10-05] MEDS ORDERED: cloNIDine 0.1 MG TAB PO SCH (17:30)
[2022-10-05] MEDS ORDERED: Acetaminophen 500 MG TAB ONE (19:56)
== END 2022-10-05 19:59 | disposition home or self-care (01) ==
LOC: ERS 10:38
DX: R10.31 Right lower quadrant pain (principal); I12.0 Hypertensive chronic kidney disease with stage 5 chronic kidney disease or end stage renal disease; N18.6 End stage renal disease; G62.9 Polyneuropathy, unspecified; B20 Human immunodeficiency virus [HIV] disease; Z99.2 Dependence on renal dialysis; Z79.899 Other long term (current) drug therapy
CPT/HCPCS: 36415; 74177; 80053; 83690; 85025; 90935; 93005; 96361; 96374; 96375; 96376; G0257; J1644; J2270; J2405

== ENCOUNTER 2022-10-27 12:46 | Emergency (ER) | payer BC ==
[2022-10-27] MEDS ORDERED: Labetalol HCl 100 MG/20 ML VIAL ONE (13:29)
[2022-10-27] MEDS ORDERED: Morphine 4 MG/ML VIAL ONE (13:29)
[2022-10-27] MEDS ORDERED: Promethazine HCl 25 MG/ML VIAL ONE (13:29)
[2022-10-27 13:30] LABS: Hemoglobin 9.4 g/dL (14.0-18.0); Mean Corpuscular Volume 96.6 fl (78.0-98.0); Mean Platelet Volume 9.6 fL (7.4-10.4); Platelet Count 243 10x3/uL (130-400); RBC Distribution Width 20.1 % (11.5-14.5); Red Blood Cell (RBC) Count 3.24 mill/uL (4.70-6.10); White Blood Cell (WBC) Count 4.7 10x3/uL (4.8-10.8)
[2022-10-27 13:34] LABS: Delete Auto Diff?? YES; Manual Diff?? YES
[2022-10-27 13:58] LABS: Anisocytosis SLIGHT = 6-15 cells HPF (0-5); Band 1 % (5-11); Burr Cells SLIGHT = 2-5 cells HPF (0-1); CellaVision Operator ID LAB.KB; Eosinophils 4 % (0-10); Hypochromia SLIGHT = 6-15 cells HPF (0-5); Lymphocytes 33 % (21-51); Macrocytosis SLIGHT = 6-15 cells HPF (0-5); Monocytes 7 % (0-10); Neutrophil 51 % (42-75); Platelet Adequacy Comment Platelets Normal; Polychromasia SLIGHT = 2-3 cells HPF (0-2); Reactive Lymphocytes 4 % (0-10); Total Cell Count 100
[2022-10-27 14:49] LABS: Albumin 3.6 g/dL (3.5-5.0)
[2022-10-27 14:50] LABS: Chloride 105 mmol/L (98-107); Potassium 4.2 mmol/L (3.5-5.1); Sodium 134 mmol/L (136-145)
[2022-10-27 14:51] LABS: Calcium 8.4 mg/dL (7.8-10.44)
[2022-10-27 14:52] LABS: Globulin 4.9 g/dL (2.4-3.5); Glucose 143 mg/dL (70-105); Protein, Total 8.5 g/dL (6.0-8.3)
[2022-10-27 14:53] LABS: Anion Gap 15 mmol/L (10-20); Bilirubin, Total 0.2 mg/dL (0.2-1.2); Carbon Dioxide 18 mmol/L (22-29)
[2022-10-27 14:54] LABS: Alkaline Phosphatase 93 U/L (40-110)
[2022-10-27 14:55] LABS: Calc. Creatinine Clearance 0 mL/min (70-130); Estimated GFR 5
[2022-10-27 14:56] LABS: BUN (Urea Nitrogen) 30 mg/dL (8.9-20.6)
[2022-10-27 14:57] LABS: ALT (SGPT) 32 U/L (8-55); AST (SGOT) 35 U/L (5-34); Magnesium 2.1 mg/dL (1.6-2.6)
[2022-10-27] MEDS ORDERED: Ondansetron ODT 4 MG TAB ONE (19:29)
== END 2022-10-27 19:59 | disposition home or self-care (01) ==
LOC: ERS 12:46
DX: E87.70 Fluid overload, unspecified (principal); I12.0 Hypertensive chronic kidney disease with stage 5 chronic kidney disease or end stage renal disease; N18.6 End stage renal disease; B20 Human immunodeficiency virus [HIV] disease; Z99.2 Dependence on renal dialysis; Z79.82 Long term (current) use of aspirin; Z79.899 Other long term (current) drug therapy
CPT/HCPCS: 36415; 71045; 74176; 80053; 83735; 85025; 90935; 93005; 94760; 96365; 96375; G0257; J1644; J2270; J2550; Q0162

== ENCOUNTER 2022-10-31 00:46 | Emergency (ER) | payer BC ==
[2022-10-31] MEDS ORDERED: Acetaminophen 500 MG TAB ONE (01:44)
[2022-10-31] MEDS ORDERED: Ondansetron PF 4 MG/2 ML Vial ONE (01:44)
[2022-10-31 01:46] LABS: Hemoglobin 9.2 g/dL (14.0-18.0); Mean Corpuscular HGB CONC 30.4 g/dL (32.0-36.0); Mean Corpuscular Volume 95.6 fl (78.0-98.0); Mean Platelet Volume 9.8 fL (7.4-10.4); Platelet Count 238 10x3/uL (130-400); RBC Distribution Width 19.4 % (11.5-14.5); Red Blood Cell (RBC) Count 3.17 mill/uL (4.70-6.10); White Blood Cell (WBC) Count 6.3 10x3/uL (4.8-10.8)
[2022-10-31 01:50] LABS: Delete Auto Diff?? YES; Manual Diff?? YES
[2022-10-31 02:09] LABS: ALT (SGPT) 25 U/L (8-55); AST (SGOT) 38 U/L (5-34); Albumin 3.6 g/dL (3.5-5.0); Alkaline Phosphatase 101 U/L (40-110); Anion Gap 22 mmol/L (10-20); BUN (Urea Nitrogen) 46 mg/dL (8.9-20.6); Bilirubin, Total 0.3 mg/dL (0.2-1.2); Calc. Creatinine Clearance 0 mL/min (70-130); Carbon Dioxide 18 mmol/L (22-29); Chloride 101 mmol/L (98-107); Estimated GFR 5; Globulin 5.6 g/dL (2.4-3.5); Glucose 101 mg/dL (70-105); Magnesium 2.6 mg/dL (1.6-2.6); Potassium 3.7 mmol/L (3.5-5.1); Protein, Total 9.2 g/dL (6.0-8.3); Sodium 137 mmol/L (136-145)
[2022-10-31 02:27] LABS: Anisocytosis MODERATE=16-30 cells HPF (0-5); CellaVision Operator ID LAB.JMM; Eosinophils 5 % (0-10); Lymphocytes 34 % (21-51); Macrocytosis SLIGHT = 6-15 cells HPF (0-5); Monocytes 9 % (0-10); Neutrophil 52 % (42-75); Nucleated RBC (Manual Ct) 1 % (0); Platelet Adequacy Comment Platelets Normal; Polychromasia SLIGHT = 2-3 cells HPF (0-2); Total Cell Count 100
[2022-10-31] MEDS ORDERED: Ketorolac Tromethamine 30 MG/ML VIAL ONE (03:39)
== END 2022-10-31 04:08 | disposition home or self-care (01) ==
LOC: ERS 00:46
DX: R10.13 Epigastric pain (principal); D64.9 Anemia, unspecified; I12.0 Hypertensive chronic kidney disease with stage 5 chronic kidney disease or end stage renal disease; N18.6 End stage renal disease; B20 Human immunodeficiency virus [HIV] disease; Z99.2 Dependence on renal dialysis; Z79.82 Long term (current) use of aspirin; Z79.899 Other long term (current) drug therapy
CPT/HCPCS: 74176; 80053; 83735; 84484; 85025; 93005; J1885; J2405

== ENCOUNTER 2022-10-31 21:21 | Emergency (ER) | payer BC ==
[2022-10-31] MEDS ORDERED: Ondansetron ODT 4 MG TAB ONE (22:13)
[2022-10-31 22:16] LABS: #Eosinphils 0.1 thou/uL (0.0-0.7); #Monocytes 0.3 thou/uL (0.11-0.59); #Neutrophils 1.3 thou/uL (1.40-6.50); %Basophils 0.7 % (0.0-1.0); %Eosinophils 3.3 % (0.0-10.0); %Lymphocytes 37.5 % (21.0-51.0); %Monocytes 11.5 % (0.0-10.0); %Neutrophils 46.6 % (42.0-75.0); Mean Corpuscular HGB CONC 30.6 g/dL (32.0-36.0); Mean Corpuscular Hemoglobin 29.1 pg (27.0-31.0); Mean Corpuscular Volume 95.1 fl (78.0-98.0); Mean Platelet Volume 9.8 fL (7.4-10.4); Platelet Count 152 10x3/uL (130-400); RBC Distribution Width 19.3 % (11.5-14.5); Red Blood Cell (RBC) Count 4.26 mill/uL (4.70-6.10); White Blood Cell (WBC) Count 2.7 10x3/uL (4.8-10.8)
[2022-10-31 22:24] LABS: Anion Gap 16 mmol/L (10-20); BUN (Urea Nitrogen) 49 mg/dL (8.9-20.6); Calc. Creatinine Clearance 0 mL/min (70-130); Calcium 8.8 mg/dL (7.8-10.44); Carbon Dioxide 20 mmol/L (22-29); Chloride 101 mmol/L (98-107); Estimated GFR 5; Glucose 106 mg/dL (70-105); Potassium 3.3 mmol/L (3.5-5.1); Sodium 134 mmol/L (136-145)
[2022-10-31 22:39] LABS: Hemoglobin 12.4 g/dL (14.0-18.0)
== END 2022-10-31 22:32 | disposition home or self-care (01) ==
LOC: ERS 21:21
DX: I12.9 Hypertensive chronic kidney disease with stage 1 through stage 4 chronic kidney disease, or unspecified chronic kidney disease (principal); N18.9 Chronic kidney disease, unspecified; B20 Human immunodeficiency virus [HIV] disease; Z99.2 Dependence on renal dialysis; Z79.82 Long term (current) use of aspirin; Z79.899 Other long term (current) drug therapy
CPT/HCPCS: 36415; 74176; 80053; 83735; 84484; 85025; 93005; 96374; 96375; J1885; J2405; Q0162

== ENCOUNTER 2022-11-02 11:00 | Emergency (ER) | payer BC | END 2022-11-02 11:15 | disposition home or self-care (01) | LOC: ERS 11:00 | DX: I12.9 Hypertensive chronic kidney disease with stage 1 through stage 4 chronic kidney disease, or unspecified chronic kidney disease (principal); N18.9 Chronic kidney disease, unspecified; B20 Human immunodeficiency virus [HIV] disease; Z99.2 Dependence on renal dialysis; Z79.82 Long term (current) use of aspirin; Z79.899 Other long term (current) drug therapy | CPT/HCPCS: 99283 ==

== ENCOUNTER 2023-04-14 14:34 | Inpatient (IN) | payer BC, OTHER ==
[~2023-04-14 14:34] MED LIST changes: -Heparin 10,000 UNITS/ 10 ML VIAL ONE; +Iopamidol-370 76% 500 ML MDV (1 ML CHARGE) ONE
[2023-04-14] MEDS ORDERED: niCARdipine 25 MG/10 ML SDV ONE (14:55)
[2023-04-14] MEDS ORDERED: Sodium Chloride 0.9% 250 ML 250 ML ONE (14:57)
[2023-04-14 15:40] LABS: #Eosinphils 0.1 thou/uL (0.0-0.7); #Monocytes 0.5 thou/uL (0.11-0.59); #Neutrophils 2.6 thou/uL (1.40-6.50); %Basophils 0.7 % (0.0-1.0); %Eosinophils 1.3 % (0.0-10.0); %Lymphocytes 30.3 % (21.0-51.0); %Monocytes 9.9 % (0.0-10.0); %Neutrophils 57.4 % (42.0-75.0); Hematocrit 34.5 % (42.0-52.0); Hemoglobin 11.1 g/dL (14.0-18.0); Mean Corpuscular HGB CONC 32.2 g/dL (32.0-36.0); Mean Corpuscular Hemoglobin 29.7 pg (27.0-31.0); Mean Corpuscular Volume 92.2 fl (78.0-98.0); Mean Platelet Volume 9.6 fL (7.4-10.4); Platelet Count 169 10x3/uL (130-400); RBC Distribution Width 17.4 % (11.5-14.5); Red Blood Cell (RBC) Count 3.74 mill/uL (4.70-6.10); White Blood Cell (WBC) Count 4.6 10x3/uL (4.8-10.8)
[2023-04-14 15:54] LABS: INR-International Normal Ratio 1.2; Prothrombin Time 14.9 sec (12.0-14.7)
[2023-04-14 15:55] LABS: PTT 38.5 sec (22.9-36.1)
[2023-04-14] MEDS ORDERED: Morphine 4 MG/ML VIAL ONE ×2 (16:07→23:46)
[2023-04-14 16:08] LABS: ALT (SGPT) 8 U/L (8-55); AST (SGOT) 26 U/L (5-34); Albumin 3.8 g/dL (3.5-5.0); Alkaline Phosphatase 96 U/L (40-110); Anion Gap 15 mmol/L (10-20); BUN (Urea Nitrogen) 24 mg/dL (8.9-20.6); Bilirubin, Total 0.8 mg/dL (0.2-1.2); Calc. Creatinine Clearance 0 mL/min (70-130); Calcium 8.8 mg/dL (7.8-10.44); Carbon Dioxide 22 mmol/L (22-29); Chloride 99 mmol/L (98-107); Estimated GFR 6; Globulin 4.8 g/dL (2.4-3.5); Glucose 130 mg/dL (70-105); Protein, Total 8.6 g/dL (6.0-8.3); Sodium 132 mmol/L (136-145)
[2023-04-14 16:10] LABS: Troponin I 0.078 ng/mL (< 0.028)
[2023-04-14] MEDS ORDERED: hydrALAZINE 20 MG/ML VIAL ONE (16:23)
[2023-04-14] MEDS ORDERED: Ondansetron PF 4 MG/2 ML Vial IVP PRN (17:07)
[2023-04-14] MEDS ORDERED: Bisacodyl 10 MG SUPP PR PRN (17:07)
[2023-04-14] MEDS ORDERED: Senokot S 8.6-50 MG TAB PO PRN (17:07)
[2023-04-14] MEDS ORDERED: Bisacodyl 5 MG TAB PO PRN (17:07)
[2023-04-14] MEDS ORDERED: hydrALAZINE 20 MG/ML VIAL SLOW IVP PRN (17:07)
[2023-04-14] MEDS ORDERED: Aspirin 325 MG TAB PO SCH (17:15)
[2023-04-14 18:15] LABS: Hemoglobin A1c 4.9 % (4.0-6.0)
[2023-04-14 18:25] LABS: Troponin I 0.093 ng/mL (< 0.028)
[2023-04-14] MEDS ORDERED: Aspirin Chewable 81 MG TAB ONE ×2 (18:29→18:30)
[2023-04-14 18:32] LABS: Acetaminophen Less than 10 mcg/mL (10.0-30.0); Alcohol Less than 10.0 mg/dL (Less than 10); Salicylate Less than 8.0 mg/dL (15.0-30.0)
[2023-04-14 20:44] LABS: Troponin I 0.136 ng/mL (< 0.028)
[2023-04-14] MEDS ORDERED: Atorvastatin Calcium 40 MG TAB ONE (21:32)
[2023-04-14] MEDS ORDERED: Acetaminophen 325 MG TAB ONE (21:32)
[2023-04-14] MEDS ORDERED: Heparin 5,000 UNITS/ML VIAL ONE (21:33)
[2023-04-14] MEDS: Acetaminophen 325 MG TAB PO PRN (21:41)
[2023-04-14] MEDS: Heparin 5,000 UNITS/ML VIAL SC SCH (21:43)
[2023-04-14] MEDS: Atorvastatin Calcium 40 MG TAB PO SCH (21:43)
[2023-04-14] MEDS ORDERED: Ondansetron PF 4 MG/2 ML Vial ONE (23:46)
[2023-04-14] MEDS: Morphine 2 MG/ML VIAL SLOW IVP PRN (23:49)
[2023-04-15 01:58] VITALS: BMI 25.1
[2023-04-15] MEDS ORDERED: Morphine 2 MG/ML VIAL ONE (04:52)
[2023-04-15] MEDS: Morphine 2 MG/ML VIAL SLOW IVP PRN ×3 (04:57→20:16)
[2023-04-15] MEDS ORDERED: Labetalol HCl 100 MG/20 ML VIAL ONE (05:01)
[2023-04-15 05:09] LABS: #Eosinphils 0.1 thou/uL (0.0-0.7); #Monocytes 0.4 thou/uL (0.11-0.59); #Neutrophils 2.9 thou/uL (1.40-6.50); %Basophils 0.4 % (0.0-1.0); %Eosinophils 2.6 % (0.0-10.0); %Lymphocytes 34.4 % (21.0-51.0); %Monocytes 7.9 % (0.0-10.0); %Neutrophils 54.3 % (42.0-75.0); Hematocrit 36.3 % (42.0-52.0); Hemoglobin 11.7 g/dL (14.0-18.0); Mean Corpuscular HGB CONC 32.2 g/dL (32.0-36.0); Mean Corpuscular Hemoglobin 30.3 pg (27.0-31.0); Mean Platelet Volume 10.6 fL (7.4-10.4); Platelet Count 178 10x3/uL (130-400); RBC Distribution Width 18.1 % (11.5-14.5); Red Blood Cell (RBC) Count 3.86 mill/uL (4.70-6.10); White Blood Cell (WBC) Count 5.4 10x3/uL (4.8-10.8)
[2023-04-15] MEDS: Labetalol HCl 100 MG/20 ML VIAL SLOW IVP PRN ×2 (05:09→11:04)
[2023-04-15 05:39] LABS: Anion Gap 18 mmol/L (10-20); BUN (Urea Nitrogen) 26 mg/dL (8.9-20.6); Calc. Creatinine Clearance 12 mL/min (70-130); Calcium 8.6 mg/dL (7.8-10.44); Carbon Dioxide 21 mmol/L (22-29); Cardiac Risk 5.3 (Less than 4.5); Chloride 96 mmol/L (98-107); Cholesterol 159 mg/dl (< 200 Desired); Estimated GFR 6; Glucose 86 mg/dL (70-105); HDL Cholesterol 30 mg/dL (>60 Neg Risk); LDL Cholesterol, Calculated 113 mg/dL; Magnesium 2.3 mg/dL (1.6-2.6); Potassium 3.7 mmol/L (3.5-5.1); Sodium 131 mmol/L (136-145); Triglycerides 81 mg/dL (Less than 150)
[2023-04-15 05:41] LABS: ALT (SGPT) Less than 7 U/L (8-55); AST (SGOT) 16 U/L (5-34); Albumin 3.6 g/dL (3.5-5.0); Alkaline Phosphatase 99 U/L (40-110); Bilirubin, Direct 0.3 mg/dL (0.1-0.3); Bilirubin, Total 0.8 mg/dL (0.2-1.2); Protein, Total 8.1 g/dL (6.0-8.3)
[2023-04-15 05:57] LABS: Thyroid Stimulating Hormone 0.8895 uIU/mL (0.35-4.94)
[2023-04-15] MEDS ORDERED: Acetaminophen 325 MG TAB ONE (08:17)
[2023-04-15] MEDS: Acetaminophen 325 MG TAB PO PRN ×2 (08:20→21:01)
[2023-04-15] MEDS ORDERED: Aspirin Chewable 81 MG TAB PO SCH (09:00)
[2023-04-15] MEDS ORDERED: Heparin 10,000 UNITS/ 10 ML VIAL ONE (09:07)
[2023-04-15] MEDS: Heparin 5,000 UNITS/ML VIAL SC SCH ×2 (11:05→20:16)
[2023-04-15] MEDS ORDERED: FLU VACC QS2023-24(6MOS UP)/PF 60 MCG/0.5 ML SYRINGE IM ONE (11:15)
[2023-04-15] MEDS ORDERED: tiZANidine HCl 4 MG TAB PO PRN (11:38)
[2023-04-15] MEDS ORDERED: Labetalol HCl 100 MG/20 ML VIAL SLOW IVP PRN (11:45)
[2023-04-15] MEDS ORDERED: Gabapentin 300 MG CAP PO SCH (15:00)
[2023-04-15] MEDS: Sevelamer Carbonate 800 MG TAB PO SCH ×2 (15:18→18:50)
[2023-04-15] MEDS ORDERED: Gabapentin 100 MG CAP PO SCH (17:00)
[2023-04-15 17:16] LABS: Amphetamine Not Detected (NotDetected); Barbiturates Screen Not Detected (NotDetected); Benzodiazepine Screen Not Detected (NotDetected); Cocaine Metabolite Screen Not Detected (NotDetected); Methadone Not Detected (NotDetected); Methamphetamine Not Detected (NotDetected); Opiate Screen Detected (NotDetected); Oxycodone Screen Not Detected (NotDetected); Phencyclidine (PCP) Not Detected (NotDetected); THC/Cannabinoid Screen Detected (NotDetected); Tricyclic Screen Not Detected (NotDetected)
[2023-04-15] MEDS: hydrALAZINE 25 MG TAB PO SCH ×2 (18:22→20:15)
[2023-04-15 19:22] LABS: Syphilis Antibody INDETERMINATE (Nonreactive)
[2023-04-15] MEDS: Atorvastatin Calcium 40 MG TAB PO SCH (20:15)
[2023-04-16] MEDS: Morphine 2 MG/ML VIAL SLOW IVP PRN ×4 (00:39→14:49)
[2023-04-16] MEDS: hydrALAZINE 20 MG/ML VIAL SLOW IVP PRN ×3 (03:26→12:40)
[2023-04-16 05:59] LABS: #Eosinphils 0.2 thou/uL (0.0-0.7); #Monocytes 0.4 thou/uL (0.11-0.59); #Neutrophils 2.6 thou/uL (1.40-6.50); %Basophils 0.6 % (0.0-1.0); %Eosinophils 3.2 % (0.0-10.0); %Lymphocytes 32.3 % (21.0-51.0); %Neutrophils 54.7 % (42.0-75.0); Hematocrit 34.3 % (42.0-52.0); Hemoglobin 10.7 g/dL (14.0-18.0); Mean Corpuscular HGB CONC 31.2 g/dL (32.0-36.0); Mean Corpuscular Hemoglobin 29.2 pg (27.0-31.0); Mean Corpuscular Volume 93.7 fl (78.0-98.0); Mean Platelet Volume 9.5 fL (7.4-10.4); Platelet Count 165 10x3/uL (130-400); RBC Distribution Width 17.7 % (11.5-14.5); Red Blood Cell (RBC) Count 3.66 mill/uL (4.70-6.10); White Blood Cell (WBC) Count 4.7 10x3/uL (4.8-10.8)
[2023-04-16 06:28] LABS: Anion Gap 14 mmol/L (10-20); BUN (Urea Nitrogen) 15 mg/dL (8.9-20.6); Calc. Creatinine Clearance 17 mL/min (70-130); Calcium 8.6 mg/dL (7.8-10.44); Carbon Dioxide 26 mmol/L (22-29); Chloride 98 mmol/L (98-107); Estimated GFR 9; Glucose 99 mg/dL (70-105); Magnesium 2.1 mg/dL (1.6-2.6); Sodium 135 mmol/L (136-145)
[2023-04-16] MEDS: Sevelamer Carbonate 800 MG TAB PO SCH ×2 (08:18→12:41)
[2023-04-16] MEDS: Acetaminophen 325 MG TAB PO PRN (08:18)
[2023-04-16] MEDS: hydrALAZINE 25 MG TAB PO SCH ×2 (08:18→14:47)
[2023-04-16] MEDS: Heparin 5,000 UNITS/ML VIAL SC SCH (08:19)
[2023-04-16] MEDS ORDERED: Losartan 25 MG TAB PO SCH (09:00)
[2023-04-16] MEDS ORDERED: FLUoxetine HCl 20 MG CAP PO SCH (09:00)
[2023-04-16] MEDS ORDERED: Aspirin Chewable 81 MG TAB PO SCH (09:00)
[2023-04-16] MEDS ORDERED: Amlodipine 10 MG TAB PO SCH (09:00)
[2023-04-16 12:18] VITALS: TEMP 98.5
[2023-04-16 14:52] VITALS: BP 168/93
[2023-04-16 17:37] LABS: %CD4 (Helper/Inducer) 37.3 % (30.8-58.5); Absolute CD4 709 /uL (359-1519); Lymphocytes/Gated Cell Count 1.9 x10E3/uL (0.7-3.1); Total Lymphocyte 35 % (Not Estab.); WBC Total Count 5.4 x10E3/uL (3.4-10.8)
[2023-04-16] MEDS ORDERED: [UNRECOGNIZED DRUG - OTHER] PO SCH (21:00)
[2023-04-17 21:09] LABS: LOG10 HIV-1 RNA 2.176 (.)
== END 2023-04-16 15:28 | disposition home or self-care (01) | DRG 880 ==
LOC: SUATTDRO 14:34 → ERS 14:34 → ERHOLD 17:11 → 2SW 04-15 09:26 → OBSVTOIN 04-16 11:48
PROVIDERS: ADMIT Family Medicine; ATTEND Internal Medicine
DX: F44.4 Conversion disorder with motor symptom or deficit (principal); N18.6 End stage renal disease; B02.29 Other postherpetic nervous system involvement; B20 Human immunodeficiency virus [HIV] disease; I47.10 Supraventricular tachycardia, unspecified; I16.1 Hypertensive emergency; E87.1 Hypo-osmolality and hyponatremia; I12.0 Hypertensive chronic kidney disease with stage 5 chronic kidney disease or end stage renal disease; F41.9 Anxiety disorder, unspecified; G62.9 Polyneuropathy, unspecified; I16.0 Hypertensive urgency; R73.9 Hyperglycemia, unspecified; I45.81 Long QT syndrome; H54.40 Blindness, one eye, unspecified eye; I48.91 Unspecified atrial fibrillation; D63.1 Anemia in chronic kidney disease; D72.89 Other specified disorders of white blood cells; F12.10 Cannabis abuse, uncomplicated; F17.210 Nicotine dependence, cigarettes, uncomplicated; Z79.899 Other long term (current) drug therapy; Z99.2 Dependence on renal dialysis; Z98.890 Other specified postprocedural states; Z79.82 Long term (current) use of aspirin
CPT/HCPCS: 36415; 36416; 70450; 70496; 70498; 70551; 71275; 72141; 72146; 74174; 80048; 80053; 80061; 80076; 80306; 80307; 82607; 83036; 83735; 84443; 84484; 85025; 85610; 85730; 86361; 86593; 86780; 86850; 86900; 86901; 87536; 90471; 90686; 90935; 93005; 93010; 96372; 96374; 96375; 96376; G0008; G0257; G0378; J0360; J1644; J2270; J2272; J2405; J7050; Q9967

== ENCOUNTER 2023-05-01 23:09 | Emergency (ER) | payer MEDICAID ==
[2023-05-02 02:25] LABS: #Basophils 0.1 thou/uL (0.0-0.2); #Monocytes 0.6 thou/uL (0.11-0.59); #Neutrophils 7.5 thou/uL (1.40-6.50); %Basophils 0.5 % (0.0-1.0); %Eosinophils 0.4 % (0.0-10.0); %Lymphocytes 11.4 % (21.0-51.0); %Monocytes 6.9 % (0.0-10.0); %Neutrophils 80.4 % (42.0-75.0); Hematocrit 35.3 % (42.0-52.0); Hemoglobin 11.3 g/dL (14.0-18.0); Mean Corpuscular Hemoglobin 29.7 pg (27.0-31.0); Mean Corpuscular Volume 92.7 fl (78.0-98.0); Mean Platelet Volume 9.7 fL (7.4-10.4); Platelet Count 252 10x3/uL (130-400); Red Blood Cell (RBC) Count 3.81 mill/uL (4.70-6.10); White Blood Cell (WBC) Count 9.3 10x3/uL (4.8-10.8)
[2023-05-02 02:54] LABS: ALT (SGPT) 10 U/L (8-55); AST (SGOT) 17 U/L (5-34); Alkaline Phosphatase 113 U/L (40-110); Anion Gap 24 mmol/L (10-20); BUN (Urea Nitrogen) 51 mg/dL (8.9-20.6); Bilirubin, Total 0.9 mg/dL (0.2-1.2); Calc. Creatinine Clearance 0 mL/min (70-130); Calcium 9.8 mg/dL (7.8-10.44); Carbon Dioxide 20 mmol/L (22-29); Chloride 95 mmol/L (98-107); Estimated GFR 6; Globulin 5.1 g/dL (2.4-3.5); Glucose 90 mg/dL (70-105); Potassium 4.4 mmol/L (3.5-5.1); Protein, Total 9.1 g/dL (6.0-8.3); Sodium 135 mmol/L (136-145)
[2023-05-02] MEDS ORDERED: Labetalol HCl 100 MG/20 ML VIAL ONE (03:31)
[2023-05-02 05:22] LABS: Lactic Acid 3.3 mmol/L (0.5-2.2)
[2023-05-02] MEDS ORDERED: Heparin 10,000 UNITS/ 10 ML VIAL ONE (12:59)
== END 2023-05-02 10:34 ==
LOC: ERS 23:09
DX: I16.1 Hypertensive emergency (principal); R42 Dizziness and giddiness; M54.9 Dorsalgia, unspecified; I11.0 Hypertensive heart disease with heart failure; I50.9 Heart failure, unspecified; Z79.82 Long term (current) use of aspirin; Z79.899 Other long term (current) drug therapy; Z21 Asymptomatic human immunodeficiency virus [HIV] infection status
CPT/HCPCS: 36415; 80053; 83605; 85025; 90935; 96374; 96375; G0257; J1644; J1790